=== PATIENT | male | born 1945 | race Caucasian/White ===

== ENCOUNTER 2017-10-20 01:55 | Inpatient (IN) | payer BC, MEDICARE, SELFPAY ==
[2017-10-20] VITALS (17 sets, daily range): BP systolic 154–191; BP diastolic 78–98; PULSE 60–84; RESP 18–23; TEMP 36.5–36.9; O2SAT 83–98; BMI 23.3; BMI 22.5; BMI 22.6
--- NOTE | 2017-10-20 02:19 | EKG12_ITS ---
Test Reason : SOB Blood Pressure : / mmHG Vent. Rate : 065 BPM Atrial Rate : 065 BPM P-R Int : 172 ms QRS Dur : 104 ms QT Int : 446 ms P-R-T Axes : 061 063 108 degrees QTc Int : 463 ms Normal sinus rhythm ST & T wave abnormality, consider lateral ischemia Prolonged QT Abnormal ECG Confirmed by RENATA SAMSON, JAIDEN ([id number]), material expeditor MARCELINA SANTIAGO ([id number]) on 10/22/2017 3:51:00 PM Referred By: BB Confirmed By:JAIDEN YANEZ MD
--- NOTE | 2017-10-20 02:20 | ED.VISSUMM ---
- ER Visit Summary Date of Service: 10/20/17 Chief Complaint: Shortness of breath History of Present Illness: The patient is a 71 M with 2-3 days gradual onset and worsening dyspnea. Better tonight after he used a rescue inhaler, but still dyspneic. No chest discomfort or tightness. No orthopnea, but he is worse with exertion and exposure to the cold air. No peripheral swelling. Has a history of COPD but is on no home oxygen. 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 Had a cardiac stent placed remotely. Physical Examination: Hypoxic at 82% on room air, 95% on 4 L nasal cannula. Otherwise vital signs show hypertension 191/98 initially, 179 systolic on my exam. He is not tachycardic. He is tachypneic and in mild respiratory distress but is able to speak in 5-7 word sentences. Lungs are wheezy and rhonchorous throughout, a little worse on the right. Trachea midline. Heart is regular with a 3/6 systolic ejection murmur. Abdomen is soft nontender nondistended with normal bowel sounds present. No peripheral edema or calf tenderness. No JVD. Test Results: Labs show renal insufficiency, there is no old creatinine available; his proBNP is only in the 300s, which is within normal limits for a patient of this age; no leukocytosis or elevated troponin. EKG is unremarkable. Chest x-ray on my interpretation shows bilateral patchy infiltrates and borderline cardiomegaly. Emergency Department Course and Treatment: After nebulizer treatment series, he feels much better. On reexamination, his wheezing is gone, however he still has rales bilaterally. I suspect his chest x-ray represents an atypical pneumonia, rather than congestive heart failure due to his valve, which I suspect is aortic stenosis but I do not have the results of any of the echocardiograms he has had in the past. I turned his oxygen off, he is stable at 90% on room air. I think he should be admitted for further treatment. Empiric Levaquin given, no recent hospital admissions in the past several months. His influenza swab is negative. Discussed with hospitalist. Will also give Solu-Medrol. Treatment Plan: Antibiotics, admit Disposition: Admit MedSurg Impression: Community-acquired pneumonia Hypoxemia Acute COPD exacerbation This note was generated with [employer] dictation software. It may contain incorrect words, spelling, and punctuation that were not noted in review of the chart prior to signing ED Disposition - Plan for ED Patient: Disposition: Acute Care Hospital [facility] Chief Complaint: Shortness of Breath Referrals: Yeison Maynard MD [Primary Care Provider] -
[2017-10-20] MEDS: Ipratropium/Albuterol Sulfate 3 ML AMPUL.NEB INHALATION (02:27)
[2017-10-20] MEDS: Albuterol 2.5 MG/3 ML VIAL.NEB. INHALATION ×3 (02:27→02:54)
[2017-10-20 02:37] LABS: Absolute Neutrophil Count 5.4 X10^3/uL (2.0-7.7); Basophil# 0.02 X10^3/uL; Basophil% 0.3 % (0-1); Eosinophil# 0.21 X10^3/uL; Eosinophils% 2.7 % (0-5); Hemoglobin 12.4 g/dl (13.0-16.5); Lymphocyte % 22.1 % (19-41); Mean Corp Hgb Conc 32.6 g/gl (32-36); Mean Corpuscular Hgb 27.2 pg (27.0-32.0); Mean Corpuscular Volume 83.3 fL (80-94); Monocyte# 0.37 X10^3/uL; Monocyte% 4.8 % (0-10); Neutrophil # 5.39 X10^3/uL (2.7-7.7); Neutrophil % 70.1 % (47-70); Platelet Count 166 K/mm3 (150-450); RBC Distribution Width CV 14.2 % (11.6-14.6); RBC Distribution Width SD 43.1 fl (35.1-43.9); Red Blood Count 4.56 M/mm3 (4.6-6.2); White Blood Count 7.7 K/mm3 (4.4-11.0)
[2017-10-20 02:39] LABS: POSITIVE COUNT NO; POSITIVE DIFFERENTIAL NO; POSITIVE MORPHOLOGY NO
[2017-10-20 02:55] LABS: Anion Gap 9 (5-15); BUN 20 mg/dL (7-18); BUN/Creat Ratio 13.2 RATIO (10-20); Calcium,Total 8.5 mg/dL (8.5-10.1); Chloride 106 mmol/L (98-107); Creatinine, Serum 1.51 mg/dL (0.70-1.30); EST Glomerular Filtration Rate 49 mL/min (>60); Est Glom Filt Rate - Afr Amer 59 mL/min (>60); Estimated Creatinine Clearance 53.68 ml/min; Glucose 115 mg/dL (74-106); Sodium Level 142 mmol/L (136-145)
[2017-10-20 03:08] LABS: BNP,B-Type NATRIURETIC PEPTIDE 382.5 pg/mL (0-100)
--- NOTE | 2017-10-20 03:15 | RAD_ITS ---
STUDY: X-RAY CHEST REASON FOR EXAM: Male, 71 years old. Shortness of breath. Dyspnea. TECHNIQUE: Frontal and lateral views of the chest. COMPARISON: None. FINDINGS: There is hyperinflation of the lungs consistent with chronic obstructive lung disease (COPD). There is diffuse interstitial prominence in the lungs. This probably represent a combination of chronic interstitial lung disease and acute CHF. There is a small right pleural effusion. There is mild cardiac enlargement. Normal mediastinum and dennis. Normal visualized pulmonary arteries. Normal visualized aortic arch and descending thoracic aorta. There are diffuse degenerative changes of the visualized thoracic spine. Normal visualized ribs, clavicles, and shoulders. There is no demonstrated abnormality of the visualized soft tissue structures of the upper abdomen. RAD/Chest PA and Lateral IMPRESSION: COPD with evidence for chronic interstitial lung disease. Cardiomegaly without acute CHF and small right pleural effusion. Electronically Signed: Philip Meza MD at 5:03 EST , Service support ,
[2017-10-20] MEDS: MethylPREDNISolone 125 MG/2 ML Vial IV (04:29)
--- NOTE | 2017-10-20 04:42 | PCM.HP.STD ---
Problem List (1) HTN (hypertension) Status: Chronic (2) COPD (chronic obstructive pulmonary disease) Status: Acute (3) CAP (community acquired pneumonia) Status: Acute History of Present Illness Date of Admission: 10/20/17 Chief Complaint: CAP The patient is a 71 year old male w/ h/o COPD and HTN admitted for CAP. Pt has been SOB since Saturday when walking out in the cold air. SOB has gotten progressively worse. He feels SOB most part of the day for the past few days. SOB is severe that it interfered with his ADLs. He has minimal cough associated wit the SOB. The intensity and frequency of the cough have been unchanged. Cough is productive. He has no fever or chill. No other associated symptoms. Past Medical History Past Medical History (Chronic Problems): Chronic Problems HTN (hypertension) (Chronic) Allergies No Known Allergies Allergy (Verified 10/20/17 01:59) Home Medications: Ambulatory Orders Medication Instructions Recorded Albuterol IH (ProAir) [Proair Hfa 1 - 2 puff INHALATION Q4H PRN PRN 10/20/17 (SP)Vent Pts] Atorvastatin Calcium 40 mg PO DAILY 10/20/17 Levothyroxine 75 mcg PO DAILY 10/20/17 Lisinopril 20 mg PO DAILY 10/20/17 Metoprolol Tartrate 50 mg PO BID 10/20/17 Niacin 500 mg PO DAILY 10/20/17 Lives: With Family Smoking Status: Former smoker Alcohol: None Drugs: None - *Family History Maternal History Items: No pertinent history Review of Systems Constitutional: Denies: Chills, Fever, Weight Change HEENT: Denies: Head Aches, Sinus Congestion, Sinus Drainage Cardiovascular: Denies: Chest Pain, Palpitations Respiratory: Reports: Cough, Shortness of Breath, Sputum production. Denies: Shortness of breath at rest Gastrointestinal: Denies: Abdominal Pain, Nausea, Vomiting Genitourinary: Denies: Dysuria Musculoskeletal: Denies: Joint Pain, Joint Tenderness Skin: Denies: Rash, Wounds Neurological: Denies: Numbness, Tingling, Focal weakness Psychiatric: Denies: Anxiety, Depression, Homicidal Ideations, Suicidal Ideations Hematologic/ Lymphatic: Denies: Easy Bruising, Easy Bleeding VTE Information - Inpt Only VTE Present on Admission: No VTE Mechan Device Prophylaxis: SCD's VTE Pharm Prophylaxis ordered?: Yes Patient Problems: Active and Suspected Problems COPD (chronic obstructive pulmonary disease) (Acute) CAP (community acquired pneumonia) (Acute) - Physical Exam General: Alert, Oriented x3, Cooperative HEENT: Atraumatic, PERRLA, EOMI, Normocephalic Neck: Supple, No JVD, Negative Carotid Bruits Lungs: Rales, Wheezes Cardiovascular: Regular rate, No murmurs Abdomen: Bowel Sounds Present, Soft, Non Tender Extremities: No edema, Capillary Refill Less than 3 Seconds Skin: No rashes, No breakdown Musculoskeletal: No Tenderness to Palpation of Joints or Extremities Neurological: Cranial nerves II-XII grossly intact Psych/Mental Status: Normal Affect, Appropriate Vital Signs Temp Pulse Resp BP Pulse Ox 97.7 F L 73 18 164/86 H 96 10/20/17 01:56 10/20/17 04:34 10/20/17 04:34 10/20/17 04:34 10/20/17 04:34 Oxygen Flow Rate 2 Oxygen Delivery Method Nasal Cannula Weight: 82.6 kg Body Mass Index (BMI) 23.3 Microbiology Past 72 Hours 10/20/17 02:30 Influenza Types A,B Direct FA (ALEXA) - Final Mucosa - Nose Laboratory Tests Past 24 Hrs 10/20/17 10/20/17 10/20/17 02:10 02:10 02:10 WBC 7.7 RBC 4.56 L Hgb 12.4 L Hct 38.0 L MCV 83.3 MCH 27.2 MCHC 32.6 RDW 14.2 RDW Differential 43.1 Plt Count 166 MPV 10.0 Immature Gran % (Auto) 0.000 Neut % (Auto) 70.1 H Lymph % (Auto) 22.1 [place] % (Auto) 4.8 Eos % (Auto) 2.7 Baso % (Auto) 0.3 Absolute Neuts (auto) 5.4 Absolute Lymphs (auto) 1.70 Total Counted Not Reportable Sodium 142 Potassium 4.0 Chloride 106 Carbon Dioxide 27.0 Anion Gap 9 BUN 20 H Creatinine 1.51 H Estim Creat Clear Calc 53.68 Est GFR (MDRD) Af Amer 59 L Est GFR (MDRD) Non-Af 49 L BUN/Creatinine Ratio 13.2 Glucose 115 H Calcium 8.5 Troponin I 0.02 B-Natriuretic Peptide 382.5 H Assessment/Plan Active and Suspected Problems COPD (chronic obstructive pulmonary disease) (Acute) CAP (community acquired pneumonia) (Acute) 71 year old male w/ h/o COPD and HTN admitted for CAP. 1) Acute on chronic COPD exacerbation: Most likely secondary to CAP. C/w solumedrol, ceftriaxone, azithromycin, and bronchodilator. C/w chest therapy. Cultures pending. 2) Acute hypoxic respiratory failure: Likely CAP. Chest xray disclosed possible right lower lobe atelectasis vs infiltrate. BNP 380s noted. No e/o severe or gross congestion. Will consider PE if no improvement. D-dimer pending. 3) Chronic issues: HTN, lipidemia: Resume home meds. 4) Prophylaxis: SCD / heparin.
[2017-10-20] MEDS: Metoprolol Tartrate 50 MG Tablet PO ×2 (06:24→22:46)
[2017-10-20] MEDS: Levothyroxine 75 MCG Tablet PO (06:24)
[2017-10-20 07:21] LABS: Absolute Lymphocyte Count 0.51 X10^3/ul (0.83-4.51); Absolute Neutrophil Count 9.3 X10^3/uL (2.0-7.7); Basophil# 0.01 X10^3/uL; Basophil% 0.1 % (0-1); Eosinophil# 0.01 X10^3/uL; Eosinophils% 0.1 % (0-5); Hematocrit 36.8 % (40-54); Hemoglobin 12.1 g/dl (13.0-16.5); Lymphocyte # 0.51 X10^3/ul (4.0); Mean Corp Hgb Conc 32.9 g/gl (32-36); Mean Corpuscular Hgb 27.1 pg (27.0-32.0); Mean Corpuscular Volume 82.3 fL (80-94); Mean Platelet Vol. 10.2 fl (6.2-12.0); Monocyte# 0.26 X10^3/uL; Monocyte% 2.6 % (0-10); Neutrophil # 9.33 X10^3/uL (2.7-7.7); Neutrophil % 92.1 % (47-70); Platelet Count 164 K/mm3 (150-450); RBC Distribution Width CV 14.1 % (11.6-14.6); RBC Distribution Width SD 42.3 fl (35.1-43.9); Red Blood Count 4.47 M/mm3 (4.6-6.2); White Blood Count 10.1 K/mm3 (4.4-11.0)
[2017-10-20 07:22] LABS: Differential Indicated SCAN CRITERIA MET; POSITIVE COUNT NO; POSITIVE DIFFERENTIAL YES; POSITIVE MORPHOLOGY NO
[2017-10-20] MEDS: Ceftriaxone 1 GM/50 ML BAG IV (07:23)
[2017-10-20 07:34] LABS: D-Dimer Quantitative (DVT/PE) 0.93 FEU/ug/m (0.27-0.49)
--- NOTE | 2017-10-20 07:34 | PCM.PN.BLA ---
Progress Note Patient is a 71-year-old gentleman admitted with progressive shortness of breath imaging studies obtained on admission demonstrated COPD with evidence for chronic interstitial lung disease. Cardiomegaly without acute CHF and small right pleural effusion. Assessment of COPD exacerbation made admitted to regular nursing floor for subsequent management Patient is being seen and examined, his initial assessment including history and physical, diagnostic workup as well as management orders reviewed Patient was noted to have elevated d-dimer ordered VQ scan as well as venous duplex and a therapeutic dose of Lovenox given
[2017-10-20 08:27] LABS: ALB/GLOB Ratio 0.7 RATIO (0.9-2.4); AST(SGOT) 25 U/L (15-37); Alanine Aminotransfer ALT/SGPT 23 U/L (16-61); Albumin, Serum 3.1 g/dL (3.2-5.0); Alkaline Phosphatase 128 U/L (45-117); Anion Gap 11 (5-15); BUN 18 mg/dL (7-18); BUN/Creat Ratio 12.8 RATIO (10-20); Calcium,Total 7.8 mg/dL (8.5-10.1); Chloride 106 mmol/L (98-107); Creatinine, Serum 1.41 mg/dL (0.70-1.30); EST Glomerular Filtration Rate 53 mL/min (>60); Est Glom Filt Rate - Afr Amer 64 mL/min (>60); Estimated Creatinine Clearance 55.74 ml/min; Globulin 4.5 g/dL (2.2-4.2); Glucose 129 mg/dL (74-106); Potassium 3.4 mmol/L (3.5-5.1); Protein, Total 7.6 g/dL (6.4-8.2); Sodium Level 139 mmol/L (136-145)
[2017-10-20] MEDS: Lisinopril 20 MG Tablet PO (09:34)
[2017-10-20 10:11] LABS: Color, Urine Yellow (Yellow); Glucose, Dipstick Normal (Normal); Ketone-Dipstick Negative (Negative); Leukocyte Esterase-Dipstick Negative /ul (Negative); Nitrite-Dipstick Negative (Negative); Occult Blood-Urine 25 /ul (Negative); Protein-Dipstick 100 mg/dl (Negative); Specific Gravity, Urine 1.015 (1.002-1.030); Urine Bilirubin Dipstick Negative (Negative); Urine Clarity Clear (Clear); Urine Urobilinogen Normal (Normal)
--- NOTE | 2017-10-20 10:39 | NM_ITS ---
CLINICAL: 72-year-old male with reported history of shortness of breath. VENTILATION-PERFUSION LUNG SCINTIGRAPHY COMPARISON: Plain film chest radiograph report 10/20/2017 FINDINGS: The patient was administered 48.8 mCi 99m Tc DTPA aerosol. The aerosol ventilation study demonstrates heterogeneous ventilation in the bilateral lung partida without corresponding consolidative radiographic changes visualized on review of plain film chest x-ray dated 10/20/2017. Central clumping of the aerosol is identified in the bilateral hemithorax (L > R). Following the intravenous administration of 5.7 mCi of 99m Tc MAA, the pulmonary perfusion study reveals matching non-uniform perfusion in the right and left lungs correlating with the previously defined ventilation pattern. No moderate subsegmental or large segmental ventilation-perfusion mismatches are noted. NM/Lung Scan Vent/Perf IMPRESSION: 1. VERY LOW PROBABILITY FOR PULMONARY EMBOLUS (<10%) 99m Tc DTPA aerosol ventilation / 99m Tc MAA pulmonary perfusion imaging examination, according to PIOPED II interpretive criteria with regard given to the presence of > 2 ventilation-perfusion matches without corresponding radiographic changes. (Sotsman et al, Radiology 246: 941, 2008 Soruddy et al, J Nucl Med 49: 1741, 2008). 2. Central clumping of the aerosol may be secondary to obstructive airway mechanics and or clinical tachypnea. Electronically Signed: Dawit Fitzpatrick DO at 13:44 EST Tel , Service support ,
--- NOTE | 2017-10-20 10:39 | VDLE_ITS ---
Reason For Study: Elevated D-dimer RIGHT LEFT GSV is normal. GSV is normal. CFV is compressible, spontaneous, phasic, CFV is compressible, spontaneous, phasic, competent and demonstrates normal competent, and demonstrates normal augmentation. augmentation. FV is compressible, spontaneous, phasic, FV is compressible, spontaneous, phasic, competent and demonstrates normal competent and demonstrates normal augmentation. augmentation. POP V is compressible, spontaneous, phasic, POP V is compressible, spontaneous, phasic, competent and demonstrates normal competent and demonstrates normal augmentation. augmentation. T/P Trunk is compressible. T/P Trunk is compressible. PTV is compressible. PTV is compressible. RT PerV is compressible. LT PerV is compressible. Procedure Exam performed portable in patient room. The exam was diagnostic. A preliminary report was called and/or faxed to [facility] [employer] kiln charger. Interpretation Summary Deep veins of the lower extremities are bilaterally patent and compressible segmentally. There is no evidence of deep vein thrombosis on either side. Valvular competence appears intact within the proximal deep venous systems bilaterally. The greater saphenous veins appear bilaterally patent and compressible segmentally. Ordering Physician: Franco Lees Referring Physician: Yeison Maynard Performed By: Marlene Zhu, KLAUS, RVT
[2017-10-20 11:45] LABS: Bedside Glucose 165 mg/dL (70-110)
--- NOTE | 2017-10-20 12:04 | NURSING ---
rX NOTIFIED THERE IS NO LOVENOX IN ACCUDOSE, PLEASE SEND
[2017-10-20] MEDS: Enoxaparin 80 MG/0.8 ML Syringe SC (12:16)
[2017-10-20] MEDS: Atorvastatin Calcium 40 MG Tablet PO (22:47)
[2017-10-20] MEDS: Pantoprazole Sodium 40 MG Tablet PO (22:47)
[2017-10-21] VITALS (9 sets, daily range): BP systolic 149–153; BP diastolic 69–86; PULSE 51–69; RESP 16–18; TEMP 36.7–36.8; O2SAT 93–98
[2017-10-21] MEDS: Enoxaparin 30 MG/0.3 ML Syringe SC (05:48)
[2017-10-21] MEDS: Levothyroxine 75 MCG Tablet PO (05:48)
[2017-10-21] MEDS: Ceftriaxone 1 GM/50 ML BAG IV (09:20)
[2017-10-21] MEDS: Pantoprazole Sodium 40 MG Tablet PO (09:25)
[2017-10-21] MEDS: Metoprolol Tartrate 50 MG Tablet PO (09:25)
[2017-10-21] MEDS: Niacin SA 500 MG Tablet PO (09:25)
[2017-10-21] MEDS: Lisinopril 20 MG Tablet PO (09:25)
--- NOTE | 2017-10-21 11:15 | CASEMGMT ---
RN JOHN Face to Face with patient for initial transition planning/care coordination assessment. RN CM introduced self and role at [facility]. Patient lying in bed, alert and oriented. Patient willing to participate in assessment and is able to answer all questions appropriately. Care providers, pharmacy, and demographics verified. See link attached. Patient wishes to discharge home, denies need for home health at this time. Patient states he has no further needs or concerns at this time. CM to follow for discharge planning needs that may arise. Disposition Plan: Patient to discharge home with family support and follow-up plans in place.
--- NOTE | 2017-10-21 11:25 | PCA ---
pt off floor
--- NOTE | 2017-10-21 14:02 | PCM.DC ---
- Discharge Diagnoses Current Active Problems: Current Active and Chronic Problems HTN (hypertension) (Chronic) COPD (chronic obstructive pulmonary disease) (Acute) CAP (community acquired pneumonia) (Acute) You will use the following diet at home:: Regular Discharge Activity: Return to Normal Activity Allergies/Adverse Reactions: Allergies No Known Allergies Allergy (Verified 10/20/17 01:59) Medications to take at Discharge Albuterol IH (ProAir) [Proair Hfa] 1 - 2 puff INHALATION Q4H PRN PRN 10/20/17 Aspirin 325 mg PO DAILY 10/20/17 Atorvastatin Calcium 40 mg PO QHS 10/20/17 Levothyroxine 75 mcg PO DAILY 10/20/17 Lisinopril 20 mg PO DAILY 10/20/17 Metoprolol Tartrate 50 mg PO BID 10/20/17 Niacin 500 mg PO DAILY 10/20/17 Azithromycin [Zithromax] 250 mg PO DAILY #5 tab 10/21/17 Prednisone [Deltasone] 40 mg PO DAILY #10 tab 10/21/17 The following prescriptions were given: Azithromycin [Zithromax] 250 mg PO DAILY #5 tab Prednisone [Deltasone] 40 mg PO DAILY #10 tab Primary Care Physician: Yeison Maynard MD [Primary Care Provider] - In 1 Week Proposed Discharge Date: 10/21/17
--- NOTE | 2017-10-21 14:05 | PCM.DC.SUM ---
Discharge Date and Diagnosis Date of Admission: 10/20/17 Date of Discharge: 10/21/17 - Primary Discharge Diagnosis Active and Suspected Problems COPD (chronic obstructive pulmonary disease) (Acute) CAP (community acquired pneumonia) (Acute) - Secondary Discharge Diagnosis Chronic Problems HTN (hypertension) (Chronic) Hospital Course and Treatment Summary of Care Provided: The patient is a 71 M presented to the emergency room due to 3 days of gradual onset and worsening dyspnea. chest X-ray done in the emergency room was negative for pneumonia or congestive heart failure. Was placed on IV steroids, IV antibiotics and bronchodilators and admitted to the regular medical floor. He also underwent VQ scan and showed low probability for PE. Patient improved with treatment above, he was discharged home on prednisone, p.o. Zithromax and bronchodilators. He has a history of lung nodule which he follows up with his primary care physician. physical exam at the time of discharge; vital signs were stable. He was alert and oriented to time place and person. He did not appear to be any form of distress. S1 and S2 heard no murmur or gallop Lung exam was clear to auscultation with no adventitious sounds. Abdomen was soft nontender with normal bowel sounds. extremity exam did not reveal any edema, palpable pulses bilaterally. Neurologic exam was grossly intact. Discharge Diet: No Restrictions Discharge Activity: Return to Normal Activity Home Medications: Medications to take at Discharge Albuterol IH (ProAir) [Proair Hfa] 1 - 2 puff INHALATION Q4H PRN PRN 10/20/17 Aspirin 325 mg PO DAILY 10/20/17 Atorvastatin Calcium 40 mg PO QHS 10/20/17 Levothyroxine 75 mcg PO DAILY 10/20/17 Lisinopril 20 mg PO DAILY 10/20/17 Metoprolol Tartrate 50 mg PO BID 10/20/17 Niacin 500 mg PO DAILY 10/20/17 Azithromycin [Zithromax] 250 mg PO DAILY #5 tab 10/21/17 Prednisone [Deltasone] 40 mg PO DAILY #10 tab 10/21/17 Following Prescrptions Were Given to Patient: Azithromycin [Zithromax] 250 mg PO DAILY #5 tab Prednisone [Deltasone] 40 mg PO DAILY #10 tab Primary Care Physician: Yeison Maynard MD [Primary Care Provider] - In 1 Week Disposition: Home Patient Condition:: Good Meaningful Use Info Meaningful Use Diagnoses (Choose all that apply): None applicable Code Visit Inpatient E&M: 43219 Disch Hosp
--- NOTE | 2017-10-21 14:27 | CPS ---
patient does pep on own
== END 2017-10-21 15:31 | disposition home or self-care (01) | DRG 190 ==
LOC: ED 04:14 → MS3 04:43
PROVIDERS: Internal Medicine; Admitting Provider Internal Medicine; Emergency Provider Emergency Medicine; Family Provider Family Medicine; PCP Family Medicine; Visit Provider Internal Medicine
DX: J44.1 Chronic obstructive pulmonary disease with (acute) exacerbation (principal); J96.01 Acute respiratory failure with hypoxia; J90 Pleural effusion, not elsewhere classified; Z87.891 Personal history of nicotine dependence; I25.10 Atherosclerotic heart disease of native coronary artery without angina pectoris; Z95.9 Presence of cardiac and vascular implant and graft, unspecified; I10 Essential (primary) hypertension; Z79.51 Long term (current) use of inhaled steroids; E78.5 Hyperlipidemia, unspecified; I51.7 Cardiomegaly; R91.1 Solitary pulmonary nodule
CPT/HCPCS: 71046; 78582; 80048; 80053; 81002; 82962; 83880; 84484; 85025; 85379; 87040; 87070; 87205; 87449; 87804; 93005; 93970; 94640; 94667; 94668; 99285; A9540; A9567; J7040; A4216

== ENCOUNTER → 2017-12-06 16:22 | Outpatient (CLI) | payer BC, MEDICARE, SELFPAY ==
--- NOTE | 2017-12-06 09:30 | FLU_PTH ---
PATIENT: MANDI ESQUEDA LOC: [facility] U#:[id number] AGE/SX: 79/M ROOM: RE12/06/[address]: Dr. Joyce Lee MD : 1945 BED: DIS: SPEC #: [id number] RECD: 12/06/17 15:23 STATUS: ARI REMariluz #: [id number] MADI: 12/06/17 09:[address]: Joyce Lee DEPT: CYTOLOGY RECD BY: Bryan Monroy ENTERED: 12/09/17 11:28 SP TYPE: Fluid OTHR DR: Dr. Yeison Maynard MD Tissues: A - Thyroid gland, NOS B - Thyroid gland, NOS C - Thyroid gland, NOS D - Thyroid gland, NOS Procedures: Special Stain Group II Surgery Specimen Level IV Cytospin Fluid HEADER OPERATION: Ultrasound-guided fine needle aspiration of bilateral thyroid PRE-OP DIAGNOSIS: Bilateral thyroid nodules TISSUE SUBMITTED: A ? FNA right thyroid fluid for cytology, B ? FNA right thyroid slides (6), C - FNA left thyroid fluid for cytology, B ? FNA left thyroid slides (6) DIAGNOSIS CYTOLOGY A. Fine needle aspiration, right thyroid nodule (cytospin and cell block): Adequate for evaluation. Negative, consistent with benign follicular nodule. B. Fine needle aspiration, right thyroid nodule (smears): Adequate for evaluation. Negative, consistent with benign follicular nodule. C. Fine needle aspiration, left thyroid nodule (cytospin and cell block): Adequate for evaluation. Negative, consistent with benign follicular nodule. D. Fine needle aspiration, left thyroid nodule (smears): Adequate for evaluation. Negative, consistent with benign follicular nodule. AM:apolinar 12/10/17 CYTOLOGY STUDY Slides are reviewed. CYTOLOGY GROSS A - Received is 32 ml of clear, colorless fluid labeled with the patient's name and and designated per the requisition as right thyroid. Submitted for cytology preparation including cell block. B - Received are six smears labeled with the patient's name and designated per the requisition as right thyroid. Submitted for staining. C - Received is 32 ml of cloudy brown fluid labeled with the patient's name and and designated per the requisition as left thyroid. Submitted for cytology preparation including cell block. D - Received are six smears labeled with the patient's name and designated per the requisition as left thyroid. Submitted for staining. 12/09/17 TC:5 CPT: 33171 x2, 98950 x2, 07157 x2
== END ==
PROVIDERS: Family Provider Family Medicine; PCP Family Medicine; Visit Provider Surgery
DX: E04.1 Nontoxic single thyroid nodule (principal)
CPT/HCPCS: 88108; 88305; 88313

== ENCOUNTER 2018-08-04 10:23 | Day surgery (SDC) | payer BC, SELFPAY ==
[2018-08-04 11:14] VITALS: BP 183/76; PULSE 54; RESP 14; TEMP 36.6; O2SAT 99; BMI 22.3
--- NOTE | 2018-08-04 12:00 | COLBX_PTH ---
PATIENT: MANDI ESQUEDA LOC: [facility] U#:[id number] AGE/SX: 72/M ROOM: RE08/04/[address]: Dr. Joyce Lee MD : 1945 BED: DIS: 08/04/2018 SPEC #: [id number] RECD: 08/04/18 13:23 STATUS: ARI REMariluz #: [id number] MADI: 08/04/18 12:[address]: Joyce Lee DEPT: SURGICAL PATHOLOGY RECD BY: Demetri Olguin ENTERED: 08/04/18 13:36 SP TYPE: COLON BX OTHR DR: Dr. Yeison Maynard MD Tissues: Right colon Procedures: Surgery Specimen Level IV HEADER OPERATION: Colonoscopy (MAC) PRE-OP DIAGNOSIS: Screening for colon cancer TISSUE SUBMITTED: Polyp right colon MICROSCOPIC DIAGNOSIS Polyp, right colon, biopsy: Consistent with inflammatory polyp. SJ:apolinar 08/05/18 MICROSCOPIC DESCRIPTION Slides are reviewed. GROSS DESCRIPTION Received in fixative is one container labeled with the patient's name and designated polyp right colon. The specimen consists of two irregular fragments of light martini soft tissue that in aggregate measure 1 x 0.6 x 0.1 cm. The specimen is totally submitted in one cassette. / AM:apolinar 08/04/18 TC:5 CPT: 28476
[2018-08-04 12:30] VITALS: BP 131/74; BP 183/76; PULSE 52; RESP 16; TEMP 36.6; O2SAT 100
--- NOTE | 2018-08-04 12:33 | OP.ENDO_ITS ---
Patient Name: Mynor Mckeon Procedure Date: 08/04/2018 11:41 AM Date of : 1945 Age: 72 Procedure: Colonoscopy Indications: High risk colon cancer surveillance: Personal history of colonic polyps Providers: Joyce Lee MD Referring MD: Yeison Maynard Medicines: See the Anesthesia note for documentation of the administered medications Patient Profile: Refer to note in patient chart for documentation of history and physical. Refer to note in patient chart for documentation of history and physical. Last Colonoscopy: 3 years ago. Complications: No immediate complications. Procedure: Pre-Anesthesia Assessment: - Prior to the procedure, a History and Physical was performed, and patient medications and allergies were reviewed. The patient is competent. The risks and benefits of the procedure and the sedation options and risks were discussed with the patient. All questions were answered and informed consent was obtained. Patient identification and proposed procedure were verified by the physician in the pre-procedure area. Mental Status Examination: alert and oriented. Airway Examination: normal oropharyngeal airway and neck mobility. Respiratory Examination: clear to auscultation. CV Examination: normal. ASA Grade Assessment: II - A patient with mild systemic disease. After reviewing the risks and benefits, the patient was deemed in satisfactory condition to undergo the procedure. The anesthesia plan was to use monitored anesthesia care (MAC). Immediately prior to administration of medications, the patient was re-assessed for adequacy to receive sedatives. The heart rate, respiratory rate, oxygen saturations, blood pressure, adequacy of pulmonary ventilation, and response to care were monitored throughout the procedure. The physical status of the patient was re-assessed after the procedure. After I obtained informed consent, the scope was passed under direct vision. Throughout the procedure, the patient's blood pressure, pulse, and oxygen saturations were monitored continuously. The Colonoscope was introduced through the anus and advanced to the cecum, identified by appendiceal orifice and ileocecal valve. The colonoscopy was performed without difficulty. The patient tolerated the procedure well. The quality of the bowel preparation was adequate. Scope In: 12:05:14 PM Scope Withdrawal Time 0 hours 18 minutes 13 seconds Scope Out: 12:26:28 PM Total Procedure Duration Time 0 hours 21 minutes 14 seconds Findings: The perianal and digital rectal examinations were normal. Pertinent negatives include normal sphincter tone. A few small-mouthed diverticula were found in the sigmoid colon. Non-bleeding internal hemorrhoids were found. A 5 to 10 mm polyp was found in the ascending colon. The polyp was sessile. The polyp was removed with a hot snare. Resection and retrieval were complete. Verification of patient identification for the specimen was done by the nurse. Estimated blood loss: none. Impression: - Diverticulosis in the sigmoid colon. - Non-bleeding internal hemorrhoids. - One 5 to 10 mm polyp in the ascending colon, removed with a hot snare. Resected and retrieved. Recommendation: - Repeat colonoscopy date to be determined after pending pathology results are reviewed for surveillance based on pathology results. - My office will telephone with pathology results in 1-2 weeks. - Continue present medications. Procedure Code(s): --- Professional --- 25352, Colonoscopy, flexible; with removal of tumor(s), polyp(s), or other lesion(s) by snare technique Diagnosis Code(s): --- Professional --- Z86.010, Personal history of colonic polyps K64.8, Other hemorrhoids D12.2, Benign neoplasm of ascending colon K57.30, Diverticulosis of large intestine without perforation or abscess without bleeding CPT copyright 2017 [employer]. All rights reserved. The codes documented in this report are preliminary and upon licensed electrician review may be revised to meet current compliance requirements. MD Joyce Issa MD 08/04/2018 12:33:15 PM This report has been signed electronically. Number of Addenda: 0 Note Initiated On: 08/04/2018 11:41 AM
[2018-08-04 12:35] VITALS: BP 144/77; BP 183/76; PULSE 51; RESP 16; O2SAT 98
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
[2018-08-04 12:40] VITALS: BP 157/81; BP 183/76; PULSE 52; RESP 16; O2SAT 98
[2018-08-04 12:45] VITALS: BP 168/72; BP 183/76; PULSE 56; RESP 16; TEMP 36.7; O2SAT 98
[2018-08-04 13:04] VITALS: BP 183/76
--- OUTSIDE RECORDS SUMMARY | 2018-11-05 23:29 | XMS RPT_ITS ---
:1945 Author Organization OHIP Support Name Relationship Address Phone EUFEMIA ESQUEDA Unavailable [address] + [place] [address] R Unavailable Unavailable Unavailable ESQUEDA, EUFEMIA Unavailable [address] + [place] [address] R Unavailable Unavailable Unavailable ESQUEDA, EUFEMIA Unavailable [address] + [place] [address] R Unavailable Unavailable Unavailable ESQUEDA, EUFEMIA Unavailable [address] + [place] [address] R Unavailable Unavailable Unavailable ESQUEDA, EUFEMIA Unavailable [address] + [place] [address] R Unavailable Unavailable Unavailable ESQUEDA, EUFEMIA Unavailable [address] + [place] [address] R Unavailable Unavailable Unavailable ESQUEDA, EUFEMIA Unavailable [address] + [place] [address] R Unavailable Unavailable Unavailable ESQUEDA, EUFEMIA Unavailable [address] + [place] [address] R Unavailable Unavailable Unavailable ESQUEDA, EUFEMIA Unavailable [address] + [place] [address] R Unavailable Unavailable Unavailable ESQUEDA, EUFEMIA Unavailable [address] + [place] [address] R Unavailable Unavailable Unavailable ESQUEDA, EUFEMIA Unavailable [address] + [place] [address] R Unavailable Unavailable Unavailable ESQUEDA, EUFEMIA Unavailable [address] + [place] [address] R Unavailable Unavailable Unavailable ESQUEDA, EUFEMIA Unavailable [address] + [place] [address] R Unavailable Unavailable Unavailable ESQUEDA, EUFEMIA Unavailable [address] + [place] [address] R Unavailable Unavailable Unavailable YIN, EUFEMIA Unavailable [address] + [place] [address] R Unavailable Unavailable Unavailable ESQUEDA, EUFEMIA Unavailable [address] + [place] [address] R Unavailable Unavailable Unavailable ESQUEDA, EUFEMIA Unavailable [address] + [place] [address] R Unavailable Unavailable Unavailable ESQUEDA, EUFEMIA Unavailable [address] + [place] [address] R Unavailable Unavailable Unavailable Care Team Providers Name Role Phone YEISON ROWE Referring Unavailable YEISON ROWE Attending Unavailable YEISON ROWE Referring Unavailable CHRISTINA WAGNER ([facility]) Referring Unavailable CHRISTINA WAGNER ([facility]) Referring Unavailable JOYCE LEE Attending Unavailable CHRISTINA WAGNER ([facility]) Referring Unavailable JOYCE LEE Attending Unavailable YEISON ROWE Referring Unavailable LUL GRIFFIN Referring Unavailable YEISON ROWE Attending Unavailable YEISON ROWE Referring Unavailable YEISON ROWE Referring Unavailable YEISON ROWE Referring Unavailable Gaby ROBLES ([facility]) Attending Unavailable Gaby ROBLES (PA-C) Referring Unavailable LUL GRIFFIN Attending Unavailable LUL GRIFFIN Referring Unavailable Gaby ROBLES ([facility]) Referring Unavailable LUL GRIFFIN Referring Unavailable Gaby ROBLES (PA-C) Referring Unavailable LUL GRIFFIN Referring Unavailable LUL GRIFFIN Attending Unavailable LUL GRIFFIN Referring Unavailable [facility] Unavailable Ashelfah, Ghasem Admitting Unavailable Dawit Lewis Consulting Unavailable Estevan Silva Attending Unavailable Phill Kearns Consulting Unavailable Sumeet Cherry Consulting Unavailable Ashelfah, Ghasem Admitting Unavailable Ashelfah, Ghasem Attending Unavailable [facility] Unavailable Ashelfah, Ghasem Consulting Unavailable Ashelfah, Ghasem Admitting Unavailable Estevan Silva Attending Unavailable [facility] Unavailable Dawit Lewsi Consulting Unavailable Estevan Silva Consulting Unavailable Ashelfah, Ghasem Admitting Unavailable Uriel Paez Attending Unavailable [facility] Unavailable Joshua, Dawit Consulting Unavailable Lizandro, Sumeet Consulting Unavailable Kotsonis, Estevan F Consulting Unavailable Ashelfah, Ghasem Admitting Unavailable Sumeet Cherry Attending Unavailable [facility] Unavailable Joshua, Dawit Consulting Unavailable Lizandro, Sumeet Consulting Unavailable Kotsonis, Estevan F Consulting Unavailable Ashelfah, Ghasem Admitting Unavailable Sumeet Cherry Attending Unavailable [facility] Unavailable Joshua, Dawit Consulting Unavailable Lizandro, Sumeet Consulting Unavailable Karimian, Phill Consulting Unavailable Kotsonis, Estevan F Consulting Unavailable Ashelfah, Ghasem Admitting Unavailable Kotsonikaren, Estevan F Attending Unavailable [facility] Unavailable Joshua, Dawit Consulting Unavailable Lizandro, Sumeet Consulting Unavailable Karimian, Phill Consulting Unavailable Kotsonis, Estevan F Consulting Unavailable Ashelfah, Ghasem Admitting Unavailable Sumeet Cherry Attending Unavailable [facility] Unavailable Joshua, Dawit Consulting Unavailable Lizandro, Sumeet Consulting Unavailable Karimian, Phill Consulting Unavailable Kotsonis, Estevan F Consulting Unavailable Ashelfah, Ghasem Admitting Unavailable Kotsonis, Estevan F Attending Unavailable [facility] Unavailable Joshua, Dawit Consulting Unavailable Lizandro, Sumeet Consulting Unavailable Karimian, Phill Consulting Unavailable Kotsonis, Estevan F Consulting Unavailable Kotsonis, Estevan F Attending Unavailable Kotsonis, Estevan F Referring Unavailable [facility] Unavailable Karimian, Phill Attending Unavailable Sherry Pacekr Referring Unavailable Ld Mauricio Attending Unavailable Ashelfah, Ghasem Referring Unavailable Gaby Robles Attending Unavailable Gaby Robles Referring Unavailable [facility] Unavailable [facility] Unavailable Rosa, Constantino Admitting Unavailable José Miguel Scruggs Attending Unavailable Rosa, Constantino Admitting Unavailable [facility] Unavailable Rosa, Constantino Consulting Unavailable Roberto Munroe Attending Unavailable Rosa, Constantino Admitting Unavailable [facility] Unavailable Gbaruk, Kombian Consulting Unavailable Valentina Davies Attending Unavailable Joyce Lee Attending Unavailable [facility] Unavailable Joyce Lee Referring Unavailable Joyce Lee Attending Unavailable Yeison Rowe Primary Care Unavailable Yeison Rowe Referring Unavailable LUL GRIFFIN Attending Unavailable LUL GRIFFIN Referring Unavailable Yeison Rowe MD Primary Care Unavailable LUL GRIFFIN Attending Unavailable LUL GIRFFIN Referring Unavailable Yeison Rowe MD Primary Care Unavailable PROBLEMS PROBLEMS DATE TYPE CONDITION / CODE ATTENDING STATUS SOURCE Active Paroxysmal atrial NA Active [facility] fibrillation / [facility] Main I48.0(ICD-10) [facility] Active Acute posthemorrhagic NA Active [facility] anemia / D62(ICD-10) [facility] Active Other specified NA Active [facility] abnormal findings of Clinic Main blood chemistry / [facility] R79.89(ICD-10) Repository Active Pleural effusion, not NA Active [facility] elsewhere classified / Clinic Main J90(ICD-10) [facility] Active 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) / [facility] D50.0(ICD-10) Repository Unknown R94.31 - Abnormal Ld Mauricio Active [place] [facility] electrocardiogram Community [ECG] [EKG] / Hospital R94.31(ICD-10) Repository Unknown I48.0 - Paroxysmal Ld Mauricio Active [place] [facility] atrial fibrillation / Community I48.0(ICD-10) Hospital Repository Unknown I13.0 - Hypertensive Ld Mauricio Active [place] [facility] heart and chronic Community kidney disease with Hospital heart failure and Repository stage 1 through stage 4 chronic kidney disease, or unspecified chronic kidney disease / I13.0(ICD-10) Unknown I25.10 - Ld Mauricio Active [place] 9 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 / I25.10(ICD-10) Active Wheezing / NA Active [facility] R06.2(ICD-10) Clinic Main [facility] Active Shortness of breath / NA Active [facility] R06.02(ICD-10) Clinic Main [facility] Active Atherosclerotic heart NA Active [facility] 8 disease of chilkat [facility] Main coronary artery [facility] without angina Repository pectoris / I25.10(ICD-10) Active Essential (primary) NA Active [facility] hypertension / Clinic Main I10(ICD-10) [facility] Active Dizziness and NA Active [facility] giddiness / Clinic Main R42(ICD-10) [facility] Admitting Unknown / UNK(Unknown) GABY, Active [facility] 8 diagnosis [facility] Repository Active 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 / Clinic Main E04.1(ICD-10) [facility] Active Other nonspecific NA Active [facility] abnormal finding of Clinic Main lung field / [facility] R91.8(ICD-10) Repository Active Anemia, unspecified / NA Active [facility] D64.9(ICD-10) [facility] Main [facility] Active Disorder of kidney and NA Active [facility] ureter, unspecified / Clinic Main N28.9(ICD-10) [facility] Unknown J18.9 - Pneumonia, Sementi, Active [place] [facility] unspecified organism / [facility] J18.9(ICD-10) Hospital Repository Active Hypothyroidism, NA Active [facility] unspecified / [facility] Main E03.9(ICD-10) [facility] PROCEDURES PROCEDURES No Procedure Records FoundRESULTS RESULTS CRISTOBAL Observed: 09/03/2018 Status: COMPLETED Source: [place] 12:00 AM [facility] REPOSITORY Telephone ([id number]) MYNOR ESQUEDA ([id number]) 1945 M Date Time Provider Department 09/03/18 YEISON ROWEWS During your visit today, we recorded the following information about you: Anita Parmar, RN, RN 09/03/2018 9:29 AM Signed [employer] calls, stating in-lab sleep study is being denied due to not having enough evidence as to why a in-home sleep study can not be done. Peer to peer can be called [phone] ([id number]), using pt member ID as case # or orders for in-home sleep study can be submitted. Yeison Rowe MD 09/03/2018 9:57 AM Signed ? Are they checking the right thing. He is scheduled for a cpap titration which is a test that is never done as an outpatient unless we do an autopap device. That makes no sense Salima Whaley LPN 09/03/2018 4:11 PM Signed Patient has not had PSG done and is not scheduled for titration yet. Malina states that 08/20/18 note indicates patient has CHF and COPD those to things do not make him a candidate for HST and needs to be done in lab. Ok to call insurance and notify them of CHF and COPD these are not on problem list for patient. Yeison Rowe MD 09/03/2018 4:16 PM Signed Ok to do, added to problem list Salima Whaley LPN 09/04/2018 9:43 AM Signed Called and left message with appeal line for call back to add the diagnosis as reasoning for not dong home sleep study. Gaby Johnson RN 09/04/2018 12:29 PM Signed Tara- appeals nurse- [facility]- asking Salima to return call regarding appeal for sleep study. Salima Whaley LPN 09/04/2018 3:46 PM Signed Left detailed message for Tara. Kalpana Warren LPN 09/04/2018 4:01 PM Signed Tara an Appeals nurse calls back stating they cannot take any verbal information for appeals it all has to be faxed. Tara advises to fax: any supporting documentation, OV notes, labs, ect. Also a letter of necessity from with any information that might not be in OV notes. This information needs to be faxed to: [phone] Att: [employer] Appeals. On cover sheet it needs to have pt.s Name, , and Insurance ID. This has to be faxed before , 09/10/18. Tara's number for any questions: [phone] Ext: [phone]. Kalpana Johnson Ma 09/04/2018 5:00 PM Signed Last OV faxed to given fax number. Leonor Pantoja LPN 09/05/2018 4:28 PM Signed Tara called to let us know that testing has been approved and is effective immediately-10/30/2018. The approval # is [id number]. Allergies As of Date: 09/03/2018 (No Known Allergies) Date Reviewed: 08/25/2018 Reviewed by: Aileen Barth MA - Fully Assessed Reason for Visit: Sleep Study Needs Peer to Peer [Other] Visit Diagnosis:Chronic systolic CHF (congestive heart failure) (HCC) [I50.22] Prescriptions as of 09/03/2018 Sig: LISINOPRIL 10 MG TABLET Take 2 tablets by mouth once * ATORVASTATIN 80 MG TABLET Take 1 tablet by mouth once d* AMIODARONE 200 MG TABLET Take 1 tablet by mouth once d* METOPROLOL TARTRATE 25 MG TAB* Take 25 mg by mouth once katie* AMLODIPINE 5 MG TABLET Take 5 mg by mouth once daily. LEVOTHYROXINE 75 MCG TABLET TAKE 1 TABLET BY MOUTH DAILY * NIACIN ER 500 MG TABLET,EXTEN* TAKE 1 TABLET BY MOUTH EVERY * ALBUTEROL SULFATE HFA 90 MCG/* Inhale 2 Puffs as instructed * NITROGLYCERIN 0.4 MG SUBLINGU* Dissolve 1 tablet under the t* * VITAMIN B-12 ORAL Take 1 tablet by mouth daily * * VITAMIN D3 ORAL Take 1 tablet by mouth daily * * FOLIC ACID ORAL Take 1 tablet by mouth daily * * ASPIRIN 81 MG TABLET,DELAYED * Take 81 mg by mouth once katie* Problem List As Of Date 09/03/2018 Noted Resolved Hyperlipidemia [E78.5] Mitral regurgitation [I34.0] INVALID FOR* Aortic stenosis [I35.0] INVALID FOR* CAD S/P percutaneous coronary angioplasty [I25.*INVALID FOR* Benign neoplasm of colon [D12.6] INVALID FOR* Esophagitis, unspecified [K20.9] INVALID FOR* Depression [F32.9] INVALID FOR* Colon cancer screening [Z12.11] INVALID FOR*07/29/2015 Paroxysmal atrial fibrillation (HCC) [I48.0] INVALID FOR* Elevated troponin [R74.8] INVALID FOR* (HFpEF) heart failure with preserved ejection f*INVALID FOR* Colonoscopy causing post-procedural bleeding [K*INVALID FOR* Anemia due to blood loss [D50.0] INVALID FOR* COPD (chronic obstructive pulmonary disease) (H*INVALID FOR* Chronic systolic CHF (congestive heart failure)*INVALID FOR* Encounter Status:Closed by LEONOR JOHNSON MA on 09/04/18 OBSOLETE Observed: 09/01/2018 Status: COMPLETED Source: [place] 12:[address] [facility] REPOSITORY Refill (FAMPWS) MYNOR ESQUEDA ([id number]) 1945 M Date Time Provider Department 09/01/18 [facility]OWE [facility] During your visit today, we recorded the following information about you: Salima Whaley LPN 09/01/2018 12:41 PM Signed Patient has been identified by name and date of : Yes Pending Prescriptions Disp Refills LISINOPRIL 10 MG TABLET 60 tablet 5 Sig: Take 2 tablets by mouth once daily. LISA: No RX INSTRUCTIONS: Pharmacy initiated this request. No need to notify patient. Salima Judd CASTILLO Allergies As of Date: 09/01/2018 (No Known Allergies) Date Reviewed: 08/25/2018 Reviewed by: Aileen Barth MA - Fully Assessed Reason for Visit: Refill Request [94] Order(s):lisinopril (ZESTRIL, PRINIVIL) 10 mg tabletTake 2 tablets by mouth once daily.Disp: 60 tabletRfl: 5 Prescriptions as of 09/01/2018 Sig: LISINOPRIL 10 MG TABLET Take 2 tablets by mouth once * ATORVASTATIN 80 MG TABLET Take 1 tablet by mouth once d* AMIODARONE 200 MG TABLET Take 1 tablet by mouth once d* METOPROLOL TARTRATE 25 MG TAB* Take 25 mg by mouth once katie* AMLODIPINE 5 MG TABLET Take 5 mg by mouth once daily. LEVOTHYROXINE 75 MCG TABLET TAKE 1 TABLET BY MOUTH DAILY * NIACIN ER 500 MG TABLET,EXTEN* TAKE 1 TABLET BY MOUTH EVERY * ALBUTEROL SULFATE HFA 90 MCG/* Inhale 2 Puffs as instructed * NITROGLYCERIN 0.4 MG SUBLINGU* Dissolve 1 tablet under the t* * VITAMIN B-12 ORAL Take 1 tablet by mouth daily * * VITAMIN D3 ORAL Take 1 tablet by mouth daily * * FOLIC ACID ORAL Take 1 tablet by mouth daily * * ASPIRIN 81 MG TABLET,DELAYED * Take 81 mg by mouth once katie* Problem List As Of Date 09/01/2018 Noted Resolved Hyperlipidemia [E78.5] Mitral regurgitation [I34.0] INVALID FOR* Aortic stenosis [I35.0] INVALID FOR* CAD S/P percutaneous coronary angioplasty [I25.*INVALID FOR* Benign neoplasm of colon [D12.6] INVALID FOR* Esophagitis, unspecified [K20.9] INVALID FOR* Depression [F32.9] INVALID FOR* Colon cancer screening [Z12.11] INVALID FOR*07/29/2015 Paroxysmal atrial fibrillation (HCC) [I48.0] INVALID FOR* Elevated troponin [R74.8] INVALID FOR* (HFpEF) heart failure with preserved ejection f*INVALID FOR* Colonoscopy causing post-procedural bleeding [K*INVALID FOR* Anemia due to blood loss [D50.0] INVALID FOR* Prescriptions ordered this encounter Disp Refills Start End LISINOPRIL 10 MG TABLET 60 t* 5 09/01/2018 Route: ORAL Sig: Take 2 tablets by mouth once daily. Medications Discontinued During This Encounter lisinopril (ZESTRIL, PRINIVIL) 10 mg* 60 t* 0 08/06/2018 09/01/2018 Sig: TAKE 2 TABLETS BY MOUTH EVERY DAY Disc: Reason for discontinue is not on file. Encounter Status:Closed by YEISON ROWE MD on 09/01/18 INITAL EVALUATION (1) Observed: 08/27/2018 Status: F Source: [place] - PT 5:03 PM [facility] REPOSITORY [facility] [address] [place] [address]. [address] [place] [address] / REHABILITATION SERVICES INITIAL EVALUATION MR#: [id number] Acct: [id number] Name: CAS ESQUEDANikkie Faustin Rep #: [id number] : 1945 72 From: Haydee Elizondo MPT Referring Dr.: Estevan Silva MD Status: REG R Insurance: [employer] INSURANCE Patient's Visit Information MYNOR ESQUEDA is a 72 year old M referred to Physical Therapy by Estevan Silva MD with a diagnosis of Anemia, CAD, COPD, A-fib. Date of Evaluation: 08/26/18 Physical Therapist: J LUIS Quintana - Visit Plan Frequency: 2x /Week Duration: 4 Weeks Plan: 2X/ week for 4 weeks for endurace activities, balance activites, functional activies, stairs, with HEP. Watch breathing during treatment. - Subjective Findings: Pt just got out of the hospital about 9 days ago. Pt had a colonscopy and took a polyp off and started bleeding and then heart went into A- fib. He was in the hospital for 4 days. He feels pretty good and feels better everyday but still has fatigue. He tookk 2 shots of his inhaler before he came in here. He takes the inhaler because of COPD. He lives in [address] [place] home but mainly stays on the first floor. He has 2 railing and used both most of the time. He had a fall last year when he missed a step. He is having trouble with more fatigue.... He had pneumonia last October and he feels like he was just starting to recover and then this. He only has weakness in his legs if he walked awhile... ususally his air goes before his legs. Pt is to be getting a stress test soon. - Objective Gait: Walks with a normal gait pattern with a wide GUANAKITO. Stairs: ABle to go up and down the stairs without a railing but does do some veering to catch balance. Sit to stand: able to rise from the chair without use of UE's. LE MMT: hip flex B 4-/5, knee ext and knee flex B 4+/5, Hip abd B 4+/5, B hip ext 4/5. Pt is able to heel and toe raise and is able to do a full Bridge. Pt does exhibit SOB after walking approx 150 feet and ascending and descending the stairs. FGA: - Balance Scores Functional Gait Assessment Score: 19 % Disability: 36.6700 - Goals Goal 1:: I HEP Goal Time Frame: 4-6 Weeks Goal 2:: Increase FGA score by 4 points to decrease fall risk to 23/30 Goal Time Frame: 4-6 Weeks Goal 3:: Be able to go up and down stairs without a railing without having to veer to correct balance. Goal Time Frame: 4-6 Weeks Goal 4:: Be able to complete 20 min exercise without having to take a break due to SOB Goal Time Frame: 4-6 Weeks - Rehabilitation Potential Rehabilitation Potential: Good - Anticipated Interventions Patient/Client Instruction: Educate patient on: Condition, Plan of Care For the Purpose of:: To increase ROM, To improve nutrient delivery to tissue, To improve muscle performance and motor function, To improve ability to perform ADL's, To increase tolerance to activity/condition/position, To improve performance and independence with ADL's, To improve ability of physical actions for home/community/work/leisure, To improve gait and locomotor functions, To improve endurance, To improve balance Therapeutic Exercise to Include: Strength training, Endurance training, Balance training, Gait and locomotor training, Passive ROM, Active ROM For the Purpose of:: To increase ROM, To improve muscle performance and motor function, To increase tolerance to activity/condition/position, To improve performance and independence with ADL's, To improve ability of physical actions for home/community/work/leisure, To improve gait and locomotor functions, To increase flexibility/ROM, To improve balance Functional Training to Include: Gait training Comments: stairs For the Purpose of:: To improve gait and locomotor functions Thank you for the opportunity to evaluate your patient. For Medicare and Medicare HMO plans, please review the plan of care and approve it. It will need to be FAXED BACK to us at [phone] for Medicare purposes. For Medicare only, by signing this I certify the plan of care. Please let me know if there are questions or concerns regarding this plan of care. Physician Signature: Date: <Electronically signed by Haydee Elizondo MPT> 08/27/18 1704 CC: Estevan Silva MD; Yeison Rowe MD Signed LIPID PANEL, BASIC Collected: 08/26/2018 Status: F Source: [place] 10:20 AM [facility] REPOSITORY TYPE CODE TESTS RESULT OUT OF REFERENCE UNITS RANGE LAB CHOL <200 mg/dL Cholesterol 178 Result Comment: <200 mg/dL, Desirable 200-239 mg/dL, Borderline high >239 mg/dL, High LAB TRIGLY <150 mg/dL Triglyceride 97 Result Comment: <150 mg/dL, Normal 150-199 mg/dL, Borderline high 200-499 mg/dL, High >499 mg/dL, Very high LAB HDL >39 mg/dL HDL-Cholesterol 41 Result Comment: 40-59 mg/dL, Acceptable >59 mg/dL, High: Negative risk factor for coronary heart disease <40 mg/dL, Low: Positive risk factor for coronary heart disease LAB LDL <100 mg/dL LDL-Cholesterol High 118 Result Comment: <100 mg/dL, Optimal 100-129 mg/dL, Near optimal/above optimal 130-159 mg/dL, Borderline high 160-189 mg/dL, High >189 mg/dL, Very high Secondary prevention optimal LDL Cholesterol levels are recommended to be < 70 mg/dL LAB NONHDL <130 mg/dL Non HDL High Cholesterol 137 Result Comment: <130 mg/dL, Optimal 130-159 mg/dL, Near optimal/above optimal 160-189 mg/dL, Borderline high 190-219 mg/dL, High >219 mg/dL, Very high Secondary prevention optimal non HDL Cholesterol levels are recommended to be < 100 mg/dL LAB FT hrs Fasting Time 12 LAB VLDL <30 mg/dL VLDL Cholesterol 19 LAB TCHDL <5.10 TC:HDL Ratio 4.34 LAB LDLHDL <2.54 High LDL:HDL Ratio 2.88 Result Comment: Reference: 1. National Cholesterol Education Program ATP III Guideline At-A-Glance Quick Desk Reference: National Heart, Lung, and Blood [place]. National Institutes of Health. 2001: NIH Publication No. 01-3305. 2. An International Atherosclerosis Society position paper: global recommendations for the management of dyslipidemia: executive summary, Atherosclerosis. 2014: 232(2):410-413. Performed By: #### LIPB #### [facility] [address] [place], [place] [address] CNNURSE Observed: 08/25/2018 Status: COMPLETED Source: [place] 1:30 PM [facility] REPOSIT[facility] Nurse Visit (CAWSTR) CAS ESQUEDANikkie ([id number]) 1945 M Date Time Provider Department 08/25/18 1:30 PM NURSE CARD ADMIN [facility] WSTR CAWSTR During your visit today, we recorded the following information about you: Aileen Barth MA 08/25/2018 10:58 AM Signed EKG completed and given to Dr Griffin for review. Aileen Barth MA Referring Provider: LUL GRIFFIN [[id number]] Allergies As of Date: 08/25/2018 (No Known Allergies) Date Reviewed: 08/25/2018 Reviewed by: Aileen Barth MA - Fully Assessed Reason for Visit: Allied Health Visit [5] Visit Diagnoses:ASHD (arteriosclerotic heart disease) [I25.10] PAF (paroxysmal atrial fibrillation) (HCC) [I48.0] Paroxysmal atrial fibrillation (HCC) [I48.0] Order(s):ECG COMPLETE W INTERPRETATION [ECG01] Order #: [id number] Prescriptions as of 08/25/2018 Sig: REGADENOSON 0.4 MG/5 ML INTRA* Inject 5 mL intravenously one* AMIODARONE 200 MG TABLET Take 1 tablet by mouth once d* METOPROLOL TARTRATE 25 MG TAB* Take 25 mg by mouth once katie* AMLODIPINE 5 MG TABLET Take 5 mg by mouth once daily. LISINOPRIL 10 MG TABLET TAKE 2 TABLETS BY MOUTH EVERY* LEVOTHYROXINE 75 MCG TABLET TAKE 1 TABLET BY MOUTH DAILY * NIACIN ER 500 MG TABLET,EXTEN* TAKE 1 TABLET BY MOUTH EVERY * ATORVASTATIN 40 MG TABLET TAKE 1 TABLET BY MOUTH EVERY * ALBUTEROL SULFATE HFA 90 MCG/* Inhale 2 Puffs as instructed * NITROGLYCERIN 0.4 MG SUBLINGU* Dissolve 1 tablet under the t* * VITAMIN B-12 ORAL Take 1 tablet by mouth daily * * VITAMIN D3 ORAL Take 1 tablet by mouth daily * * FOLIC ACID ORAL Take 1 tablet by mouth daily * * ASPIRIN 81 MG TABLET,DELAYED * Take 81 mg by mouth once katie* Problem List As Of Date 08/25/2018 Noted Resolved Hyperlipidemia [E78.5] Mitral regurgitation [I34.0] INVALID FOR* Aortic stenosis [I35.0] INVALID FOR* CAD S/P percutaneous coronary angioplasty [I25.*INVALID FOR* Benign neoplasm of colon [D12.6] INVALID FOR* Esophagitis, unspecified [K20.9] INVALID FOR* Depression [F32.9] INVALID FOR* Colon cancer screening [Z12.11] INVALID FOR*07/29/2015 Paroxysmal atrial fibrillation (HCC) [I48.0] INVALID FOR* Elevated troponin [R74.8] INVALID FOR* (HFpEF) heart failure with preserved ejection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 - Fully Assessed Reason for Visit: Hospital Follow Up [177] Cmt: TCM discharged from [facility] 08/16/18 Reason For Visit History Recorded Primary Visit Diagnosis:Anemia due to blood loss [D50.0] Other Visit Diagnoses:Colonoscopy causing post-procedural bleeding [K91.840] Paroxysmal atrial fibrillation (HCC) [I48.0] Elevated troponin [R74.8] (HFpEF) heart failure with preserved ejection fraction (HCC) [I50.30] Hypocalcemia [E83.51] Pleural effusion on left [J90] Snoring [R06.83] Has daytime drowsiness [R40.0] Order(s):PAP TITRATION PSG (CPAP, BIPAP, ASV) [8589214] Order #: [id number] FUTURE POLYSOMNOGRAM (PSG) [2118893] Order #: [id number] FUTURE CBC [SQCBC] Order #: [id number] FUTURE BASIC METABOLIC PNL [SQBMP] Order #: [id number] FUTURE XR CHEST 2V FRONTAL/LAT [2929567] Order #: [id number] FUTURE Prescriptions as of 08/20/2018 Sig: METOPROLOL TARTRATE 25 MG TAB* Take 25 mg by mouth once katie* AMLODIPINE 5 MG TABLET Take 5 mg by mouth once daily. X AMIODARONE 200 MG TABLET Take 400 mg by mouth once will* LISINOPRIL 10 MG TABLET TAKE 2 TABLETS BY MOUTH EVERY* LEVOTHYROXINE 75 MCG TABLET TAKE 1 TABLET BY MOUTH DAILY * NIACIN ER 500 MG TABLET,EXTEN* TAKE 1 TABLET BY MOUTH EVERY * X ATORVASTATIN 40 MG TABLET TAKE 1 TABLET BY MOUTH EVERY * ALBUTEROL SULFATE HFA 90 MCG/* Inhale 2 Puffs as instructed * NITROGLYCERIN 0.4 MG SUBLINGU* Dissolve 1 tablet under the t* * VITAMIN B-12 ORAL Take 1 tablet by mouth daily * * VITAMIN D3 ORAL Take 1 tablet by mouth daily * * FOLIC ACID ORAL Take 1 tablet by mouth daily * * ASPIRIN 81 MG TABLET,DELAYED * Take 81 mg by mouth once katie* Problem List As Of Date 08/20/2018 Noted Resolved Hyperlipidemia [E78.5] Mitral regurgitation [I34.0] INVALID FOR* Aortic stenosis [I35.0] INVALID FOR* CAD S/P percutaneous coronary angioplasty [I25.*INVALID FOR* Benign neoplasm of colon [D12.6] INVALID FOR* Esophagitis, unspecified [K20.9] INVALID FOR* Depression [F32.9] INVALID FOR* Colon cancer screening [Z12.11] INVALID FOR*07/29/2015 Paroxysmal atrial fibrillation (HCC) [I48.0] INVALID FOR* Elevated troponin [R74.8] INVALID FOR* (HFpEF) heart failure with preserved ejection f*INVALID FOR* Colonoscopy causing post-procedural bleeding [K*INVALID FOR* Anemia due to blood loss [D50.0] INVALID FOR* Medications Discontinued During This Encounter metoprolol tartrate, short acting, (* 180 * 0 07/22/2018 08/20/2018 Sig: TAKE 1 TABLET BY MOUTH TWICE A DAY Disc: Reason for discontinue is not on file. Disposition: Return in about 4 weeks (around 09/17/2018). Follow-up and Disposition History Recorded Encounter Status:Closed by Gaby ROBLES PA-C on 08/20/18 12 LEAD ELECTROCARDIOGRAM Observed: 08/18/2018 Status: F Source: [place] 1:49 PM [facility] REPOS[facility] Cardiovascular Services [address] [place] [address] 12 Lead EKG 08/14/18 0230 MR#: [id number] Acct: [id number] Name: MYNOR ESQUEDA Rep #: [id number] : 1945 72 From: Justus Ratliff MD Attending Dr: Estevan Silva MD Status: DIS IN Ordering Dr: Sumeet Cherry MD Date: 08/14/18 Location: [facility] Sex: M C Admitted: 08/12/18 Test Reason : RHYTHM CHANGE Blood Pressure : / mmHG Vent. Rate : 147 BPM Atrial Rate : 159 BPM P-R Int : 168 ms QRS Dur : 104 ms QT Int : 284 ms P-R-T Axes : -19 065 158 degrees QTc Int : 444 ms Atrial fibrillation with rapid ventricular response Marked ST abnormality, possible inferior subendocardial injury Marked ST abnormality, possible anterolateral subendocardial injury Abnormal ECG Confirmed by DANIEL SAMSON, JUSTUS ([id number]), proposal editor MARCELINA SANTIAGO ([id number]) on 08/18/2018 1:48:50 PM Referred By: HILARY Confirmed By:JUSTUS RATLIFF MD 08/18/18 1348 Date Justus Ratliff MD CC: Sumeet Cherry MD; Estevan Silva MD; Yeison Rowe MD Signed 12 LEAD ELECTROCARDIOGRAM Observed: 08/18/2018 Status: F Source: [place] 1:48 PM [facility] Cardiovascular Services [address] [place] [address] 12 Lead EKG 08/14/18 0513 MR#: [id number] Acct: [id number] Name: MYNOR ESQUEDA Rep #: [id number] : 1945 72 From: Justus Ratliff MD Attending Dr: Estevan Silva MD Status: DIS IN Ordering Dr: Sumeet Cherry MD Date: 08/14/18 Location: [facility] Sex: M C Admitted: 08/12/18 Test Reason : ABNORMAL EKG Blood Pressure : / mmHG Vent. Rate : 140 BPM Atrial Rate : 061 BPM P-R Int : 000 ms QRS Dur : 100 ms QT Int : 332 ms P-R-T Axes : 000 054 216 degrees QTc Int : 506 ms Atrial fibrillation Marked ST abnormality, possible anterolateral subendocardial injury Abnormal ECG Confirmed by DANIEL SAMSON, JUSTUS ([id number]), proposal editor MARCELINA SANTIAGO ([id number]) on 08/18/2018 1:48:00 PM Referred By: LIZANDRO Confirmed By:JUSTUS RATLIFF MD 08/18/18 1348 Date Justus Ratliff MD CC: Sumeet Cherry MD; Estevan Silva MD; Yeison Rowe MD Signed DISCHARGE SUMMARY Observed: 08/16/2018 Status: F Source: [place] 3:40 PM [facility] Medical Records Department [address] [place] [address] Discharge Summary 08/16/18 1159 MR#: [id number] Acct: [id number] Name: MYNOR ESQUEDA Rep #: [id number] : 1945 72 From: Estevan Silva MD PCP: Yeison Rowe MD Status: DIS IN Y Location: [facility] [id number] Discharge Date and Diagnosis Date of Admission: 08/12/18 Date of Discharge: 08/16/18 - Primary Discharge Diagnosis Active and Suspected Problems Anemia associated with acute blood loss (Acute) Paroxysmal atrial fibrillation with rapid ventricular response (Acute) GI bleed (Acute) - Secondary Discharge Diagnosis Chronic Problems Hypothyroidism (Chronic) Hyperlipidemia (Chronic) Coronary artery disease (Chronic) Status post stents. HTN (hypertension) (Chronic) COPD (chronic obstructive pulmonary disease) (Chronic) Hospital Course and Treatment Imaging Results: None Consults: [employer] General Surgery Cardiology Procedures: 2-D Echocardiogram - Mildly dilated left ventricle Moderate concentric left ventricular hypertrophy Left ventricular systolic function is normal The estimated ejection fraction is 55-60% Mildly dilated right ventricle Moderately severe aortic stenosis Large left pleural effusion Diastolic dysfunction, Colonoscopy - Findings: The perianal and digital rectal examinations were normal. Clotted blood was seen in the ascending colon, secondary to previous polypectomy procedure. Area was successfully injected with 2 mL of a 1:10,000 solution of epinephrine for control of bleeding. No active bleeding was noted, however area was injected to prevent future bleeding at the site. No other sites of bleeding in the colon noted. Impression: - Bleeding in the ascending colon secondary to previous polypectomy. Injected. - No specimens collected. Summary of Care Provided: Per HPI: The patient is a 72 year old M with past medical history as mentioned above presented to the emergency room because of bleeding per rectum. His symptoms started 2 days ago with rectal bleeding, maroon colored stool, around 8-10 times over the last 48 hours, started having symptoms of dizziness and weakness since yesterday and without aggravating or relieving factors. He had surveillance colonoscopy on August 04, [address] Lee because he had a history of colon polyps, found to have sigmoid diverticulosis, nonbleeding hemorrhoids and 5-10 mm polyp in the ascending colon that was removed. Histopathology of that polyp revealed inflammatory changes, negative for cancer. He had a history of CAD status post stents and he has been on full dose aspirin 325 mg daily as well as lisinopril, metoprolol and statins. He had a history of hypothyroidism, has been on levothyroxine and no TSH was found in his chart. 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 In the emergency department, patient was tachycardic, orthostatic vitals were positive. He was afebrile, pulse ox was maintained on room air. Routine blood work revealed hemoglobin of 9.3 g/dL, creatinine of 1.39. He is being admitted for GI bleed with acute blood loss symptomatic anemia. General: Alert, Oriented x3, Cooperative HEENT: Atraumatic, EOMI, Normocephalic Oral: Dry Mucosa Neck: Supple, No JVD Lungs: Clear to auscultation, Normal air movement, No rhonchi, No wheeze, No rales Cardiovascular: Regular rate, Regular Rhythm, Normal S1, Normal S2, 3/6 JOAO Abdomen: Soft, Non Tender, Non-Distended, No Hepato-splenomegaly Extremities: No edema, Capillary Refill Less than 3 Seconds Neurological: Neuro grossly intact, Sensory exam intact to light touch and pain Psych/Mental Status: Normal Affect, Appropriate Hospital Course: 1. Lower GI bleed from previous polypectomy site/acute blood loss anemia - Mr. Esqueda is a 72-year-old male who had had a colonoscopy a week prior to admission and had a polyp removed. He presented with bright red bloody bowel movement and anemia. On admission his hemoglobin was 9.3, it had been 12.1 in October. 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 Another H AND H was obtained which was 6.7 and he was taken to the endoscopy suite for colonoscopy. It was found at that time that he had a clot on his previous polypectomy site in that area was injected with epinephrine. During anesthesia he was found to have inverted T waves and so troponins were obtained and he was transferred to the ICU. Cardiology was consulted because his troponins started out at 0.046 and peaked at 0.355, and he also went into A. fib with RVR when he never had an A. fib history prior to this. He does have a cardiac history with a previous stent a few years ago and therefore will likely need an outpatient cardiac catheterization. He was started on amiodarone drip to control his A. fib and then was discharged on amiodarone taper. He is to take 400 mg daily of amiodarone for the next 9 days, and then transition to 200 mg daily. He does have an appointment with his primary outpatient customer relations coordinator on August 25, 2018. During his hospitalization he received 4 units of packed red blood cells and has been doing much better. His last unit was given the day before discharge when his hemoglobin was at 7.5, and it falsely corrected to 10.1 and on the day of discharge his hemoglobin was 8.4 he did have a bowel movement on the morning of his discharge which was nonbloody. His hemoglobin at 2 in the afternoon was 9. Because of his GI bleed, we will hold anticoagulation for his A. fib until he sees his primary customer relations coordinator. I will also hold his aspirin until he sees his customer relations coordinator. He is to continue his PPI and follow-up with his primary care doctor early next week for a CBC to evaluate his anemia. 2. CAD status post stent/hypertension/hyperlipidemia/A. fib with RVR - Was transfused to maintain his hemoglobin above 8, and on the day of discharge she was 8.4. He did go into A. fib with RVR and was started on amiodarone, he was discharged on a tapering dose of 400 mg daily for 9 days and then 200 mg a day. Also his metoprolol which he was on prior to admission at 50 mg daily was decreased to 25 mg since he was started on amiodarone. He will possibly need an outpatient cardiac cath in the near future. 3. His other medical diagnoses were evaluated and his home medications were continued where appropriate - Physical Exam Vital Signs Temp Pulse Resp BP Pulse Ox 97.7 F L 47 L 18 149/74 H 96 08/16/18 08:20 08/16/18 11:12 08/16/18 08:20 08/16/18 08:20 08/16/18 08:20 Oxygen Flow Rate (L/min) 2 Oxygen Delivery Method Room Air Weight: 176 lb Body Mass Index (BMI) 21.6 Intake and Output for Last 24 Hours Intake Total 4021 / 4021 1582.8 / 1582.8 0 / 0 Output Total 2350 / 2350 825 / 825 Balance 1671 / 1671 757.8 / 757.8 0 / 0 Laboratory Tests Past 24 Hrs WBC 5.4 RBC 2.90 L Hgb 10.1 L 8.4 L Hct 30.0 L 24.4 L MCV 84.1 MCH 29.0 MCHC 34.4 RDW 15.6 H RDW Differential 46.3 H Discharge Activity: Return to Normal Activity Call your doctor if you observe: Shortness of breath, Dizziness, Chest pain, Increased palpitations (irregular heartbeat), - - Bloody bowel movement Home Medications: Medications to take at Discharge Albuterol IH (ProAir) [Proair Hfa] 1 - 2 puff INHALATION Q4H PRN PRN 10/20/17 Atorvastatin Calcium 40 mg PO QHS 10/20/17 Levothyroxine 75 mcg PO DAILY 10/20/17 Lisinopril 40 mg PO LUNCH 10/20/17 Niacin 500 mg PO QHS 10/20/17 Cholecalciferol (VIT D3) [Vitamin D3] 1,000 unit PO QHS 08/01/18 Cyanocobalamin [Vitamin B12] 1,000 mcg PO QHS 08/01/18 Folic Acid 1 mg PO QHS 08/01/18 Omeprazole [Prilosec] 20 mg PO DAILY 08/01/18 Amiodarone HCl [Cordarone] 400 mg PO DAILYCM #60 tab 08/16/18 Amlodipine [Norvasc] 5 mg PO DAILY #30 tab 08/16/18 Metoprolol Tartrate [Lopressor (beta joce)] 25 mg PO DAILY #30 tab 08/16/18 Following Prescrptions Were Given to Patient: Amiodarone HCl [Cordarone] 400 mg PO DAILYCM #60 tab Amlodipine [Norvasc] 5 mg PO DAILY #30 tab Metoprolol Tartrate [Lopressor (beta joce)] 25 mg PO DAILY #30 tab Primary Care Physician: Yeison Rowe MD [Primary Care Provider] - Please follow up with your Primary Care Physician in: 3-5 days Please Follow Up With: Cardiology When: As previously scheduled Disposition: Home Minutes spent on discharge:: 35 Patient Condition:: Good Medical Necessity - Tobacco Use Smoking Status: Former smoker Meaningful Use Info Meaningful Use Diagnoses (Choose all that apply): None applicable Code Visit Inpatient E AND M: 37173 Disch Hosp 08/16/18 1540 <Electronically signed by Estevan Silva MD> Date Estevan Silva MD Cosigner Signature (if applicable): Date CC: Estevan Silva MD; Yeison Rowe MD Signed HH, HEMOGLOBIN AND Collected: 08/16/2018 Status: F Source: [place] HEMATOCRIT 1:25 PM [facility] REPOS[facility] TYPE CODE TESTS RESULT OUT OF RANGE REFERENCE UNITS LAB L100.1300 13.0-16.5 g/dl Low HGB 9.0 LAB L100.1400 40-54 % Low HCT 26.4 Performed By: #### L100.0600 #### [facility] [address] [facility] [place], [address] DISCHARGE INSTRUCTION Observed: 08/16/2018 Status: F Source: [place] 11:59 AM [facility] REPOSIT[facility] Medical Records Department [address] [place] [address] Instructions for Home/Discharge Instructions 08/16/18 1157 MR#: [id number] Acct: [id number] Name: MYNOR ESQUEDA Rep #: [id number] : 1945 72 From: Estevan Silva MD PCP: Yeison Rowe MD Status: ADM IN - Discharge Diagnoses Current Active Problems: Current Active and Chronic Problems Anemia associated with acute blood loss (Acute) Paroxysmal atrial fibrillation with rapid ventricular response (Acute) GI bleed (Acute) Hypothyroidism (Chronic) Hyperlipidemia (Chronic) Coronary artery disease (Chronic) Status post stents. You will use the following diet at home:: Cardiac Your food should be the consistency of: Regular Your liquids should be the consistency of: Regular/Thin Discharge Activity: Return to Normal Activity Call your doctor if you observe: Shortness of breath, Dizziness, Chest pain, Increased palpitations (irregular heartbeat), - - Bloody bowel movement Pending Tests on Discharge: He will need a CBC on Saturday or Saturday to further evaluate his anemia. Allergies/Adverse Reactions: Allergies No Known Allergies Allergy (Verified 08/12/18 13:59) Medications to take at Discharge Albuterol IH (ProAir) [Proair Hfa] 1 - 2 puff INHALATION Q4H PRN PRN 10/20/17 Atorvastatin Calcium 40 mg PO QHS 10/20/17 Levothyroxine 75 mcg PO DAILY 10/20/17 Lisinopril 40 mg PO LUNCH 10/20/17 Niacin 500 mg PO QHS 10/20/17 Cholecalciferol (VIT D3) [Vitamin D3] 1,000 unit PO QHS 08/01/18 Cyanocobalamin [Vitamin B12] 1,000 mcg PO QHS 08/01/18 Folic Acid 1 mg PO QHS 08/01/18 Omeprazole [Prilosec] 20 mg PO DAILY 08/01/18 Amiodarone HCl [Cordarone] 400 mg PO DAILYCM #60 tab 08/16/18 Amlodipine [Norvasc] 5 mg PO DAILY #30 tab 08/16/18 Metoprolol Tartrate [Lopressor (beta joce)] 25 mg PO DAILY #30 tab 08/16/18 The following prescriptions were given: Amiodarone HCl [Cordarone] 400 mg PO DAILYCM #60 tab Amlodipine [Norvasc] 5 mg PO DAILY #30 tab Metoprolol Tartrate [Lopressor (beta joce)] 25 mg PO DAILY #30 tab Primary Care Physician: Yeison Rowe MD [Primary Care Provider] - Please follow up with your Primary Care Physician in: 3-5 days Test Results: Test results from this visit will be discussed in further detail at your follow-up appointment, if applicable. Please Follow Up With: Cardiology When: As previously scheduled 08/16/18 1159 <Electronically signed by Estevan Silva MD> Date Estevan Silva MD CC: Sumeet Cherry MD; Dawit Lewis MD; Phill Kearns MD; Yeison Rowe MD Signed BASIC METABOLIC Collected: 08/16/2018 Status: F Source: [place] PROFILE (BMP) 5:40 AM [facility] REPOS[facility] TYPE CODE TESTS RESULT OUT OF RANGE REFERENCE UNITS LAB L501.0100 74-106 mg/dL Normal GLU 86 Result Comment: Please note revised GLUCOSE reference range effective 2017. LAB L501.1000 7-18 mg/dL Normal BUN 7 LAB L501.1100 0.70-1.30 mg/dL Normal CREAT,SERUM 1.25 Result Comment: The validity of the calculated GFR AND GFRAA in patients over 70 years has not been determined. Clinical correlation is essential. LAB L501.1110 >60 mL/min Normal EST GFR 61 Result Comment: Non- GFR Calc LAB L501.1115 >60 mL/min Normal EST GFR - AA 73 Result Comment: GFR Calc LAB L501.1255 ml/min Normal Estimated CRCL 61.76 LAB L501.1300 10-20 RATIO Low BUN/CRE 5.6 LAB L501.2200 8.5-10 mg/dL Low .1 CA 7.5 LAB L501.5300 136-14 mmol/L High 5 NA 146 LAB L501.5600 3.5-5. mmol/L Normal 1 K 3.7 LAB L501.5900 98-107 mmol/L High CL 112 LAB L501.6100 21.0-3 mmol/L Normal 2.0 CO2 29.0 LAB L501.6200 5-15 Normal GAP 5 Performed By: #### L500.2500 #### [facility] [address] [place], [address] CBC W/DIFF, AUTOMATED Collected: 08/16/2018 Status: F Source: [place] 5:40 AM [facility] REPOS[facility]ORY TYPE CODE TESTS RESULT OUT OF RANGE REFERENCE UNITS LAB L100.1000 4.4-11.0 K/mm3 Normal WBC 5.4 LAB L100.1200 4.6-6.2 M/mm3 Low RBC 2.90 LAB L100.1300 13.0-16.5 g/dl Low HGB 8.4 LAB L100.1400 40-54 % Low HCT 24.4 LAB L100.1500 80-94 fL Normal MCV 84.1 LAB L100.1600 27.0-32.0 pg Normal MCH 29.0 LAB L100.1700 32-36 g/gl Normal MCHC 34.4 LAB L100.1810 11.6-14.6 % High RDW CV 15.6 LAB L100.1820 35.1-43.9 fl High RDW SD 46.3 LAB L100.1900 150-450 K/mm3 Low PLT 124 LAB L100.2000 6.2-12.0 fl Normal MPV 10.7 LAB L100.2100 47-70 % Normal NEUT% 63.8 LAB L100.2200 19-41 % Normal LY% 23.7 LAB L100.2300 0-10 % Normal MONO% 6.9 LAB L100.2400 0-5 % Normal EO% 5.0 LAB L100.2500 0-1 % Normal BASO% 0.4 LAB L100.2550 0.0-0.9 % Normal IM GRAN % 0.200 Result Comment: IG% - Immature Granulocytes (promyelocytes, myelocytes and metamyelocytes) > 1% indicates that a LEFT SHIFT is Present. LAB L100.2620 2.0-7.7 X10 3/uL Normal Absolute Neut 3.4 LAB L100.2720 0.83-4.51 X10 3/ul Normal Absolute Lymph 1.28 Performed By: #### L100.0100 #### [facility] [address] [facility] [place], [place], [address] 12 LEAD ELECTROCARDIOGRAM Observed: 08/15/2018 Status: F Source: [place] 3:42 PM [facility] REPOSIT[facility] Cardiovascular Services [address] [place] [address] 12 Lead EKG 08/13/18 0917 MR#: [id number] Acct: [id number] Name: CAS ESQUEDANikkie Faustin Rep #: [id number] : 1945 72 From: Justus Ratliff MD Attending Dr: Estevan Silva MD Status: ADM IN Ordering Dr: Maximus Webster MD Date: 08/13/18 Location: [facility] Sex: M C Admitted: 08/12/18 Test Reason : POST OP Blood Pressure : / mmHG Vent. Rate : 082 BPM Atrial Rate : 082 BPM P-R Int : 158 ms QRS Dur : 098 ms QT Int : 428 ms P-R-T Axes : 092 047 102 degrees QTc Int : 500 ms Sinus rhythm with occasional Premature ventricular complexes and Premature atrial complexes Consider voltage criteria for LVH ST AND T wave abnormality, consider lateral ischemia ; LVH repolarization abnormality Prolonged QT Abnormal ECG Confirmed by DANIEL SAMSON, JUSTUS ([id number]), proposal editor MARCELINA SANTIAGO ([id number]) on 08/15/2018 3:42:41 PM Referred By: Confirmed By:JUSTUS RATLIFF MD 08/15/18 1542 Date Justus Ratliff MD CC: Maximus Webster MD; Estevan Silva MD; Yeison Rowe MD Signed HH, HEMOGLOBIN AND Collected: 08/15/2018 Status: F Source: [place] HEMATOCRIT 2:04 PM [facility] REPOSITORY TYPE CODE TESTS RESULT OUT OF RANGE REFERENCE UNITS LAB L100.1300 13.0-16.5 g/dl Low HGB 10.1 LAB L100.1400 40-54 % Low HCT 30.0 Performed By: #### L100.0600 #### [facility] [address] [place], [address] CBC W/DIFF, AUTOMATED Collected: 08/15/2018 Status: F Source: [place] 4:05 AM [facility] REPOSITORY TYPE CODE TESTS RESULT OUT OF RANGE REFERENCE UNITS LAB L100.1000 4.4-11.0 K/mm3 Normal WBC 6.1 LAB L100.1200 4.6-6.2 M/mm3 Low RBC 2.56 LAB L100.1300 13.0-16.5 g/dl Low HGB 7.5 LAB L100.1400 40-54 % Low HCT 22.1 LAB L100.1500 80-94 fL Normal MCV 86.3 LAB L100.1600 27.0-32.0 pg Normal MCH 29.3 LAB L100.1700 32-36 g/gl Normal MCHC 33.9 LAB L100.1810 11.6-14.6 % High RDW CV 15.5 LAB L100.1820 35.1-43.9 fl High RDW SD 45.7 LAB L100.1900 150-450 K/mm3 Low PLT 129 LAB L100.2000 6.2-12.0 fl Normal MPV 10.5 LAB L100.2100 47-70 % Normal NEUT% 62.5 LAB L100.2200 19-41 % Normal LY% 24.2 LAB L100.2300 0-10 % Normal MONO% 8.2 LAB L100.2400 0-5 % Normal EO% 4.8 LAB L100.2500 0-1 % Normal BASO% 0.3 LAB L100.2550 0.0-0.9 % Normal IM GRAN % 0.000 Result Comment: IG% - Immature Granulocytes (promyelocytes, myelocytes and metamyelocytes) > 1% indicates that a LEFT SHIFT is Present. LAB L100.2620 2.0-7.7 X10 3/uL Normal Absolute Neut 3.8 LAB L100.2720 0.83-4.51 X10 3/ul Normal Absolute Lymph 1.47 Performed By: #### L100.0100 #### [facility] [address] [place], [place] [address]. [place], [place], [address] COMPREHENSIVE METABOLIC Collected: 08/15/2018 Status: F Source: [facility] 4:05 AM [facility] REPOSITORY TYPE CODE TESTS RESULT OUT OF RANGE REFERENCE UNITS LAB L501.0100 74-106 mg/dL Normal GLU 93 Result Comment: Please note revised GLUCOSE reference range effective 2017. LAB L501.1000 7-18 mg/dL Normal BUN 11 LAB L501.1100 0.70-1.30 mg/dL Normal CREAT,SERUM 1.25 Result Comment: The validity of the calculated GFR AND GFRAA in patients over 70 years has not been determined. Clinical correlation is essential. LAB L501.1110 >60 mL/min Normal EST GFR 61 Result Comment: Non- GFR Calc LAB L501.1115 >60 mL/min Normal EST GFR - AA 73 Result Comment: GFR Calc LAB L501.1255 ml/min Normal Estimated CRCL 62.46 LAB L501.1300 10-20 RATIO Low BUN/CRE 8.8 LAB L501.1500 6.4-8. g/dL Low 2 T PROT 4.9 LAB L501.1800 3.2-5. g/dL Low 0 ALB 2.4 LAB L501.1950 2.2-4. g/dL Normal 2 GLOB 2.5 LAB L501.2000 0.9-2. RATIO Normal 4 A/G 1.0 LAB L501.2200 8.5-10 mg/dL Low .1 CA 7.5 LAB L501.4100 15-37 U/L Normal AST 18 LAB L501.4305 45-117 U/L Normal ALK P 73 LAB L501.4405 16-61 U/L Low ALT 14 LAB L501.4600 0.20-1 mg/dL Normal .00 T BILI 0.60 LAB L501.5300 136-14 mmol/L High 5 NA 146 LAB L501.5600 3.5-5. mmol/L Normal 1 K 3.6 LAB L501.5900 98-107 mmol/L High CL 114 LAB L501.6100 21.0-3 mmol/L Normal 2.0 CO2 24.0 LAB L501.6200 5-15 Normal GAP 8 Performed By: #### L500.4050, L501.2300, L501.5200 #### [facility] [address] [place], [address] PHOSPHORUS Collected: 08/15/2018 Status: F Source: NEYMAR 4:05 AM [facility] REPOSITORY TYPE CODE TESTS RESULT OUT OF RANGE REFERENCE UNITS LAB L501.2300 2.5-4.9 mg/dL Normal PHOS 3.2 Performed By: #### L500.4050, L501.2300, L501.5200 #### [facility] [address] [place], [address] MAGNESIUM Collected: 08/15/2018 Status: F Source: NEYMAR 4:05 AM [facility] REPOS[facility]ORY TYPE CODE TESTS RESULT OUT OF RANGE REFERENCE UNITS LAB L501.5200 1.6-2.6 mg/dL Normal MG 1.8 Performed By: #### L500.4050, L501.2300, L501.5200 #### [facility] [address] [place], [address] HH, HEMOGLOBIN AND Collected: 08/14/2018 Status: F Source: NEYMAR HEMATOCRIT 5:40 PM [facility] REPOSITORY TYPE CODE TESTS RESULT OUT OF RANGE REFERENCE UNITS LAB L100.1300 13.0-16.5 g/dl Low HGB 8.2 LAB L100.1400 40-54 % Low HCT 23.9 Performed By: #### L100.0600 #### [facility] [address] [place], [address] BASIC METABOLIC Collected: 08/14/2018 Status: F Source: NEYMAR PROFILE (BMP) 5:40 PM [facility] REPOS[facility]ORY TYPE CODE TESTS RESULT OUT OF RANGE REFERENCE UNITS LAB L501.0100 74-106 mg/dL High GLU 148 Result Comment: Fasting Glucose result greater than or equal to 126 mg/dL suggests DIABETES MELLITUS per A.D.A. criteria. Please note revised GLUCOSE reference range effective 2017. LAB L501.1000 7-18 mg/dL Normal BUN 13 LAB L501.1100 0.70-1.30 mg/dL Normal CREAT,SERUM 1.14 Result Comment: The validity of the calculated GFR AND GFRAA in patients over 70 years has not been determined. Clinical correlation is essential. LAB L501.1110 >60 mL/min Normal EST GFR 67 Result Comment: Non- GFR Calc LAB L501.1115 >60 mL/min Normal EST GFR - AA 82 Result Comment: GFR Calc LAB L501.1255 ml/min Normal Estimated CRCL 68.48 LAB L501.1300 10-20 RATIO Normal BUN/CRE 11.4 LAB L501.2200 8.5-10 mg/dL Low .1 CA 7.4 LAB L501.5300 136-14 mmol/L Normal 5 NA 143 LAB L501.5600 3.5-5. mmol/L Normal 1 K 3.7 LAB L501.5900 98-107 mmol/L High CL 112 LAB L501.6100 21.0-3 mmol/L Normal 2.0 CO2 22.0 LAB L501.6200 5-15 Normal GAP 9 Performed By: #### L500.2500 #### [facility] [address] [place], [address] BNP,B-TYPE NATRIURETIC Collected: 08/14/2018 Status: F Source: NEYMAR PEPTIDE 5:40 PM [facility] REPOSITORY TYPE CODE TESTS RESULT OUT OF RANGE REFERENCE UNITS LAB L503.6620 0-100 pg/mL High B-TYPE 284.4 JORGE PEP Performed By: #### L503.6620 #### [facility] [address] [place], [address] CONSULTATION Observed: 08/14/2018 Status: F Source: [place]IDELL 2:42 PM [facility] REPOSITORY [facility] Medical Records Department [address] [place] [address] Consultation 08/14/18 1402 MR#: [id number] Acct: [id number] Name: MYNOR ESQUEDA Rep #: [id number] : 1945 72 From: Phill Kearns MD PCP: Yeison Rowe MD Status: ADM IN Y Location: ICU ICU03-1 Problem List (1) Paroxysmal atrial fibrillation with rapid ventricular response Status: Acute Reason for Consult Date of Consultation: 08/14/18 Reason for Consultation: Paroxysmal A. Fib. with RVR History of Present Illness: The patient is a 72 year old M admitted 2 days ago for persistent lower GI bleed 3 days post colon polypectomy. He needed transfusion X 3 to somewhat stabilized the hgb. Last night he developed tachycardia that proved to be A. Fib. That was treated accordingly with Amiodarone IV and converted back to sinus this AM. He denies any history of arrhythmia. Had some coronary stents a few years ao, but does not clearly remember the dates, location. He has been suffering from COPD and probable CHF as he has difficulty lying flat on his back and feel more comfortable sleeping on his side. He denies Angina, CVA, TIA, syncope, presyncope, DM. He has not been very active lately and get SOB and tiered easily. He knows that he has a leaking Valve and was supposed to have an Echocardiogram early next month, ordered by his customer relations coordinator. Past Medical History Allergies/Adverse Reactions: Allergies No Known Allergies Allergy (Verified 08/12/18 13:59) Home Medications: Ambulatory Orders Medication Instructions Recorded Albuterol IH (ProAir) [Proair Hfa] 1 - 2 puff INHALATION Q4H PRN PRN 10/20/17 Aspirin 325 mg PO QHS 10/20/17 Atorvastatin Calcium 40 mg PO QHS 10/20/17 Past Medical History (Chronic Problems): Chronic Problems Hypothyroidism (Chronic) Hyperlipidemia (Chronic) Coronary artery disease (Chronic) Status post stents. HTN (hypertension) (Chronic) COPD (chronic obstructive pulmonary disease) (Chronic) Surgical History: - - Cardiac stents. Right orchiectomy, laparotomy with lymph node dissection. Psychiatric History: No pertinent psych hx - *Family History Maternal History Items: No pertinent history Paternal History Items: No pertinent history Lives: Spouse/ Significant Other Smoking Status: Former smoker Alcohol: None Drugs: None Review of Systems - Review of Systems Cardiovascular: Reports: Shortness of Breath - With modest exertion., Shortness of Breath with Exertion, Orthopnea - 2 pillow, chronic, Palpitations - None Respiratory: Reports: Shortness of Breath, Wheezing Objective: Vital Signs Temp Pulse Resp BP Pulse Ox 97.9 F 55 L 12 114/65 98 08/14/18 11:01 08/14/18 13:00 08/14/18 13:00 08/14/18 13:00 08/14/18 13:00 Oxygen Flow Rate (L/min) 2 Oxygen Delivery Method Room Air Weight: 80.3 kg Body Mass Index (BMI) 21.6 Intake and Output for Last 24 Hours Intake Total 968 / 968 1868 / 1868 3028 / 3028 Output Total 275 / 275 250 / 250 1425 / 1425 Balance 693 / 693 1618 / 1618 1603 / 1603 General: Alert, Oriented x 3, No Acute Distress, - - Chronically ill looking Lungs: Diminished Floyd Bases Cardiovascular: Regular Rhythm, No Gallops Murmur Murmur: Grade 4/6, Early Systolic, Mid Systolic, LLSB, [place] Vascular: No Carotid Bruits Abdomen: Soft, Non Tender Extremities: No Cyanosis, No Clubbing, No edema Psych/Mental Status: Appropriate, Normal Affect 08/13/18 18:00: Hgb 9.2 L, Hct 27.2 L 08/13/18 22:00: Hgb 8.1 L, Hct 23.4 L 08/13/18 22:55: Hgb 8.1 L, Hct 23.3 L 08/14/18 03:15: Troponin I 0.046 H 08/14/18 04:44: WBC 7.7, RBC 2.83 L, Hgb 8.2 L, Hct 24.1 L, MCV 85.2, MCH 29.0, MCHC 34.0, RDW 15.1 H, RDW Differential 44.4 H, Plt Count 154, MPV 10.5, Immature Gran % (Auto) 0.300, Neut % (Auto) 69.8, Lymph % (Auto) 17.6 L, [place] % (Auto) 9.2, Eos % (Auto) 2.7, Baso % (Auto) 0.4, Absolute Neuts (auto) 5.4, Total Counted Not Reportable 08/14/18 04:44: Sodium 144, Potassium 3.5, Chloride 112 H, Carbon Dioxide 24.0, Anion Gap 8, BUN 16, Creatinine 1.12, Est GFR (MDRD) Af Amer 83, Est GFR (MDRD) Non-Af 69, BUN/Creatinine Ratio 14.3, Glucose 108 H, Calcium 7.5 L, Phosphorus 2.1 L, Magnesium 1.7 08/14/18 06:05: Troponin I 0.116 H 08/14/18 09:50: Troponin I 0.355 H Rhythm: Sinus, now, had tachycardia with narrow QRS last night. EKG: Sinus, no acute ST-T changes. ECHO: Preserved LVEF: Moderately severe Aortic stenosis. Assessment/Plan 1. Paroxysmal A.fib. overnight, now resolved, minimally elevated troponin is probably due to the demand ischemia. Patient has a high CHADS2-VASC score and yet with a current rectal bleeding from the polypectomy site, not a candidate for full anticoagulation now. It should be readdressed in 1-2 weeks. To switch to PO amiodarone per protocol. 2. CAD status post stents remote without angina. 3. CHF with HFpEF, valvular, class 2?, has a moderately large Pleural effusion. Continue with mild diuresis, BB, ACEI. 4. Moderately severe aortic stenosis, chronicity uncertain 5. Hypertension, well controlled. 6. Hypothyroidism. Stable. 7. CKD 3, Baseline creatinine 1.4, Stable. 8. Lower GI bleed/Acute Blood loss anemia, S/p 4 Units total and will maintain above 8 given his cardiac history 9. COPD, on home inhalers. I will FI+U at AM. Obtaining old medical records fro [facility] customer relations coordinator office will be very helpful. 08/14/18 1442 <Electronically signed by Phill Kearns MD> Date Phill Kearns MD Cosigner Signature (if applicable): Date CC: Sumeet Cherry MD; Dawit Lewis MD; Phill Kearns MD; Yeison Rowe MD Signed TROPONIN-I Collected: 08/14/2018 Status: F Source: SLIDELL 9:50 AM [facility] REPOSITORY Order Comment: 'TROP' Serial specimen #1, #2 or #3: 3 'TROP' Serial specimen #1, #2, #3, or #4: 3 TYPE CODE TESTS RESULT OUT OF RANGE REFERENCE UNITS LAB L501.4010 <0.045 ng/mL High 0.355 TROPONIN-I Result Comment: TROPONIN-I EXPECTED VALUES <0.045 Negative 0.045 - 0.590 Consistent with Cardiac Damage > OR = 0.600 Critical Value Not every elevated troponin is indicative of NE. These values should be used with clinical judgement in examining the patient's clinical picture for diagnosis. To establish a diagnosis of NE versus myocardial injury, there must be a demonstrated rise and/or fall in the troponin values, in addition to ischemic symptoms, EKG changes, new regional wall motion abnormality, and/or angiographical evidence. PLEASE NOTE: REFERENCE RANGES EDITED 17 Performed By: #### L501.4010 #### [facility] [address] [place], [address] CONSULTATION Observed: 08/14/2018 Status: F Source: SLIDELL 5:50 AM [facility] REPOSITORY [facility] Medical Records Department [address] [place] [address] Consultation 08/13/18 1026 MR#: [id number] Acct: [id number] Name: MYNOR ESQUEDA Rep #: [id number] : 1945 72 From: Sumeet Cherry MD PCP: Yeison Rowe MD Status: ADM IN Y Location: ICU ICU03-1 Problem List (1) Anemia associated with acute blood loss Status: Acute (2) GI bleed Status: Acute (3) Hypothyroidism Status: Chronic Qualifiers: Hypothyroidism type: acquired Qualified Code(s): E03.9 - Hypothyroidism, unspecified (4) Hyperlipidemia Status: Chronic Qualifiers: Hyperlipidemia type: pure hypercholesterolemia Qualified Code(s): E78.00 - Pure hypercholesterolemia, unspecified; E78.0 - Pure hypercholesterolemia (5) Coronary artery disease Status: Chronic Qualifiers: Coronary Disease-Associated Artery/Lesion type: [place] artery [place] vs. transplanted heart: chilkat heart Associated angina: without angina Qualified Code(s): I25.10 - Atherosclerotic heart disease of chilkat coronary artery without angina pectoris Comment: Status post stents. (6) HTN (hypertension) Status: Chronic Qualifiers: Hypertension type: essential hypertension Qualified Code(s): I10 - Essential (primary) hypertension (7) COPD (chronic obstructive pulmonary disease) Status: Chronic Reason for Consult Date of Consultation: 08/13/18 Reason for Consultation: Syncope History of Present Illness: The patient is a 72 year old M, with past medical history listed below, who presented to [facility] on 08/12/2018 following a 3-day course of rectal bleeding. Patient reportedly was having 3-4 bloody stools per day and started feeling generalized weakness and shortness of breath with activity. Patient did have a colonoscopy 8 days ago that resulted in removal of a polyp. Patient was on aspirin on presentation. In the emergency room, patient was noted to have a hemoglobin of 9.3 and platelet count of 162. Patient was admitted to the floor with a diagnosis of lower GI bleed. This morning at approximately 9 AM, patient had a rapid response after having a large volume bloody bowel movement associated with presyncopal event. Patient was reportedly not hypotensive during the event, but excessive blood loss was noted from the rectum by the bedside nurse. Patient was taken to endoscopy for emergent evaluation. Per report, patient had an adherent clot that was removed and injected with epinephrine. Patient was transported back to the intensive care unit secondary to his development of reported T wave depression in the lateral leads. Patient was reportedly sedated with etomidate for the procedure. On my evaluation the intensive care unit, patient states some mild abdominal cramping, but no pain. Patient denied any nausea or vomiting. Patient reports that he has had some rectal bleeding, but had never had presyncopal versus syncopal symptomatology previously. Patient does report a history of heart stent approximately 5 years ago and follows with Dr. Zafar at baseline. Patient states he is unclear if he has had a stress test or where his previous stent was located. Patient denies any anginal type symptoms recently, but is still reporting significant fatigue. Patient denies any current dysuria, productive cough, fever, chills, lower extremity edema or focal neurologic deficit. Review of systems otherwise negative x10 systems. Past Medical History Past Medical History (Chronic Problems): Chronic Problems Hypothyroidism (Chronic) Hyperlipidemia (Chronic) Coronary artery disease (Chronic) Status post stents. HTN (hypertension) (Chronic) COPD (chronic obstructive pulmonary disease) (Chronic) Allergies No Known Allergies Allergy (Verified 08/12/18 13:59) Home Medications: Ambulatory Orders Medication Instructions Recorded Albuterol IH (ProAir) [Proair Hfa] 1 - 2 puff INHALATION Q4H PRN PRN 10/20/17 Aspirin 325 mg PO QHS 10/20/17 Atorvastatin Calcium 40 mg PO QHS 10/20/17 Surgical History: - - Cardiac stents. Right orchiectomy, laparotomy with lymph node dissection. Psychiatric History: No pertinent psych hx Lives: Spouse/ Significant Other Smoking Status: Former smoker Alcohol: None Drugs: None - *Family History Maternal History Items: No pertinent history Paternal History Items: No pertinent history Review of Systems Comment: See HPI Patient Problems: Active and Suspected Problems Anemia associated with acute blood loss (Acute) GI bleed (Acute) Objective: Endoscopy report stated clotted blood was seen in the ascending colon in the area of the previous polypectomy. This was injected with 2 mL's of epinephrine. No further bleeding was noted. Pathology from original procedure was consistent with an inflammatory polyp. - Physical Exam General: Alert, Oriented x3, Cooperative, No apparent distress, Well developed, Well nourished, - - Speaking in full sentences. HEENT: Atraumatic, PERRLA, EOMI, Normocephalic, - - No scleral icterus or injection noted. Oral: No Gingival or Mucosal Lesions/ Ulcerations, Dry Mucosa, - - Poor dentition Neck: Supple, No JVD, No Nodes, Trachea Midline Lungs: Clear to auscultation, Normal air movement, No rhonchi, No wheeze, No rales Cardiovascular: Regular rate, Regular Rhythm, Normal S1, Normal S2, No murmurs, No rub noted, No Gallop Abdomen: Bowel Sounds Present, Soft, Non Tender, Non-Distended Extremities: No clubbing, No cyanosis, No edema, Capillary Refill Less than 3 Seconds Skin: No rashes, No breakdown Musculoskeletal: No Tenderness to Palpation of Joints or Extremities, No Muscle Wasting Lymphatic: No Cervical, Supraclavicular, or Inguinal Adenopathy Neurological: Cranial nerves II-XII grossly intact, Neuro grossly intact, Motor Exam 5/5 strength throughout, Sensory exam intact to light touch and pain Psych/Mental Status: Alert and oriented to time, place, person, mood and affect Vital Signs Temp Pulse Resp BP Pulse Ox 36.4 C L 98 18 130/61 H 98 08/13/18 05:00 08/13/18 07:00 08/13/18 05:00 08/13/18 05:00 08/13/18 05:00 Oxygen Flow Rate (L/min) 15 Oxygen Delivery Method Non-Rebreather Weight: 76.3 kg Body Mass Index (BMI) 21.6 Intake and Output for Last 24 Hours Intake Total 968 / 968 1068 / 1068 Output Total 275 / 275 Balance 693 / 693 1068 / 1068 Laboratory Tests Past 24 Hrs WBC 5.6 RBC 3.35 L Hgb 9.3 L Hct 27.8 L WBC RBC Hgb Hct MCV MCH MCHC RDW RDW Differential Plt Count WBC RBC Hgb 8.7 L Hct 25.9 L MCV MCH MCHC RDW RDW Differential WBC 7.4 RBC 2.80 L Hgb 7.7 L 7.9 L Hct 23.1 L 23.6 L WBC RBC Hgb 6.7 L Hct 20.5 L Assessment/Plan Active and Suspected Problems Anemia associated with acute blood loss (Acute) GI bleed (Acute) RECOMMENDATIONS: 1. H AND H every 6 hours 2. Transfuse to keep hemoglobin greater than 8 3. Cycle troponins, continue telemetry 4. Wean oxygen as tolerated 5. Consider transition to PPI daily IMPRESSIONS: 1. Acute blood loss anemia with vasovagal response secondary to lower GI bleed Patient with recent resection of an inflammatory polyp on colonoscopy. This appears to be the cause of the bleeding. Patient is currently on a PPI twice daily, which would be indicated only with upper GI bleed. Will attempt to keep hemoglobin greater than 8 given high risk for repeat bleeding. Patient will be monitored in the intensive care unit over the next 24 hours. 2. Coronary artery disease status post stent/hypertension/hyperlipidemia/history of smoking Patient with some T wave depression noted during acute bleed. Patient will be monitored with telemetry. Likely no anticoagulation or intervention with stent unless patient develops ST elevations. Patient might benefit from a repeat cardiac catheterization as an outpatient once polypectomy site has time to improve/heal. Will cycle troponins. Blood pressure appears to be adequate at this time. 3. Advanced age/CKD stage III/hypothyroidism/COPD Complicates care, management, recovery and prognosis. Renal function is stable at this time. Patient's Lopressor has been held secondary to acute condition, but ANABELA inhibitor can be continued as long as blood pressures are adequate. No lung function studies are available for review at this time. Patient has a reported history of COPD, but this cannot be verified. Patient does have albuterol as needed and does not appear to be in acute exacerbation at this time. Code Visit Inpatient E AND M: [id number] Init Hosp L3 08/14/18 0550 <Electronically signed by Sumeet Cherry MD> Date Sumeet Cherry MD Cosigner Signature (if applicable): Date CC: Sumeet Cherry MD; Dawit Lewis MD; Yeison Rowe MD Signed CBC W/DIFF, AUTOMATED Collected: 08/14/2018 Status: F Source: NEYMAR 4:44 AM [facility] REPOSIT[facility] TYPE CODE TESTS RESULT OUT OF RANGE REFERENCE UNITS LAB L100.1000 4.4-11.0 K/mm3 Normal WBC 7.7 LAB L100.1200 4.6-6.2 M/mm3 Low RBC 2.83 LAB L100.1300 13.0-16.5 g/dl Low HGB 8.2 LAB L100.1400 40-54 % Low HCT 24.1 LAB L100.1500 80-94 fL Normal MCV 85.2 LAB L100.1600 27.0-32.0 pg Normal MCH 29.0 LAB L100.1700 32-36 g/gl Normal MCHC 34.0 LAB L100.1810 11.6-14.6 % High RDW CV 15.1 LAB L100.1820 35.1-43.9 fl High RDW SD 44.4 LAB L100.1900 150-450 K/mm3 Normal PLT 154 LAB L100.2000 6.2-12.0 fl Normal MPV 10.5 LAB L100.2100 47-70 % Normal NEUT% 69.8 LAB L100.2200 19-41 % Low LY% 17.6 LAB L100.2300 0-10 % Normal MONO% 9.2 LAB L100.2400 0-5 % Normal EO% 2.7 LAB L100.2500 0-1 % Normal BASO% 0.4 LAB L100.2550 0.0-0.9 % Normal IM GRAN % 0.300 Result Comment: IG% - Immature Granulocytes (promyelocytes, myelocytes and metamyelocytes) > 1% indicates that a LEFT SHIFT is Present. LAB L100.2620 2.0-7.7 X10 3/uL Normal Absolute Neut 5.4 LAB L100.2720 0.83-4.51 X10 3/ul Normal Absolute Lymph 1.36 Performed By: #### L100.0100 #### [facility] [address] [place] [address]. [place], [place], [address] BASIC METABOLIC Collected: 08/14/2018 Status: F Source: [place] PROFILE (BMP) 4:44 AM [facility] REPOSITORY TYPE CODE TESTS RESULT OUT OF RANGE REFERENCE UNITS LAB L501.0100 74-106 mg/dL High GLU 108 Result Comment: Fasting Glucose result from 100 to 125 mg/dL suggests IMPAIRED HOMEOSTASIS per A.D.A. criteria. Please note revised GLUCOSE reference range effective 2017. LAB L501.1000 7-18 mg/dL Normal BUN 16 LAB L501.1100 0.70-1.30 mg/dL Normal CREAT,SERUM 1.12 Result Comment: The validity of the calculated GFR AND GFRAA in patients over 70 years has not been determined. Clinical correlation is essential. LAB L501.1110 >60 mL/min Normal EST GFR 69 Result Comment: Non- GFR Calc LAB L501.1115 >60 mL/min Normal EST GFR - AA 83 Result Comment: GFR Calc LAB L501.1255 ml/min Normal Estimated CRCL 66.23 LAB L501.1300 10-20 RATIO Normal BUN/CRE 14.3 LAB L501.2200 8.5-10 mg/dL Low .1 CA 7.5 LAB L501.5300 136-14 mmol/L Normal 5 NA 144 LAB L501.5600 3.5-5. mmol/L Normal 1 K 3.5 LAB L501.5900 98-107 mmol/L High CL 112 LAB L501.6100 21.0-3 mmol/L Normal 2.0 CO2 24.0 LAB L501.6200 5-15 Normal GAP 8 Performed By: #### L500.2500, L501.2300, L501.5200 #### [facility] [address] [place], [address] PHOSPHORUS Collected: 08/14/2018 Status: F Source: [place]IDE[place] 4:44 AM [facility] REPOSITORY TYPE CODE TESTS RESULT OUT OF RANGE REFERENCE UNITS LAB L501.2300 2.5-4.9 mg/dL Low PHOS 2.1 Performed By: #### L500.2500, L501.2300, L501.5200 #### [facility] [address] [place], [address] MAGNESIUM Collected: 08/14/2018 Status: F Source: [place]IDE[place] 4:44 AM [facility] REPOSITORY TYPE CODE TESTS RESULT OUT OF RANGE REFERENCE UNITS LAB L501.5200 1.6-2.6 mg/dL Normal MG 1.7 Performed By: #### L500.2500, L501.2300, L501.5200 #### [facility] [address] [place], [address] TROPONIN-I Collected: 08/14/2018 Status: F Source: [place] 3:15 AM [facility] REPOSITORY Order Comment: 'TROP' Serial specimen #1, #2 or #3: 1 TYPE CODE TESTS RESULT OUT OF RANGE REFERENCE UNITS LAB L501.4010 <0.045 ng/mL High 0.046 TROPONIN-I Result Comment: TROPONIN-I EXPECTED VALUES <0.045 Negative 0.045 - 0.590 Consistent with Cardiac Damage > OR = 0.600 Critical Value Not every elevated troponin is indicative of NE. These values should be used with clinical judgement in examining the patient's clinical picture for diagnosis. To establish a diagnosis of NE versus myocardial injury, there must be a demonstrated rise and/or fall in the troponin values, in addition to ischemic symptoms, EKG changes, new regional wall motion abnormality, and/or angiographical evidence. PLEASE NOTE: REFERENCE RANGES EDITED 17 Performed By: #### L501.4010 #### [facility] [address] [place] [address], [id number] , HEMOGLOBIN AND Collected: 08/13/2018 Status: F Source: [place] HEMATOCRIT 10:55 PM [facility] REPOSITORY TYPE CODE TESTS RESULT OUT OF RANGE REFERENCE UNITS LAB L100.1300 13.0-16.5 g/dl Low HGB 8.1 LAB L100.1400 40-54 % Low HCT 23.3 Performed By: #### L100.0600 #### [facility] [address] [place] [address]. [place], [address] HH, HEMOGLOBIN AND Collected: 08/13/2018 Status: F Source: [place] HEMATOCRIT 10:00 PM [facility] REPOSITORY TYPE CODE TESTS RESULT OUT OF RANGE REFERENCE UNITS LAB L100.1300 13.0-16.5 g/dl Low HGB 8.1 LAB L100.1400 40-54 % Low HCT 23.4 Performed By: #### L100.0600 #### [facility] [address] [facility] [place], [address] HH, HEMOGLOBIN AND Collected: 08/13/2018 Status: F Source: [place] HEMATOCRIT 6:00 PM [facility] REPOSITORY TYPE CODE TESTS RESULT OUT OF RANGE REFERENCE UNITS LAB L100.1300 13.0-16.5 g/dl Low HGB 9.2 LAB L100.1400 40-54 % Low HCT 27.2 Performed By: #### L100.0600 #### [facility] [address] [facility]. [place], [id number] HH, HEMOGLOBIN AND Collected: 08/13/2018 Status: F Source: [place] HEMATOCRIT 9:55 AM [facility] REPOSITORY TYPE CODE TESTS RESULT OUT OF RANGE REFERENCE UNITS LAB L100.1300 13.0-16.5 g/dl Low HGB 6.7 LAB L100.1400 40-54 % Low HCT 20.5 Performed By: #### L100.0600 #### [facility] [address] [place], [address] TROPONIN-I Collected: 08/13/2018 Status: F Source: [place] 9:55 AM [facility] REPOSITORY Order Comment: Comments: STAT ON ARRIVAL TO PACU, WILL CALL TYPE CODE TESTS RESULT OUT OF RANGE REFERENCE UNITS LAB L501.4010 <0.045 ng/mL Normal 0.041 TROPONIN-I Result Comment: TROPONIN-I EXPECTED VALUES <0.045 Negative 0.045 - 0.590 Consistent with Cardiac Damage > OR = 0.600 Critical Value Not every elevated troponin is indicative of NE. These values should be used with clinical judgement in examining the patient's clinical picture for diagnosis. To establish a diagnosis of NE versus myocardial injury, there must be a demonstrated rise and/or fall in the troponin values, in addition to ischemic symptoms, EKG changes, new regional wall motion abnormality, and/or angiographical evidence. PLEASE NOTE: REFERENCE RANGES EDITED 17 Performed By: #### L501.4010 #### [facility] [address] [place], [address] OPERATIVE REPORT - Observed: 08/13/2018 Status: F Source: [place] ENDOSCOPY 9:21 AM [facility] REPOSITORY [facility] Medical Records Department [address] [place] [address] Operative Report - Endoscopy MR#: [id number] Acct: [id number] Name: MYNOR ESQUEDA Roxie Rep #: [id number] : 1945 72 From: Joyce Lee MD PCP: Yeison Rowe MD Status: ADM IN Patient Name: Mynor Esqueda Procedure Date: 08/13/2018 9:13 AM Date of : 1945 Age: 72 Procedure: Colonoscopy Indications: Treatment of bleeding from polypectomy site Providers: Joyce Lee MD Medicines: See the Anesthesia note for documentation of the administered medications Patient Profile: Refer to note in patient chart for documentation of history and physical. Last Colonoscopy: Complications: No immediate complications. Procedure: Pre-Anesthesia Assessment: - After reviewing the risks and benefits, the patient was deemed in satisfactory condition to undergo the procedure. - Anesthsia under the supervision of an anesthesiologist was determined to be medically necessary for this procedure based on review of the patient's medical history, medications, and prior anesthesia history. After I obtained informed consent, the scope was passed under direct vision. Throughout the procedure, the patient's blood pressure, pulse, and oxygen saturations were monitored continuously. The colonoscopy was performed without difficulty. The patient tolerated the procedure well. The quality of the bowel preparation was not clinically indicated this was an emergency procedure. Moderate Sedation: Moderate (conscious) sedation was personally administered by an anesthesia professional. The following parameters were monitored: oxygen saturation, heart rate, blood pressure, respiratory rate, EKG, adequacy of pulmonary ventilation, and response to care. Findings: The perianal and digital rectal examinations were normal. Clotted blood was seen in the ascending colon, secondary to previous polypectomy procedure. Area was successfully injected with 2 mL of a 1:10,000 solution of epinephrine for control of bleeding. No active bleeding was noted, however area was injected to prevent future bleeding at the site. No other sites of bleeding in the colon noted. Impression: - Bleeding in the ascending colon secondary to previous polypectomy. Injected. - No specimens collected. Recommendation: - Transfer patient to tafoya/ICU/etc. - patient with EKG changes - - No recommendation at this time regarding repeat colonoscopy- follow as per ACS guidelines. - No aspirin, ibuprofen, naproxen, or other non-steroidal anti-inflammatory drugs. MD Joyce Issa MD 08/13/2018 9:21:23 AM This report has been signed electronically. Number of Addenda: 0 Note Initiated On: 08/13/2018 9:13 AM 08/13/18 0921 Date Joyce Lee MD Cosigner Signature: Date (if indicated) CC: Estevan Silva MD; Dawit Lewis MD; Yeison Rowe MD Date Dictated: 08/13/18912 Date Transcribed: Motor Runner: LW Signed CBC W/DIFF, AUTOMATED Collected: 08/13/2018 Status: F Source: [place] 7:08 AM [facility] REPOSITORY TYPE CODE TESTS RESULT OUT OF RANGE REFERENCE UNITS LAB L100.1000 4.4-11.0 K/mm3 Normal WBC 7.4 LAB L100.1200 4.6-6.2 M/mm3 Low RBC 2.80 LAB L100.1300 13.0-16.5 g/dl Low HGB 7.9 LAB L100.1400 40-54 % Low HCT 23.6 LAB L100.1500 80-94 fL Normal MCV 84.3 LAB L100.1600 27.0-32.0 pg Normal MCH 28.2 LAB L100.1700 32-36 g/gl Normal MCHC 33.5 LAB L100.1810 11.6-14.6 % Normal RDW CV 14.6 LAB L100.1820 35.1-43.9 fl High RDW SD 45.0 LAB L100.1900 150-450 K/mm3 Normal PLT 179 LAB L100.2000 6.2-12.0 fl Normal MPV 9.8 LAB L100.2100 47-70 % High NEUT% 71.2 LAB L100.2200 19-41 % Normal LY% 20.5 LAB L100.2300 0-10 % Normal MONO% 6.1 LAB L100.2400 0-5 % Normal EO% 1.8 LAB L100.2500 0-1 % Normal BASO% 0.3 LAB L100.2550 0.0-0.9 % Normal IM GRAN % 0.100 Result Comment: IG% - Immature Granulocytes (promyelocytes, myelocytes and metamyelocytes) > 1% indicates that a LEFT SHIFT is Present. LAB L100.2620 2.0-7.7 X10 3/uL Normal Absolute Neut 5.3 LAB L100.2720 0.83-4.51 X10 3/ul Normal Absolute Lymph 1.51 Performed By: #### L100.0100 #### [facility] [address] [place], [address] BASIC METABOLIC Collected: 08/13/2018 Status: F Source: [place] PROFILE (BMP) 7:08 AM [facility] REPOSITORY TYPE CODE TESTS RESULT OUT OF RANGE REFERENCE UNITS LAB L501.0100 74-106 mg/dL High GLU 141 Result Comment: Fasting Glucose result greater than or equal to 126 mg/dL suggests DIABETES MELLITUS per A.D.A. criteria. Please note revised GLUCOSE reference range effective 2017. LAB L501.1000 7-18 mg/dL High BUN 19 LAB L501.1100 0.70-1.30 mg/dL Normal CREAT,SERUM 1.28 Result Comment: The validity of the calculated GFR AND GFRAA in patients over 70 years has not been determined. Clinical correlation is essential. LAB L501.1110 >60 mL/min Low EST GFR 59 Result Comment: Non- GFR Calc LAB L501.1115 >60 mL/min Normal EST GFR - AA 71 Result Comment: GFR Calc LAB L501.1255 ml/min Normal Estimated CRCL 57.95 LAB L501.1300 10-20 RATIO Normal BUN/CRE 14.8 LAB L501.2200 8.5-10 mg/dL Low .1 CA 7.7 LAB L501.5300 136-14 mmol/L Normal 5 NA 143 LAB L501.5600 3.5-5. mmol/L Normal 1 K 3.9 LAB L501.5900 98-107 mmol/L High CL 114 LAB L501.6100 21.0-3 mmol/L Normal 2.0 CO2 21.0 LAB L501.6200 5-15 Normal GAP 8 Performed By: #### L500.2500 #### [facility] [address] [place], [address] HH, HEMOGLOBIN AND Collected: 08/13/2018 Status: F Source: [place] HEMATOCRIT 1:10 AM [facility] REPOSITORY TYPE CODE TESTS RESULT OUT OF RANGE REFERENCE UNITS LAB L100.1300 13.0-16.5 g/dl Low HGB 7.7 LAB L100.1400 40-54 % Low HCT 23.1 Performed By: #### L100.0600 #### [facility] [address] [place], [address] CONSULTATION Observed: 08/12/2018 Status: F Source: [place] 7:24 PM [facility] REPOSITORY [facility] Medical Records Department [address] [place] [address] Consultation 08/12/181920 MR#: [id number] Acct: [id number] Name: MYNOR ESQUEDA Rep #: [id number] : 1945 72 From: Dawit Lewis MD PCP: Yeison Rowe MD Status: ADM IN Location: [place] [address] Reason for Consult Date of Consultation: 08/12/18 Reason for Consultation: post polypectomy bleed History of Present Illness: The patient is a 72 year old M underwent colonoscopy approximately 8 days previously and had a snare polypectomy of a polyp in the ascending colon. The patient is a history of coronary disease with stent placement. He is on a full strength aspirin. He is noted initially dark stools or maroon stools for the last 2 days. Today the patient felt dizzy and presented to the emergency department. In the reverse department, he was found to be orthostatic. His hemoglobin was 9.3. Patient being admitted for IV fluids possible transfusion and possible repeat upper endoscopy for post polypectomy bleed. Past Medical History Past Medical History (Chronic Problems): Chronic Problems Hypothyroidism (Chronic) Hyperlipidemia (Chronic) Coronary artery disease (Chronic) Status post stents. HTN (hypertension) (Chronic) COPD (chronic obstructive pulmonary disease) (Chronic) Allergies No Known Allergies Allergy (Verified 08/12/18 13:59) Home Medications: Ambulatory Orders Medication Instructions Recorded Albuterol IH (ProAir) [Proair Hfa] 1 - 2 puff INHALATION Q4H PRN PRN 10/20/17 Aspirin 325 mg PO QHS 10/20/17 Atorvastatin Calcium 40 mg PO QHS 10/20/17 Surgical History: - - Cardiac stents. Right orchiectomy, laparotomy with lymph node dissection. Psychiatric History: No pertinent psych hx Lives: Spouse/ Significant Other Smoking Status: Former smoker Alcohol: None Drugs: None - *Family History Maternal History Items: No pertinent history Paternal History Items: No pertinent history Review of Systems Constitutional: Reports: Weakness. Denies: Chills, Fever, Weight Change HEENT: Denies: Head Aches, Sinus Congestion, Sinus Drainage Cardiovascular: Denies: Chest Pain, Palpitations Respiratory: Denies: Cough, Shortness of breath at rest, Sputum production Gastrointestinal: Reports: Hematochezia, Melena. Denies: Abdominal Pain, Nausea, Vomiting Genitourinary: Denies: Dysuria Musculoskeletal: Denies: Joint Pain, Joint Tenderness Skin: Denies: Rash, Wounds Neurological: Denies: Numbness, Tingling, Focal weakness Psychiatric: Denies: Anxiety, Depression, Homicidal Ideations, Suicidal Ideations Hematologic/ Lymphatic: Denies: Easy Bruising, Easy Bleeding Patient Problems: Active and Suspected Problems GI bleed (Acute) - Physical Exam General: Alert, Oriented x3, Cooperative HEENT: Atraumatic, PERRLA, EOMI, Normocephalic Neck: Supple, No JVD, Negative Carotid Bruits Lungs: Clear to auscultation, Normal air movement Cardiovascular: Regular rate, No murmurs Abdomen: Bowel Sounds Present, Soft, Non Tender Extremities: No edema, Capillary Refill Less than 3 Seconds Skin: No rashes, No breakdown Musculoskeletal: No Tenderness to Palpation of Joints or Extremities Neurological: Cranial nerves II-XII grossly intact Psych/Mental Status: Normal Affect, Appropriate Vital Signs Temp Pulse Resp BP Pulse Ox 98.0 F 67 15 129/68 H 99 08/12/18 16:45 08/12/18 16:45 08/12/18 16:45 08/12/18 16:45 08/12/18 16:45 Oxygen Delivery Method Room Air Weight: 76.3 kg Body Mass Index (BMI) 21.6 Laboratory Tests Past 24 Hrs WBC 5.6 RBC 3.35 L Hgb 9.3 L WBC RBC Hgb 8.7 L Hct 25.9 L MCV MCH MCHC RDW RDW Differential WBC RBC Hgb Assessment/Plan All Active Problems GI bleed (Acute) likely post-polypectomy bleed. We'll follow patient's hemoglobin. If he continues to have bleeding we'll plan for light GoLYTELY prep and repeat colonoscopy tomorrow with possible clipping if bleeding sites encountered. If patient's hemoglobin is stable without bowel prep as this may recalls bleeding. In the event of endoscopy is performed again, the patient was discussed as possible but understands the risks, benefits, complications and possible alternatives to endoscopy. The patient consents. 08/12/181923 <Electronically signed by Dawit Lewis MD> Date Dawit Lewis MD Cosigner Signature (if applicable): Date CC: Dawit Lewis MD; Yeison Rowe MD Signed HH, HEMOGLOBIN AND Collected: 08/12/2018 Status: F Source: [place] HEMATOCRIT 5:04 PM [facility] REPOSITORY Order Comment: Comments: Every 8 hours x3. TYPE CODE TESTS RESULT OUT OF RANGE REFERENCE UNITS LAB L100.1300 13.0-16.5 g/dl Low HGB 8.7 LAB L100.1400 40-54 % Low HCT 25.9 Performed By: #### L100.0600 #### [facility] [address] [place], [place], [address] PROTHROMBIN TIME W/INR Collected: 08/12/2018 Status: F Source: [place] 5:04 PM [facility] REPOSITORY TYPE CODE TESTS RESULT OUT OF RANGE REFERENCE UNITS LAB L300.4150 11.7-14.9 SECONDS High PROTIME 15.0 LAB L300.4200 Normal INR 1.2 Performed By: #### L300.3900 #### [facility] [address] [place], [address] THYROID STIM HORMONE Collected: 08/12/2018 Status: F Source: [place] (TSH) 5:04 PM [facility] REPOSITORY TYPE CODE TESTS RESULT OUT OF RANGE REFERENCE UNITS LAB L501.9520 0.358-3.74 uIU/mL Normal TSH 0.98 Performed By: #### L501.9520 #### [facility] [address] [place], [address] HISTORY AND PHYSICAL Observed: 08/12/2018 Status: F Source: [place] EXAM 4:09 PM [facility] REPOSITORY [facility] Medical Records Department [address] [place] [address] History and Physical 08/12/18 1551 MR#: [id number] Acct: [id number] Name: MYNOR ESQUEDA Rep #: [id number] : 1945 72 From: Emanuel Lew MD PCP: Yeison Rowe MD Status: ADM IN Location: [place] [address] Problem List (1) GI bleed Status: Acute (2) Hypothyroidism Status: Chronic (3) Hyperlipidemia Status: Chronic (4) Coronary artery disease Status: Chronic Comment: Status post stents. (5) HTN (hypertension) Status: Chronic (6) COPD (chronic obstructive pulmonary disease) Status: Chronic History of Present Illness Date of Admission: 08/12/18 Chief Complaint: Bleeding per rectum. The patient is a 72 year old M with past medical history as mentioned above presented to the emergency room because of bleeding per rectum. His symptoms started 2 days ago with rectal bleeding, maroon colored stool, around 8-10 times over the last 48 hours, started having symptoms of dizziness and weakness since yesterday and without aggravating or relieving factors. He had surveillance colonoscopy on August 04, [address] Lee because he had a history of colon polyps, found to have sigmoid diverticulosis, nonbleeding hemorrhoids and 5-10 mm polyp in the ascending colon that was removed. Histopathology of that polyp revealed inflammatory changes, negative for cancer. He had a history of CAD status post stents and he has been on full dose aspirin 325 mg daily as well as lisinopril, metoprolol and statins. He had a history of hypothyroidism, has been on levothyroxine and no TSH was found in his chart. 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 In the emergency department, patient was tachycardic, orthostatic vitals were positive. He was afebrile, pulse ox was maintained on room air. Routine blood work revealed hemoglobin of 9.3 g/dL, creatinine of 1.39. He is being admitted for GI bleed with acute blood loss symptomatic anemia. Past Medical History Past Medical History (Chronic Problems): Chronic Problems Hypothyroidism (Chronic) Hyperlipidemia (Chronic) Coronary artery disease (Chronic) Status post stents. HTN (hypertension) (Chronic) COPD (chronic obstructive pulmonary disease) (Chronic) Allergies No Known Allergies Allergy (Verified 08/12/18 13:59) Home Medications: Ambulatory Orders Medication Instructions Recorded Albuterol IH (ProAir) [Proair Hfa] 1 - 2 puff INHALATION Q4H PRN PRN 10/20/17 Aspirin 325 mg PO QHS 10/20/17 Atorvastatin Calcium 40 mg PO QHS 10/20/17 Surgical History: - - Cardiac stents. Right orchiectomy, laparotomy with lymph node dissection. Psychiatric History: No pertinent psych hx Lives: Spouse/ Significant Other Smoking Status: Former smoker Alcohol: None Drugs: None - *Family History Maternal History Items: No pertinent history Paternal History Items: No pertinent history Review of Systems Constitutional: Reports: Weakness. Denies: Anorexia, Chills, Fever Eyes: Denies: Blurred vision, Double vision, Drainage, Redness HEENT: Denies: Difficulty Hearing, Ear Pain, Eye Pain, Nasal bleeding, Nasal Congestion, Sore Throat Cardiovascular: Reports: Light Headedness. Denies: Chest Pain, Chest Pressure, Chest Tightness, Orthopnea, Paroxysmal Noc. Dyspnea, Syncope Respiratory: Denies: Cough, Hemoptysis, Pleuritic Pain, Shortness of Breath, Sputum production, Wheezing Gastrointestinal: Reports: Hematochezia. Denies: Abdominal Pain, Constipation, Diarrhea, Nausea, Vomiting Genitourinary: Denies: Dysuria, Frequency, Hematuria Musculoskeletal: Denies: Arm Pain, Back Pain, Foot Pain Skin: Denies: Dryness, Rash Neurological: Denies: Balance problems, Double vision, Change in Speech, Confusion, Headaches Psychiatric: Denies: Anxiety, Depression Endocrine: Denies: Change in Body Habitus, Polydipsia VTE Information - Inpt Only VTE Present on Admission: No VTE Mechan Device Prophylaxis: SCD's VTE Pharm Prophylaxis ordered?: No Patient Problems: Active and Suspected Problems GI bleed (Acute) - Physical Exam General: Alert, Oriented x3, Cooperative, No apparent distress HEENT: Atraumatic, PERRLA, EOMI, Normocephalic Oral: Moist Mucosa, No Gingival or Mucosal Lesions/ Ulcerations Neck: Supple, No JVD, Negative Carotid Bruits, Trachea Midline, Thyroid Normal Size and Texture Lungs: Clear to auscultation, No rhonchi, No wheeze, No rales, Diminished Cardiovascular: Regular rate, Regular Rhythm, Normal S1, Normal S2, PMI Normal, Murmur - Systolic murmur. Abdomen: Bowel Sounds Present, Soft, Non Tender, Non-Distended, No Hepato-splenomegaly Extremities: No clubbing, No cyanosis, No edema Skin: No rashes, No breakdown Lymphatic: No Cervical, Supraclavicular, or Inguinal Adenopathy Neurological: Cranial nerves II-XII grossly intact, Motor Exam 5/5 strength throughout Psych/Mental Status: Normal Affect, Appropriate, Alert and oriented to time, place, person, mood and affect Vital Signs Temp Pulse Resp BP Pulse Ox 97.3 F L 76 16 136/61 H 99 08/12/18 13:59 08/12/18 15:00 08/12/18 15:00 08/12/18 15:00 08/12/18 15:00 Oxygen Delivery Method Room Air Weight: 173 lb 4.533 oz Body Mass Index (BMI) 22.2 Laboratory Tests Past 24 Hrs WBC RBC Hgb Hct MCV MCH MCHC RDW RDW Differential Plt Count MPV Immature Gran % (Auto) Neut % (Auto) Lymph % (Auto) Assessment/Plan All Active Problems GI bleed (Acute) This is a 72 years old male patient presented to the ED because of blood per rectum and he is being admitted for GI bleed and acute blood loss symptomatic anemia. #1 GI bleed: In context of recent surveillance colonoscopy that was done on August 04, 2018 and revealed colonic polyp that was removed. Patient has been on aspirin 325 mg p.o. daily for CAD with stents. Patient is tachycardic, orthostatic hypotension is positive. Plan: Admit to PCU, cardiac monitoring, H AND H every 8 hours, transfuse if hemoglobin less than 8 g/dL, IV fluids, IV Protonix twice daily, pro time and INR, repeat CBC and BMP tomorrow morning, general surgery consult. #2 acute blood loss symptomatic anemia: Patient is symptomatic, feeling dizzy, orthostatic hypotension. At this time, blood pressure stable. Plan for complete bedrest, H AND H every 8 hours, transfuse if hemoglobin less than 8 g/dL, IV PPI, repeat CBC and BMP tomorrow morning, general surgery consult. #3 CAD status post stents: Stable, denies chest pain or shortness of breath. Plan to do routine EKG, hold aspirin, continue statins, lisinopril and metoprolol. #4 hypertension: Blood pressure stable, continue metoprolol and lisinopril. #5 hypothyroidism: Continue levothyroxine, will check TSH. #6 hyperlipidemia: Continue statins. #7 stage III chronic kidney disease: Baseline creatinine has been around 1.4 mg/dL. Admission creatinine is 1.39, stable at baseline. #8 history of cervical cancer with metastases to lung and lymph nodes: Status post right lobectomy and chemotherapy long time ago. Stable, in remission. #9 DVT prophylaxis: SCDs. This note was generated with Readmill dictation software. It may contain incorrect words, spelling, and punctuation that were not noted in checking the note before signing. Code Visit Inpatient E AND M: [id number] Init Hosp L3 08/12/18 1609 <Electronically signed by Emanuel Lew MD> Date Emanuel Lew MD Cosigner Signature: Date (if applicable) CC: Emanuel Lew; Yeison Rowe MD Signed EMERGENCY DEPARTMENT Observed: 08/12/2018 Status: F Source: [place] SUMMARY 3:08 PM [facility] REPOSITORY [facility] Medical Records Department [address] [place] [address] Emergency Department Summary 08/12/18 1505 MR#: [id number] Acct: [id number] Name: MYNOR ESQUEDA Rep #: [id number] : 1945 72 From: Cris Mei DO PCP: Yeison Rowe MD Status: REG ER - ER Visit Summary Date of Service: 08/12/18 Chief Complaint: [Rectal bleeding] History of Present Illness: The patient is a 72 M [presents the emergency department with rectal bleeding that started 3 days ago. Patient has been having about 3-4 bloody stools per day. Patient feels generally weak and at times short of breath with activity. He denies feeling dizzy with standing. Patient tells me he had a colonoscopy [address] Joyce Lee who did remove a polyp. Patient is currently on aspirin. Aspirin had been stopped prior to the colonoscopy.] Patient denies abdominal pain. Physical Examination: [HEENT-PERRLA, EOMI. Cranial nerves II through XII grossly intact. TMs clear. Mucous membranes moist. No adenopathy. Cardiovascular-regular rate and rhythm without murmur or ectopy Lungs-clear to auscultation, chest wall stable without crepitus or subcu emphysema Abdomen-normoactive bowel sounds, soft, nontender, no rebound or rigidity, no peritoneal signs. Rectal exam-patient has maroon colored stool. No masses palpated in the rectal vault. Extremities-intact 4, normal range of motion, normal pulses, atraumatic] Test Results: [Orthostatic vital signs were positive. Patient CBC with differential showed a white count of 5.6, heme globin 9.3, hematocrit 28, platelets 162. Chemistries are pending and lactate pending] Emergency Department Course and Treatment; ] she was given normal saline and he was typed and screened Treatment Plan: [Admit. Patient case discussed with Dr. Dawit Connor who would be willing to consult on the case if necessary.] Disposition: [Admit] Impression: [Lower GI bleed] This note was generated with Readmill dictation software. It may contain incorrect words, spelling, and punctuation that were not noted in review of the chart prior to signing ED Disposition - Plan for ED Patient: Chief Complaint: GI Bleed Referrals: Yeison Rowe MD [Primary Care Provider] - What to do if you have Problems For any increased pain, shortness of breath, bleeding, nausea or vomiting, chest pain, or any unexpected problems, contact your Primary Care Provider. Call [facility] ([phone]) or report to the closest Emergency Room. Call 911 if necessary. 08/12/18 1508 <Electronically signed by Cris Mei DO> Date Cris Mei DO Cosigner Signature (If Indicated): Date CC: Yeison Rowe MD CBC W/DIFF, AUTOMATED Collected: 08/12/2018 Status: F Source: [place] 2:35 PM [facility] REPOSITORY TYPE CODE TESTS RESULT OUT OF RANGE REFERENCE UNITS LAB L100.1000 4.4-11.0 K/mm3 Normal WBC 5.6 LAB L100.1200 4.6-6.2 M/mm3 Low RBC 3.35 LAB L100.1300 13.0-16.5 g/dl Low HGB 9.3 LAB L100.1400 40-54 % Low HCT 27.8 LAB L100.1500 80-94 fL Normal MCV 83.0 LAB L100.1600 27.0-32.0 pg Normal MCH 27.8 LAB L100.1700 32-36 g/gl Normal MCHC 33.5 LAB L100.1810 11.6-14.6 % Normal RDW CV 14.3 LAB L100.1820 35.1-43.9 fl Normal RDW SD 43.0 LAB L100.1900 150-450 K/mm3 Normal PLT 162 LAB L100.2000 6.2-12.0 fl Normal MPV 10.3 LAB L100.2100 47-70 % High NEUT% 72.6 LAB L100.2200 19-41 % Low LY% 18.6 LAB L100.2300 0-10 % Normal MONO% 5.8 LAB L100.2400 0-5 % Normal EO% 2.3 LAB L100.2500 0-1 % Normal BASO% 0.5 LAB L100.2550 0.0-0.9 % Normal IM GRAN % 0.200 Result Comment: IG% - Immature Granulocytes (promyelocytes, myelocytes and metamyelocytes) > 1% indicates that a LEFT SHIFT is Present. LAB L100.2620 2.0-7.7 X10 3/uL Normal Absolute Neut 4.0 LAB L100.2720 0.83-4.51 X10 3/ul Normal Absolute Lymph 1.03 Performed By: #### L100.0100 #### [facility] [address] [place], [place], [address] BASIC METABOLIC Collected: 08/12/2018 Status: F Source: [place] PROFILE (BMP) 2:35 PM [facility] REPOSITORY TYPE CODE TESTS RESULT OUT OF RANGE REFERENCE UNITS LAB L501.0100 74-106 mg/dL High GLU 157 Result Comment: Fasting Glucose result greater than or equal to 126 mg/dL suggests DIABETES MELLITUS per A.D.A. criteria. Please note revised GLUCOSE reference range effective 2017. LAB L501.1000 7-18 mg/dL High BUN 22 LAB L501.1100 0.70-1.30 mg/dL High CREAT,SERUM 1.39 Result Comment: The validity of the calculated GFR AND GFRAA in patients over 70 years has not been determined. Clinical correlation is essential. LAB L501.1110 >60 mL/min Low EST GFR 54 Result Comment: Non- GFR Calc LAB L501.1115 >60 mL/min Normal EST GFR - AA 65 Result Comment: GFR Calc LAB L501.1255 ml/min Normal Estimated CRCL 54.98 LAB L501.1300 10-20 RATIO Normal BUN/CRE 15.8 LAB L501.2200 8.5-10 mg/dL Low .1 CA 8.4 LAB L501.5300 136-14 mmol/L Normal 5 NA 142 LAB L501.5600 3.5-5. mmol/L Normal 1 K 4.0 LAB L501.5900 98-107 mmol/L High CL 109 LAB L501.6100 21.0-3 mmol/L Normal 2.0 CO2 26.0 LAB L501.6200 5-15 Normal GAP 7 Performed By: #### L500.2500 #### [facility] [address] [place], [address] LACTIC ACID Collected: 08/12/2018 Status: F Source: [place] 2:35 PM [facility] REPOSITORY Order Comment: Yes/No query for Sepsis Lactate Rule Y TYPE CODE TESTS RESULT OUT OF RANGE REFERENCE UNITS LAB L503.6005 0.4-2.0 mmol/L Normal LACTIC ACID 1.7 Performed By: #### L503.6005 #### [facility] [address] [facility] [place], [address] TYPE AND SCREEN Collected: 08/12/2018 Status: F Source: [place] 2:35 PM [facility] REPOSITORY Order Comment: Reason for Type AND Screen/Red Cells: HEMORRHAGE, GI BLEED TYPE CODE TESTS RESULT OUT OF RANGE REFERENCE UNITS LAB B10.0800 O Normal BLOOD TYPE GEL POSITIVE LAB B100.4000 Normal Antibody NEGATIVE Screen Performed By: #### B101.7450 #### [facility] [address] [facility] [place], [address] RC Collected: 08/12/2018 Status: F Source: [place] 2:35 PM [facility] REPOSITORY TYPE CODE TESTS RESULT OUT OF REFERENCE UNITS RANGE LAB U100.0000 [id number] TRANSFUSED PRODUCT: T AND S with Crossmatch, Red Cells COUNT: 1 Performed By: #### U100.0000 #### [facility] - refer to report for specific site RC Collected: 08/12/2018 Status: F Source: [place] 2:35 PM [facility] REPOSITORY TYPE CODE TESTS RESULT OUT OF REFERENCE UNITS RANGE LAB U100.0000 [id number] TRANSFUSED PRODUCT: T AND S with Crossmatch, Red Cells COUNT: 2 Performed By: #### U100.0000 #### [facility] - refer to report for specific site RC Collected: 08/12/2018 Status: F Source: [place] 2:35 PM [facility] REPOSITORY TYPE CODE TESTS RESULT OUT OF REFERENCE UNITS RANGE LAB U100.0000 [id number] TRANSFUSED PRODUCT: T AND S with Crossmatch, Red Cells COUNT: 1 Performed By: #### U100.0000 #### [facility] - refer to report for specific site CNCO Observed: 08/07/2018 Status: COMPLETED Source: [place] 12:00 AM [facility] REPOSITORY Letter Text Yeison Rowe MD [facility] Mynor Esqueda [address] [place] [id number] [facility] #: [id number] 08/07/2018 Dear Mr. Esqueda, I have received the results of your recent tests. The results of your Thyroid Function tests were either normal or within the acceptable range. We can discuss this at your next visit. Please do not hesitate to contact me with any questions. Sincerely, Yeison Rowe MD [facility] Medicine Department electronically signed to expedite mailing TSH Collected: 08/06/2018 Status: F Source: [place] 8:50 AM [facility] REPOSITORY TYPE CODE TESTS RESULT OUT OF RANGE REFERENCE UNITS LAB TSH 0.400-5.500 uU/mL TSH 2.910 Performed By: #### TSH #### [facility] [address] [place], [place] [address] HISTORY AND PHYSICAL Observed: 08/04/2018 Status: F Source: [place] EXAM 1:49 PM [facility] REPOSITORY [facility] Medical Records Department [address] [place] [address] History and Physical 08/04/18 1235 MR#: [id number] Acct: [id number] Name: MYNOR ESQUEDA Rep #: [id number] : 1945 72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 Low 0 ALB 3.1 LAB L501.1950 2.2-4. g/dL High 2 GLOB 4.5 LAB L501.2000 0.9-2. RATIO Low 4 A/G 0.7 LAB L501.2200 8.5-10 mg/dL Low .1 CA 7.8 LAB L501.4100 15-37 U/L Normal AST 25 LAB L501.4305 45-117 U/L High ALK P 128 LAB L501.4405 16-61 U/L Normal ALT 23 Result Comment: Please note revised ALT reference range effective 2017. LAB L501.4600 0.20-1.00 mg/dL Normal T BILI 0.50 LAB L501.5300 136-145 mmol/L Normal NA 139 LAB L501.5600 3.5-5.1 mmol/L Low K 3.4 LAB L501.5900 98-107 mmol/L Normal CL 106 LAB L501.6100 21.0-32.0 mmol/L Normal CO2 22.0 LAB L501.6200 5-15 Normal GAP 11 Performed By: #### L500.4050 #### [facility] [address] [place], [place], [address] Observed: 10/20/2017 Status: F Source: [place] CULTURE, BLOOD (WB) 6:40 AM [facility] REPOSITORY Has pt arrived? Y BC No growth in 5 days. Performed By: #### M200.1000 #### [facility] [address] [facility] [facility] [place], [place], [id number] Observed: 10/20/2017 Status: F Source: [place] LEGIONELLA ANTIGEN 6:30 AM [facility] URINE REPOSITORY Legionella, UR Legionella Antigen result interpretation: Negative Presumptive negative for Legionella pneumophila serogroup 1 antigen in urine, suggesting no recent or current infection. Legionella Ag, Urine Negative (See interpretation below) Performed By: #### M300.4500 #### [facility] [address] [place] [address], [address] STREP Observed: 10/20/2017 Status: F Source: [place] PNEUMONIAE ANTIG(UR,CSF) 6:30 AM [facility] REPOSITORY S pneumo Ag Negative Urine Presumptive negative for pneumococcal pneumonia, suggesting no current or recent pneumococcal infection. Infection due to S pneumoniae cannot be ruled out since the antigen present in the sample may be below the detection limit of the test. Strep pneumo Test Negative URINE (See interpretation below) Performed By: #### M300.4600 #### [facility] [address] [place], [place], [address] HISTORY AND PHYSICAL Observed: 10/20/2017 Status: F Source: [place] EXAM 5:00 AM [facility] REPOSITORY [facility] Medical Records Department [address] [place] [id number] History and Physical 10/20/17 0442 MR#: [id number] Acct: [id number] Name: CAS ESQUEDANikkie Faustin Rep #: [id number] : 1945 71 From: Constantino Lee MD PCP: Yeison Rowe MD Status: ADM IN Y Location: [place] [address] Problem List (1) HTN (hypertension) Status: Chronic (2) COPD (chronic obstructive pulmonary disease) Status: Acute (3) CAP (community acquired pneumonia) Status: Acute History of Present Illness Date of Admission: 10/20/17 Chief Complaint: CAP The patient is a 71 year old male w/ h/o COPD and HTN admitted for CAP. Pt has been SOB since Saturday when walking out in the cold air. SOB has gotten progressively worse. He feels SOB most part of the day for the past few days. SOB is severe that it interfered with his ADLs. He has minimal cough associated wit the SOB. The intensity and frequency of the cough have been unchanged. Cough is productive. He has no fever or chill. No other associated symptoms. Past Medical History Past Medical History (Chronic Problems): Chronic Problems HTN (hypertension) (Chronic) Allergies No Known Allergies Allergy (Verified 10/20/17 01:59) Home Medications: Ambulatory Orders Medication Instructions Recorded Albuterol IH (ProAir) [Proair Hfa 1 - 2 puff INHALATION Q4H PRN PRN 10/20/17 (SP)Vent Pts] Atorvastatin Calcium 40 mg PO DAILY 10/20/17 Lives: With Family Smoking Status: Former smoker Alcohol: None Drugs: None - *Family History Maternal History Items: No pertinent history Review of Systems Constitutional: Denies: Chills, Fever, Weight Change HEENT: Denies: Head Aches, Sinus Congestion, Sinus Drainage Cardiovascular: Denies: Chest Pain, Palpitations Respiratory: Reports: Cough, Shortness of Breath, Sputum production. Denies: Shortness of breath at rest Gastrointestinal: Denies: Abdominal Pain, Nausea, Vomiting Genitourinary: Denies: Dysuria Musculoskeletal: Denies: Joint Pain, Joint Tenderness Skin: Denies: Rash, Wounds Neurological: Denies: Numbness, Tingling, Focal weakness Psychiatric: Denies: Anxiety, Depression, Homicidal Ideations, Suicidal Ideations Hematologic/ Lymphatic: Denies: Easy Bruising, Easy Bleeding VTE Information - Inpt Only VTE Present on Admission: No VTE Mechan Device Prophylaxis: SCD's VTE Pharm Prophylaxis ordered?: Yes Patient Problems: Active and Suspected Problems COPD (chronic obstructive pulmonary disease) (Acute) CAP (community acquired pneumonia) (Acute) - Physical Exam General: Alert, Oriented x3, Cooperative HEENT: Atraumatic, PERRLA, EOMI, Normocephalic Neck: Supple, No JVD, Negative Carotid Bruits Lungs: Rales, Wheezes Cardiovascular: Regular rate, No murmurs Abdomen: Bowel Sounds Present, Soft, Non Tender Extremities: No edema, Capillary Refill Less than 3 Seconds Skin: No rashes, No breakdown Musculoskeletal: No Tenderness to Palpation of Joints or Extremities Neurological: Cranial nerves II-XII grossly intact Psych/Mental Status: Normal Affect, Appropriate Vital Signs Temp Pulse Resp BP Pulse Ox 97.7 F L 73 18 164/86 H 96 10/20/17 01:56 10/20/17 04:34 10/20/17 04:34 10/20/17 04:34 10/20/17 04:34 Oxygen Flow Rate 2 Oxygen Delivery Method Nasal Cannula Weight: 82.6 kg Body Mass Index (BMI) 23.3 Microbiology Past 72 Hours 10/20/17 02:30 Influenza Types A,B Direct FA (ALEXA) - Final Mucosa - Nose Laboratory Tests Past 24 Hrs Assessment/Plan Active and Suspected Problems COPD (chronic obstructive pulmonary disease) (Acute) CAP (community acquired pneumonia) (Acute) 71 year old male w/ h/o COPD and HTN admitted for CAP. 1) Acute on chronic COPD exacerbation: Most likely secondary to CAP. C/w solumedrol, ceftriaxone, azithromycin, and bronchodilator. C/w chest therapy. Cultures pending. 2) Acute hypoxic respiratory failure: Likely CAP. Chest xray disclosed possible right lower lobe atelectasis vs infiltrate. BNP 380s noted. No e/o severe or gross congestion. Will consider PE if no improvement. D-dimer pending. 3) Chronic issues: HTN, lipidemia: Resume home meds. 4) Prophylaxis: SCD / heparin. 10/20/17 0500 <Electronically signed by Constantino Lee MD> Date Constantino Lee MD Cosigner Signature: Date (if applicable) CC: Constantino Lee MD; Yeison Rowe MD Signed EMERGENCY DEPARTMENT Observed: 10/20/2017 Status: F Source: [place] SUMMARY 4:34 AM [facility] REPOSITORY [facility] Medical Records Department [address] [place] [address] Emergency Department Summary 10/20/17 0220 MR#: [id number] Acct: [id number] Name: MYNOR ESQUEDA Rep #: [id number] : 1945 71 From: Jose M Christian MD PCP: Yeison Rowe MD Status: REG ER - ER Visit Summary Date of Service: 10/20/17 Chief Complaint: Shortness of breath History of Present Illness: The patient is a 71 M with 2-3 days gradual onset and worsening dyspnea. Better tonight after he used a rescue inhaler, but still dyspneic. No chest discomfort or tightness. No orthopnea, but he is worse with exertion and exposure to the cold air. No peripheral swelling. Has a history of COPD but is on no home oxygen. 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 Had a cardiac stent placed remotely. Physical Examination: Hypoxic at 82% on room air, 95% on 4 L nasal cannula. Otherwise vital signs show hypertension 191/98 initially, 179 systolic on my exam. He is not tachycardic. He is tachypneic and in mild respiratory distress but is able to speak in 5-7 word sentences. Lungs are wheezy and rhonchorous throughout, a little worse on the right. Trachea midline. Heart is regular with a 3/6 systolic ejection murmur. Abdomen is soft nontender nondistended with normal bowel sounds present. No peripheral edema or calf tenderness. No JVD. Test Results: Labs show renal insufficiency, there is no old creatinine available; his proBNP is only in the 300s, which is within normal limits for a patient of this age; no leukocytosis or elevated troponin. EKG is unremarkable. Chest x-ray on my interpretation shows bilateral patchy infiltrates and borderline cardiomegaly. Emergency Department Course and Treatment: After nebulizer treatment series, he feels much better. On reexamination, his wheezing is gone, however he still has rales bilaterally. I suspect his chest x-ray represents an atypical pneumonia, rather than congestive heart failure due to his valve, which I suspect is aortic stenosis but I do not have the results of any of the echocardiograms he has had in the past. I turned his oxygen off, he is stable at 90% on room air. I think he should be admitted for further treatment. Empiric Levaquin given, no recent hospital admissions in the past several months. His influenza swab is negative. Discussed with hospitalist. Will also give Solu-Medrol. Treatment Plan: Antibiotics, admit Disposition: Admit MedSur Impression: Community-acquired pneumonia Hypoxemia Acute COPD exacerbation This note was generated with Readmill dictation software. It may contain incorrect words, spelling, and punctuation that were not noted in review of the chart prior to signing ED Disposition - Plan for ED Patient: Disposition: Acute Care [facility] Chief Complaint: Shortness of Breath Referrals: Yeison Rowe MD [Primary Care Provider] - What to do if you have Problems For any increased pain, shortness of breath, bleeding, nausea or vomiting, chest pain, or any unexpected problems, contact your Primary Care Provider. Call [facility] ([phone]) or report to the closest Emergency Room. Call 911 if necessary. 10/20/17 0434 <Electronically signed by Jose M Christian MD> Date Jose M Christian MD Cosigner Signature (If Indicated): Date CC: Yeison Rowe MD Observed: 10/20/2017 Status: F Source: [place] INFLUENZA A+B (RAPID 2:30 AM [facility]) REPOSITORY Order Date: 10/20/17 FLU A/B Rapid Negative test results should be confirmed by culture. Order Rapid Viral Culture for Influenzae A+B ([id number]) if clinically indicated. Influenza Ag, Direct Presumptive NEGATIVE for Influenza A/B Antigen (See Note) Performed By: #### M101.0101 #### [facility] [place], [address] CHEST PA AND LATERAL Observed: 10/20/2017 Status: F Source: [place] 2:20 AM [facility] REPOSITORY [facility] Imaging Services [address] [place] [address] Chest PA and Lateral MR#: [id number] Acct: [id number] Name: MYNOR ESQUEDA Rep #: [id number] : 1945 M 71 From: Philip Meza MD PCP: Yeison Rowe MD Status: ADM IN Study: Chest PA and Lateral Date of Exam: 10/20/17 Exam# [id number] Ordering Dr: Jose M Christian MD STUDY: X-RAY CHEST REASON FOR EXAM: Male, 71 years old. Shortness of breath. Dyspnea. TECHNIQUE: Frontal and lateral views of the chest. COMPARISON: None. FINDINGS: There is hyperinflation of the lungs consistent with chronic obstructive lung disease (COPD). There is diffuse interstitial prominence in the lungs. This probably represent a combination of chronic interstitial lung disease and acute CHF. There is a small right pleural effusion. There is mild cardiac enlargement. Normal mediastinum and dennis. Normal visualized pulmonary arteries. Normal visualized aortic arch and descending thoracic aorta. There are diffuse degenerative changes of the visualized thoracic spine. Normal visualized ribs, clavicles, and shoulders. There is no demonstrated abnormality of the visualized soft tissue structures of the upper abdomen. RAD/Chest PA and Lateral IMPRESSION: COPD with evidence for chronic interstitial lung disease. Cardiomegaly without acute CHF and small right pleural effusion. 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 CBC W/DIFF, AUTOMATED Collected: 10/20/2017 Status: F Source: [place] 2:10 AM [facility] REPOSITORY TYPE CODE TESTS RESULT OUT OF RANGE REFERENCE UNITS LAB L100.1000 4.4-11.0 K/mm3 Normal WBC 7.7 LAB L100.1200 4.6-6.2 M/mm3 Low RBC 4.56 LAB L100.1300 13.0-16.5 g/dl Low HGB 12.4 LAB L100.1400 40-54 % Low HCT 38.0 LAB L100.1500 80-94 fL Normal MCV 83.3 LAB L100.1600 27.0-32.0 pg Normal MCH 27.2 LAB L100.1700 32-36 g/gl Normal MCHC 32.6 LAB L100.1810 11.6-14.6 % Normal RDW CV 14.2 LAB L100.1820 35.1-43.9 fl Normal RDW SD 43.1 LAB L100.1900 150-450 K/mm3 Normal PLT 166 LAB L100.2000 6.2-12.0 fl Normal MPV 10.0 LAB L100.2100 47-70 % High NEUT% 70.1 LAB L100.2200 19-41 % Normal LY% 22.1 LAB L100.2300 0-10 % Normal MONO% 4.8 LAB L100.2400 0-5 % Normal EO% 2.7 LAB L100.2500 0-1 % Normal BASO% 0.3 LAB L100.2550 0.0-0.9 % Normal IM GRAN % 0.000 Result Comment: IG% - Immature Granulocytes (promyelocytes, myelocytes and metamyelocytes) > 1% indicates that a LEFT SHIFT is Present. LAB L100.2620 2.0-7.7 X10 3/uL Normal Absolute Neut 5.4 LAB L100.2720 0.83-4.51 X10 3/ul Normal Absolute Lymph 1.70 Performed By: #### L100.0100 #### [facility] [address] [place], [address] BASIC METABOLIC Collected: 10/20/2017 Status: F Source: [place] PROFILE (BMP) 2:10 AM [facility] REPOSITORY Order Comment: 'TROP' Serial specimen #1, #2, #3, or #4: 1 TYPE CODE TESTS RESULT OUT OF RANGE REFERENCE UNITS LAB L501.0100 74-106 mg/dL High GLU 115 Result Comment: Fasting Glucose result from 100 to 125 mg/dL suggests IMPAIRED HOMEOSTASIS per A.D.A. criteria. Please note revised GLUCOSE reference range effective 2017. LAB L501.1000 7-18 mg/dL High BUN 20 LAB L501.1100 0.70-1.30 mg/dL High CREAT,SERUM 1.51 Result Comment: The validity of the calculated GFR AND GFRAA in patients over 70 years has not been determined. Clinical correlation is essential. LAB L501.1110 >60 mL/min Low EST GFR 49 Result Comment: Non- GFR Calc LAB L501.1115 >60 mL/min Low EST GFR - AA 59 Result Comment: GFR Calc LAB L501.1255 ml/min Normal Estimated CRCL 53.68 LAB L501.1300 10-20 RATIO Normal BUN/CRE 13.2 LAB L501.2200 8.5-10 mg/dL Normal .1 CA 8.5 LAB L501.5300 136-14 mmol/L Normal 5 NA 142 LAB L501.5600 3.5-5. mmol/L Normal 1 K 4.0 LAB L501.5900 98-107 mmol/L Normal CL 106 LAB L501.6100 21.0-3 mmol/L Normal 2.0 CO2 27.0 LAB L501.6200 5-15 Normal GAP 9 Performed By: #### L500.2500, L501.4010 #### [facility] [address] [place], [place], [address] TROPONIN-I Collected: 10/20/2017 Status: F Source: [place] 2:10 AM [facility] REPOSITORY Order Comment: 'TROP' Serial specimen #1, #2, #3, or #4: 1 TYPE CODE TESTS RESULT OUT OF RANGE REFERENCE UNITS LAB L501.4010 <0.06 ng/mL Normal 0.02 TROPONIN-I Result Comment: TROPONIN-I EXPECTED VALUES <0.05 NEGATIVE 0.06 - 0.59 AT RISK OF NE > OR = 0.60 SUGGEST NE Performed By: #### L500.2500, L501.4010 #### [facility] [address] [place], [place], [id number] BNP,B-TYPE NATRIURETIC Collected: 10/20/2017 Status: F Source: [place] PEPTIDE 2:10 AM [facility] REPOSITORY TYPE CODE TESTS RESULT OUT OF RANGE REFERENCE UNITS LAB L503.6620 0-100 pg/mL High B-TYPE 382.5 JORGE PEP Performed By: #### L503.6620 #### [facility] [address] [place], [address] TSH Collected: 10/18/2017 Status: F Source: [place] 9:12 AM [facility] RE[facility]IT[facility] TYPE CODE TESTS RESULT OUT OF RANGE REFERENCE UNITS LAB TSH 0.400-5.500 uU/mL TSH 2.510 Performed By: #### TSH #### [facility] [address] [place] [id number] ALLERGIES ALLERGIES DATE TYPE / CODE NAME / CODE REACTION SEVERITY SOURCE 08/12/2018 Drug No Known Unknown [facility] Allergy/416 Allergies/Q61111 Hospital 832678(SNOM 0388(RXNORM) Repository ED CT) [id number] NO KNOWN [facility] 6(SNOMED ALLERGIES [facility]) Repository Drug NO KNOWN [facility] Class/08833 ALLERGIES [address] [facility] 1003(SNOMED Repository CT) ENCOUNTERS ENCOUNTERS ADMIT/DISCHARGE ACCOUNT NUMBER ADMITTING ENCOUNTER LOCATION SOURCE CLASS 09/09/2018 [id number] Ambulatory [facility] ding:SL Repository 08/26/2018/08/26/19 [id number] Ambulatory [address] Repository 08/26/2018 [id number] Ambulatory [facility] ding:PT Repository 08/25/2018/08/25/19 [id number] Ambulatory [address] Repository 08/25/2018/08/26/19 [id number] Ambulatory [address] Repository 08/25/2018/08/25/19 [id number] Ambulatory [address] Repository 08/25/2018/08/26/19 [id number] Ambulatory [address] Repository 08/25/2018 [id number] Ambulatory [facility] MEDICAL Repository CENTERBuildi ng:CAGWS 08/20/2018/08/20/19 [id number] Ambulatory [address] Repository 08/20/2018/08/21/19 [id number] Ambulatory [address] Repository 08/12/2018 [id number] [place], Ambulatory BMSBuilding: Neymar Ghasem BMS.[facility] Repository 08/12/2018/08/16/20 [id number] [place], Inpatient Neymar Neymar 18 Ghasem Encounter [facility] ding:PCURoom Repository : [id number]: 1 08/12/2018 [id number] [place], Ambulatory BMSBuilding: [place] Ghasem BMS.[facility] Repository 08/12/2018 [id number] [place], Ambulatory BMSBuilding: Neymar Ghasem BMS.[facility] Repository 08/12/2018 [id number] [place], Ambulatory BMSBuilding: Neymar Ghasem BMS.CF.[facility] Repository 08/12/2018 [id number] [place], Ambulatory BMSBuilding: [place] Ghasem BMS.CF.[facility] Repository 08/12/2018 [id number] [place], Ambulatory BMSBuilding: [place] Ghasem BMS.[facility] Repository 08/12/2018 [id number] [place], Ambulatory BMSBuilding: Neymar Ghasem BMS.CF.[facility] Repository 08/12/2018 [id number] [place], Ambulatory BMSBuilding: Neymar Ghasem BMS.[facility] Repository 08/12/2018/08/16/20 [id number] Ambulatory BMSBuilding: Neymar [address] [place] [address] Repository 08/12/2018 [id number] Ambulatory BMSBuilding: Neymar [facility] Repository 08/06/2018/08/06/20 [id number] Ambulatory [address] Repository 08/04/2018/08/04/20 [id number] Ambulatory [address] ding:ENRoom: Repository AC20 12/30/2017/12/31/19 [id number] Ambulatory [address] Repository 12/30/2017 [id number] Ambulatory [facility] Repository 12/30/2017/01/01/20 [id number] Ambulatory [address] Repository 12/24/2017/01/05/20 [id number] Ambulatory [address] [place] Repository 12/11/2017/12/12/19 [id number] Ambulatory [address] Other [place] Repository 12/11/2017/12/12/19 [id number] Ambulatory SYDNEY Sandra [address] MEDICAL Repository CENTERBuildi ng:CAGWS 12/06/2017 [id number] Ambulatory [facility] ding:LABSPEC Repository 12/06/2017/12/12/19 [id number] Ambulatory [address] [place] Repository 11/29/2017/12/04/19 [id number] Ambulatory [address] [place] Repository 11/14/2017/11/15/19 [id number] Ambulatory [address] [place] Repository 10/31/2017/11/01/19 [id number] Ambulatory [address] [place] Repository 10/25/2017/10/26/19 [id number] Ambulatory [address] [place] Repository 10/25/2017/10/29/19 [id number] Ambulatory [address] [place] Repository 10/20/2017/10/22/19 [id number] Constantino Lee Inpatient [address] ding:[id number] Repository : [id number]: 1 10/20/2017 [id number] Constantino Lee Ambulatory BMSBuilding: [place] BMS.[facility] Repository 10/20/2017 [id number] Constantino Lee Ambulatory BMSBuilding: [place] BMS.[facility] Repository 10/18/2017 [id number] Ambulatory [facility] Repository PAYERS PAYERS ENCOUNTER GUARANTOR PAYER SUBSCRIBER SOURCE 09/09/2018 MYNOR YANEZ Primary EUFEMIA R ANTB: [place] S [facility] [address], Insurance:ANTHEMPolic [id number] [facility] [address]Hgg: y Number: [facility] [id number] Repository () Date:[id number] [address]JA: 09/09/2018 Secondary NOT GIVENUNK Neymar Insurance:SELF PAY Community [facility] Number: Effective Repository Date:2018-08-21 08/26/2018 DAIRL J [id number] Primary EUFEMIA R EVANSDOB: [place] S [facility], Insurance:ANTHEMPolic [id number] [facility] [place] [address]Cqz: y Number: Hospital [id number] Repository (HP) Date:5297-52-26JA [id number] [place] [address]WY: 08/26/2018 Secondary NOT GIVENUNK [place] Insurance:SELF PAY [facility] Number: Effective Repository Date:2018-08-21 08/25/2018 DAIRL EVANSDOB: Primary EUFEMIA EVANSDOB: [facility] S Insurance:[employer] [id number] Number: Repository [place] [address]Yvd: [id number] Date: (HP) 08/12/2018 DAIRL J [id number] Primary EUFEMIA R EVANSDOB: [place] S [facility], Insurance:ANTHEMPolic [id number] [facility] [place] [address]Adm: y Number: Hospital [id number] Repository (HP) Date:4319-55-54MF [address] [place] [address] [place] [address]PX: 08/12/2018 Secondary NOT GIVENUNK [place] Insurance:SELF PAY [facility] Number: Effective Repository Date:2018-08-12 08/12/2018 DAIRL J [id number] Primary DAIRL J [place] S [facility], Insurance:MEDICARE A EVANSDOB: [facility] [place] [id number]: ONLYPolicy Number: [id number] Hospital [id number] Repository (HP) Date:2018-08-12 08/12/2018 Secondary EUFEMIA R EVANSDOB: [place] Insurance:ANTHEMPolic [id number] [facility] y Number: Hospital [id number] Repository Date:7928-12-74GY [address] [address]FV: 08/12/2018 Tertiary NOT GIVENUNK Neymar Insurance:SELF PAY [facility] Number: Effective Repository Date:2018-08-12 08/12/2018 DAIRL J [id number] Primary EUFEMIA R EVANSDOB: Neymar S [address] [facility], Insurance:ANTHEMPolic [id number] [facility] [place] [id number]: y Number: [facility] [id number] Repository (HP) Date:4123-75-73CM [address] [place] [address]DF: 08/12/2018 Secondary NOT GIVENUNK [place] Insurance:SELF PAY [facility] Number: Effective Repository Date:2018-08-12 08/12/2018 DAIRL J [id number] Primary EUFEMIA R EVANSDOB: Neymar S [address] [facility], Insurance:ANTHEMPolic [id number] [facility] [place] [address]Cgl: y Number: [facility] [id number] Repository (HP) Date:2868-78-67ZP [address], [place] [address]DZ: 08/12/2018 Secondary NOT GIVENUNK Neymar Insurance:SELF PAY [facility] Number: Effective Repository Date:2018-08-12 08/12/2018 DAIRL J [id number] Primary DAIRL J [place] [address], Insurance:MEDICARE A EVANSDOB: [facility] [address]Bpy: ONLYPolicy Number: [id number] Hospital [id number] Repository (HP) Date:2018-08-12 08/12/2018 Secondary EUFEMIA R EVANSDOB: [place] Insurance:ANTHEMPolic [id number] [facility] y Number: Hospital [id number] Repository Date:7104-78-69BE [address], [place] [address]SS: 08/12/2018 Tertiary NOT GIVENUNK [place] Insurance:SELF PAY Community [facility] Number: Effective Repository Date:2018-08-12 08/12/2018 DAIRL J [id number] Primary DAIRL J [place] [address], Insurance:MEDICARE A EVANSDOB: Community [place] [address]Nsn: ERIEPoly Number: [id number] Hospital [id number] Repository (HP) Date:2018-08-12 08/12/2018 Secondary EUFEMIA R YINDOB: [place] Insurance:ANTHEMPolic [id number] [facility] y Number: Hospital [id number] Repository Date:9128-69-09NX [address] [place] [address]GQ: 08/12/2018 Tertiary NOT GIVENUNK Neymar Insurance:SELF PAY [facility] Number: Effective Repository Date:2018-08-12 08/12/2018 DAIRNikkie [id number] Primary EUFEMIA R YINDOB: [place] [address], Insurance:ANTHEMPolic [id number] [facility] [place] [address]Fzp: y Number: Hospital [id number] Repository (HP) Date:1315-52-34PR [address], [place] [address]IW: 08/12/2018 Secondary NOT GIVENUNK Neymar Insurance:SELF PAY [facility] Number: Effective Repository Date:2018-08-12 08/12/2018 MYNOR [id number] Primary EUFEMIA R EVANSDOB: [place] [address], Insurance:ANTHEMPolic [id number] [facility] [place] [address]Dlc: y Number: Hospital [id number] Repository (HP) Date:0022-47-73YD [id number] [place] [address]FO: 08/12/2018 Secondary NOT GIVENUNK [place] Insurance:SELF PAY [facility] Number: Effective Repository Date:2018-08-12 08/12/2018 MYNOR [id number] Primary EUFEMIA R EVANSDOB: [place] [address], Insurance:ANTHEMPolic [id number] [facility] [place] [address]Bqt: y Number: Hospital [id number] Repository (HP) Date:6932-28-12AM [address], [place] [address]PX: 08/12/2018 Secondary NOT GIVENUNK Neymar Insurance:SELF PAY [facility] Number: Effective Repository Date:2018-08-12 08/12/2018 DAIRL J [id number] Primary DAIRL J [place] S [address], Insurance:MEDICARE A EVANSDOB: [place] [id number]: ONLYPolicy Number: [id number] Hospital [id number] Repository (HP) Date:2018-08-12 08/12/2018 Secondary EUFEMIA R EVANSDOB: Neymar Insurance:ANTHEMPolic [id number] Community y Number: Hospital [id number] Repository Date:0370-92-17SI [address] [place] [address]FC: 08/12/2018 Tertiary NOT GIVENUNK [place] Insurance:SELF PAY [facility] Number: Effective Repository Date:2018-08-12 08/12/2018 DAIRL J [id number] Primary DAIRL J [place] S [address], Insurance:MEDICARE A EVANSDOB: [place] [id number]: ONLYPolicy Number: [id number] Hospital [id number] Repository (HP) Date:2018-08-12 08/12/2018 Secondary EUFEMIA R EVANSDOB: Neymar Insurance:ANTHEMPolic [id number] Community y Number: Hospital [id number] Repository Date:7154-66-75PF [address] [place] [address]DY: 08/12/2018 Tertiary NOT GIVENUNK [place] Insurance:SELF PAY [facility] Number: Effective Repository Date:2018-08-12 08/04/2018 DAIRL J [id number] Primary EUFEMIA R EVANSDOB: [place]ym[place] S [address], Insurance:ANTHEMPolic [id number] Community [place] [id number]: y Number: Hospital [id number] Repository (HP) Date:9817-73-01JH [address] [place] [address]CA: 08/04/2018 Secondary NOT GIVENUNK [place] Insurance:SELF PAY [facility] Number: Effective Repository Date:2018-06-18 12/11/2017 DAIRL EVANSDOB: Primary EUFEMIA EVANSDOB: [facility] [id number] S Insurance:BLUE CARD [id number] [address], PPOPolicy Number: Repository [place] [address]Aew: [id number] Date: () 12/06/2017 DAIRL J [id number] Primary EUFEMIA R EVANSDOB: [place] S [address], Insurance:ANTHEMPolic [id number] [facility] [place] [address]Qma: y Number: [facility] [id number] Repository (HP) Date:7347-94-26AV [address] [place] [address]ZF: 12/06/2017 Secondary DAIRL J Neymar Insurance:MEDICARE A YINDOB: Community ONLYPolicy Number: [id number] Hospital [id number] Repository Date:2017-12-06 12/06/2017 Tertiary NOT GIVENUNK Neymar Insurance:SELF PAY [facility] Number: Effective Repository Date:2017-12-06 10/20/2017 DAIRL J [id number] Primary EUFEMIA JOE [place] S [address], Insurance:ANTHEMPolic EVANSDOB: [facility] [place] [address]Ane: y Number: [id number] Hospital [id number] Repository (HP) Date:3328-06-78TO [address], [place] [address]EX: 10/20/2017 Secondary DAIRL J Neymar Insurance:MEDICARE A EVANSDOB: Community ONLYPolicy Number: [id number] Hospital [id number] Repository Date:2017-10-20 10/20/2017 Tertiary NOT GIVENUNK [place] Insurance:SELF PAY [facility] Number: Effective Repository Date:2017-10-20 10/20/2017 DAIRL J [id number] Primary EUFEMIA JOE [place] S [address], Insurance:ANTHEMPolic EVANSDOB: [place] [address]Rgj: y Number: [id number] Hospital [id number] Repository () Date:1169-80-29ME [address] [address]WC: 10/20/2017 Secondary NOT GIVENUNK [place] Insurance:SELF PAY [facility] Number: Effective Repository Date:2017-10-20 10/20/2017 MYNOR YANEZ Primary EUFEMIA JOE [place] S [facility], Insurance:ANTHEMPolic EVANSDOB: [facility] [place] [address]Ssm: y Number: [id number] Hospital [id number] Repository () Date:7774-01-85NF [address], [place] [address]PD: 10/20/2017 Secondary NOT GIVENUNK Neymar Insurance:SELF PAY [facility] Number: Effective Repository Date:2017-10-20
== END 2018-08-04 13:13 | disposition home or self-care (01) ==
LOC: EN 10:24 → AC 11:00
PROVIDERS: Family Provider Family Medicine; PCP Family Medicine; Referring Provider Family Medicine; Visit Provider Surgery
PROC: 0DJD8ZZ Inspection of Lower Intestinal Tract, Via Natural or Artificial Opening Endoscopic (ICD-10-PCS; CPT 45378; principal; 2018-08-04 11:55)
DX: Z12.11 Encounter for screening for malignant neoplasm of colon (principal); K63.5 Polyp of colon; K57.30 Diverticulosis of large intestine without perforation or abscess without bleeding; K64.8 Other hemorrhoids; I25.10 Atherosclerotic heart disease of native coronary artery without angina pectoris; E78.5 Hyperlipidemia, unspecified; I11.0 Hypertensive heart disease with heart failure; K21.0 Gastro-esophageal reflux disease with esophagitis; C62.90 Malignant neoplasm of unspecified testis, unspecified whether descended or undescended; E06.9 Thyroiditis, unspecified; Z95.5 Presence of coronary angioplasty implant and graft; Z86.010 Personal history of colon polyps; Z79.82 Long term (current) use of aspirin; Z79.51 Long term (current) use of inhaled steroids; Z79.899 Other long term (current) drug therapy; Z87.891 Personal history of nicotine dependence
CPT/HCPCS: 45380; 88305; J7050; J7120

== ENCOUNTER 2018-08-12 13:58 | Inpatient (IN) | payer MEDICARE, BC, SELFPAY ==
[2018-08-12] VITALS (10 sets, daily range): BP systolic 98–151; BP diastolic 61–77; PULSE 58–111; RESP 15–16; TEMP 36.3–36.7; O2SAT 96–99; BMI 22.2; BMI 21.6
[2018-08-12] MEDS: 0.9% Normal Saline 1,000 ML 1000 ML IV (14:52)
[2018-08-12 14:58] LABS: Absolute Lymphocyte Count 1.03 X10^3/ul (0.83-4.51); Basophil# 0.03 X10^3/uL; Basophil% 0.5 % (0-1); Eosinophil# 0.13 X10^3/uL; Eosinophils% 2.3 % (0-5); Hematocrit 27.8 % (40-54); Hemoglobin 9.3 g/dl (13.0-16.5); Lymphocyte # 1.03 X10^3/ul (4.0); Lymphocyte % 18.6 % (19-41); Mean Corp Hgb Conc 33.5 g/gl (32-36); Mean Corpuscular Hgb 27.8 pg (27.0-32.0); Mean Platelet Vol. 10.3 fl (6.2-12.0); Monocyte# 0.32 X10^3/uL; Monocyte% 5.8 % (0-10); Neutrophil # 4.03 X10^3/uL (2.7-7.7); Neutrophil % 72.6 % (47-70); POSITIVE COUNT NO; POSITIVE DIFFERENTIAL NO; POSITIVE MORPHOLOGY NO; Platelet Count 162 K/mm3 (150-450); RBC Distribution Width CV 14.3 % (11.6-14.6); Red Blood Count 3.35 M/mm3 (4.6-6.2); White Blood Count 5.6 K/mm3 (4.4-11.0)
--- NOTE | 2018-08-12 15:05 | ED.VISSUMM ---
- ER Visit Summary Date of Service: 08/12/18 Chief Complaint: [Rectal bleeding] History of Present Illness: The patient is a 72 M [presents the emergency department with rectal bleeding that started 3 days ago. Patient has been having about 3-4 bloody stools per day. Patient feels generally weak and at times short of breath with activity. He denies feeling dizzy with standing. Patient tells me he had a colonoscopy [address] Joyce Lee who did remove a polyp. Patient is currently on aspirin. Aspirin had been stopped prior to the colonoscopy.] Patient denies abdominal pain. Physical Examination: [HEENT-PERRLA, EOMI. Cranial nerves II through XII grossly intact. TMs clear. Mucous membranes moist. No adenopathy. Cardiovascular-regular rate and rhythm without murmur or ectopy Lungs-clear to auscultation, chest wall stable without crepitus or subcu emphysema Abdomen-normoactive bowel sounds, soft, nontender, no rebound or rigidity, no peritoneal signs. Rectal exam-patient has maroon colored stool. No masses palpated in the rectal vault. Extremities-intact ?4, normal range of motion, normal pulses, atraumatic] Test Results: [Orthostatic vital signs were positive. Patient CBC with differential showed a white count of 5.6, heme globin 9.3, hematocrit 28, platelets 162. Chemistries are pending and lactate pending] Emergency Department Course and Treatment; ] she was given normal saline and he was typed and screened Treatment Plan: [Admit. Patient case discussed with Dr. Dawit Connor who would be willing to consult on the case if necessary.] Disposition: [Admit] Impression: [Lower GI bleed] This note was generated with [employer] dictation software. It may contain incorrect words, spelling, and punctuation that were not noted in review of the chart prior to signing ED Disposition - Plan for ED Patient: Chief Complaint: GI Bleed Referrals: Yeison Maynard MD [Primary Care Provider] -
[2018-08-12 15:08] LABS: Anion Gap 7 (5-15); BUN 22 mg/dL (7-18); BUN/Creat Ratio 15.8 RATIO (10-20); Calcium,Total 8.4 mg/dL (8.5-10.1); Chloride 109 mmol/L (98-107); Creatinine, Serum 1.39 mg/dL (0.70-1.30); EST Glomerular Filtration Rate 54 mL/min (>60); Est Glom Filt Rate - Afr Amer 65 mL/min (>60); Estimated Creatinine Clearance 54.98 ml/min; Glucose 157 mg/dL (74-106); Sodium Level 142 mmol/L (136-145)
--- NOTE | 2018-08-12 15:08 | ED.DCSUM_ITS ---
- ER Visit Summary Date of Service: 08/12/18 Chief Complaint: [Rectal bleeding] History of Present Illness: The patient is a 72 M [presents the emergency department with rectal bleeding that started 3 days ago. Patient has been having about 3-4 bloody stools per day. Patient feels generally weak and at ti mes short of breath with activity. He denies feeling dizzy with standing. Patient tells me he had a colonoscopy [address] Joyce Lee who did remove a polyp. Patient is currently on aspirin. Aspirin had been stopped prior to the colonoscopy.] Patient denies abdominal pain. Physical Examination: [HEENT-PERRLA, EOMI. Cranial nerves II through XII grossly intact. TMs clear. Mucous membranes moist. No adenopathy. Cardiovascular-regular rate and rhythm without murmur or ectopy Lungs-clear to auscultation, chest wall stable without crepitus or subcu emphysema Abdomen-normoactive bowel sounds, soft, nontender, no rebound or rigidity, no peritoneal signs. Rectal exam-patient has maroon colored stool. No masses palpated in the rectal vault. Extremities-intact ?4, normal range of motion, normal pulses, atraumatic] Test Results: [Orthostatic vital signs were positive. Patient CBC with differential showed a white count of 5.6, heme globin 9.3, hematocrit 28, platelets 162. Chemistries are pending and lactate pending] Emergency Department Course and Treatment; ] she was given normal saline and he was typed and screened Treatment Plan: [Admit. Patient case discussed with Dr. Dawit Connor who would be willing to consult on the case if necessary.] Disposition: [Admit] Impression: [Lower GI bleed] This note was generated with [employer] dictation software. It may contain incorrect words, spelling, and punctuation that were not noted in review of the chart prior to signing ED Disposition - Plan for ED Patient: Chief Complaint: GI Bleed Referrals: Yeison Maynard MD [Primary Care Provider] -
[2018-08-12 15:52] LABS: Lactic Acid 1.7 mmol/L (0.4-2.0)
--- NOTE | 2018-08-12 15:56 | HP.PCM_ITS ---
Problem List (1) GI bleed Status: Acute (2) Hypothyroidism Status: Chronic (3) Hyperlipidemia Status: Chronic (4) Coronary artery disease Status: Chronic Comment: Status post stents. (5) HTN (hypertension) Status: Chronic (6) COPD (chronic obstructive pulmonary disease) Status: Chronic History of Present Illness Date of Admission: 08/12/18 Chief Complaint: Bleeding per rectum. The patient is a 72 year old M with past medical history as mentioned above presented to the emergency room because of bleeding per rectum. His symptoms started 2 days ago with rectal bleeding, maroon colored stool, around 8-10 times over the last 48 hours, started having symptoms of dizziness and weakness since yesterday and without aggravating or relieving factors. He had surveillance colonoscopy on August 04, [address] Lee because he had a history of colon polyps, found to have sigmoid diverticulosis, nonbleeding hemorrhoids and 5-10 mm polyp in the ascending colon that was removed. Histopathology of that polyp revealed inflammatory changes, negative for cancer. He had a history of CAD status post stents and he has been on full dose aspirin 325 mg daily as well as lisinopril, metoprolol and statins. He had a history of hypothyroidism, has been on levothyroxine and no TSH was found in his chart. 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 In the emergency department, patient was tachycardic, orthostatic vitals were positive. He was afebrile, pulse ox was maintained on room air. Routine blood work revealed hemoglobin of 9.3 g/dL, creatinine of 1.39. He is being admitted for GI bleed with acute blood loss symptomatic anemia. Past Medical History Past Medical History (Chronic Problems): Chronic Problems Hypothyroidism (Chronic) Hyperlipidemia (Chronic) Coronary artery disease (Chronic) Status post stents. HTN (hypertension) (Chronic) COPD (chronic obstructive pulmonary disease) (Chronic) Allergies No Known Allergies Allergy (Verified 08/12/18 13:59) Home Medications: Ambulatory Orders Medication Instructions Recorded Albuterol IH (ProAir) [Proair Hfa] 1 - 2 puff INHALATION Q4H PRN PRN 10/20/17 Aspirin 325 mg PO QHS 10/20/17 Atorvastatin Calcium 40 mg PO QHS 10/20/17 Levothyroxine 75 mcg PO DAILY 10/20/17 Lisinopril 40 mg PO LUNCH 10/20/17 Metoprolol Tartrate 100 mg PO DAILY 10/20/17 Niacin 500 mg PO QHS 10/20/17 Cholecalciferol (VIT D3) [Vitamin 1,000 unit PO QHS 08/01/18 D] Cyanocobalamin [Vitamin B12] 1,000 mcg PO QHS 08/01/18 Folic Acid 1 mg PO QHS 08/01/18 Omeprazole [Prilosec] 20 mg PO DAILY 08/01/18 Surgical History: - - Cardiac stents. Right orchiectomy, laparotomy with lymph node dissection. Psychiatric History: No pertinent psych hx Lives: Spouse/ Significant Other Smoking Status: Former smoker Alcohol: None Drugs: None - *Family History Maternal History Items: No pertinent history Paternal History Items: No pertinent history Review of Systems Constitutional: Reports: Weakness. Denies: Anorexia, Chills, Fever Eyes: Denies: Blurred vision, Double vision, Drainage, Redness HEENT: Denies: Difficulty Hearing, Ear Pain, Eye Pain, Nasal bleeding, Nasal Congestion, Sore Throat Cardiovascular: Reports: Light Headedness. Denies: Chest Pain, Chest Pressure, Chest Tightness, Orthopnea, Paroxysmal Noc. Dyspnea, Syncope Respiratory: Denies: Cough, Hemoptysis, Pleuritic Pain, Shortness of Breath, Sputum production, Wheezing Gastrointestinal: Reports: Hematochezia. Denies: Abdominal Pain, Constipation, Diarrhea, Nausea, Vomiting Genitourinary: Denies: Dysuria, Frequency, Hematuria Musculoskeletal: Denies: Arm Pain, Back Pain, Foot Pain Skin: Denies: Dryness, Rash Neurological: Denies: Balance problems, Double vision, Change in Speech, Confusion, Headaches Psychiatric: Denies: Anxiety, Depression Endocrine: Denies: Change in Body Habitus, Polydipsia VTE Information - Inpt Only VTE Present on Admission: No VTE Mechan Device Prophylaxis: SCD's VTE Pharm Prophylaxis ordered?: No Patient Problems: Active and Suspected Problems GI bleed (Acute) - Physical Exam General: Alert, Oriented x3, Cooperative, No apparent distress HEENT: Atraumatic, PERRLA, EOMI, Normocephalic Oral: Moist Mucosa, No Gingival or Mucosal Lesions/ Ulcerations Neck: Supple, No JVD, Negative Carotid Bruits, Trachea Midline, Thyroid Normal Size and Texture Lungs: Clear to auscultation, No rhonchi, No wheeze, No rales, Diminished Cardiovascular: Regular rate, Regular Rhythm, Normal S1, Normal S2, PMI Normal, Murmur - Systolic murmur. Abdomen: Bowel Sounds Present, Soft, Non Tender, Non-Distended, No Hepato- splenomegaly Extremities: No clubbing, No cyanosis, No edema Skin: No rashes, No breakdown Lymphatic: No Cervical, Supraclavicular, or Inguinal Adenopathy Neurological: Cranial nerves II-XII grossly intact, Motor Exam 5/5 strength throughout Psych/Mental Status: Normal Affect, Appropriate, Alert and oriented to time, place, person, mood and affect Vital Signs Temp Pulse Resp BP Pulse Ox 97.3 F L 76 16 136/61 H 99 08/12/18 13:59 08/12/18 15:00 08/12/18 15:00 08/12/18 15:00 08/12/18 15:00 Oxygen Delivery Method Room Air Weight: 173 lb 4.533 oz Body Mass Index (BMI) 22.2 Laboratory Tests Past 24 Hrs 08/12/18 08/12/18 08/12/18 14:35 14:35 14:35 WBC 5.6 RBC 3.35 L Hgb 9.3 L Hct 27.8 L MCV 83.0 MCH 27.8 MCHC 33.5 RDW 14.3 RDW Differential 43.0 Plt Count 162 MPV 10.3 Immature Gran % (Auto) 0.200 Neut % (Auto) 72.6 H Lymph % (Auto) 18.6 L Beckham % (Auto) 5.8 Eos % (Auto) 2.3 Baso % (Auto) 0.5 Absolute Neuts (auto) 4.0 Absolute Lymphs (auto) 1.03 Total Counted Not Reportable Sodium 142 Potassium 4.0 Chloride 109 H Carbon Dioxide 26.0 Anion Gap 7 BUN 22 H Creatinine 1.39 H Estim Creat Clear Calc 54.98 Est GFR (MDRD) Af Amer 65 Est GFR (MDRD) Non-Af 54 L BUN/Creatinine Ratio 15.8 Glucose 157 H Lactic Acid Pending Calcium 8.4 L Blood Type Antibody Screen 08/12/18 14:35 WBC RBC Hgb Hct MCV MCH MCHC RDW RDW Differential Plt Count MPV Immature Gran % (Auto) Neut % (Auto) Lymph % (Auto) Beckham % (Auto) Eos % (Auto) Baso % (Auto) Absolute Neuts (auto) Absolute Lymphs (auto) Total Counted Sodium Potassium Chloride Carbon Dioxide Anion Gap BUN Creatinine Estim Creat Clear Calc Est GFR (MDRD) Af Amer Est GFR (MDRD) Non-Af BUN/Creatinine Ratio Glucose Lactic Acid Calcium Blood Type Pending Antibody Screen Pending Assessment/Plan All Active Problems GI bleed (Acute) This is a 72 years old male patient presented to the ED because of blood per rectum and he is being admitted for GI bleed and acute blood loss symptomatic anemia. #1 GI bleed: In context of recent surveillance colonoscopy that was done on August 04, 2018 and revealed colonic polyp that was removed. Patient has been on aspirin 325 mg p.o. daily for CAD with stents. Patient is tachycardic, orthostatic hypotension is positive. Plan: Admit to PCU, cardiac monitoring, H&H every 8 hours, transfuse if hemoglobin less than 8 g/dL, IV fluids, IV Protonix twice daily, pro time and INR, repeat CBC and BMP tomorrow morning, general surgery consult. #2 acute blood loss symptomatic anemia: Patient is symptomatic, feeling dizzy, orthostatic hypotension. At this time, blood pressure stable. Plan for complete bedrest, H&H every 8 hours, transfuse if hemoglobin less than 8 g/dL, IV PPI, repeat CBC and BMP tomorrow morning, general surgery consult. #3 CAD status post stents: Stable, denies chest pain or shortness of breath. Plan to do routine EKG, hold aspirin, continue statins, lisinopril and metoprolol. #4 hypertension: Blood pressure stable, continue metoprolol and lisinopril. #5 hypothyroidism: Continue levothyroxine, will check TSH. #6 hyperlipidemia: Continue statins. #7 stage III chronic kidney disease: Baseline creatinine has been around 1.4 mg/dL. Admission creatinine is 1.39, stable at baseline. #8 history of cervical cancer with metastases to lung and lymph nodes: Status post right lobectomy and chemotherapy long time ago. Stable, in remission. #9 DVT prophylaxis: SCDs. This note was generated with [employer] software. It may contain incorrect words, spelling, and punctuation that were not noted in checking the note before signing. Code Visit Inpatient E&M: 64718 Init Hosp L3
--- NOTE | 2018-08-12 16:24 | EKG12_ITS ---
Test Reason : CONVERSION Blood Pressure : / mmHG Vent. Rate : 067 BPM Atrial Rate : 067 BPM P-R Int : 174 ms QRS Dur : 102 ms QT Int : 404 ms P-R-T Axes : 087 055 142 degrees QTc Int : 426 ms Sinus rhythm with occasional Premature ventricular complexes ST & T wave abnormality, consider anterolateral ischemia Abnormal ECG Confirmed by DANIEL SAMSON, LUX ([id number]), editor magazine MARCELINA SANTIAGO ([id number]) on 08/20/2018 3:14:21 PM Referred By: LIZANDRO Confirmed By:LUX SANCHEZ MD
[2018-08-12 17:15] LABS: Hematocrit 25.9 % (40-54); Hemoglobin 8.7 g/dl (13.0-16.5)
[2018-08-12 17:20] LABS: International Normalized Ratio 1.2
[2018-08-12] MEDS: 0.9% Normal Saline 1,000 ML 100 ML IV (17:28)
[2018-08-12] MEDS: 0.9% NaCl Peripheral Flush Adult/Peds IV (17:28)
[2018-08-12 17:44] LABS: Thyroid Stim Hormone (TSH) 0.98 uIU/mL (0.358-3.74)
--- NOTE | 2018-08-12 19:21 | PCM.CONS.GEN ---
Reason for Consult Date of Consultation: 08/12/18 Reason for Consultation: post polypectomy bleed History of Present Illness: The patient is a 72 year old M underwent colonoscopy approximately 8 days previously and had a snare polypectomy of a polyp in the ascending colon. The patient is a history of coronary disease with stent placement. He is on a full strength aspirin. He is noted initially dark stools or maroon stools for the last 2 days. Today the patient felt dizzy and presented to the emergency department. In the reverse department, he was found to be orthostatic. His hemoglobin was 9.3. Patient being admitted for IV fluids possible transfusion and possible repeat upper endoscopy for post polypectomy bleed. Past Medical History Past Medical History (Chronic Problems): Chronic Problems Hypothyroidism (Chronic) Hyperlipidemia (Chronic) Coronary artery disease (Chronic) Status post stents. HTN (hypertension) (Chronic) COPD (chronic obstructive pulmonary disease) (Chronic) Allergies No Known Allergies Allergy (Verified 08/12/18 13:59) Home Medications: Ambulatory Orders Medication Instructions Recorded Albuterol IH (ProAir) [Proair Hfa] 1 - 2 puff INHALATION Q4H PRN PRN 10/20/17 Aspirin 325 mg PO QHS 10/20/17 Atorvastatin Calcium 40 mg PO QHS 10/20/17 Levothyroxine 75 mcg PO DAILY 10/20/17 Lisinopril 40 mg PO LUNCH 10/20/17 Metoprolol Tartrate 100 mg PO DAILY 10/20/17 Niacin 500 mg PO QHS 10/20/17 Cholecalciferol (VIT D3) [Vitamin 1,000 unit PO QHS 08/01/18 D] Cyanocobalamin [Vitamin B12] 1,000 mcg PO QHS 08/01/18 Folic Acid 1 mg PO QHS 08/01/18 Omeprazole [Prilosec] 20 mg PO DAILY 08/01/18 Surgical History: - - Cardiac stents. Right orchiectomy, laparotomy with lymph node dissection. Psychiatric History: No pertinent psych hx Lives: Spouse/ Significant Other Smoking Status: Former smoker Alcohol: None Drugs: None - *Family History Maternal History Items: No pertinent history Paternal History Items: No pertinent history Review of Systems Constitutional: Reports: Weakness. Denies: Chills, Fever, Weight Change HEENT: Denies: Head Aches, Sinus Congestion, Sinus Drainage Cardiovascular: Denies: Chest Pain, Palpitations Respiratory: Denies: Cough, Shortness of breath at rest, Sputum production Gastrointestinal: Reports: Hematochezia, Melena. Denies: Abdominal Pain, Nausea, Vomiting Genitourinary: Denies: Dysuria Musculoskeletal: Denies: Joint Pain, Joint Tenderness Skin: Denies: Rash, Wounds Neurological: Denies: Numbness, Tingling, Focal weakness Psychiatric: Denies: Anxiety, Depression, Homicidal Ideations, Suicidal Ideations Hematologic/ Lymphatic: Denies: Easy Bruising, Easy Bleeding Patient Problems: Active and Suspected Problems GI bleed (Acute) - Physical Exam General: Alert, Oriented x3, Cooperative HEENT: Atraumatic, PERRLA, EOMI, Normocephalic Neck: Supple, No JVD, Negative Carotid Bruits Lungs: Clear to auscultation, Normal air movement Cardiovascular: Regular rate, No murmurs Abdomen: Bowel Sounds Present, Soft, Non Tender Extremities: No edema, Capillary Refill Less than 3 Seconds Skin: No rashes, No breakdown Musculoskeletal: No Tenderness to Palpation of Joints or Extremities Neurological: Cranial nerves II-XII grossly intact Psych/Mental Status: Normal Affect, Appropriate Vital Signs Temp Pulse Resp BP Pulse Ox 98.0 F 67 15 129/68 H 99 08/12/18 16:45 08/12/18 16:45 08/12/18 16:45 08/12/18 16:45 08/12/18 16:45 Oxygen Delivery Method Room Air Weight: 76.3 kg Body Mass Index (BMI) 21.6 Laboratory Tests Past 24 Hrs 08/12/18 08/12/18 08/12/18 14:35 14:35 14:35 WBC 5.6 RBC 3.35 L Hgb 9.3 L Hct 27.8 L MCV 83.0 MCH 27.8 MCHC 33.5 RDW 14.3 RDW Differential 43.0 Plt Count 162 MPV 10.3 Immature Gran % (Auto) 0.200 Neut % (Auto) 72.6 H Lymph % (Auto) 18.6 L [place] % (Auto) 5.8 Eos % (Auto) 2.3 Baso % (Auto) 0.5 Absolute Neuts (auto) 4.0 Absolute Lymphs (auto) 1.03 Total Counted Not Reportable PT INR Sodium 142 Potassium 4.0 Chloride 109 H Carbon Dioxide 26.0 Anion Gap 7 BUN 22 H Creatinine 1.39 H Estim Creat Clear Calc 54.98 Est GFR (MDRD) Af Amer 65 Est GFR (MDRD) Non-Af 54 L BUN/Creatinine Ratio 15.8 Glucose 157 H Lactic Acid 1.7 Calcium 8.4 L TSH Blood Type Antibody Screen Crossmatch 08/12/18 08/12/18 08/12/18 14:35 14:35 17:04 WBC RBC Hgb 8.7 L Hct 25.9 L MCV MCH MCHC RDW RDW Differential Plt Count MPV Immature Gran % (Auto) Neut % (Auto) Lymph % (Auto) [place] % (Auto) Eos % (Auto) Baso % (Auto) Absolute Neuts (auto) Absolute Lymphs (auto) Total Counted PT INR Sodium Potassium Chloride Carbon Dioxide Anion Gap BUN Creatinine Estim Creat Clear Calc Est GFR (MDRD) Af Amer Est GFR (MDRD) Non-Af BUN/Creatinine Ratio Glucose Lactic Acid Calcium TSH Blood Type O POSITIVE Antibody Screen NEGATIVE Crossmatch See Detail 08/12/18 08/12/18 17:04 17:04 WBC RBC Hgb Hct MCV MCH MCHC RDW RDW Differential Plt Count MPV Immature Gran % (Auto) Neut % (Auto) Lymph % (Auto) [place] % (Auto) Eos % (Auto) Baso % (Auto) Absolute Neuts (auto) Absolute Lymphs (auto) Total Counted PT 15.0 H INR 1.2 Sodium Potassium Chloride Carbon Dioxide Anion Gap BUN Creatinine Estim Creat Clear Calc Est GFR (MDRD) Af Amer Est GFR (MDRD) Non-Af BUN/Creatinine Ratio Glucose Lactic Acid Calcium TSH 0.98 Blood Type Antibody Screen Crossmatch Assessment/Plan All Active Problems GI bleed (Acute) likely post-polypectomy bleed. We'll follow patient's hemoglobin. If he continues to have bleeding we'll plan for light GoLYTELY prep and repeat colonoscopy tomorrow with possible clipping if bleeding sites encountered. If patient's hemoglobin is stable without bowel prep as this may recalls bleeding. In the event of endoscopy is performed again, the patient was discussed as possible but understands the risks, benefits, complications and possible alternatives to endoscopy. The patient consents.
[2018-08-12] MEDS: Atorvastatin Calcium 40 MG Tablet PO (20:14)
[2018-08-13] VITALS (34 sets, daily range): BP systolic 109–162; BP diastolic 37–109; PULSE 68–98; RESP 13–25; TEMP 36.4–37; O2SAT 97–100
[2018-08-13 01:24] LABS: Hematocrit 23.1 % (40-54); Hemoglobin 7.7 g/dl (13.0-16.5)
[2018-08-13] MEDS: 0.9% Normal Saline 1,000 ML 100 ML IV ×2 (05:18→10:09)
[2018-08-13] MEDS: Levothyroxine 75 MCG Tablet PO (05:18)
--- NOTE | 2018-08-13 06:24 | PCM.PN.SRG ---
Patient Problems: Active and Suspected Problems GI bleed (Acute) Subjective: continued blooding bowel movements over night - Physical Exam General: Alert, Oriented x3, Cooperative Lungs: Clear to auscultation, Normal air movement Cardiovascular: Regular rate, No murmurs Abdomen: Bowel Sounds Present, Soft, Non Tender Vital Signs Temp Pulse Resp BP Pulse Ox 97.5 F L 81 18 130/61 H 98 08/13/18 05:00 08/13/18 05:00 08/13/18 05:00 08/13/18 05:00 08/13/18 05:00 Oxygen Delivery Method Room Air Weight: 76.3 kg Body Mass Index (BMI) 21.6 Intake and Output for Last 24 Hours 08/11/18 08/12/18 08/13/18 23:59 23:59 23:59 Intake Total 968 / 968 768 / 768 Output Total 275 / 275 Balance 693 / 693 768 / 768 Laboratory Tests Past 24 Hrs 08/12/18 08/12/18 08/12/18 14:35 14:35 14:35 WBC 5.6 RBC 3.35 L Hgb 9.3 L Hct 27.8 L MCV 83.0 MCH 27.8 MCHC 33.5 RDW 14.3 RDW Differential 43.0 Plt Count 162 MPV 10.3 Immature Gran % (Auto) 0.200 Neut % (Auto) 72.6 H Lymph % (Auto) 18.6 L [place] % (Auto) 5.8 Eos % (Auto) 2.3 Baso % (Auto) 0.5 Absolute Neuts (auto) 4.0 Absolute Lymphs (auto) 1.03 Total Counted Not Reportable PT INR Sodium 142 Potassium 4.0 Chloride 109 H Carbon Dioxide 26.0 Anion Gap 7 BUN 22 H Creatinine 1.39 H Estim Creat Clear Calc 54.98 Est GFR (MDRD) Af Amer 65 Est GFR (MDRD) Non-Af 54 L BUN/Creatinine Ratio 15.8 Glucose 157 H Lactic Acid 1.7 Calcium 8.4 L TSH Blood Type Antibody Screen Crossmatch 08/12/18 08/12/18 08/12/18 14:35 14:35 17:04 WBC RBC Hgb 8.7 L Hct 25.9 L MCV MCH MCHC RDW RDW Differential Plt Count MPV Immature Gran % (Auto) Neut % (Auto) Lymph % (Auto) [place] % (Auto) Eos % (Auto) Baso % (Auto) Absolute Neuts (auto) Absolute Lymphs (auto) Total Counted PT INR Sodium Potassium Chloride Carbon Dioxide Anion Gap BUN Creatinine Estim Creat Clear Calc Est GFR (MDRD) Af Amer Est GFR (MDRD) Non-Af BUN/Creatinine Ratio Glucose Lactic Acid Calcium TSH Blood Type O POSITIVE Antibody Screen NEGATIVE Crossmatch See Detail 08/12/18 08/12/18 08/13/18 17:04 17:04 01:10 WBC RBC Hgb 7.7 L Hct 23.1 L MCV MCH MCHC RDW RDW Differential Plt Count MPV Immature Gran % (Auto) Neut % (Auto) Lymph % (Auto) [place] % (Auto) Eos % (Auto) Baso % (Auto) Absolute Neuts (auto) Absolute Lymphs (auto) Total Counted PT 15.0 H INR 1.2 Sodium Potassium Chloride Carbon Dioxide Anion Gap BUN Creatinine Estim Creat Clear Calc Est GFR (MDRD) Af Amer Est GFR (MDRD) Non-Af BUN/Creatinine Ratio Glucose Lactic Acid Calcium TSH 0.98 Blood Type Antibody Screen Crossmatch Medical Necessity - Tobacco Use Smoking Status: Former smoker Assessment/Plan All Active Problems GI bleed (Acute) likely post-polypectomy bleed. Patient continues to have bleeding - we'll plan for light GoLYTELY prep and repeat colonoscopy tomorrow with possible clipping if bleeding sites encountered. If patient's hemoglobin is stable without bowel prep as this may recalls bleeding. In the event of endoscopy is performed again, the patient was discussed as possible but understands the risks, benefits, complications and possible alternatives to endoscopy. The patient consents.
[2018-08-13 07:15] LABS: Absolute Lymphocyte Count 1.51 X10^3/ul (0.83-4.51); Absolute Neutrophil Count 5.3 X10^3/uL (2.0-7.7); Basophil# 0.02 X10^3/uL; Basophil% 0.3 % (0-1); Eosinophil# 0.13 X10^3/uL; Eosinophils% 1.8 % (0-5); Hematocrit 23.6 % (40-54); Hemoglobin 7.9 g/dl (13.0-16.5); Lymphocyte # 1.51 X10^3/ul (4.0); Lymphocyte % 20.5 % (19-41); Mean Corp Hgb Conc 33.5 g/gl (32-36); Mean Corpuscular Hgb 28.2 pg (27.0-32.0); Mean Corpuscular Volume 84.3 fL (80-94); Mean Platelet Vol. 9.8 fl (6.2-12.0); Monocyte# 0.45 X10^3/uL; Monocyte% 6.1 % (0-10); Neutrophil # 5.26 X10^3/uL (2.7-7.7); Neutrophil % 71.2 % (47-70); POSITIVE COUNT NO; POSITIVE DIFFERENTIAL NO; POSITIVE MORPHOLOGY NO; Platelet Count 179 K/mm3 (150-450); RBC Distribution Width CV 14.6 % (11.6-14.6); White Blood Count 7.4 K/mm3 (4.4-11.0)
[2018-08-13 07:29] LABS: Anion Gap 8 (5-15); BUN 19 mg/dL (7-18); BUN/Creat Ratio 14.8 RATIO (10-20); Calcium,Total 7.7 mg/dL (8.5-10.1); Chloride 114 mmol/L (98-107); Creatinine, Serum 1.28 mg/dL (0.70-1.30); EST Glomerular Filtration Rate 59 mL/min (>60); Est Glom Filt Rate - Afr Amer 71 mL/min (>60); Estimated Creatinine Clearance 57.95 ml/min; Glucose 141 mg/dL (74-106); Potassium 3.9 mmol/L (3.5-5.1); Sodium Level 143 mmol/L (136-145)
--- NOTE | 2018-08-13 07:53 | NURSING ---
0745 PT UP TO BS. w/in sec, pt c/o lightheadedness, became nicolas, eyes rolled back. This RN called for assist. pt leaned forward, only torso on the bed. this RN holding up hips. Incont Lg bright red stool. see PRODUCTIVITY ENGINEER charting.
--- NOTE | 2018-08-13 08:08 | NURSING ---
To endo per bed, PCU staff in attendance
--- NOTE | 2018-08-13 08:10 | NURSING ---
attempts to reach unsuccessful. message left to call [facility]
--- NOTE | 2018-08-13 08:30 | NURSING ---
updated on plan of care via phone.
--- NOTE | 2018-08-13 08:31 | EKG12_ITS ---
Test Reason : POST OP Blood Pressure : / mmHG Vent. Rate : 082 BPM Atrial Rate : 082 BPM P-R Int : 158 ms QRS Dur : 098 ms QT Int : 428 ms P-R-T Axes : 092 047 102 degrees QTc Int : 500 ms Sinus rhythm with occasional Premature ventricular complexes and Premature atrial complexes Consider voltage criteria for LVH ST & T wave abnormality, consider lateral ischemia ; LVH repolarization abnormality Prolonged QT Abnormal ECG Confirmed by DANIEL SAMSON, LUX ([id number]), editor greeting card MARCELINA SANTIAGO ([id number]) on 08/15/2018 3:42:41 PM Referred By: Confirmed By:LUX SANCHEZ MD
--- NOTE | 2018-08-13 08:48 | NURSING ---
notified pt to be tx to ICU. eleonora called to [facility]. attempts to reach unsuccessful
--- NOTE | 2018-08-13 09:01 | PCM.PN.HOSP ---
Patient Problems: Active and Suspected Problems GI bleed (Acute) Subjective: Seen today during a rapid response. He had gotten up to use the bedside commode and had a large volume bloody bowel movement and became lightheaded and almost passed out to his knees the nurse was able to catch him and put him back in the bed. He was not hypotensive during this episode. Denies any significant abdominal pain. Vitals/I&O's: Vital Signs Temp Pulse Resp BP Pulse Ox 97.5 F L 98 18 130/61 H 98 08/13/18 05:00 08/13/18 07:00 08/13/18 05:00 08/13/18 05:00 08/13/18 05:00 Oxygen Flow Rate (L/min) 15 Oxygen Delivery Method Non-Rebreather Weight: 168 lb 3.403 oz Body Mass Index (BMI) 21.6 Intake and Output for Last 24 Hours 08/11/18 08/12/18 08/13/18 23:59 23:59 23:59 Intake Total 968 / 968 1068 / 1068 Output Total 275 / 275 Balance 693 / 693 1068 / 1068 General: Alert, Oriented x3, Cooperative HEENT: Atraumatic, EOMI, Normocephalic Oral: Dry Mucosa Neck: Supple, No JVD Lungs: Clear to auscultation, Normal air movement, No rhonchi, No wheeze, No rales Cardiovascular: Regular rate, Regular Rhythm, Normal S1, Normal S2, No murmurs Abdomen: Soft, Non Tender, Non-Distended, No Hepato-splenomegaly Extremities: No edema, Capillary Refill Less than 3 Seconds Neurological: Neuro grossly intact, Sensory exam intact to light touch and pain Psych/Mental Status: Normal Affect, Appropriate Laboratory Results 08/12/18 14:35: WBC 5.6, RBC 3.35 L, Hgb 9.3 L, Hct 27.8 L, MCV 83.0, MCH 27.8, MCHC 33.5, RDW 14.3, RDW Differential 43.0, Plt Count 162, MPV 10.3, Immature Gran % (Auto) 0.200, Neut % (Auto) 72.6 H, Lymph % (Auto) 18.6 L, [place] % (Auto) 5.8, Eos % (Auto) 2.3, Baso % (Auto) 0.5, Absolute Neuts (auto) 4.0, Absolute Lymphs (auto) 1.03, Total Counted Not Reportable 08/12/18 14:35: Sodium 142, Potassium 4.0, Chloride 109 H, Carbon Dioxide 26.0, Anion Gap 7, BUN 22 H, Creatinine 1.39 H, Estim Creat Clear Calc 54.98, Est GFR (MDRD) Af Amer 65, Est GFR (MDRD) Non-Af 54 L, BUN/Creatinine Ratio 15.8, Glucose 157 H, Calcium 8.4 L 08/12/18 14:35: Lactic Acid 1.7 08/12/18 14:35: Blood Type O POSITIVE, Antibody Screen NEGATIVE 08/12/18 14:35: Crossmatch See Detail 08/12/18 14:35: Crossmatch See Detail 08/12/18 17:04: Hgb 8.7 L, Hct 25.9 L 08/12/18 17:04: PT 15.0 H, INR 1.2 08/12/18 17:04: TSH 0.98 08/13/18 01:10: Hgb 7.7 L, Hct 23.1 L 08/13/18 07:08: WBC 7.4, RBC 2.80 L, Hgb 7.9 L, Hct 23.6 L, MCV 84.3, MCH 28.2, MCHC 33.5, RDW 14.6, RDW Differential 45.0 H, Plt Count 179, MPV 9.8, Immature Gran % (Auto) 0.100, Neut % (Auto) 71.2 H, Lymph % (Auto) 20.5, [place] % (Auto) 6.1, Eos % (Auto) 1.8, Baso % (Auto) 0.3, Absolute Neuts (auto) 5.3, Absolute Lymphs (auto) 1.51, Total Counted Not Reportable 08/13/18 07:08: Sodium 143, Potassium 3.9, Chloride 114 H, Carbon Dioxide 21.0, Anion Gap 8, BUN 19 H, Creatinine 1.28, Estim Creat Clear Calc 57.95, Est GFR (MDRD) Af Amer 71, Est GFR (MDRD) Non-Af 59 L, BUN/Creatinine Ratio 14.8, Glucose 141 H, Calcium 7.7 L Current Medications Acetaminophen (Tylenol) 650 mg PO Q6H PRN PRN PRN Reason: Fever, headache, pain Albuterol Sulfate (Ventolin Aerosols) 2.5 mg INHALATION Q4H PRN PRN PRN Reason: Shortness of breath, wheezing Atorvastatin Calcium (Lipitor) 40 mg PO QHS [facility] Last Admin: 08/12/18 20:14 Dose: 40 mg Sodium Chloride () 1,000 mls @ 100 mls/hr IV .Q10H [facility] Last Admin: 08/13/18 05:18 Dose: 100 mls/hr Pantoprazole Sodium 40 mg/ (Sodium Chloride) 110 mls @ 330 mls/hr IV Q12 [facility] Last Admin: 08/12/18 19:05 Dose: 330 mls/hr Influenza Virus Vaccine Quadrival (Fluarix/Fluzone) 0.5 ml IM .ONCE ONE Stop: 08/13/18 10:01 Levothyroxine Sodium (Synthroid) 75 mcg PO DAILY@0600 [facility] Last Admin: 08/13/18 05:18 Dose: 75 mcg Lisinopril (Zestril) 40 mg PO LUNCH [facility] Ondansetron HCl (Zofran) 4 mg IV Q6H PRN PRN PRN Reason: NAUSEA/VOMITING Sodium Chloride () 5 - 15 ml IV UD PRN PRN Reason: SALINE FLUSH Last Admin: 08/12/18 17:28 Dose: 10 ml Medical Necessity - Tobacco Use Smoking Status: Former smoker Assessment/Plan All Active Problems GI bleed (Acute) 1. Lower GI bleed/Acute Blood loss anemia -He had a colonoscopy about a week ago where they did a polypectomy. -He has not been on aspirin because of his colonoscopy. -Will transfuse another unit of packed red blood cells -We will perform colonoscopy today without any prep -Can continue with Protonix for now though unlikely necessary given probable source of the lower GI bleed 2. CAD status post stents/hypertension/hyperlipidemia -Given his history of CAD his hemoglobin is to remain above 8 -Can continue with his blood pressure medications if stable on his statin, will hold his aspirin for now 3. Hypothyroidism -Stable, TSH 0.98 -Continue with Synthroid 4. CKD 3 -Baseline creatinine 1.4 -Stable, will continue to monitor DVT: SCDs Code Visit Inpatient E&M: 35656 Subs Hosp L2
--- NOTE | 2018-08-13 09:06 | PN_ITS ---
Patient Problems: Active and Suspected Problems GI bleed (Acute) Subjective: Seen today during a rapid response. He had gotten up to use the bedside commode and had a large volume bloody bowel movement and became lightheaded and almost passed out to his knees the nurse was able to catch him and put him back in the bed. He was not hypotensive during this episode. Denies any significant abdominal pain. Vitals/I&O's: Vital Signs Temp Pulse Resp BP Pulse Ox 97.5 F L 98 18 130/61 H 98 08/13/18 05:00 08/13/18 07:00 08/13/18 05:00 08/13/18 05:00 08/13/18 05:00 Oxygen Flow Rate (L/min) 15 Oxygen Delivery Method Non-Rebreather Weight: 168 lb 3.403 oz Body Mass Index (BMI) 21.6 Intake and Output for Last 24 Hours 08/11/18 08/12/18 08/13/18 23:59 23:59 23:59 Intake Total 968 / 968 1068 / 1068 Output Total 275 / 275 Balance 693 / 693 1068 / 1068 General: Alert, Oriented x3, Cooperative HEENT: Atraumatic, EOMI, Normocephalic Oral: Dry Mucosa Neck: Supple, No JVD Lungs: Clear to auscultation, Normal air movement, No rhonchi, No wheeze, No rales Cardiovascular: Regular rate, Regular Rhythm, Normal S1, Normal S2, No murmurs Abdomen: Soft, Non Tender, Non-Distended, No Hepato-splenomegaly Extremities: No edema, Capillary Refill Less than 3 Seconds Neurological: Neuro grossly intact, Sensory exam intact to light touch and pain Psych/Mental Status: Normal Affect, Appropriate Laboratory Results 08/12/18 14:35: WBC 5.6, RBC 3.35 L, Hgb 9.3 L, Hct 27.8 L, MCV 83.0, MCH 27.8, MCHC 33.5, RDW 14.3, RDW Differential 43.0, Plt Count 162, MPV 10.3, Immature Gran % (Auto) 0.200, Neut % (Auto) 72.6 H, Lymph % (Auto) 18.6 L, [place] % (Auto) 5.8, Eos % (Auto) 2.3, Baso % (Auto) 0.5, Absolute Neuts (auto) 4.0, Absolute Lymphs (auto) 1.03, Total Counted Not Reportable 08/12/18 14:35: Sodium 142, Potassium 4.0, Chloride 109 H, Carbon Dioxide 26.0, Anion Gap 7, BUN 22 H, Creatinine 1.39 H, Estim Creat Clear Calc 54.98, Est GFR (MDRD) Af Amer 65, Est GFR (MDRD) Non-Af 54 L, BUN/Creatinine Ratio 15.8, Glucose 157 H, Calcium 8.4 L 08/12/18 14:35: Lactic Acid 1.7 08/12/18 14:35: Blood Type O POSITIVE, Antibody Screen NEGATIVE 08/12/18 14:35: Crossmatch See Detail 08/12/18 14:35: Crossmatch See Detail 08/12/18 17:04: Hgb 8.7 L, Hct 25.9 L 08/12/18 17:04: PT 15.0 H, INR 1.2 08/12/18 17:04: TSH 0.98 08/13/18 01:10: Hgb 7.7 L, Hct 23.1 L 08/13/18 07:08: WBC 7.4, RBC 2.80 L, Hgb 7.9 L, Hct 23.6 L, MCV 84.3, MCH 28.2, MCHC 33.5, RDW 14.6, RDW Differential 45.0 H, Plt Count 179, MPV 9.8, Immature Gran % (Auto) 0.100, Neut % (Auto) 71.2 H, Lymph % (Auto) 20.5, [place] % (Auto) 6.1, Eos % (Auto) 1.8, Baso % (Auto) 0.3, Absolute Neuts (auto) 5.3, Absolute Lymphs (auto) 1.51, Total Counted Not Reportable 08/13/18 07:08: Sodium 143, Potassium 3.9, Chloride 114 H, Carbon Dioxide 21.0, Anion Gap 8, BUN 19 H, Creatinine 1.28, Estim Creat Clear Calc 57.95, Est GFR (MDRD) Af Amer 71, Est GFR (MDRD) Non-Af 59 L, BUN/Creatinine Ratio 14.8, Glucose 141 H, Calcium 7.7 L Current Medications Acetaminophen (Tylenol) 650 mg PO Q6H PRN PRN PRN Reason: Fever, headache, pain Albuterol Sulfate (Ventolin Aerosols) 2.5 mg INHALATION Q4H PRN PRN PRN Reason: Shortness of breath, wheezing Atorvastatin Calcium (Lipitor) 40 mg PO QHS [facility] Last Admin: 08/12/18 20:14 Dose: 40 mg Sodium Chloride () 1,000 mls @ 100 mls/hr IV .Q10H [facility] Last Admin: 08/13/18 05:18 Dose: 100 mls/hr Pantoprazole Sodium 40 mg/ (Sodium Chloride) 110 mls @ 330 mls/hr IV Q12 [facility] Last Admin: 08/12/18 19:05 Dose: 330 mls/hr Influenza Virus Vaccine Quadrival (Fluarix/Fluzone) 0.5 ml IM .ONCE ONE Stop: 08/13/18 10:01 Levothyroxine Sodium (Synthroid) 75 mcg PO DAILY@0600 [facility] Last Admin: 08/13/18 05:18 Dose: 75 mcg Lisinopril (Zestril) 40 mg PO LUNCH [facility] Ondansetron HCl (Zofran) 4 mg IV Q6H PRN PRN PRN Reason: NAUSEA/VOMITING Sodium Chloride () 5 - 15 ml IV UD PRN PRN Reason: SALINE FLUSH Last Admin: 08/12/18 17:28 Dose: 10 ml Medical Necessity - Tobacco Use Smoking Status: Former smoker Assessment/Plan All Active Problems GI bleed (Acute) 1. Lower GI bleed/Acute Blood loss anemia -He had a colonoscopy about a week ago where they did a polypectomy. -He has not been on aspirin because of his colonoscopy. -Will transfuse another unit of packed red blood cells -We will perform colonoscopy today without any prep -Can continue with Protonix for now though unlikely necessary given probable source of the lower GI bleed 2. CAD status post stents/hypertension/hyperlipidemia -Given his history of CAD his hemoglobin is to remain above 8 -Can continue with his blood pressure medications if stable on his statin, will hold his aspirin for now 3. Hypothyroidism -Stable, TSH 0.98 -Continue with Synthroid 4. CKD 3 -Baseline creatinine 1.4 -Stable, will continue to monitor DVT: SCDs Code Visit Inpatient E&M: 33761 Subs Hosp L2
--- NOTE | 2018-08-13 09:21 | OP.ENDO_ITS ---
Patient Name: Mynor Mckeon Procedure Date: 08/13/2018 9:13 AM Date of : 1945 Age: 72 Procedure: Colonoscopy Indications: Treatment of bleeding from polypectomy site Providers: Joyce Lee MD Medicines: See the Anesthesia note for documentation of the administered medications Patient Profile: Refer to note in patient chart for documentation of history and physical. Last Colonoscopy: Complications: No immediate complications. Procedure: Pre-Anesthesia Assessment: - After reviewing the risks and benefits, the patient was deemed in satisfactory condition to undergo the procedure. - Anesthsia under the supervision of an anesthesiologist was determined to be medically necessary for this procedure based on review of the patient's medical history, medications, and prior anesthesia history. After I obtained informed consent, the scope was passed under direct vision. Throughout the procedure, the patient's blood pressure, pulse, and oxygen saturations were monitored continuously. The colonoscopy was performed without difficulty. The patient tolerated the procedure well. The quality of the bowel preparation was not clinically indicated this was an emergency procedure. Moderate Sedation: Moderate (conscious) sedation was personally administered by an anesthesia professional. The following parameters were monitored: oxygen saturation, heart rate, blood pressure, respiratory rate, EKG, adequacy of pulmonary ventilation, and response to care. Findings: The perianal and digital rectal examinations were normal. Clotted blood was seen in the ascending colon, secondary to previous polypectomy procedure. Area was successfully injected with 2 mL of a 1:10,000 solution of epinephrine for control of bleeding. No active bleeding was noted, however area was injected to prevent future bleeding at the site. No other sites of bleeding in the colon noted. Impression: - Bleeding in the ascending colon secondary to previous polypectomy. Injected. - No specimens collected. Recommendation: - Transfer patient to [facility]/ICU/etc. - patient with EKG changes - - No recommendation at this time regarding repeat colonoscopy- follow as per ACS guidelines. - No aspirin, ibuprofen, naproxen, or other non-steroidal anti-inflammatory drugs. MD Joyce Issa MD 08/13/2018 9:21:23 AM This report has been signed electronically. Number of Addenda: 0 Note Initiated On: 08/13/2018 9:13 AM
--- NOTE | 2018-08-13 09:30 | PCM.PN.BLA ---
Progress Note Colonoscopy: large clot at site of polypectomy, area injected with epinephrine - no active bleeding noted entire colon lavaged - no site of active bleeding Patient with EKG changes - to be transferred to ICU for observation. Recommend avoidance of aspirin/NSAIDs
[2018-08-13 10:07] LABS: Hematocrit 20.5 % (40-54); Hemoglobin 6.7 g/dl (13.0-16.5)
--- NOTE | 2018-08-13 10:26 | PCM.CON.CC ---
Problem List (1) Anemia associated with acute blood loss Status: Acute (2) GI bleed Status: Acute (3) Hypothyroidism Status: Chronic Qualifiers: Hypothyroidism type: acquired Qualified Code(s): E03.9 - Hypothyroidism, unspecified (4) Hyperlipidemia Status: Chronic Qualifiers: Hyperlipidemia type: pure hypercholesterolemia Qualified Code(s): E78.00 - Pure hypercholesterolemia, unspecified; E78.0 - Pure hypercholesterolemia (5) Coronary artery disease Status: Chronic Qualifiers: Coronary Disease-Associated Artery/Lesion type: [place] artery [place] vs. transplanted heart: [place] heart Associated angina: without angina Qualified Code(s): I25.10 - Atherosclerotic heart disease of [place] coronary artery without angina pectoris Comment: Status post stents. (6) HTN (hypertension) Status: Chronic Qualifiers: Hypertension type: essential hypertension Qualified Code(s): I10 - Essential (primary) hypertension (7) COPD (chronic obstructive pulmonary disease) Status: Chronic Reason for Consult Date of Consultation: 08/13/18 Reason for Consultation: Syncope History of Present Illness: The patient is a 72 year old M, with past medical history listed below, who presented to [facility] on 08/12/2018 following a 3-day course of rectal bleeding. Patient reportedly was having 3-4 bloody stools per day and started feeling generalized weakness and shortness of breath with activity. Patient did have a colonoscopy 8 days ago that resulted in removal of a polyp. Patient was on aspirin on presentation. In the emergency room, patient was noted to have a hemoglobin of 9.3 and platelet count of 162. Patient was admitted to the floor with a diagnosis of lower GI bleed. This morning at approximately 9 AM, patient had a rapid response after having a large volume bloody bowel movement associated with presyncopal event. Patient was reportedly not hypotensive during the event, but excessive blood loss was noted from the rectum by the bedside nurse. Patient was taken to endoscopy for emergent evaluation. Per report, patient had an adherent clot that was removed and injected with epinephrine. Patient was transported back to the intensive care unit secondary to his development of reported T wave depression in the lateral leads. Patient was reportedly sedated with etomidate for the procedure. On my evaluation the intensive care unit, patient states some mild abdominal cramping, but no pain. Patient denied any nausea or vomiting. Patient reports that he has had some rectal bleeding, but had never had presyncopal versus syncopal symptomatology previously. Patient does report a history of heart stent approximately 5 years ago and follows with Dr. Zafar at baseline. Patient states he is unclear if he has had a stress test or where his previous stent was located. Patient denies any anginal type symptoms recently, but is still reporting significant fatigue. Patient denies any current dysuria, productive cough, fever, chills, lower extremity edema or focal neurologic deficit. Review of systems otherwise negative x10 systems. Past Medical History Past Medical History (Chronic Problems): Chronic Problems Hypothyroidism (Chronic) Hyperlipidemia (Chronic) Coronary artery disease (Chronic) Status post stents. HTN (hypertension) (Chronic) COPD (chronic obstructive pulmonary disease) (Chronic) Allergies No Known Allergies Allergy (Verified 08/12/18 13:59) Home Medications: Ambulatory Orders Medication Instructions Recorded Albuterol IH (ProAir) [Proair Hfa] 1 - 2 puff INHALATION Q4H PRN PRN 10/20/17 Aspirin 325 mg PO QHS 10/20/17 Atorvastatin Calcium 40 mg PO QHS 10/20/17 Levothyroxine 75 mcg PO DAILY 10/20/17 Lisinopril 40 mg PO LUNCH 10/20/17 Metoprolol Tartrate 100 mg PO DAILY 10/20/17 Niacin 500 mg PO QHS 10/20/17 Cholecalciferol (VIT D3) [Vitamin 1,000 unit PO QHS 08/01/18 D] Cyanocobalamin [Vitamin B12] 1,000 mcg PO QHS 08/01/18 Folic Acid 1 mg PO QHS 08/01/18 Omeprazole [Prilosec] 20 mg PO DAILY 08/01/18 Surgical History: - - Cardiac stents. Right orchiectomy, laparotomy with lymph node dissection. Psychiatric History: No pertinent psych hx Lives: Spouse/ Significant Other Smoking Status: Former smoker Alcohol: None Drugs: None - *Family History Maternal History Items: No pertinent history Paternal History Items: No pertinent history Review of Systems Comment: See HPI Patient Problems: Active and Suspected Problems Anemia associated with acute blood loss (Acute) GI bleed (Acute) Objective: Endoscopy report stated clotted blood was seen in the ascending colon in the area of the previous polypectomy. This was injected with 2 mL's of epinephrine. No further bleeding was noted. Pathology from original procedure was consistent with an inflammatory polyp. - Physical Exam General: Alert, Oriented x3, Cooperative, No apparent distress, Well developed, Well nourished, - - Speaking in full sentences. HEENT: Atraumatic, PERRLA, EOMI, Normocephalic, - - No scleral icterus or injection noted. Oral: No Gingival or Mucosal Lesions/ Ulcerations, Dry Mucosa, - - Poor dentition Neck: Supple, No JVD, No Nodes, Trachea Midline Lungs: Clear to auscultation, Normal air movement, No rhonchi, No wheeze, No rales Cardiovascular: Regular rate, Regular Rhythm, Normal S1, Normal S2, No murmurs, No rub noted, No Gallop Abdomen: Bowel Sounds Present, Soft, Non Tender, Non-Distended Extremities: No clubbing, No cyanosis, No edema, Capillary Refill Less than 3 Seconds Skin: No rashes, No breakdown Musculoskeletal: No Tenderness to Palpation of Joints or Extremities, No Muscle Wasting Lymphatic: No Cervical, Supraclavicular, or Inguinal Adenopathy Neurological: Cranial nerves II-XII grossly intact, Neuro grossly intact, Motor Exam 5/5 strength throughout, Sensory exam intact to light touch and pain Psych/Mental Status: Alert and oriented to time, place, person, mood and affect Vital Signs Temp Pulse Resp BP Pulse Ox 36.4 C L 98 18 130/61 H 98 08/13/18 05:00 08/13/18 07:00 08/13/18 05:00 08/13/18 05:00 08/13/18 05:00 Oxygen Flow Rate (L/min) 15 Oxygen Delivery Method Non-Rebreather Weight: 76.3 kg Body Mass Index (BMI) 21.6 Intake and Output for Last 24 Hours 08/11/18 08/12/18 08/13/18 23:59 23:59 23:59 Intake Total 968 / 968 1068 / 1068 Output Total 275 / 275 Balance 693 / 693 1068 / 1068 Laboratory Tests Past 24 Hrs 08/12/18 08/12/18 08/12/18 14:35 14:35 14:35 WBC 5.6 RBC 3.35 L Hgb 9.3 L Hct 27.8 L MCV 83.0 MCH 27.8 MCHC 33.5 RDW 14.3 RDW Differential 43.0 Plt Count 162 MPV 10.3 Immature Gran % (Auto) 0.200 Neut % (Auto) 72.6 H Lymph % (Auto) 18.6 L [place] % (Auto) 5.8 Eos % (Auto) 2.3 Baso % (Auto) 0.5 Absolute Neuts (auto) 4.0 Absolute Lymphs (auto) 1.03 Total Counted Not Reportable PT INR Sodium 142 Potassium 4.0 Chloride 109 H Carbon Dioxide 26.0 Anion Gap 7 BUN 22 H Creatinine 1.39 H Estim Creat Clear Calc 54.98 Est GFR (MDRD) Af Amer 65 Est GFR (MDRD) Non-Af 54 L BUN/Creatinine Ratio 15.8 Glucose 157 H Lactic Acid 1.7 Calcium 8.4 L Troponin I TSH Blood Type Antibody Screen Crossmatch 08/12/18 08/12/18 08/12/18 14:35 14:35 14:35 WBC RBC Hgb Hct MCV MCH MCHC RDW RDW Differential Plt Count MPV Immature Gran % (Auto) Neut % (Auto) Lymph % (Auto) [place] % (Auto) Eos % (Auto) Baso % (Auto) Absolute Neuts (auto) Absolute Lymphs (auto) Total Counted PT INR Sodium Potassium Chloride Carbon Dioxide Anion Gap BUN Creatinine Estim Creat Clear Calc Est GFR (MDRD) Af Amer Est GFR (MDRD) Non-Af BUN/Creatinine Ratio Glucose Lactic Acid Calcium Troponin I TSH Blood Type O POSITIVE Antibody Screen NEGATIVE Crossmatch See Detail See Detail 08/12/18 08/12/18 08/12/18 17:04 17:04 17:04 WBC RBC Hgb 8.7 L Hct 25.9 L MCV MCH MCHC RDW RDW Differential Plt Count MPV Immature Gran % (Auto) Neut % (Auto) Lymph % (Auto) [place] % (Auto) Eos % (Auto) Baso % (Auto) Absolute Neuts (auto) Absolute Lymphs (auto) Total Counted PT 15.0 H INR 1.2 Sodium Potassium Chloride Carbon Dioxide Anion Gap BUN Creatinine Estim Creat Clear Calc Est GFR (MDRD) Af Amer Est GFR (MDRD) Non-Af BUN/Creatinine Ratio Glucose Lactic Acid Calcium Troponin I TSH 0.98 Blood Type Antibody Screen Crossmatch 08/13/18 08/13/18 08/13/18 01:10 07:08 07:08 WBC 7.4 RBC 2.80 L Hgb 7.7 L 7.9 L Hct 23.1 L 23.6 L MCV 84.3 MCH 28.2 MCHC 33.5 RDW 14.6 RDW Differential 45.0 H Plt Count 179 MPV 9.8 Immature Gran % (Auto) 0.100 Neut % (Auto) 71.2 H Lymph % (Auto) 20.5 [place] % (Auto) 6.1 Eos % (Auto) 1.8 Baso % (Auto) 0.3 Absolute Neuts (auto) 5.3 Absolute Lymphs (auto) 1.51 Total Counted Not Reportable PT INR Sodium 143 Potassium 3.9 Chloride 114 H Carbon Dioxide 21.0 Anion Gap 8 BUN 19 H Creatinine 1.28 Estim Creat Clear Calc 57.95 Est GFR (MDRD) Af Amer 71 Est GFR (MDRD) Non-Af 59 L BUN/Creatinine Ratio 14.8 Glucose 141 H Lactic Acid Calcium 7.7 L Troponin I TSH Blood Type Antibody Screen Crossmatch 08/13/18 08/13/18 09:55 09:55 WBC RBC Hgb 6.7 L Hct 20.5 L MCV MCH MCHC RDW RDW Differential Plt Count MPV Immature Gran % (Auto) Neut % (Auto) Lymph % (Auto) [place] % (Auto) Eos % (Auto) Baso % (Auto) Absolute Neuts (auto) Absolute Lymphs (auto) Total Counted PT INR Sodium Potassium Chloride Carbon Dioxide Anion Gap BUN Creatinine Estim Creat Clear Calc Est GFR (MDRD) Af Amer Est GFR (MDRD) Non-Af BUN/Creatinine Ratio Glucose Lactic Acid Calcium Troponin I Pending TSH Blood Type Antibody Screen Crossmatch Assessment/Plan Active and Suspected Problems Anemia associated with acute blood loss (Acute) GI bleed (Acute) RECOMMENDATIONS: 1. H&H every 6 hours 2. Transfuse to keep hemoglobin greater than 8 3. Cycle troponins, continue telemetry 4. Wean oxygen as tolerated 5. Consider transition to PPI daily IMPRESSIONS: 1. Acute blood loss anemia with vasovagal response secondary to lower GI bleed Patient with recent resection of an inflammatory polyp on colonoscopy. This appears to be the cause of the bleeding. Patient is currently on a PPI twice daily, which would be indicated only with upper GI bleed. Will attempt to keep hemoglobin greater than 8 given high risk for repeat bleeding. Patient will be monitored in the intensive care unit over the next 24 hours. 2. Coronary artery disease status post stent/hypertension/hyperlipidemia/history of smoking Patient with some T wave depression noted during acute bleed. Patient will be monitored with telemetry. Likely no anticoagulation or intervention with stent unless patient develops ST elevations. Patient might benefit from a repeat cardiac catheterization as an outpatient once polypectomy site has time to improve/heal. Will cycle troponins. Blood pressure appears to be adequate at this time. 3. Advanced age/CKD stage III/hypothyroidism/COPD Complicates care, management, recovery and prognosis. Renal function is stable at this time. Patient's Lopressor has been held secondary to acute condition, but ANABELA inhibitor can be continued as long as blood pressures are adequate. No lung function studies are available for review at this time. Patient has a reported history of COPD, but this cannot be verified. Patient does have albuterol as needed and does not appear to be in acute exacerbation at this time. Code Visit Inpatient E&M: 81898 Init Hosp L3
[2018-08-13] MEDS: Lisinopril 40 MG Tablet PO (11:04)
--- NOTE | 2018-08-13 13:20 | CASEMGMT ---
SW met w/pt in room to inquire about prior level of function and any possible discharge needs. Pt alert and oriented at present. Pt states prior to admission, lives home w/, stays on first floor. Pt reports is independent with ADL's, no DME, drives, organizes his own medications. 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 Pt's PCP is Dr. Maynard, has Medicare and [employer], prescription coverage through [employer]. Pt gets medication at [facility] on [address]. Pt reports supportive son and daughter. Pt anticipates returning home at discharge. Pt has no history of home health or skilled nursing placement. Pt does not anticipate needing anything at discharge. SW let pt know SW available should any discharge needs arise. MESFIN Monroy, [employer] TEAM MEMBER
[2018-08-13 18:32] LABS: Hematocrit 27.2 % (40-54); Hemoglobin 9.2 g/dl (13.0-16.5)
[2018-08-13] MEDS: Atorvastatin Calcium 40 MG Tablet PO (22:14)
[2018-08-13 22:25] LABS: Hematocrit 23.4 % (40-54); Hemoglobin 8.1 g/dl (13.0-16.5)
[2018-08-13 23:06] LABS: Hematocrit 23.3 % (40-54); Hemoglobin 8.1 g/dl (13.0-16.5)
[2018-08-14] VITALS (29 sets, daily range): BP systolic 110–159; BP diastolic 47–98; PULSE 54–149; RESP 12–27; TEMP 36.4–37.1; O2SAT 92–100
--- NOTE | 2018-08-14 02:30 | NURSING ---
abnormal rhythm noted on monitor, 12 lead EKG obtained, physician notified. IV adenosine given, not effective. orders to start amiodarone bolus and drip.
--- NOTE | 2018-08-14 02:44 | PCM.PN.BLA ---
Progress Note Patient with rectal bleeding on admission and presyncopal event following which an adherent clot was removed via endoscopy. Overnight, patient was found to be in SVT up to a heart rate of 170s not controlled with vagal maneuver of Valsalva and cold towel to forehead. Because of 'leaking valve' patient reports that he is supposed to have echocardiogram outpatient on August 25 2018. He reports 5-6 severity epigastric pain on a scale of 1 to 10. His pain is pressurized. It radiates to his left chest. He denies any nausea or diaphoresis SBP in 180s. BP trended to 167/86 Patient alert and oriented. Hyperdynamic heart with 5/6 murmur; prominent at aortic area and radiating to his carotids. Lungs clear to auscultate Chest Pain with SVT Adenosine 6mg slowed the heart rate momentarily but patient went into SVT again. Adenosine 12mg x 2 slowed heart rate only for patient to go back into SVT. Will start patient on amiodarone and get troponin series. Will consult cardiology.
[2018-08-14] MEDS: Adenosine 6 MG/2 ML Syringe IV (02:45)
[2018-08-14] MEDS: Adenosine 6 MG/2 ML Syringe 12 MG IV ×2 (02:58→03:04)
[2018-08-14] MEDS: 0.9% Normal Saline 1,000 ML 100 ML IV (03:44)
[2018-08-14] MEDS: 0.9% NaCl Peripheral Flush Adult/Peds IV ×6 (03:45→12:29)
--- NOTE | 2018-08-14 04:00 | EKG12_ITS ---
Test Reason : ABNORMAL EKG Blood Pressure : / mmHG Vent. Rate : 140 BPM Atrial Rate : 061 BPM P-R Int : 000 ms QRS Dur : 100 ms QT Int : 332 ms P-R-T Axes : 000 054 216 degrees QTc Int : 506 ms Atrial fibrillation Marked ST abnormality, possible anterolateral subendocardial injury Abnormal ECG Confirmed by DANIEL SAMSON, LUX ([id number]), editorial director MARCELINA SANTIAGO ([id number]) on 08/18/2018 1:48:00 PM Referred By: LIZANDRO Confirmed By:LUX SANCHEZ MD
[2018-08-14 04:50] LABS: Absolute Lymphocyte Count 1.36 X10^3/ul (0.83-4.51); Absolute Neutrophil Count 5.4 X10^3/uL (2.0-7.7); Basophil# 0.03 X10^3/uL; Basophil% 0.4 % (0-1); Eosinophil# 0.21 X10^3/uL; Eosinophils% 2.7 % (0-5); Hematocrit 24.1 % (40-54); Hemoglobin 8.2 g/dl (13.0-16.5); Lymphocyte # 1.36 X10^3/ul (4.0); Lymphocyte % 17.6 % (19-41); Mean Corpuscular Volume 85.2 fL (80-94); Mean Platelet Vol. 10.5 fl (6.2-12.0); Monocyte# 0.71 X10^3/uL; Monocyte% 9.2 % (0-10); Neutrophil # 5.41 X10^3/uL (2.7-7.7); Neutrophil % 69.8 % (47-70); Platelet Count 154 K/mm3 (150-450); RBC Distribution Width CV 15.1 % (11.6-14.6); RBC Distribution Width SD 44.4 fl (35.1-43.9); Red Blood Count 2.83 M/mm3 (4.6-6.2); White Blood Count 7.7 K/mm3 (4.4-11.0)
[2018-08-14 04:52] LABS: POSITIVE COUNT NO; POSITIVE DIFFERENTIAL NO; POSITIVE MORPHOLOGY NO
[2018-08-14 05:02] LABS: Anion Gap 8 (5-15); BUN 16 mg/dL (7-18); BUN/Creat Ratio 14.3 RATIO (10-20); Calcium,Total 7.5 mg/dL (8.5-10.1); Chloride 112 mmol/L (98-107); Creatinine, Serum 1.12 mg/dL (0.70-1.30); EST Glomerular Filtration Rate 69 mL/min (>60); Est Glom Filt Rate - Afr Amer 83 mL/min (>60); Estimated Creatinine Clearance 66.23 ml/min; Glucose 108 mg/dL (74-106); Magnesium 1.7 mg/dL (1.6-2.6); Phosphorus 2.1 mg/dL (2.5-4.9); Potassium 3.5 mmol/L (3.5-5.1); Sodium Level 144 mmol/L (136-145)
[2018-08-14] MEDS: Levothyroxine 75 MCG Tablet PO (06:07)
--- NOTE | 2018-08-14 07:19 | PCM.PN.INT ---
Subjective: Patient with significant issues overnight. Patient developed A. fib with RVR and did receive multiple doses of adenosine with no change. Patient has been initiated on amiodarone. Blood pressure has tolerated well. Patient reports intermittent palpitations, but no current chest pain. Patient has been saturating well on room air. No further hematochezia has been reported General: Alert, Oriented x3, Cooperative, No apparent distress, Well developed, Well nourished, - - Speaking in full sentences. HEENT: Atraumatic, PERRLA, EOMI, Normocephalic, - - No scleral icterus or injection noted. Oral: Moist Mucosa, No Gingival or Mucosal Lesions/ Ulcerations Neck: Supple, No JVD, No Nodes, Trachea Midline Lungs: Clear to auscultation, Normal air movement, No rhonchi, No wheeze, No rales, - - Symmetric expansion. No dullness to percussion. Cardiovascular: Normal S1, Normal S2, Irregular Rate, Murmur - Grade 3 out of 6 systolic ejection murmur at the right sternal border, Tachycardic Abdomen: Bowel Sounds Present, Soft, Non Tender, Non-Distended Extremities: No clubbing, No cyanosis, No edema Skin: No rashes, No breakdown Musculoskeletal: No Tenderness to Palpation of Joints or Extremities Lymphatic: No Cervical, Supraclavicular, or Inguinal Adenopathy Neurological: Cranial nerves II-XII grossly intact, Neuro grossly intact, Motor Exam 5/5 strength throughout Psych/Mental Status: Alert and oriented to time, place, person, mood and affect Vital Signs Temp Pulse Resp BP Pulse Ox 37.0 C 136 H 20 H 128/84 H 98 08/14/18 04:00 08/14/18 06:00 08/14/18 06:00 08/14/18 06:00 08/14/18 07:06 Oxygen Flow Rate (L/min) 2 Oxygen Delivery Method Room Air Weight: 80.3 kg Body Mass Index (BMI) 21.6 Intake and Output for Last 24 Hours 08/12/18 08/13/18 08/14/18 23:59 23:59 23:59 Intake Total 968 / 968 1868 / 1868 1626 / 1626 Output Total 275 / 275 250 / 250 850 / 850 Balance 693 / 693 1618 / 1618 776 / 776 Labs (Last 48 Hours) 08/12/18 08/12/18 08/12/18 14:35 14:35 14:35 WBC 5.6 RBC 3.35 L Hgb 9.3 L Hct 27.8 L MCV 83.0 MCH 27.8 MCHC 33.5 RDW 14.3 RDW Differential 43.0 Plt Count 162 MPV 10.3 Immature Gran % (Auto) 0.200 Neut % (Auto) 72.6 H Lymph % (Auto) 18.6 L [place] % (Auto) 5.8 Eos % (Auto) 2.3 Baso % (Auto) 0.5 Absolute Neuts (auto) 4.0 Absolute Lymphs (auto) 1.03 Total Counted Not Reportable PT INR Sodium 142 Potassium 4.0 Chloride 109 H Carbon Dioxide 26.0 Anion Gap 7 BUN 22 H Creatinine 1.39 H Estim Creat Clear Calc 54.98 Est GFR (MDRD) Af Amer 65 Est GFR (MDRD) Non-Af 54 L BUN/Creatinine Ratio 15.8 Glucose 157 H Lactic Acid 1.7 Calcium 8.4 L Phosphorus Magnesium Troponin I TSH Blood Type Antibody Screen Crossmatch 08/12/18 08/12/18 08/12/18 14:35 14:35 14:35 WBC RBC Hgb Hct MCV MCH MCHC RDW RDW Differential Plt Count MPV Immature Gran % (Auto) Neut % (Auto) Lymph % (Auto) [place] % (Auto) Eos % (Auto) Baso % (Auto) Absolute Neuts (auto) Absolute Lymphs (auto) Total Counted PT INR Sodium Potassium Chloride Carbon Dioxide Anion Gap BUN Creatinine Estim Creat Clear Calc Est GFR (MDRD) Af Amer Est GFR (MDRD) Non-Af BUN/Creatinine Ratio Glucose Lactic Acid Calcium Phosphorus Magnesium Troponin I TSH Blood Type O POSITIVE Antibody Screen NEGATIVE Crossmatch See Detail See Detail 08/12/18 08/12/18 08/12/18 17:04 17:04 17:04 WBC RBC Hgb 8.7 L Hct 25.9 L MCV MCH MCHC RDW RDW Differential Plt Count MPV Immature Gran % (Auto) Neut % (Auto) Lymph % (Auto) [place] % (Auto) Eos % (Auto) Baso % (Auto) Absolute Neuts (auto) Absolute Lymphs (auto) Total Counted PT 15.0 H INR 1.2 Sodium Potassium Chloride Carbon Dioxide Anion Gap BUN Creatinine Estim Creat Clear Calc Est GFR (MDRD) Af Amer Est GFR (MDRD) Non-Af BUN/Creatinine Ratio Glucose Lactic Acid Calcium Phosphorus Magnesium Troponin I TSH 0.98 Blood Type Antibody Screen Crossmatch 08/13/18 08/13/18 08/13/18 01:10 07:08 07:08 WBC 7.4 RBC 2.80 L Hgb 7.7 L 7.9 L Hct 23.1 L 23.6 L MCV 84.3 MCH 28.2 MCHC 33.5 RDW 14.6 RDW Differential 45.0 H Plt Count 179 MPV 9.8 Immature Gran % (Auto) 0.100 Neut % (Auto) 71.2 H Lymph % (Auto) 20.5 [place] % (Auto) 6.1 Eos % (Auto) 1.8 Baso % (Auto) 0.3 Absolute Neuts (auto) 5.3 Absolute Lymphs (auto) 1.51 Total Counted Not Reportable PT INR Sodium 143 Potassium 3.9 Chloride 114 H Carbon Dioxide 21.0 Anion Gap 8 BUN 19 H Creatinine 1.28 Estim Creat Clear Calc 57.95 Est GFR (MDRD) Af Amer 71 Est GFR (MDRD) Non-Af 59 L BUN/Creatinine Ratio 14.8 Glucose 141 H Lactic Acid Calcium 7.7 L Phosphorus Magnesium Troponin I TSH Blood Type Antibody Screen Crossmatch 08/13/18 08/13/18 08/13/18 09:55 09:55 18:00 WBC RBC Hgb 6.7 L 9.2 L Hct 20.5 L 27.2 L MCV MCH MCHC RDW RDW Differential Plt Count MPV Immature Gran % (Auto) Neut % (Auto) Lymph % (Auto) [place] % (Auto) Eos % (Auto) Baso % (Auto) Absolute Neuts (auto) Absolute Lymphs (auto) Total Counted PT INR Sodium Potassium Chloride Carbon Dioxide Anion Gap BUN Creatinine Estim Creat Clear Calc Est GFR (MDRD) Af Amer Est GFR (MDRD) Non-Af BUN/Creatinine Ratio Glucose Lactic Acid Calcium Phosphorus Magnesium Troponin I 0.041 TSH Blood Type Antibody Screen Crossmatch 08/13/18 08/13/18 08/14/18 22:00 22:55 03:15 WBC RBC Hgb 8.1 L 8.1 L Hct 23.4 L 23.3 L MCV MCH MCHC RDW RDW Differential Plt Count MPV Immature Gran % (Auto) Neut % (Auto) Lymph % (Auto) [place] % (Auto) Eos % (Auto) Baso % (Auto) Absolute Neuts (auto) Absolute Lymphs (auto) Total Counted PT INR Sodium Potassium Chloride Carbon Dioxide Anion Gap BUN Creatinine Estim Creat Clear Calc Est GFR (MDRD) Af Amer Est GFR (MDRD) Non-Af BUN/Creatinine Ratio Glucose Lactic Acid Calcium Phosphorus Magnesium Troponin I 0.046 H TSH Blood Type Antibody Screen Crossmatch 08/14/18 08/14/18 08/14/18 04:44 04:44 06:05 WBC 7.7 RBC 2.83 L Hgb 8.2 L Hct 24.1 L MCV 85.2 MCH 29.0 MCHC 34.0 RDW 15.1 H RDW Differential 44.4 H Plt Count 154 MPV 10.5 Immature Gran % (Auto) 0.300 Neut % (Auto) 69.8 Lymph % (Auto) 17.6 L [place] % (Auto) 9.2 Eos % (Auto) 2.7 Baso % (Auto) 0.4 Absolute Neuts (auto) 5.4 Absolute Lymphs (auto) 1.36 Total Counted Not Reportable PT INR Sodium 144 Potassium 3.5 Chloride 112 H Carbon Dioxide 24.0 Anion Gap 8 BUN 16 Creatinine 1.12 Estim Creat Clear Calc 66.23 Est GFR (MDRD) Af Amer 83 Est GFR (MDRD) Non-Af 69 BUN/Creatinine Ratio 14.3 Glucose 108 H Lactic Acid Calcium 7.5 L Phosphorus 2.1 L Magnesium 1.7 Troponin I 0.116 H TSH Blood Type Antibody Screen Crossmatch Medical Necessity - Tobacco Use Smoking Status: Former smoker Assessment/Plan All Active Problems Anemia associated with acute blood loss (Acute) GI bleed (Acute) RECOMMENDATIONS: 1. H&H every 12 hours 2. Transfuse to keep hemoglobin greater than 8 3. Cycle troponins, continue telemetry 4. Obtain echocardiogram 5. Transition to PPI daily IMPRESSIONS: 1. Acute blood loss anemia with vasovagal response secondary to lower GI bleed Patient with recent resection of an inflammatory polyp on colonoscopy. This appears to be the cause of the bleeding. Will transition patient to PPI IV daily, but this could be changed to p.o. if okay with surgery. Will attempt to keep hemoglobin greater than 8 given high risk for repeat bleeding. Patient will be monitored in the intensive care unit over the next 24 hours. 2. Coronary artery disease status post stent/hypertension/hyperlipidemia/history of smoking/A. fib with RVR Patient currently on amiodarone therapy. Rate is poorly controlled. Cardiology has been consulted. Will obtain an echocardiogram for evaluation. Patient is typically seen at the [facility], but does have a significant murmur on exam today. 3. Advanced age/CKD stage III/hypothyroidism/COPD Complicates care, management, recovery and prognosis. Renal function is stable at this time. Will reinitiate patient's beta-joce. No lung function studies are available for review at this time. Patient has a reported history of COPD, but this cannot be verified. Patient does have albuterol as needed and does not appear to be in acute exacerbation at this time. Code Visit Inpatient E&M: 43178 [facility] Hosp L3
[2018-08-14] MEDS: Metoprolol Tartrate 5 MG/5 ML Vial IV ×2 (07:55→12:29)
[2018-08-14] MEDS: Pantoprazole Sodium 40 MG Tablet PO (09:40)
--- NOTE | 2018-08-14 10:16 | NURSING ---
Echo in progress
--- NOTE | 2018-08-14 10:51 | EKG12_ITS ---
Test Reason : RHYTHM CHANGE Blood Pressure : / mmHG Vent. Rate : 147 BPM Atrial Rate : 159 BPM P-R Int : 168 ms QRS Dur : 104 ms QT Int : 284 ms P-R-T Axes : -19 065 158 degrees QTc Int : 444 ms Atrial fibrillation with rapid ventricular response Marked ST abnormality, possible inferior subendocardial injury Marked ST abnormality, possible anterolateral subendocardial injury Abnormal ECG Confirmed by DANIEL SAMSON, LUX ([id number]), photography editor MARCELINA SANTIAGO ([id number]) on 08/18/2018 1:48:50 PM Referred By: HILARY Confirmed By:LUX SANCHEZ MD
--- NOTE | 2018-08-14 11:48 | PCM.PN.SRG ---
Patient Problems: Active and Suspected Problems Anemia associated with acute blood loss (Acute) GI bleed (Acute) Subjective: no further bowel movements or bleeding since endoscopy - Physical Exam General: Alert, Oriented x3 Lungs: Clear to auscultation, Normal air movement Cardiovascular: Tachycardic Abdomen: Bowel Sounds Present, Soft, Non Tender Vital Signs Temp Pulse Resp BP Pulse Ox 97.9 F 65 18 132/58 H 99 08/14/18 11:01 08/14/18 11:01 08/14/18 11:01 08/14/18 11:01 08/14/18 11:01 Oxygen Flow Rate (L/min) 2 Oxygen Delivery Method Room Air Weight: 80.3 kg Body Mass Index (BMI) 21.6 Intake and Output for Last 24 Hours 08/12/18 08/13/18 08/14/18 23:59 23:59 23:59 Intake Total 968 / 968 1868 / 1868 2354 / 2354 Output Total 275 / 275 250 / 250 1150 / 1150 Balance 693 / 693 1618 / 1618 1204 / 1204 Laboratory Tests Past 24 Hrs 08/12/18 08/13/18 08/13/18 14:35 18:00 22:00 WBC RBC Hgb 9.2 L 8.1 L Hct 27.2 L 23.4 L MCV MCH MCHC RDW RDW Differential Plt Count MPV Immature Gran % (Auto) Neut % (Auto) Lymph % (Auto) [place] % (Auto) Eos % (Auto) Baso % (Auto) Absolute Neuts (auto) Absolute Lymphs (auto) Total Counted Sodium Potassium Chloride Carbon Dioxide Anion Gap BUN Creatinine Estim Creat Clear Calc Est GFR (MDRD) Af Amer Est GFR (MDRD) Non-Af BUN/Creatinine Ratio Glucose Calcium Phosphorus Magnesium Troponin I Crossmatch See Detail 08/13/18 08/14/18 08/14/18 22:55 03:15 04:44 WBC 7.7 RBC 2.83 L Hgb 8.1 L 8.2 L Hct 23.3 L 24.1 L MCV 85.2 MCH 29.0 MCHC 34.0 RDW 15.1 H RDW Differential 44.4 H Plt Count 154 MPV 10.5 Immature Gran % (Auto) 0.300 Neut % (Auto) 69.8 Lymph % (Auto) 17.6 L [place] % (Auto) 9.2 Eos % (Auto) 2.7 Baso % (Auto) 0.4 Absolute Neuts (auto) 5.4 Absolute Lymphs (auto) 1.36 Total Counted Not Reportable Sodium Potassium Chloride Carbon Dioxide Anion Gap BUN Creatinine Estim Creat Clear Calc Est GFR (MDRD) Af Amer Est GFR (MDRD) Non-Af BUN/Creatinine Ratio Glucose Calcium Phosphorus Magnesium Troponin I 0.046 H Crossmatch 08/14/18 08/14/18 08/14/18 04:44 06:05 09:50 WBC RBC Hgb Hct MCV MCH MCHC RDW RDW Differential Plt Count MPV Immature Gran % (Auto) Neut % (Auto) Lymph % (Auto) [place] % (Auto) Eos % (Auto) Baso % (Auto) Absolute Neuts (auto) Absolute Lymphs (auto) Total Counted Sodium 144 Potassium 3.5 Chloride 112 H Carbon Dioxide 24.0 Anion Gap 8 BUN 16 Creatinine 1.12 Estim Creat Clear Calc 66.23 Est GFR (MDRD) Af Amer 83 Est GFR (MDRD) Non-Af 69 BUN/Creatinine Ratio 14.3 Glucose 108 H Calcium 7.5 L Phosphorus 2.1 L Magnesium 1.7 Troponin I 0.116 H 0.355 H Crossmatch Medical Necessity - Tobacco Use Smoking Status: Former smoker Assessment/Plan All Active Problems Anemia associated with acute blood loss (Acute) GI bleed (Acute) post-polypectomy bleed. no further bleeding since the patient underwent colonoscopy with epinephrine injection yesterday. Most comfortable with no anticoagulation but if cardiology or medicine feel that the patient is best treated with anticoagulants, then I would transfuse an additional unit of packed red cells to give correction if the patient rebleeds. If the patient rebleeds I would plan for repeat urgent colonoscopy.
--- NOTE | 2018-08-14 11:50 | PCM.PN.HOSP ---
Patient Problems: Active and Suspected Problems Anemia associated with acute blood loss (Acute) GI bleed (Acute) Subjective: Feels great, no SOB or CP. Feels much better than he did on admission or last night when he went into [facility] with RVR Vitals/I&O's: Vital Signs Temp Pulse Resp BP Pulse Ox 97.9 F 65 18 132/58 H 99 08/14/18 11:01 08/14/18 11:01 08/14/18 11:01 08/14/18 11:01 08/14/18 11:01 Oxygen Flow Rate (L/min) 2 Oxygen Delivery Method Room Air Weight: 177 lb 0.499 oz Body Mass Index (BMI) 21.6 Intake and Output for Last 24 Hours 08/12/18 08/13/18 08/14/18 23:59 23:59 23:59 Intake Total 968 / 968 1868 / 1868 2354 / 2354 Output Total 275 / 275 250 / 250 1150 / 1150 Balance 693 / 693 1618 / 1618 1204 / 1204 General: Alert, Oriented x3, Cooperative HEENT: Atraumatic, EOMI, Normocephalic Oral: Dry Mucosa Neck: Supple, No JVD Lungs: Clear to auscultation, Normal air movement, No rhonchi, No wheeze, No rales Cardiovascular: Regular rate, Regular Rhythm, Normal S1, Normal S2, 3/6 JOAO Abdomen: Soft, Non Tender, Non-Distended, No Hepato-splenomegaly Extremities: No edema, Capillary Refill Less than 3 Seconds Neurological: Neuro grossly intact, Sensory exam intact to light touch and pain Psych/Mental Status: Normal Affect, Appropriate Laboratory Results 08/12/18 14:35: Crossmatch See Detail 08/13/18 18:00: Hgb 9.2 L, Hct 27.2 L 08/13/18 22:00: Hgb 8.1 L, Hct 23.4 L 08/13/18 22:55: Hgb 8.1 L, Hct 23.3 L 08/14/18 03:15: Troponin I 0.046 H 08/14/18 04:44: WBC 7.7, RBC 2.83 L, Hgb 8.2 L, Hct 24.1 L, MCV 85.2, MCH 29.0, MCHC 34.0, RDW 15.1 H, RDW Differential 44.4 H, Plt Count 154, MPV 10.5, Immature Gran % (Auto) 0.300, Neut % (Auto) 69.8, Lymph % (Auto) 17.6 L, [place] % (Auto) 9.2, Eos % (Auto) 2.7, Baso % (Auto) 0.4, Absolute Neuts (auto) 5.4, Absolute Lymphs (auto) 1.36, Total Counted Not Reportable 08/14/18 04:44: Sodium 144, Potassium 3.5, Chloride 112 H, Carbon Dioxide 24.0, Anion Gap 8, BUN 16, Creatinine 1.12, Estim Creat Clear Calc 66.23, Est GFR (MDRD) Af Amer 83, Est GFR (MDRD) Non-Af 69, BUN/Creatinine Ratio 14.3, Glucose 108 H, Calcium 7.5 L, Phosphorus 2.1 L, Magnesium 1.7 08/14/18 06:05: Troponin I 0.116 H 08/14/18 09:50: Troponin I 0.355 H Current Medications Acetaminophen (Tylenol) 650 mg PO Q6H PRN PRN PRN Reason: Fever, headache, pain Albuterol Sulfate (Ventolin Aerosols) 2.5 mg INHALATION Q4H PRN PRN PRN Reason: Shortness of breath, wheezing Atorvastatin Calcium (Lipitor) 40 mg PO QHS [facility] Last Admin: 08/13/18 22:14 Dose: 40 mg Sodium Chloride () 250 mls @ 15 mls/hr IV .[id number] PRN PRN Reason: SALINE FLUSH Amiodarone HCl/Dextrose (Nexterone 360 Mg/200 Ml Bag) 360 mg in 200 mls @ 16.667 mls/hr CONT INF .Q12H [facility] Stop: 08/15/18 03:14 Last Admin: 08/14/18 10:01 Dose: 16.667 mls/hr Potassium Phosphate 40 mm/ (Sodium Chloride) 513.3333 mls @ 62.5 mls/hr IV X1 ONE Stop: 08/14/18 16:12 Last Admin: 08/14/18 07:55 Dose: 62.5 mls/hr Levothyroxine Sodium (Synthroid) 75 mcg PO DAILY@0600 [facility] Last Admin: 08/14/18 06:07 Dose: 75 mcg Lisinopril (Zestril) 40 mg PO LUNCH [facility] Last Admin: 08/13/18 11:04 Dose: 40 mg Metoprolol Tartrate (Lopressor (Beta Lynn)) 5 mg IV Q6 [facility] Morphine Sulfate () 1 - 2 mg IV Q3H PRN PRN PRN Reason: SEVERE PAIN (6-10/10) Ondansetron HCl (Zofran) 4 mg IV Q6H PRN PRN PRN Reason: NAUSEA/VOMITING Pantoprazole Sodium (Protonix) 40 mg PO DAILY [facility] Last Admin: 08/14/18 09:40 Dose: 40 mg Sodium Chloride () 5 - 15 ml IV UD PRN PRN Reason: SALINE FLUSH Last Admin: 08/14/18 09:42 Dose: 10 ml Medical Necessity - Tobacco Use Smoking Status: Former smoker Assessment/Plan All Active Problems Anemia associated with acute blood loss (Acute) GI bleed (Acute) 1. Lower GI bleed/Acute Blood loss anemia -He had a colonoscopy about a week ago where they did a polypectomy. -He has not been on aspirin because of his colonoscopy. -Received 4 Units total and will maintain above 8 given his cardiac history -Clot on polypectomy site, injected with epi 2. CAD status post stents/hypertension/hyperlipidemia/Afib with RVR -Given his history of CAD his hemoglobin is to remain above 8 -Can continue with his blood pressure medications if stable on his statin, will hold his aspirin for now -Afib overnight with elevated troponins indicating demand ischemia - Based on CHADS2-VASC, His stroke risk is about 5-6% per year, his HAS BLED is around 4%, he will need anticoagulation, though can robynley wait a week - Appreciate cardiology recs 3. Hypothyroidism -Stable, TSH 0.98 -Continue with Synthroid 4. CKD 3 -Baseline creatinine 1.4 -Stable, will continue to monitor DVT: SCDs Code Visit Inpatient E&M: 30775 Subs Hosp L2
--- NOTE | 2018-08-14 11:58 | PN_ITS ---
Patient Problems: Active and Suspected Problems Anemia associated with acute blood loss (Acute) GI bleed (Acute) Subjective: Feels great, no SOB or CP. Feels much better than he did on admission or last night when he went into [facility] with RVR Vitals/I&O's: Vital Signs Temp Pulse Resp BP Pulse Ox 97.9 F 65 18 132/58 H 99 08/14/18 11:01 08/14/18 11:01 08/14/18 11:01 08/14/18 11:01 08/14/18 11:01 Oxygen Flow Rate (L/min) 2 Oxygen Delivery Method Room Air Weight: 177 lb 0.499 oz Body Mass Index (BMI) 21.6 Intake and Output for Last 24 Hours 08/12/18 08/13/18 08/14/18 23:59 23:59 23:59 Intake Total 968 / 968 1868 / 1868 2354 / 2354 Output Total 275 / 275 250 / 250 1150 / 1150 Balance 693 / 693 1618 / 1618 1204 / 1204 General: Alert, Oriented x3, Cooperative HEENT: Atraumatic, EOMI, Normocephalic Oral: Dry Mucosa Neck: Supple, No JVD Lungs: Clear to auscultation, Normal air movement, No rhonchi, No wheeze, No rales Cardiovascular: Regular rate, Regular Rhythm, Normal S1, Normal S2, 3/6 JOAO Abdomen: Soft, Non Tender, Non-Distended, No Hepato-splenomegaly Extremities: No edema, Capillary Refill Less than 3 Seconds Neurological: Neuro grossly intact, Sensory exam intact to light touch and pain Psych/Mental Status: Normal Affect, Appropriate Laboratory Results 08/12/18 14:35: Crossmatch See Detail 08/13/18 18:00: Hgb 9.2 L, Hct 27.2 L 08/13/18 22:00: Hgb 8.1 L, Hct 23.4 L 08/13/18 22:55: Hgb 8.1 L, Hct 23.3 L 08/14/18 03:15: Troponin I 0.046 H 08/14/18 04:44: WBC 7.7, RBC 2.83 L, Hgb 8.2 L, Hct 24.1 L, MCV 85.2, MCH 29.0, MCHC 34.0, RDW 15.1 H, RDW Differential 44.4 H, Plt Count 154, MPV 10.5, Immature Gran % (Auto) 0.300, Neut % (Auto) 69.8, Lymph % (Auto) 17.6 L, [place] % (Auto) 9.2, Eos % (Auto) 2.7, Baso % (Auto) 0.4, Absolute Neuts (auto) 5.4, Absolute Lymphs (auto) 1.36, Total Counted Not Reportable 08/14/18 04:44: Sodium 144, Potassium 3.5, Chloride 112 H, Carbon Dioxide 24.0, Anion Gap 8, BUN 16, Creatinine 1.12, Estim Creat Clear Calc 66.23, Est GFR (MDRD) Af Amer 83, Est GFR (MDRD) Non-Af 69, BUN/Creatinine Ratio 14.3, Glucose 108 H, Calcium 7.5 L, Phosphorus 2.1 L, Magnesium 1.7 08/14/18 06:05: Troponin I 0.116 H 08/14/18 09:50: Troponin I 0.355 H Current Medications Acetaminophen (Tylenol) 650 mg PO Q6H PRN PRN PRN Reason: Fever, headache, pain Albuterol Sulfate (Ventolin Aerosols) 2.5 mg INHALATION Q4H PRN PRN PRN Reason: Shortness of breath, wheezing Atorvastatin Calcium (Lipitor) 40 mg PO QHS [facility] Last Admin: 08/13/18 22:14 Dose: 40 mg Sodium Chloride () 250 mls @ 15 mls/hr IV .[id number] PRN PRN Reason: SALINE FLUSH Amiodarone HCl/Dextrose (Nexterone 360 Mg/200 Ml Bag) 360 mg in 200 mls @ 16.667 mls/hr CONT INF .Q12H [facility] Stop: 08/15/18 03:14 Last Admin: 08/14/18 10:01 Dose: 16.667 mls/hr Potassium Phosphate 40 mm/ (Sodium Chloride) 513.3333 mls @ 62.5 mls/hr IV X1 ONE Stop: 08/14/18 16:12 Last Admin: 08/14/18 07:55 Dose: 62.5 mls/hr Levothyroxine Sodium (Synthroid) 75 mcg PO DAILY@0600 [facility] Last Admin: 08/14/18 06:07 Dose: 75 mcg Lisinopril (Zestril) 40 mg PO LUNCH [facility] Last Admin: 08/13/18 11:04 Dose: 40 mg Metoprolol Tartrate (Lopressor (Beta Lynn)) 5 mg IV Q6 [facility] Morphine Sulfate () 1 - 2 mg IV Q3H PRN PRN PRN Reason: SEVERE PAIN (6-10/10) Ondansetron HCl (Zofran) 4 mg IV Q6H PRN PRN PRN Reason: NAUSEA/VOMITING Pantoprazole Sodium (Protonix) 40 mg PO DAILY [facility] Last Admin: 08/14/18 09:40 Dose: 40 mg Sodium Chloride () 5 - 15 ml IV UD PRN PRN Reason: SALINE FLUSH Last Admin: 08/14/18 09:42 Dose: 10 ml Medical Necessity - Tobacco Use Smoking Status: Former smoker Assessment/Plan All Active Problems Anemia associated with acute blood loss (Acute) GI bleed (Acute) 1. Lower GI bleed/Acute Blood loss anemia -He had a colonoscopy about a week ago where they did a polypectomy. -He has not been on aspirin because of his colonoscopy. -Received 4 Units total and will maintain above 8 given his cardiac history -Clot on polypectomy site, injected with epi 2. CAD status post stents/hypertension/hyperlipidemia/Afib with RVR -Given his history of CAD his hemoglobin is to remain above 8 -Can continue with his blood pressure medications if stable on his statin, will hold his aspirin for now -Afib overnight with elevated troponins indicating demand ischemia - Based on CHADS2-VASC, His stroke risk is about 5-6% per year, his HAS BLED is around 4%, he will need anticoagulation, though can robynley wait a week - Appreciate cardiology recs 3. Hypothyroidism -Stable, TSH 0.98 -Continue with Synthroid 4. CKD 3 -Baseline creatinine 1.4 -Stable, will continue to monitor DVT: SCDs Code Visit Inpatient E&M: [id number] Subs Hosp L2
[2018-08-14] MEDS: Lisinopril 40 MG Tablet PO (12:29)
--- NOTE | 2018-08-14 14:02 | PCM.CONS.C ---
Problem List (1) Paroxysmal atrial fibrillation with rapid ventricular response Status: Acute Reason for Consult Date of Consultation: 08/14/18 Reason for Consultation: Paroxysmal A. Fib. with RVR History of Present Illness: The patient is a 72 year old M admitted 2 days ago for persistent lower GI bleed 3 days post colon polypectomy. He needed transfusion X 3 to somewhat stabilized the hgb. Last night he developed tachycardia that proved to be A. Fib. That was treated accordingly with Amiodarone IV and converted back to sinus this AM. He denies any history of arrhythmia. Had some coronary stents a few years ao, but does not clearly remember the dates, location. He has been suffering from COPD and probable CHF as he has difficulty lying flat on his back and feel more comfortable sleeping on his side. He denies Angina, CVA, TIA, syncope, presyncope, DM. He has not been very active lately and get SOB and tiered easily. He knows that he has a leaking Valve and was supposed to have an Echocardiogram early next month, ordered by his principal cloud architect. Past Medical History Allergies/Adverse Reactions: Allergies No Known Allergies Allergy (Verified 08/12/18 13:59) Home Medications: Ambulatory Orders Medication Instructions Recorded Albuterol IH (ProAir) [Proair Hfa] 1 - 2 puff INHALATION Q4H PRN PRN 10/20/17 Aspirin 325 mg PO QHS 10/20/17 Atorvastatin Calcium 40 mg PO QHS 10/20/17 Levothyroxine 75 mcg PO DAILY 10/20/17 Lisinopril 40 mg PO LUNCH 10/20/17 Metoprolol Tartrate 100 mg PO DAILY 10/20/17 Niacin 500 mg PO QHS 10/20/17 Cholecalciferol (VIT D3) [Vitamin 1,000 unit PO QHS 08/01/18 D] Cyanocobalamin [Vitamin B12] 1,000 mcg PO QHS 08/01/18 Folic Acid 1 mg PO QHS 08/01/18 Omeprazole [Prilosec] 20 mg PO DAILY 08/01/18 Past Medical History (Chronic Problems): Chronic Problems Hypothyroidism (Chronic) Hyperlipidemia (Chronic) Coronary artery disease (Chronic) Status post stents. HTN (hypertension) (Chronic) COPD (chronic obstructive pulmonary disease) (Chronic) Surgical History: - - Cardiac stents. Right orchiectomy, laparotomy with lymph node dissection. Psychiatric History: No pertinent psych hx - *Family History Maternal History Items: No pertinent history Paternal History Items: No pertinent history Lives: Spouse/ Significant Other Smoking Status: Former smoker Alcohol: None Drugs: None Review of Systems - Review of Systems Cardiovascular: Reports: Shortness of Breath - With modest exertion., Shortness of Breath with Exertion, Orthopnea - 2 pillow, chronic, Palpitations - None Respiratory: Reports: Shortness of Breath, Wheezing Objective: Vital Signs Temp Pulse Resp BP Pulse Ox 97.9 F 55 L 12 114/65 98 08/14/18 11:01 08/14/18 13:00 08/14/18 13:00 08/14/18 13:00 08/14/18 13:00 Oxygen Flow Rate (L/min) 2 Oxygen Delivery Method Room Air Weight: 80.3 kg Body Mass Index (BMI) 21.6 Intake and Output for Last 24 Hours 08/12/18 08/13/18 08/14/18 23:59 23:59 23:59 Intake Total 968 / 968 1868 / 1868 3028 / 3028 Output Total 275 / 275 250 / 250 1425 / 1425 Balance 693 / 693 1618 / 1618 1603 / 1603 General: Alert, Oriented x 3, No Acute Distress, - - Chronically ill looking Lungs: Diminished [place] Bases Cardiovascular: Regular Rhythm, No Gallops Murmur Murmur: Grade 4/6, Early Systolic, Mid Systolic, LLSB, [place] Vascular: No Carotid Bruits Abdomen: Soft, Non Tender Extremities: No Cyanosis, No Clubbing, No edema Psych/Mental Status: Appropriate, Normal Affect 08/13/18 18:00: Hgb 9.2 L, Hct 27.2 L 08/13/18 22:00: Hgb 8.1 L, Hct 23.4 L 08/13/18 22:55: Hgb 8.1 L, Hct 23.3 L 08/14/18 03:15: Troponin I 0.046 H 08/14/18 04:44: WBC 7.7, RBC 2.83 L, Hgb 8.2 L, Hct 24.1 L, MCV 85.2, MCH 29.0, MCHC 34.0, RDW 15.1 H, RDW Differential 44.4 H, Plt Count 154, MPV 10.5, Immature Gran % (Auto) 0.300, Neut % (Auto) 69.8, Lymph % (Auto) 17.6 L, [place] % (Auto) 9.2, Eos % (Auto) 2.7, Baso % (Auto) 0.4, Absolute Neuts (auto) 5.4, Total Counted Not Reportable 08/14/18 04:44: Sodium 144, Potassium 3.5, Chloride 112 H, Carbon Dioxide 24.0, Anion Gap 8, BUN 16, Creatinine 1.12, Est GFR (MDRD) Af Amer 83, Est GFR (MDRD) Non-Af 69, BUN/Creatinine Ratio 14.3, Glucose 108 H, Calcium 7.5 L, Phosphorus 2.1 L, Magnesium 1.7 08/14/18 06:05: Troponin I 0.116 H 08/14/18 09:50: Troponin I 0.355 H Rhythm: Sinus, now, had tachycardia with narrow QRS last night. EKG: Sinus, no acute ST-T changes. ECHO: Preserved LVEF: Moderately severe Aortic stenosis. Assessment/Plan 1. Paroxysmal A.fib. overnight, now resolved, minimally elevated troponin is probably due to the demand ischemia. Patient has a high CHADS2-VASC score and yet with a current rectal bleeding from the polypectomy site, not a candidate for full anticoagulation now. It should be readdressed in 1-2 weeks. To switch to PO amiodarone per protocol. 2. CAD status post stents remote without angina. 3. CHF with HFpEF, valvular, class 2?, has a moderately large Pleural effusion. Continue with mild diuresis, BB, ACEI. 4. Moderately severe aortic stenosis, chronicity uncertain 5. Hypertension, well controlled. 6. Hypothyroidism. Stable. 7. CKD 3, Baseline creatinine 1.4, Stable. 8. Lower GI bleed/Acute Blood loss anemia, S/p 4 Units total and will maintain above 8 given his cardiac history 9. COPD, on home inhalers. I will FI+U at AM. Obtaining old medical records fro [facility] principal cloud architect office will be very helpful.
[2018-08-14 17:50] LABS: Hematocrit 23.9 % (40-54); Hemoglobin 8.2 g/dl (13.0-16.5)
[2018-08-14 18:31] LABS: Anion Gap 9 (5-15); BUN 13 mg/dL (7-18); BUN/Creat Ratio 11.4 RATIO (10-20); Calcium,Total 7.4 mg/dL (8.5-10.1); Chloride 112 mmol/L (98-107); Creatinine, Serum 1.14 mg/dL (0.70-1.30); EST Glomerular Filtration Rate 67 mL/min (>60); Est Glom Filt Rate - Afr Amer 82 mL/min (>60); Estimated Creatinine Clearance 68.48 ml/min; Glucose 148 mg/dL (74-106); Potassium 3.7 mmol/L (3.5-5.1); Sodium Level 143 mmol/L (136-145)
[2018-08-14 18:39] LABS: BNP,B-Type NATRIURETIC PEPTIDE 284.4 pg/mL (0-100)
[2018-08-14] MEDS: Atorvastatin Calcium 40 MG Tablet PO (21:37)
[2018-08-15] VITALS (23 sets, daily range): BP systolic 118–191; BP diastolic 42–100; PULSE 51–72; RESP 12–23; TEMP 36.4–36.9; O2SAT 94–99
[2018-08-15 04:14] LABS: Absolute Lymphocyte Count 1.47 X10^3/ul (0.83-4.51); Absolute Neutrophil Count 3.8 X10^3/uL (2.0-7.7); Basophil# 0.02 X10^3/uL; Basophil% 0.3 % (0-1); Eosinophil# 0.29 X10^3/uL; Eosinophils% 4.8 % (0-5); Hematocrit 22.1 % (40-54); Hemoglobin 7.5 g/dl (13.0-16.5); Lymphocyte # 1.47 X10^3/ul (4.0); Lymphocyte % 24.2 % (19-41); Mean Corp Hgb Conc 33.9 g/gl (32-36); Mean Corpuscular Hgb 29.3 pg (27.0-32.0); Mean Corpuscular Volume 86.3 fL (80-94); Mean Platelet Vol. 10.5 fl (6.2-12.0); Monocyte% 8.2 % (0-10); Neutrophil # 3.79 X10^3/uL (2.7-7.7); Neutrophil % 62.5 % (47-70); Platelet Count 129 K/mm3 (150-450); RBC Distribution Width CV 15.5 % (11.6-14.6); RBC Distribution Width SD 45.7 fl (35.1-43.9); Red Blood Count 2.56 M/mm3 (4.6-6.2); White Blood Count 6.1 K/mm3 (4.4-11.0)
[2018-08-15 04:15] LABS: POSITIVE COUNT NO; POSITIVE DIFFERENTIAL NO; POSITIVE MORPHOLOGY NO
[2018-08-15 04:41] LABS: AST(SGOT) 18 U/L (15-37); Alanine Aminotransfer ALT/SGPT 14 U/L (16-61); Albumin, Serum 2.4 g/dL (3.2-5.0); Alkaline Phosphatase 73 U/L (45-117); Anion Gap 8 (5-15); BUN 11 mg/dL (7-18); BUN/Creat Ratio 8.8 RATIO (10-20); Calcium,Total 7.5 mg/dL (8.5-10.1); Chloride 114 mmol/L (98-107); Creatinine, Serum 1.25 mg/dL (0.70-1.30); EST Glomerular Filtration Rate 61 mL/min (>60); Est Glom Filt Rate - Afr Amer 73 mL/min (>60); Estimated Creatinine Clearance 62.46 ml/min; Globulin 2.5 g/dL (2.2-4.2); Glucose 93 mg/dL (74-106); Magnesium 1.8 mg/dL (1.6-2.6); Phosphorus 3.2 mg/dL (2.5-4.9); Potassium 3.6 mmol/L (3.5-5.1); Protein, Total 4.9 g/dL (6.4-8.2); Sodium Level 146 mmol/L (136-145)
--- NOTE | 2018-08-15 07:15 | PN_ITS ---
Subjective: Patient did well overnight. No acute issues were reported. Patient did have some bradycardia, but blood pressure remained stable. Patient remains on room air. No hematochezia is been reported. Patient has been tolerating a clear diet. Objective: Echocardiogram shows an EF of 55-60% with stage II diastolic dysfunction. RV was mildly dilated. Moderate diffuse aortic valve thickening with associated stenosis. General: Alert, Oriented x3, Cooperative, No apparent distress, Well developed, Well nourished, - - Speaking in full sentences. HEENT: Atraumatic, PERRLA, EOMI, Normocephalic, - - No scleral icterus or injection noted. Oral: Moist Mucosa, No Gingival or Mucosal Lesions/ Ulcerations, - - Poor dentition Neck: Supple, No JVD, No Nodes, Trachea Midline Lungs: No rhonchi, No wheeze, No rales, Diminished, - - Symmetric expansion. No dullness to percussion. Cardiovascular: Regular rate, Regular Rhythm, Normal S1, Normal S2, Murmur, No rub noted, No Gallop, - - Normal sinus rhythm noted on telemetry Abdomen: Bowel Sounds Present, Soft, Non Tender, Non-Distended Extremities: No clubbing, No cyanosis, No edema, Capillary Refill Less than 3 Seconds Skin: No rashes, No breakdown Musculoskeletal: No Tenderness to Palpation of Joints or Extremities Lymphatic: No Cervical, Supraclavicular, or Inguinal Adenopathy Neurological: Cranial nerves II-XII grossly intact, Neuro grossly intact, Motor Exam 5/5 strength throughout Psych/Mental Status: Alert and oriented to time, place, person, mood and affect Vital Signs Temp Pulse Resp BP Pulse Ox 36.6 C 72 17 143/69 H 99 08/15/18 06:10 08/15/18 06:10 08/15/18 06:10 08/15/18 06:10 08/15/18 06:10 Oxygen Flow Rate (L/min) 2 Oxygen Delivery Method Room Air Weight: 79.4 kg Body Mass Index (BMI) 21.6 Intake and Output for Last 24 Hours 08/13/18 08/14/18 08/15/18 23:59 23:59 23:59 Intake Total 1868 / 1868 4021 / 4021 122.8 / 122.8 Output Total 250 / 250 2350 / 2350 200 / 200 Balance 1618 / 1618 1671 / 1671 -77.2 / -77.2 Labs (Last 48 Hours) 08/12/18 08/12/18 08/13/18 14:35 14:35 07:08 WBC 7.4 RBC 2.80 L Hgb 7.9 L Hct 23.6 L MCV 84.3 MCH 28.2 MCHC 33.5 RDW 14.6 RDW Differential 45.0 H Plt Count 179 MPV 9.8 Immature Gran % (Auto) 0.100 Neut % (Auto) 71.2 H Lymph % (Auto) 20.5 [place] % (Auto) 6.1 Eos % (Auto) 1.8 Baso % (Auto) 0.3 Absolute Neuts (auto) 5.3 Absolute Lymphs (auto) 1.51 Total Counted Not Reportable Sodium Potassium Chloride Carbon Dioxide Anion Gap BUN Creatinine Estim Creat Clear Calc Est GFR (MDRD) Af Amer Est GFR (MDRD) Non-Af BUN/Creatinine Ratio Glucose Calcium Phosphorus Magnesium Total Bilirubin AST ALT Alkaline Phosphatase Troponin I B-Natriuretic Peptide Total Protein Albumin Globulin Albumin/Globulin Ratio Crossmatch See Detail See Detail 08/13/18 08/13/18 08/13/18 07:08 09:55 09:55 WBC RBC Hgb 6.7 L Hct 20.5 L MCV MCH MCHC RDW RDW Differential Plt Count MPV Immature Gran % (Auto) Neut % (Auto) Lymph % (Auto) [place] % (Auto) Eos % (Auto) Baso % (Auto) Absolute Neuts (auto) Absolute Lymphs (auto) Total Counted Sodium 143 Potassium 3.9 Chloride 114 H Carbon Dioxide 21.0 Anion Gap 8 BUN 19 H Creatinine 1.28 Estim Creat Clear Calc 57.95 Est GFR (MDRD) Af Amer 71 Est GFR (MDRD) Non-Af 59 L BUN/Creatinine Ratio 14.8 Glucose 141 H Calcium 7.7 L Phosphorus Magnesium Total Bilirubin AST ALT Alkaline Phosphatase Troponin I 0.041 B-Natriuretic Peptide Total Protein Albumin Globulin Albumin/Globulin Ratio Crossmatch 08/13/18 08/13/18 08/13/18 18:00 22:00 22:55 WBC RBC Hgb 9.2 L 8.1 L 8.1 L Hct 27.2 L 23.4 L 23.3 L MCV MCH MCHC RDW RDW Differential Plt Count MPV Immature Gran % (Auto) Neut % (Auto) Lymph % (Auto) [place] % (Auto) Eos % (Auto) Baso % (Auto) Absolute Neuts (auto) Absolute Lymphs (auto) Total Counted Sodium Potassium Chloride Carbon Dioxide Anion Gap BUN Creatinine Estim Creat Clear Calc Est GFR (MDRD) Af Amer Est GFR (MDRD) Non-Af BUN/Creatinine Ratio Glucose Calcium Phosphorus Magnesium Total Bilirubin AST ALT Alkaline Phosphatase Troponin I B-Natriuretic Peptide Total Protein Albumin Globulin Albumin/Globulin Ratio Crossmatch 08/14/18 08/14/18 08/14/18 03:15 04:44 04:44 WBC 7.7 RBC 2.83 L Hgb 8.2 L Hct 24.1 L MCV 85.2 MCH 29.0 MCHC 34.0 RDW 15.1 H RDW Differential 44.4 H Plt Count 154 MPV 10.5 Immature Gran % (Auto) 0.300 Neut % (Auto) 69.8 Lymph % (Auto) 17.6 L [place] % (Auto) 9.2 Eos % (Auto) 2.7 Baso % (Auto) 0.4 Absolute Neuts (auto) 5.4 Absolute Lymphs (auto) 1.36 Total Counted Not Reportable Sodium 144 Potassium 3.5 Chloride 112 H Carbon Dioxide 24.0 Anion Gap 8 BUN 16 Creatinine 1.12 Estim Creat Clear Calc 66.23 Est GFR (MDRD) Af Amer 83 Est GFR (MDRD) Non-Af 69 BUN/Creatinine Ratio 14.3 Glucose 108 H Calcium 7.5 L Phosphorus 2.1 L Magnesium 1.7 Total Bilirubin AST ALT Alkaline Phosphatase Troponin I 0.046 H B-Natriuretic Peptide Total Protein Albumin Globulin Albumin/Globulin Ratio Crossmatch 08/14/18 08/14/18 08/14/18 06:05 09:50 17:40 WBC RBC Hgb 8.2 L Hct 23.9 L MCV MCH MCHC RDW RDW Differential Plt Count MPV Immature Gran % (Auto) Neut % (Auto) Lymph % (Auto) [place] % (Auto) Eos % (Auto) Baso % (Auto) Absolute Neuts (auto) Absolute Lymphs (auto) Total Counted Sodium Potassium Chloride Carbon Dioxide Anion Gap BUN Creatinine Estim Creat Clear Calc Est GFR (MDRD) Af Amer Est GFR (MDRD) Non-Af BUN/Creatinine Ratio Glucose Calcium Phosphorus Magnesium Total Bilirubin AST ALT Alkaline Phosphatase Troponin I 0.116 H 0.355 H B-Natriuretic Peptide Total Protein Albumin Globulin Albumin/Globulin Ratio Crossmatch 08/14/18 08/14/18 08/15/18 17:40 17:40 04:05 WBC 6.1 RBC 2.56 L Hgb 7.5 L Hct 22.1 L MCV 86.3 MCH 29.3 MCHC 33.9 RDW 15.5 H RDW Differential 45.7 H Plt Count 129 L MPV 10.5 Immature Gran % (Auto) 0.000 Neut % (Auto) 62.5 Lymph % (Auto) 24.2 [place] % (Auto) 8.2 Eos % (Auto) 4.8 Baso % (Auto) 0.3 Absolute Neuts (auto) 3.8 Absolute Lymphs (auto) 1.47 Total Counted Not Reportable Sodium 143 Potassium 3.7 Chloride 112 H Carbon Dioxide 22.0 Anion Gap 9 BUN 13 Creatinine 1.14 Estim Creat Clear Calc 68.48 Est GFR (MDRD) Af Amer 82 Est GFR (MDRD) Non-Af 67 BUN/Creatinine Ratio 11.4 Glucose 148 H Calcium 7.4 L Phosphorus Magnesium Total Bilirubin AST ALT Alkaline Phosphatase Troponin I B-Natriuretic Peptide 284.4 H Total Protein Albumin Globulin Albumin/Globulin Ratio Crossmatch 08/15/18 04:05 WBC RBC Hgb Hct MCV MCH MCHC RDW RDW Differential Plt Count MPV Immature Gran % (Auto) Neut % (Auto) Lymph % (Auto) [place] % (Auto) Eos % (Auto) Baso % (Auto) Absolute Neuts (auto) Absolute Lymphs (auto) Total Counted Sodium 146 H Potassium 3.6 Chloride 114 H Carbon Dioxide 24.0 Anion Gap 8 BUN 11 Creatinine 1.25 Estim Creat Clear Calc 62.46 Est GFR (MDRD) Af Amer 73 Est GFR (MDRD) Non-Af 61 BUN/Creatinine Ratio 8.8 L Glucose 93 Calcium 7.5 L Phosphorus 3.2 Magnesium 1.8 Total Bilirubin 0.60 AST 18 ALT 14 L Alkaline Phosphatase 73 Troponin I B-Natriuretic Peptide Total Protein 4.9 L Albumin 2.4 L Globulin 2.5 Albumin/Globulin Ratio 1.0 Crossmatch Medical Necessity - Tobacco Use Smoking Status: Former smoker Assessment/Plan All Active Problems Anemia associated with acute blood loss (Acute) Paroxysmal atrial fibrillation with rapid ventricular response (Acute) GI bleed (Acute) RECOMMENDATIONS: 1. Likely okay to check blood counts on a daily basis 2. Transfuse to keep hemoglobin greater than 8 3. Continue telemetry 4. Defer to cardiology, but consider continuing amiodarone until seen by primary research quality assurance analyst 5. Hemodynamically stable on room air. Will sign off from a critical care perspective 6. Okay to transfer from the intensive care unit IMPRESSIONS: 1. Acute blood loss anemia with vasovagal response secondary to lower GI bleed Patient with recent resection of an inflammatory polyp on colonoscopy. This appears to be the cause of the bleeding. Patient has done well overnight. Patient did have some drop in hemoglobin, but this may be delusional. Patient has not had any repeat hematochezia. Patient is receiving 1 unit of packed red blood cells. 2. Coronary artery disease status post stent/hypertension/hyperlipidemia/history of smoking/A. fib with RVR Patient currently on amiodarone therapy. Patient has converted to normal sinus rhythm. Echocardiogram does show some aortic stenosis as an etiology for the murmur. Otherwise, function is well preserved. Anticipate patient will stay on amiodarone until seen by his primary research quality assurance analyst. Anticoagulation would be high risk given his current situation. 3. Advanced age/CKD stage III/hypothyroidism/COPD Complicates care, management, recovery and prognosis. Renal function is stable at this time. Will reinitiate patient's beta-joce. No lung function studies are available for review at this time. Patient has a reported history of COPD, but this cannot be verified. Patient does have albuterol as needed and does not appear to be in acute exacerbation at this time. Code Visit Inpatient E&M: 95604 [facility] Hosp L2
[2018-08-15] MEDS: Levothyroxine 75 MCG Tablet PO (07:18)
[2018-08-15] MEDS: Amiodarone 200 MG Tablet 400 MG PO (07:25)
--- NOTE | 2018-08-15 09:20 | PCM.PN.HOSP ---
Patient Problems: Active and Suspected Problems Anemia associated with acute blood loss (Acute) Paroxysmal atrial fibrillation with rapid ventricular response (Acute) GI bleed (Acute) Subjective: Had a bowel movement today that was rust colored per the nurse, denies any chest pain, shortness of breath, or lightheaded. Vitals/I&O's: Vital Signs Temp Pulse Resp BP Pulse Ox 98.3 F 61 16 176/68 H 98 08/15/18 07:25 08/15/18 07:52 08/15/18 07:25 08/15/18 07:25 08/15/18 07:25 Oxygen Flow Rate (L/min) 2 Oxygen Delivery Method Room Air Weight: 175 lb 0.752 oz Body Mass Index (BMI) 21.6 Intake and Output for Last 24 Hours 08/13/18 08/14/18 08/15/18 23:59 23:59 23:59 Intake Total 1868 / 1868 4021 / 4021 122.8 / 122.8 Output Total 250 / 250 2350 / 2350 200 / 200 Balance 1618 / 1618 1671 / 1671 -77.2 / -77.2 General: Alert, Oriented x3, Cooperative HEENT: Atraumatic, EOMI, Normocephalic Oral: Dry Mucosa Neck: Supple, No JVD Lungs: Clear to auscultation, Normal air movement, No rhonchi, No wheeze, No rales Cardiovascular: Regular rate, Regular Rhythm, Normal S1, Normal S2, 3/6 JOAO Abdomen: Soft, Non Tender, Non-Distended, No Hepato-splenomegaly Extremities: No edema, Capillary Refill Less than 3 Seconds Neurological: Neuro grossly intact, Sensory exam intact to light touch and pain Psych/Mental Status: Normal Affect, Appropriate Laboratory Results 08/12/18 14:35: Crossmatch See Detail 08/12/18 14:35: Crossmatch See Detail 08/14/18 09:50: Troponin I 0.355 H 08/14/18 17:40: Hgb 8.2 L, Hct 23.9 L 08/14/18 17:40: Sodium 143, Potassium 3.7, Chloride 112 H, Carbon Dioxide 22.0, Anion Gap 9, BUN 13, Creatinine 1.14, Estim Creat Clear Calc 68.48, Est GFR (MDRD) Af Amer 82, Est GFR (MDRD) Non-Af 67, BUN/Creatinine Ratio 11.4, Glucose 148 H, Calcium 7.4 L 08/14/18 17:40: B-Natriuretic Peptide 284.4 H 08/15/18 04:05: WBC 6.1, RBC 2.56 L, Hgb 7.5 L, Hct 22.1 L, MCV 86.3, MCH 29.3, MCHC 33.9, RDW 15.5 H, RDW Differential 45.7 H, Plt Count 129 L, MPV 10.5, Immature Gran % (Auto) 0.000, Neut % (Auto) 62.5, Lymph % (Auto) 24.2, [place] % (Auto) 8.2, Eos % (Auto) 4.8, Baso % (Auto) 0.3, Absolute Neuts (auto) 3.8, Absolute Lymphs (auto) 1.47, Total Counted Not Reportable 08/15/18 04:05: Sodium 146 H, Potassium 3.6, Chloride 114 H, Carbon Dioxide 24.0, Anion Gap 8, BUN 11, Creatinine 1.25, Estim Creat Clear Calc 62.46, Est GFR (MDRD) Af Amer 73, Est GFR (MDRD) Non-Af 61, BUN/Creatinine Ratio 8.8 L, Glucose 93, Calcium 7.5 L, Phosphorus 3.2, Magnesium 1.8, Total Bilirubin 0.60, AST 18, ALT 14 L, Alkaline Phosphatase 73, Total Protein 4.9 L, Albumin 2.4 L, Globulin 2.5, Albumin/Globulin Ratio 1.0 Current Medications Acetaminophen (Tylenol) 650 mg PO Q6H PRN PRN PRN Reason: Fever, headache, pain Albuterol Sulfate (Ventolin Aerosols) 2.5 mg INHALATION Q4H PRN PRN PRN Reason: Shortness of breath, wheezing [facility]: 08/24/18 08:01 Last Admin: 08/15/18 07:25 Dose: 400 mg Atorvastatin Calcium (Lipitor) 40 mg PO QHS [facility] Last Admin: 08/14/18 21:37 Dose: 40 mg Chlorhexidine Gluconate () 1 each TOPICAL DAILY [facility] Sodium Chloride () 250 mls @ 15 mls/hr IV .[id number] PRN PRN Reason: SALINE FLUSH Levothyroxine Sodium (Synthroid) 75 mcg PO DAILY@0600 [facility] Last Admin: 08/15/18 07:18 Dose: 75 mcg Lisinopril (Zestril) 40 mg PO LUNCH [facility] Last Admin: 08/14/18 12:29 Dose: 40 mg Morphine Sulfate () 1 - 2 mg IV Q3H PRN PRN PRN Reason: SEVERE PAIN (6-10/10) Ondansetron HCl (Zofran) 4 mg IV Q6H PRN PRN PRN Reason: NAUSEA/VOMITING Pantoprazole Sodium (Protonix) 40 mg PO DAILY [facility] Last Admin: 08/14/18 09:40 Dose: 40 mg Sodium Chloride () 5 - 15 ml IV UD PRN PRN Reason: SALINE FLUSH Last Admin: 08/14/18 12:29 Dose: 10 ml Medical Necessity - Tobacco Use Smoking Status: Former smoker Assessment/Plan All Active Problems Anemia associated with acute blood loss (Acute) Paroxysmal atrial fibrillation with rapid ventricular response (Acute) GI bleed (Acute) 1. Lower GI bleed/Acute Blood loss anemia -He had a colonoscopy about a week prior to admission where they did a polypectomy. -He has not been on aspirin because of his colonoscopy. -Received 4 Units total and will maintain above 8 given his cardiac history -Clot on polypectomy site, injected with epi 2. CAD status post stents/hypertension/hyperlipidemia/Afib with RVR -Given his history of CAD his hemoglobin is to remain above 8 -Can continue with his blood pressure medications if stable on his statin, will hold his aspirin for now -Afib with elevated troponins indicating demand ischemia - Based on CHADS2-VASC, His stroke risk is about 5-6% per year, his HAS BLED is around 4%, he will need anticoagulation, though can likely wait a week - Appreciate cardiology recs, may need a cardiac cath in the near future as an outpatient -Continue with amiodarone 3. Hypothyroidism -Stable, TSH 0.98 -Continue with Synthroid 4. CKD 3 -Baseline creatinine 1.4 -Stable, will continue to monitor DVT: SCDs Code Visit Inpatient E&M: 33230 Subs Hosp L2
--- NOTE | 2018-08-15 09:23 | PN_ITS ---
Patient Problems: Active and Suspected Problems Anemia associated with acute blood loss (Acute) Paroxysmal atrial fibrillation with rapid ventricular response (Acute) GI bleed (Acute) Subjective: Had a bowel movement today that was rust colored per the nurse, denies any chest pain, shortness of breath, or lightheaded. Vitals/I&O's: Vital Signs Temp Pulse Resp BP Pulse Ox 98.3 F 61 16 176/68 H 98 08/15/18 07:25 08/15/18 07:52 08/15/18 07:25 08/15/18 07:25 08/15/18 07:25 Oxygen Flow Rate (L/min) 2 Oxygen Delivery Method Room Air Weight: 175 lb 0.752 oz Body Mass Index (BMI) 21.6 Intake and Output for Last 24 Hours 08/13/18 08/14/18 08/15/18 23:59 23:59 23:59 Intake Total 1868 / 1868 4021 / 4021 122.8 / 122.8 Output Total 250 / 250 2350 / 2350 200 / 200 Balance 1618 / 1618 1671 / 1671 -77.2 / -77.2 General: Alert, Oriented x3, Cooperative HEENT: Atraumatic, EOMI, Normocephalic Oral: Dry Mucosa Neck: Supple, No JVD Lungs: Clear to auscultation, Normal air movement, No rhonchi, No wheeze, No rales Cardiovascular: Regular rate, Regular Rhythm, Normal S1, Normal S2, 3/6 JOAO Abdomen: Soft, Non Tender, Non-Distended, No Hepato-splenomegaly Extremities: No edema, Capillary Refill Less than 3 Seconds Neurological: Neuro grossly intact, Sensory exam intact to light touch and pain Psych/Mental Status: Normal Affect, Appropriate Laboratory Results 08/12/18 14:35: Crossmatch See Detail 08/12/18 14:35: Crossmatch See Detail 08/14/18 09:50: Troponin I 0.355 H 08/14/18 17:40: Hgb 8.2 L, Hct 23.9 L 08/14/18 17:40: Sodium 143, Potassium 3.7, Chloride 112 H, Carbon Dioxide 22.0, Anion Gap 9, BUN 13, Creatinine 1.14, Estim Creat Clear Calc 68.48, Est GFR (MDRD) Af Amer 82, Est GFR (MDRD) Non-Af 67, BUN/Creatinine Ratio 11.4, Glucose 148 H, Calcium 7.4 L 08/14/18 17:40: B-Natriuretic Peptide 284.4 H 08/15/18 04:05: WBC 6.1, RBC 2.56 L, Hgb 7.5 L, Hct 22.1 L, MCV 86.3, MCH 29.3, MCHC 33.9, RDW 15.5 H, RDW Differential 45.7 H, Plt Count 129 L, MPV 10.5, Immature Gran % (Auto) 0.000, Neut % (Auto) 62.5, Lymph % (Auto) 24.2, [place] % (Auto) 8.2, Eos % (Auto) 4.8, Baso % (Auto) 0.3, Absolute Neuts (auto) 3.8, Absolute Lymphs (auto) 1.47, Total Counted Not Reportable 08/15/18 04:05: Sodium 146 H, Potassium 3.6, Chloride 114 H, Carbon Dioxide 24.0, Anion Gap 8, BUN 11, Creatinine 1.25, Estim Creat Clear Calc 62.46, Est GFR (MDRD) Af Amer 73, Est GFR (MDRD) Non-Af 61, BUN/Creatinine Ratio 8.8 L, Glucose 93, Calcium 7.5 L, Phosphorus 3.2, Magnesium 1.8, Total Bilirubin 0.60, AST 18, ALT 14 L, Alkaline Phosphatase 73, Total Protein 4.9 L, Albumin 2.4 L, Globulin 2.5, Albumin/Globulin Ratio 1.0 Current Medications Acetaminophen (Tylenol) 650 mg PO Q6H PRN PRN PRN Reason: Fever, headache, pain Albuterol Sulfate (Ventolin Aerosols) 2.5 mg INHALATION Q4H PRN PRN PRN Reason: Shortness of breath, wheezing [facility]: 08/24/18 08:01 Last Admin: 08/15/18 07:25 Dose: 400 mg Atorvastatin Calcium (Lipitor) 40 mg PO QHS [facility] Last Admin: 08/14/18 21:37 Dose: 40 mg Chlorhexidine Gluconate () 1 each TOPICAL DAILY [facility] Sodium Chloride () 250 mls @ 15 mls/hr IV .[id number] PRN PRN Reason: SALINE FLUSH Levothyroxine Sodium (Synthroid) 75 mcg PO DAILY@0600 [facility] Last Admin: 08/15/18 07:18 Dose: 75 mcg Lisinopril (Zestril) 40 mg PO LUNCH [facility] Last Admin: 08/14/18 12:29 Dose: 40 mg Morphine Sulfate () 1 - 2 mg IV Q3H PRN PRN PRN Reason: SEVERE PAIN (6-10/10) Ondansetron HCl (Zofran) 4 mg IV Q6H PRN PRN PRN Reason: NAUSEA/VOMITING Pantoprazole Sodium (Protonix) 40 mg PO DAILY [facility] Last Admin: 08/14/18 09:40 Dose: 40 mg Sodium Chloride () 5 - 15 ml IV UD PRN PRN Reason: SALINE FLUSH Last Admin: 08/14/18 12:29 Dose: 10 ml Medical Necessity - Tobacco Use Smoking Status: Former smoker Assessment/Plan All Active Problems Anemia associated with acute blood loss (Acute) Paroxysmal atrial fibrillation with rapid ventricular response (Acute) GI bleed (Acute) 1. Lower GI bleed/Acute Blood loss anemia -He had a colonoscopy about a week prior to admission where they did a polypectomy. -He has not been on aspirin because of his colonoscopy. -Received 4 Units total and will maintain above 8 given his cardiac history -Clot on polypectomy site, injected with epi 2. CAD status post stents/hypertension/hyperlipidemia/Afib with RVR -Given his history of CAD his hemoglobin is to remain above 8 -Can continue with his blood pressure medications if stable on his statin, will hold his aspirin for now -Afib with elevated troponins indicating demand ischemia - Based on CHADS2-VASC, His stroke risk is about 5-6% per year, his HAS BLED is around 4%, he will need anticoagulation, though can likely wait a week - Appreciate cardiology recs, may need a cardiac cath in the near future as an outpatient -Continue with amiodarone 3. Hypothyroidism -Stable, TSH 0.98 -Continue with Synthroid 4. CKD 3 -Baseline creatinine 1.4 -Stable, will continue to monitor DVT: SCDs Code Visit Inpatient E&M: 45321 Subs Hosp L2
[2018-08-15] MEDS: CHLORHEXIDINE GLUC 2% CLOTH 1 EACH TOWELETTE TOPICAL (09:50)
[2018-08-15] MEDS: Pantoprazole Sodium 40 MG Tablet PO (09:51)
[2018-08-15] MEDS: Lisinopril 40 MG Tablet PO (09:51)
--- NOTE | 2018-08-15 10:31 | PCM.PN.SRG ---
Patient Problems: Active and Suspected Problems Anemia associated with acute blood loss (Acute) Paroxysmal atrial fibrillation with rapid ventricular response (Acute) GI bleed (Acute) Subjective: no complaints - Physical Exam General: Alert, Oriented x3, Cooperative Lungs: Clear to auscultation, Normal air movement Cardiovascular: Regular rate, Murmur - JOAO radiating Abdomen: Bowel Sounds Present, Soft, Non Tender Vital Signs Temp Pulse Resp BP Pulse Ox 98.3 F 61 16 176/68 H 98 08/15/18 07:25 08/15/18 07:52 08/15/18 07:25 08/15/18 07:25 08/15/18 07:25 Oxygen Flow Rate (L/min) 2 Oxygen Delivery Method Room Air Weight: 79.4 kg Body Mass Index (BMI) 21.6 Intake and Output for Last 24 Hours 08/13/18 08/14/18 08/15/18 23:59 23:59 23:59 Intake Total 1868 / 1868 4021 / 4021 122.8 / 122.8 Output Total 250 / 250 2350 / 2350 200 / 200 Balance 1618 / 1618 1671 / 1671 -77.2 / -77.2 Laboratory Tests Past 24 Hrs 08/12/18 08/12/18 08/14/18 14:35 14:35 17:40 WBC RBC Hgb 8.2 L Hct 23.9 L MCV MCH MCHC RDW RDW Differential Plt Count MPV Immature Gran % (Auto) Neut % (Auto) Lymph % (Auto) [place] % (Auto) Eos % (Auto) Baso % (Auto) Absolute Neuts (auto) Absolute Lymphs (auto) Total Counted Sodium Potassium Chloride Carbon Dioxide Anion Gap BUN Creatinine Estim Creat Clear Calc Est GFR (MDRD) Af Amer Est GFR (MDRD) Non-Af BUN/Creatinine Ratio Glucose Calcium Phosphorus Magnesium Total Bilirubin AST ALT Alkaline Phosphatase B-Natriuretic Peptide Total Protein Albumin Globulin Albumin/Globulin Ratio Crossmatch See Detail See Detail 08/14/18 08/14/18 08/15/18 17:40 17:40 04:05 WBC 6.1 RBC 2.56 L Hgb 7.5 L Hct 22.1 L MCV 86.3 MCH 29.3 MCHC 33.9 RDW 15.5 H RDW Differential 45.7 H Plt Count 129 L MPV 10.5 Immature Gran % (Auto) 0.000 Neut % (Auto) 62.5 Lymph % (Auto) 24.2 [place] % (Auto) 8.2 Eos % (Auto) 4.8 Baso % (Auto) 0.3 Absolute Neuts (auto) 3.8 Absolute Lymphs (auto) 1.47 Total Counted Not Reportable Sodium 143 Potassium 3.7 Chloride 112 H Carbon Dioxide 22.0 Anion Gap 9 BUN 13 Creatinine 1.14 Estim Creat Clear Calc 68.48 Est GFR (MDRD) Af Amer 82 Est GFR (MDRD) Non-Af 67 BUN/Creatinine Ratio 11.4 Glucose 148 H Calcium 7.4 L Phosphorus Magnesium Total Bilirubin AST ALT Alkaline Phosphatase B-Natriuretic Peptide 284.4 H Total Protein Albumin Globulin Albumin/Globulin Ratio Crossmatch 08/15/18 04:05 WBC RBC Hgb Hct MCV MCH MCHC RDW RDW Differential Plt Count MPV Immature Gran % (Auto) Neut % (Auto) Lymph % (Auto) [place] % (Auto) Eos % (Auto) Baso % (Auto) Absolute Neuts (auto) Absolute Lymphs (auto) Total Counted Sodium 146 H Potassium 3.6 Chloride 114 H Carbon Dioxide 24.0 Anion Gap 8 BUN 11 Creatinine 1.25 Estim Creat Clear Calc 62.46 Est GFR (MDRD) Af Amer 73 Est GFR (MDRD) Non-Af 61 BUN/Creatinine Ratio 8.8 L Glucose 93 Calcium 7.5 L Phosphorus 3.2 Magnesium 1.8 Total Bilirubin 0.60 AST 18 ALT 14 L Alkaline Phosphatase 73 B-Natriuretic Peptide Total Protein 4.9 L Albumin 2.4 L Globulin 2.5 Albumin/Globulin Ratio 1.0 Crossmatch Medical Necessity - Tobacco Use Smoking Status: Former smoker Assessment/Plan All Active Problems Anemia associated with acute blood loss (Acute) Paroxysmal atrial fibrillation with rapid ventricular response (Acute) GI bleed (Acute) post-polypectomy bleed. no further bleeding since the patient underwent colonoscopy with epinephrine injection yesterday. Most comfortable with no anticoagulation but if cardiology or medicine feel that the patient is best treated with anticoagulants, then I would transfuse an additional unit of packed red cells to give correction if the patient rebleeds. If the patient rebleeds I would plan for repeat urgent colonoscopy. OK with advancing diet. Hgb 7.5 - will transfuse 1 additional unit of PRBC
[2018-08-15] MEDS: Metoprolol Tartrate 25 MG Tablet 12.5 MG PO (11:46)
[2018-08-15] MEDS: 0.9% NaCl Peripheral Flush Adult/Peds IV (12:03)
--- NOTE | 2018-08-15 12:07 | NURSING ---
report called to RANCH SUPERVISORMARK Goldberg.
--- NOTE | 2018-08-15 12:15 | NURSING ---
to [id number] per WC, ICU staff in attendance
--- NOTE | 2018-08-15 13:56 | PCM.PN.CARD ---
Subjectve: VS: stable, mild bradycardia at times, 170/60s. Lungs: CTA. CV: RRR, 3/6 systolic murmur at the apex. EXT: no edema. Stable CVstatus. PAF, resolved, on Amio.. PO. BB, ACEI, for HTN, Mild bradycardia with BB before May need to stop BB. Recommend; Amlodipine. Hgb, stable, no more active GI bleeding. DC home pper attending. FU with his hardwood floor refinisher on 08/25/18 as previously scheduled. Full anticoagulation to be addressed there. Objective: Vital Signs Temp Pulse Resp BP Pulse Ox 97.6 F L 59 L 18 155/84 H 99 08/15/18 12:30 08/15/18 12:30 08/15/18 12:30 08/15/18 12:30 08/15/18 12:30 Oxygen Flow Rate (L/min) 2 Oxygen Delivery Method Room Air Weight: 79.4 kg Body Mass Index (BMI) 21.6 Intake and Output for Last 24 Hours 08/13/18 08/14/18 08/15/18 23:59 23:59 23:59 Intake Total 1868 / 1868 4021 / 4021 862.8 / 862.8 Output Total 250 / 250 2350 / 2350 825 / 825 Balance 1618 / 1618 1671 / 1671 37.8 / 37.8 08/14/18 17:40: Hgb 8.2 L, Hct 23.9 L 08/14/18 17:40: Sodium 143, Potassium 3.7, Chloride 112 H, Carbon Dioxide 22.0, Anion Gap 9, BUN 13, Creatinine 1.14, Est GFR (MDRD) Af Amer 82, Est GFR (MDRD) Non-Af 67, BUN/Creatinine Ratio 11.4, Glucose 148 H, Calcium 7.4 L 08/14/18 17:40: B-Natriuretic Peptide 284.4 H 08/15/18 04:05: WBC 6.1, RBC 2.56 L, Hgb 7.5 L, Hct 22.1 L, MCV 86.3, MCH 29.3, MCHC 33.9, RDW 15.5 H, RDW Differential 45.7 H, Plt Count 129 L, MPV 10.5, Immature Gran % (Auto) 0.000, Neut % (Auto) 62.5, Lymph % (Auto) 24.2, [place] % (Auto) 8.2, Eos % (Auto) 4.8, Baso % (Auto) 0.3, Absolute Neuts (auto) 3.8, Total Counted Not Reportable 08/15/18 04:05: Sodium 146 H, Potassium 3.6, Chloride 114 H, Carbon Dioxide 24.0, Anion Gap 8, BUN 11, Creatinine 1.25, Est GFR (MDRD) Af Amer 73, Est GFR (MDRD) Non-Af 61, BUN/Creatinine Ratio 8.8 L, Glucose 93, Calcium 7.5 L, Phosphorus 3.2, Magnesium 1.8, Total Bilirubin 0.60 Rhythm: EKG: ECHO: Stress Test: Cardiac Cath: PCI: CT Surgery: Holter monitor: EPS: PPM: CXR: Chest CT Scan: Medical Necessity - Tobacco Use Smoking Status: Former smoker
[2018-08-15 14:26] LABS: Hemoglobin 10.1 g/dl (13.0-16.5)
--- NOTE | 2018-08-15 18:13 | NURSING ---
Reviewed and agreed on all charting with Liudmila Conner RN
[2018-08-15] MEDS: Atorvastatin Calcium 40 MG Tablet PO (21:41)
[2018-08-16] VITALS (8 sets, daily range): BP systolic 129–149; BP diastolic 70–74; PULSE 47–68; RESP 14–18; TEMP 36.5–36.7; O2SAT 96–97
[2018-08-16] MEDS: Levothyroxine 75 MCG Tablet PO (05:52)
[2018-08-16 06:23] LABS: Anion Gap 5 (5-15); BUN 7 mg/dL (7-18); BUN/Creat Ratio 5.6 RATIO (10-20); Calcium,Total 7.5 mg/dL (8.5-10.1); Chloride 112 mmol/L (98-107); Creatinine, Serum 1.25 mg/dL (0.70-1.30); EST Glomerular Filtration Rate 61 mL/min (>60); Est Glom Filt Rate - Afr Amer 73 mL/min (>60); Estimated Creatinine Clearance 61.76 ml/min; Glucose 86 mg/dL (74-106); Potassium 3.7 mmol/L (3.5-5.1); Sodium Level 146 mmol/L (136-145)
[2018-08-16 07:57] LABS: Absolute Lymphocyte Count 1.28 X10^3/ul (0.83-4.51); Absolute Neutrophil Count 3.4 X10^3/uL (2.0-7.7); Basophil# 0.02 X10^3/uL; Basophil% 0.4 % (0-1); Eosinophil# 0.27 X10^3/uL; Hematocrit 24.4 % (40-54); Hemoglobin 8.4 g/dl (13.0-16.5); Lymphocyte # 1.28 X10^3/ul (4.0); Lymphocyte % 23.7 % (19-41); Mean Corp Hgb Conc 34.4 g/gl (32-36); Mean Corpuscular Volume 84.1 fL (80-94); Mean Platelet Vol. 10.7 fl (6.2-12.0); Monocyte# 0.37 X10^3/uL; Monocyte% 6.9 % (0-10); Neutrophil # 3.44 X10^3/uL (2.7-7.7); Neutrophil % 63.8 % (47-70); Platelet Count 124 K/mm3 (150-450); RBC Distribution Width CV 15.6 % (11.6-14.6); RBC Distribution Width SD 46.3 fl (35.1-43.9); White Blood Count 5.4 K/mm3 (4.4-11.0)
[2018-08-16 07:58] LABS: POSITIVE COUNT NO; POSITIVE DIFFERENTIAL NO; POSITIVE MORPHOLOGY NO
[2018-08-16] MEDS: Metoprolol Tartrate 25 MG Tablet PO (09:45)
[2018-08-16] MEDS: Amiodarone 200 MG Tablet 400 MG PO (09:45)
[2018-08-16] MEDS: Pantoprazole Sodium 40 MG Tablet PO (09:46)
[2018-08-16] MEDS: amLODIPine 5 MG Tablet PO (09:46)
--- NOTE | 2018-08-16 10:43 | PCM.PN.SRG ---
Patient Problems: Active and Suspected Problems Anemia associated with acute blood loss (Acute) Paroxysmal atrial fibrillation with rapid ventricular response (Acute) GI bleed (Acute) Subjective: Patient feeling well, denies abdominal pain Had bowel movement this morning and no blood noted - Physical Exam General: Alert, Oriented x3 Oral: Moist Mucosa Abdomen: Bowel Sounds Present, Soft Vital Signs Temp Pulse Resp BP Pulse Ox 97.7 F L 59 L 18 149/74 H 96 08/16/18 08:20 08/16/18 09:45 08/16/18 08:20 08/16/18 08:20 08/16/18 08:20 Oxygen Flow Rate (L/min) 2 Oxygen Delivery Method Room Air Weight: 79.832 kg Body Mass Index (BMI) 21.6 Intake and Output for Last 24 Hours 08/14/18 08/15/18 08/16/18 23:59 23:59 23:59 Intake Total 4021 / 4021 1582.8 / 1582.8 0 / 0 Output Total 2350 / 2350 825 / 825 Balance 1671 / 1671 757.8 / 757.8 0 / 0 Laboratory Tests Past 24 Hrs 08/12/18 08/15/18 08/16/18 14:35 14:04 05:40 WBC RBC Hgb 10.1 L Hct 30.0 L MCV MCH MCHC RDW RDW Differential Plt Count MPV Immature Gran % (Auto) Neut % (Auto) Lymph % (Auto) [place] % (Auto) Eos % (Auto) Baso % (Auto) Absolute Neuts (auto) Absolute Lymphs (auto) Total Counted Sodium 146 H Potassium 3.7 Chloride 112 H Carbon Dioxide 29.0 Anion Gap 5 BUN 7 Creatinine 1.25 Estim Creat Clear Calc 61.76 Est GFR (MDRD) Af Amer 73 Est GFR (MDRD) Non-Af 61 BUN/Creatinine Ratio 5.6 L Glucose 86 Calcium 7.5 L Crossmatch See Detail 08/16/18 05:40 WBC 5.4 RBC 2.90 L Hgb 8.4 L Hct 24.4 L MCV 84.1 MCH 29.0 MCHC 34.4 RDW 15.6 H RDW Differential 46.3 H Plt Count 124 L MPV 10.7 Immature Gran % (Auto) 0.200 Neut % (Auto) 63.8 Lymph % (Auto) 23.7 [place] % (Auto) 6.9 Eos % (Auto) 5.0 Baso % (Auto) 0.4 Absolute Neuts (auto) 3.4 Absolute Lymphs (auto) 1.28 Total Counted Not Reportable Sodium Potassium Chloride Carbon Dioxide Anion Gap BUN Creatinine Estim Creat Clear Calc Est GFR (MDRD) Af Amer Est GFR (MDRD) Non-Af BUN/Creatinine Ratio Glucose Calcium Crossmatch Medical Necessity - Tobacco Use Smoking Status: Former smoker Assessment/Plan All Active Problems Anemia associated with acute blood loss (Acute) Paroxysmal atrial fibrillation with rapid ventricular response (Acute) GI bleed (Acute) Impression: lower GI bleed Plan: can discharge to home, patient can follow up with Dr. Kent, can take baby aspirin qd on Saturday
--- NOTE | 2018-08-16 11:56 | CASEMGMT ---
Therapy informed this RN JOHN yesterday that pt should have further skilled therapy. This RN CM to room to speak with pt regarding same and pt declines HHC at this time as he states he is not homebound. Pt does agree to OP therapy at [facility] at this time and referral faxed to [facility]. Original to pt at this time. Pt voices no further concerns/needs at this time. [place] MARK LOPEZ
--- NOTE | 2018-08-16 11:59 | DCINST_ITS ---
- Discharge Diagnoses Current Active Problems: Current Active and Chronic Problems Anemia associated with acute blood loss (Acute) Paroxysmal atrial fibrillation with rapid ventricular response (Acute) GI bleed (Acute) Hypothyroidism (Chronic) Hyperlipidemia (Chronic) Coronary artery disease (Chronic) Status post stents. You will use the following diet at home:: Cardiac Your food should be the consistency of: Regular Your liquids should be the consistency of: Regular/Thin Discharge Activity: Return to Normal Activity Call your doctor if you observe: Shortness of breath, Dizziness, Chest pain, Increased palpitations (irregular heartbeat), - - Bloody bowel movement Pending Tests on Discharge: He will need a CBC on Saturday or Saturday to further evaluate his anemia. Allergies/Adverse Reactions: Allergies No Known Allergies Allergy (Verified 08/12/18 13:59) Medications to take at Discharge Albuterol IH (ProAir) [Proair Hfa] 1 - 2 puff INHALATION Q4H PRN PRN 10/20/17 Atorvastatin Calcium 40 mg PO QHS 10/20/17 Levothyroxine 75 mcg PO DAILY 10/20/17 Lisinopril 40 mg PO LUNCH 10/20/17 Niacin 500 mg PO QHS 10/20/17 Cholecalciferol (VIT D3) [Vitamin D3] 1,000 unit PO QHS 08/01/18 Cyanocobalamin [Vitamin B12] 1,000 mcg PO QHS 08/01/18 Folic Acid 1 mg PO QHS 08/01/18 Omeprazole [Prilosec] 20 mg PO DAILY 08/01/18 Amiodarone HCl [Cordarone] 400 mg PO DAILYCM #60 tab 08/16/18 Amlodipine [Norvasc] 5 mg PO DAILY #30 tab 08/16/18 Metoprolol Tartrate [Lopressor (beta joce)] 25 mg PO DAILY #30 tab 08/16/18 The following prescriptions were given: Amiodarone HCl [Cordarone] 400 mg PO DAILYCM #60 tab Amlodipine [Norvasc] 5 mg PO DAILY #30 tab Metoprolol Tartrate [Lopressor (beta joce)] 25 mg PO DAILY #30 tab Primary Care Physician: Yeison Maynard MD [Primary Care Provider] - Please follow up with your Primary Care Physician in: 3-5 days Test Results: Test results from this visit will be discussed in further detail at your follow- up appointment, if applicable. Please Follow Up With: Cardiology When: As previously scheduled
--- NOTE | 2018-08-16 11:59 | PCM.DC.SUM ---
Discharge Date and Diagnosis Date of Admission: 08/12/18 Date of Discharge: 08/16/18 - Primary Discharge Diagnosis Active and Suspected Problems Anemia associated with acute blood loss (Acute) Paroxysmal atrial fibrillation with rapid ventricular response (Acute) GI bleed (Acute) - Secondary Discharge Diagnosis Chronic Problems Hypothyroidism (Chronic) Hyperlipidemia (Chronic) Coronary artery disease (Chronic) Status post stents. HTN (hypertension) (Chronic) COPD (chronic obstructive pulmonary disease) (Chronic) Hospital Course and Treatment Imaging Results: None Consults: Loan Documentation Specialist General Surgery Cardiology Procedures: 2-D Echocardiogram - Mildly dilated left ventricle Moderate concentric left ventricular hypertrophy Left ventricular systolic function is normal The estimated ejection fraction is 55-60% Mildly dilated right ventricle Moderately severe aortic stenosis Large left pleural effusion Diastolic dysfunction, Colonoscopy - Findings: The perianal and digital rectal examinations were normal. Clotted blood was seen in the ascending colon, secondary to previous polypectomy procedure. Area was successfully injected with 2 mL of a 1:10,000 solution of epinephrine for control of bleeding. No active bleeding was noted, however area was injected to prevent future bleeding at the site. No other sites of bleeding in the colon noted. Impression: - Bleeding in the ascending colon secondary to previous polypectomy. Injected. - No specimens collected. Summary of Care Provided: Per HPI: The patient is a 72 year old M with past medical history as mentioned above presented to the emergency room because of bleeding per rectum. His symptoms started 2 days ago with rectal bleeding, maroon colored stool, around 8-10 times over the last 48 hours, started having symptoms of dizziness and weakness since yesterday and without aggravating or relieving factors. He had surveillance colonoscopy on August 04, [address] Lee because he had a history of colon polyps, found to have sigmoid diverticulosis, nonbleeding hemorrhoids and 5-10 mm polyp in the ascending colon that was removed. Histopathology of that polyp revealed inflammatory changes, negative for cancer. He had a history of CAD status post stents and he has been on full dose aspirin 325 mg daily as well as lisinopril, metoprolol and statins. He had a history of hypothyroidism, has been on levothyroxine and no TSH was found in his chart. 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 In the emergency department, patient was tachycardic, orthostatic vitals were positive. He was afebrile, pulse ox was maintained on room air. Routine blood work revealed hemoglobin of 9.3 g/dL, creatinine of 1.39. He is being admitted for GI bleed with acute blood loss symptomatic anemia. General: Alert, Oriented x3, Cooperative HEENT: Atraumatic, EOMI, Normocephalic Oral: Dry Mucosa Neck: Supple, No JVD Lungs: Clear to auscultation, Normal air movement, No rhonchi, No wheeze, No rales Cardiovascular: Regular rate, Regular Rhythm, Normal S1, Normal S2, 3/6 JOAO Abdomen: Soft, Non Tender, Non-Distended, No Hepato-splenomegaly Extremities: No edema, Capillary Refill Less than 3 Seconds Neurological: Neuro grossly intact, Sensory exam intact to light touch and pain Psych/Mental Status: Normal Affect, Appropriate Hospital Course: 1. Lower GI bleed from previous polypectomy site/acute blood loss anemia - Mr. Mckeon is a 72-year-old male who had had a colonoscopy a week prior to admission and had a polyp removed. He presented with bright red bloody bowel movement and anemia. On admission his hemoglobin was 9.3, it had been 12.1 in October. On the day after admission I had seen him during [facility] where he had a presyncopal event and a large bloody bowel movement. Another H&H was obtained which was 6.7 and he was taken to the endoscopy suite for colonoscopy. It was found at that time that he had a clot on his previous polypectomy site in that area was injected with epinephrine. During anesthesia he was found to have inverted T waves and so troponins were obtained and he was transferred to the ICU. Cardiology was consulted because his troponins started out at 0.046 and peaked at 0.355, and he also went into A. fib with RVR when he never had an A. fib history prior to this. He does have a cardiac history with a previous stent a few years ago and therefore will likely need an outpatient cardiac catheterization. He was started on amiodarone drip to control his A. fib and then was discharged on amiodarone taper. He is to take 400 mg daily of amiodarone for the next 9 days, and then transition to 200 mg daily. He does have an appointment with his primary outpatient industrial energy engineer on August 25, 2018. During his hospitalization he received 4 units of packed red blood cells and has been doing much better. His last unit was given the day before discharge when his hemoglobin was at 7.5, and it falsely corrected to 10.1 and on the day of discharge his hemoglobin was 8.4 he did have a bowel movement on the morning of his discharge which was nonbloody. His hemoglobin at 2 in the afternoon was 9. Because of his GI bleed, we will hold anticoagulation for his A. fib until he sees his primary industrial energy engineer. I will also hold his aspirin until he sees his industrial energy engineer. He is to continue his PPI and follow-up with his primary care doctor early next week for a CBC to evaluate his anemia. 2. CAD status post stent/hypertension/hyperlipidemia/A. fib with RVR - Was transfused to maintain his hemoglobin above 8, and on the day of discharge she was 8.4. He did go into A. fib with RVR and was started on amiodarone, he was discharged on a tapering dose of 400 mg daily for 9 days and then 200 mg a day. Also his metoprolol which he was on prior to admission at 50 mg daily was decreased to 25 mg since he was started on amiodarone. He will possibly need an outpatient cardiac cath in the near future. 3. His other medical diagnoses were evaluated and his home medications were continued where appropriate - Physical Exam Vital Signs Temp Pulse Resp BP Pulse Ox 97.7 F L 47 L 18 149/74 H 96 08/16/18 08:20 08/16/18 11:12 08/16/18 08:20 08/16/18 08:20 08/16/18 08:20 Oxygen Flow Rate (L/min) 2 Oxygen Delivery Method Room Air Weight: 176 lb Body Mass Index (BMI) 21.6 Intake and Output for Last 24 Hours 08/14/18 08/15/18 08/16/18 23:59 23:59 23:59 Intake Total 4021 / 4021 1582.8 / 1582.8 0 / 0 Output Total 2350 / 2350 825 / 825 Balance 1671 / 1671 757.8 / 757.8 0 / 0 Laboratory Tests Past 24 Hrs 08/15/18 08/16/18 08/16/18 14:04 05:40 05:40 WBC 5.4 RBC 2.90 L Hgb 10.1 L 8.4 L Hct 30.0 L 24.4 L MCV 84.1 MCH 29.0 MCHC 34.4 RDW 15.6 H RDW Differential 46.3 H Plt Count 124 L MPV 10.7 Immature Gran % (Auto) 0.200 Neut % (Auto) 63.8 Lymph % (Auto) 23.7 [place] % (Auto) 6.9 Eos % (Auto) 5.0 Baso % (Auto) 0.4 Absolute Neuts (auto) 3.4 Absolute Lymphs (auto) 1.28 Total Counted Not Reportable Sodium 146 H Potassium 3.7 Chloride 112 H Carbon Dioxide 29.0 Anion Gap 5 BUN 7 Creatinine 1.25 Estim Creat Clear Calc 61.76 Est GFR (MDRD) Af Amer 73 Est GFR (MDRD) Non-Af 61 BUN/Creatinine Ratio 5.6 L Glucose 86 Calcium 7.5 L Discharge Activity: Return to Normal Activity Call your doctor if you observe: Shortness of breath, Dizziness, Chest pain, Increased palpitations (irregular heartbeat), - - Bloody bowel movement Home Medications: Medications to take at Discharge Albuterol IH (ProAir) [Proair Hfa] 1 - 2 puff INHALATION Q4H PRN PRN 10/20/17 Atorvastatin Calcium 40 mg PO QHS 10/20/17 Levothyroxine 75 mcg PO DAILY 10/20/17 Lisinopril 40 mg PO LUNCH 10/20/17 Niacin 500 mg PO QHS 10/20/17 Cholecalciferol (VIT D3) [Vitamin D3] 1,000 unit PO QHS 08/01/18 Cyanocobalamin [Vitamin B12] 1,000 mcg PO QHS 08/01/18 Folic Acid 1 mg PO QHS 08/01/18 Omeprazole [Prilosec] 20 mg PO DAILY 08/01/18 Amiodarone HCl [Cordarone] 400 mg PO DAILYCM #60 tab 08/16/18 Amlodipine [Norvasc] 5 mg PO DAILY #30 tab 08/16/18 Metoprolol Tartrate [Lopressor (beta joce)] 25 mg PO DAILY #30 tab 08/16/18 Following Prescrptions Were Given to Patient: Amiodarone HCl [Cordarone] 400 mg PO DAILYCM #60 tab Amlodipine [Norvasc] 5 mg PO DAILY #30 tab Metoprolol Tartrate [Lopressor (beta joce)] 25 mg PO DAILY #30 tab Primary Care Physician: Yeison Maynard MD [Primary Care Provider] - Please follow up with your Primary Care Physician in: 3-5 days Please Follow Up With: Cardiology When: As previously scheduled Disposition: Home Minutes spent on discharge:: 35 Patient Condition:: Good Medical Necessity - Tobacco Use Smoking Status: Former smoker Meaningful Use Info Meaningful Use Diagnoses (Choose all that apply): None applicable Code Visit Inpatient E&M: 05998 Disch Hosp
[2018-08-16] MEDS: Lisinopril 40 MG Tablet PO (13:02)
[2018-08-16 13:36] LABS: Hematocrit 26.4 % (40-54)
--- NOTE | 2018-08-16 14:28 | NURSING ---
Reviewed and agreed on all charting with Liudmila Conner RN
== END 2018-08-16 14:20 | disposition home or self-care (01) | DRG 920 ==
LOC: ED 15:26 → PCU 15:37 → ICU 08-13 09:04 → PCU 08-15 12:30
PROVIDERS: Anesthesiology; Hospitalist; Internal Medicine Cardiovascular Disease; Internal Medicine Critical Care Medicine; Surgery; Admitting Provider Hospitalist; Emergency Provider Emergency Medicine; Family Provider Family Medicine; PCP Family Medicine; Visit Provider Family Medicine
PROC: 0DJD8ZZ Inspection of Lower Intestinal Tract, Via Natural or Artificial Opening Endoscopic (ICD-10-PCS; CPT 45378; principal; 2018-08-13 08:15)
DX: K91.840 Postprocedural hemorrhage of a digestive system organ or structure following a digestive system procedure (principal); D62 Acute posthemorrhagic anemia; I50.30 Unspecified diastolic (congestive) heart failure; I13.0 Hypertensive heart and chronic kidney disease with heart failure and stage 1 through stage 4 chronic kidney disease, or unspecified chronic kidney disease; K92.2 Gastrointestinal hemorrhage, unspecified; I48.0 Paroxysmal atrial fibrillation; I95.1 Orthostatic hypotension; E03.9 Hypothyroidism, unspecified; I25.10 Atherosclerotic heart disease of native coronary artery without angina pectoris; N18.3 Chronic kidney disease, stage 3 (moderate); Z23 Encounter for immunization; J44.9 Chronic obstructive pulmonary disease, unspecified; E78.5 Hyperlipidemia, unspecified; I35.0 Nonrheumatic aortic (valve) stenosis; Z95.5 Presence of coronary angioplasty implant and graft; Z86.010 Personal history of colon polyps; Z85.47 Personal history of malignant neoplasm of testis; Z90.79 Acquired absence of other genital organ(s); Z87.891 Personal history of nicotine dependence; Z90.2 Acquired absence of lung [part of]; Z92.21 Personal history of antineoplastic chemotherapy; Y83.8 Other surgical procedures as the cause of abnormal reaction of the patient, or of later complication, without mention of misadventure at the time of the procedure
CPT/HCPCS: 36415; 80048; 80053; 83605; 83735; 83880; 84100; 84443; 84484; 85014; 85018; 85025; 85610; 86850; 86900; 86920; 86922; 93005; 93306; 97110; 97162; 97166; 97530; 99251; 99283; J7030; J7040; J7120; P9016; P9040; 90686; A4216; G0463; J0153

== ENCOUNTER 2018-08-26 08:43 | Outpatient (RCR) | payer BC, SELFPAY ==
[2018-08-12 16:45] VITALS: BMI 21.6
--- NOTE | 2018-08-26 09:50 | HP.PTEVAL_ITS ---
Patient's Visit Information MANDI ESQUEDA is a 72 year old M referred to Physical Therapy by Estevan Silva MD with a diagnosis of Anemia, CAD, COPD, A-fib. Date of Evaluation: 08/26/18 Physical Therapist: J LUIS Quintana - Visit Plan Frequency: 2x /Week Duration: 4 Weeks Plan: 2X/ week for 4 weeks for endurace activities, balance activites, functional activies, stairs, with HEP. Watch breathing during treatment. - Subjective Findings: Pt just got out of the hospital about 9 days ago. Pt had a colonscopy and took a polyp off and started bleeding and then heart went into A-fib. He was in the hospital for 4 days. He feels pretty good and feels better everyday but still has fatigue. He tookk 2 shots of his inhaler before he came in here. He takes the inhaler because of COPD. He lives in [address] [place] but mainly stays on the first floor. He has 2 railing and used both most of the time. He had a fall last year when he missed a step. He is having trouble with more fatigue.... He had pneumonia last October and he feels like he was just starting to recover and then this. He only has weakness in his legs if he walked awhile... ususally his air goes before his legs. Pt is to be getting a stress test soon. - Objective Gait: Walks with a normal gait pattern with a wide [place]O. Stairs: ABle to go up and down the stairs without a railing but does do some veering to catch balance. Sit to stand: able to rise from the chair without use of UE's. LE MMT: hip flex B 4-/5, knee ext and knee flex B 4+/5, Hip abd B 4+/5, B hip ext 4/5. Pt is able to heel and toe raise and is able to do a full Bridge. Pt does exhibit SOB after walking approx 150 feet and ascending and descending the stairs. FGA: - Balance Scores Functional Gait Assessment Score: 19 % Disability: 36.6700 - Goals Goal 1:: I HEP Goal Time Frame: 4-6 Weeks Goal 2:: Increase FGA score by 4 points to decrease fall risk to Goal Time Frame: 4-6 Weeks Goal 3:: Be able to go up and down stairs without a railing without having to veer to correct balance. Goal Time Frame: 4-6 Weeks Goal 4:: Be able to complete 20 min exercise without having to take a break due to SOB Goal Time Frame: 4-6 Weeks - Rehabilitation Potential Rehabilitation Potential: Good - Anticipated Interventions Patient/Client Instruction: Educate patient on: Condition, Plan of Care For the Purpose of:: To increase ROM, To improve nutrient delivery to tissue, To improve muscle performance and motor function, To improve ability to perform ADL's, To increase tolerance to activity/condition/position, To improve performance and independence with ADL's, To improve ability of physical actions for home/community/work/leisure, To improve gait and locomotor functions, To improve endurance, To improve balance Therapeutic Exercise to Include: Strength training, Endurance training, Balance training, Gait and locomotor training, Passive ROM, Active ROM For the Purpose of:: To increase ROM, To improve muscle performance and motor function, To increase tolerance to activity/condition/position, To improve performance and independence with ADL's, To improve ability of physical actions for home/community/work/leisure, To improve gait and locomotor functions, To increase flexibility/ROM, To improve balance Functional Training to Include: Gait training Comments: stairs For the Purpose of:: To improve gait and locomotor functions Thank you for the opportunity to evaluate your patient. For Medicare and Medicare HMO plans, please review the plan of care and approve it. It will need to be FAXED BACK to us at [phone] for Medicare purposes. For Medicare only, by signing this I certify the plan of care. Please let me know if there are questions or concerns regarding this plan of care. Physician Signature: __Date:
--- NOTE | 2018-09-16 13:59 | HP.PT.NRP ---
HP - Discharge Summary (1) - Patient Information MANDI ESQUEDA was seen in my office for initial evaluation on 08/26/18. The following Plan of Care was established for this patient: Initial Frequency: 2x /Week Initial Duration: 4 Weeks - Anticipated Interventions Patient/Client Instruction: Educate patient on: Condition, Plan of Care For the Purpose of:: To increase ROM, To improve nutrient delivery to tissue, To improve muscle performance and motor function, To improve ability to perform ADL's, To increase tolerance to activity/condition/position, To improve performance and independence with ADL's, To improve ability of physical actions for home/community/work/leisure, To improve gait and locomotor functions, To improve endurance, To improve balance Therapeutic Exercise to Include: Strength training, Endurance training, Balance training, Gait and locomotor training, Passive ROM, Active ROM For the Purpose of:: To increase ROM, To improve muscle performance and motor function, To increase tolerance to activity/condition/position, To improve performance and independence with ADL's, To improve ability of physical actions for home/community/work/leisure, To improve gait and locomotor functions, To increase flexibility/ROM, To improve balance Functional Training to Include: Gait training Comments: stairs For the Purpose of:: To improve gait and locomotor functions This patient was last seen in our office 08/26/18. Pertinent comments regarding their Physical therapy will appear below: DC PT due to high co-pay At this point I will be discontinuing this patient from physical therapy. I would be happy to see this patient again in the future if found appropriate by the physician. Thank you! Haydee Elizondo, MPT
== END 2018-08-26 19:00 | disposition home or self-care (01) ==
LOC: PT 08:43
PROVIDERS: Family Provider Family Medicine; PCP Family Medicine; Referring Provider Family Medicine; Visit Provider Family Medicine
DX: D62 Acute posthemorrhagic anemia (principal); J44.9 Chronic obstructive pulmonary disease, unspecified; I48.0 Paroxysmal atrial fibrillation; I25.10 Atherosclerotic heart disease of native coronary artery without angina pectoris
CPT/HCPCS: 97161

== ENCOUNTER → 2018-09-09 21:01 | Outpatient (CLI) | payer BC, SELFPAY ==
[2018-08-12 16:45] VITALS: BMI 21.6
== END ==
PROVIDERS: Family Provider Family Medicine; PCP Family Medicine; Referring Provider Physician Assistant; Visit Provider Physician Assistant
DX: G47.33 Obstructive sleep apnea (adult) (pediatric) (principal)
CPT/HCPCS: 95810

== ENCOUNTER 2019-05-05 09:59 | Inpatient (IN) | payer BC, MEDICARE, SELFPAY ==
[2018-08-12 16:45] VITALS: BMI 21.6
[2019-05-05] VITALS (20 sets, daily range): BP systolic 95–145; BP diastolic 57–98; PULSE 58–141; RESP 16–24; TEMP 36.7–37.7; O2SAT 90–96; BMI 22.7; BMI 22.9
--- NOTE | 2019-05-05 10:08 | EKG12_ITS ---
Test Reason : SOB Blood Pressure : / mmHG Vent. Rate : 090 BPM Atrial Rate : 073 BPM P-R Int : 000 ms QRS Dur : 100 ms QT Int : 372 ms P-R-T Axes : 000 056 141 degrees QTc Int : 455 ms Sinus Rhythm with PAC's and PVC's ST & T wave abnormality, consider lateral ischemia Abnormal ECG Confirmed by ARGENIS SAMSON, RENA ([id number]), market editor MARCELINA SANTIAGO ([id number]) on 05/11/2019 11:49:56 AM Referred By: Ebony Tsai Confirmed By:DINA MORE MD
--- NOTE | 2019-05-05 10:10 | EKG12_ITS ---
Test Reason : ABNORMAL RYTHMN Blood Pressure : / mmHG Vent. Rate : 116 BPM Atrial Rate : 170 BPM P-R Int : 000 ms QRS Dur : 104 ms QT Int : 330 ms P-R-T Axes : 088 050 077 degrees QTc Int : 458 ms Normal Sinus Rhythm, Paroxysmal Atrial Fibrillation with PVC's ST depression, consider subendocardial injury Nonspecific T wave abnormality Abnormal ECG No previous ECGs available Confirmed by RENATA SAMSON, JAIDEN ([id number]), editorial project manager COREY DOMINIQUE ([id number]) on 05/08/2019 2:36:23 PM Referred By: Ebony Tsai Confirmed By:JAIDEN YANEZ MD
--- NOTE | 2019-05-05 10:17 | ED.DCSUM_ITS ---
- ER Visit Summary Date of Service: 05/05/19 Chief Complaint: Shortness of breath History of Present Illness: The patient is a 73 M who has a known history of COPD presented to his primary care physician's office this morning for days of cough with new phlegm production and dyspnea. Patient has had a history of atrial fibrillation in the setting of a GI bleed about 1 year ago. History of coronary artery disease having had a stent and has moderately severe aortic stenosis when seen on echocardiogram in July 2018. Ejection fraction noted to be 55 to 60%. Is also noted that he had a pleural effusion on the left at that time.. While at the primary care physician's office it was noted that he was dyspneic pulse ox around 90% and sibling atrial fibrillation. He received a breathing treatment in the office. His drove him by private vehicle here. Patient EKG from the office showed some sinus beats with PACs as well as PVCs. Patient denies any fevers. 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 Ratliff. He quit smoking approximately 30 years ago. he notes a remote history of testicular cancer with lung metastasis treated approximately 30 years ago. Physical Examination: Afebrile heart rate 89 respirations are 24 pulse ox 96% on room air blood pressure 139/98 Gen: Well-nourished well-developed Head: Normocephalic atraumatic Eyes: Perrl EOMI ENT: TMs clear no rhinorrhea moist mucous membranes Neck: Supple no lymphadenopathy no JVD nontender CVS: Heart rate appears to be irregular on auscultation with a 3 systolic murmur. Respiratory: Patient has a quite tachypnea. He has rhonchorous lung sounds chest nontender Abdomen: Soft nontender nondistended normal bowel sounds no masses Back: Nontender Extremity: Nontender no edema Skin: Normal color no rash Neuro: alert orientated ?3 CN II-XII intact normal strength sensation reflexes gait cerebellar Psych: Normal affect normal mood Test Results: EKG shows a sinus rhythm with frequent PACs and PVCs. White count 15.6 hemoglobin 1.5. BUN 20 with creatinine 2.07. Troponin 0 0.042. Normal lactic acid. Chest x-ray shows no obvious elevation or effusion or CHF. Emergency Department Course and Treatment: Patient received a DuoNeb breathing treatment. He is remaining 90 to 93% on room air. Vascular sputum culture. He is tachycardic around 100. His white count of 15.6. He has evidence of acute knee injury with his last creatinine being 1.25 and today 2.07. I believe he most likely has pneumonia. He received Rocephin and azithromycin. I have not heard any wheezing before breathing treatment or after so I have not given Solu- Medrol. Impression: 1. Pneumonia 2. Sepsis 3. Acute kidney injury This note was generated with CLARED dictation software. It may contain incorrect words, spelling, and punctuation that were not noted in review of the chart prior to signing ED Disposition - Plan for ED Patient: Referrals: Yeison Maynard MD [Primary Care Provider] -
[2019-05-05] MEDS: Ipratropium/Albuterol Sulfate 3 ML AMPUL.NEB INHALATION ×3 (10:25→19:04)
[2019-05-05 10:37] LABS: Absolute Neutrophil Count 11.9 X10^3/uL (2.0-7.7); Basophil# 0.03 X10^3/uL; Basophil% 0.2 % (0-1); Eosinophil# 0.04 X10^3/uL; Eosinophils% 0.3 % (0-5); Hematocrit 35.2 % (40-54); Hemoglobin 11.5 g/dL (13.0-16.5); Lymphocyte % 10.9 % (19-41); Mean Corp Hgb Conc 32.7 g/dL (32-36); Mean Corpuscular Hgb 27.5 pg (27.0-32.0); Mean Corpuscular Volume 84.2 fL (80-94); Mean Platelet Vol. 11.8 fl (6.2-12.0); Monocyte# 1.79 X10^3/uL; Monocyte% 11.5 % (0-10); NRBC Flagged by Analyzer 0 % (0-5); Neutrophil # 11.93 X10^3/uL (2.7-7.7); Neutrophil % 76.5 % (47-70); POSITIVE DIFFERENTIAL YES; Platelet Count 153 K/mm3 (150-450); RBC Distribution Width CV 13.9 % (11.6-14.6); RBC Distribution Width SD 42.8 fl (35.1-43.9); Red Blood Count 4.18 M/mm3 (4.6-6.2); White Blood Count 15.6 K/mm3 (4.4-11.0)
--- NOTE | 2019-05-05 10:43 | RAD_ITS ---
STUDY: X-RAY CHEST REASON FOR EXAM: Male, 73 years old. Cough, COPD, shortness of breath. TECHNIQUE: PA and lateral views of the chest. COMPARISON: 10/20/2017 FINDINGS: There is hyperinflation of the lungs consistent with chronic obstructive lung disease (COPD). No change in small right-sided pleural effusion or pleural thickening. Normal size heart. Normal mediastinum and dennis. Normal visualized pulmonary arteries. Normal visualized aortic arch and descending thoracic aorta. Normal visualized thoracic spine. Normal visualized ribs, clavicles, and shoulders. There is no demonstrated abnormality of the visualized soft tissue structures of the upper abdomen. RAD/Chest PA and Lateral IMPRESSION: Emphysema without pneumonia or atelectasis. Electronically Signed: Dawit Torres MD at 11:44 EDT Tel , Service support ,
[2019-05-05 10:44] LABS: Differential Indicated SCAN CRITERIA MET
[2019-05-05 10:46] LABS: International Normalized Ratio 1.3
[2019-05-05 10:47] LABS: Partial Thromboplast Time 43.4 Seconds (24.1-36.2)
[2019-05-05 10:57] LABS: ALB/GLOB Ratio 0.6 RATIO (0.9-2.4); AST(SGOT) 37 U/L (15-37); Alanine Aminotransfer ALT/SGPT 28 U/L (16-61); Alkaline Phosphatase 172 U/L (45-117); Anion Gap 8 (5-15); BUN 28 mg/dL (7-18); BUN/Creat Ratio 13.5 RATIO (10-20); Calcium,Total 8.7 mg/dL (8.5-10.1); Chloride 103 mmol/L (98-107); Creatinine, Serum 2.07 mg/dL (0.70-1.30); EST Glomerular Filtration Rate 34 mL/min (>60); Est Glom Filt Rate - Afr Amer 41 mL/min (>60); Estimated Creatinine Clearance 37.17 ml/min; Glucose 126 mg/dL (74-106); Potassium 3.5 mmol/L (3.5-5.1); Sodium Level 137 mmol/L (136-145)
[2019-05-05 11:02] LABS: Lactic Acid 1.6 mmol/L (0.4-2.0)
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
[2019-05-05] MEDS: 0.9% Normal Saline 1,000 ML 999 ML IV (11:48)
--- NOTE | 2019-05-05 11:52 | NURSING ---
MED SURG PNEUMONIA, SEPSIS WHITE
[2019-05-05] MEDS: Ceftriaxone 1 GM/50 ML BAG IV (12:21)
[2019-05-05] MEDS: 0.9% Normal Saline 1,000 ML 125 ML IV ×2 (15:28→23:44)
[2019-05-05 18:07] LABS: Mucous, Urine 0 SEEN /hpf (<or=2+); Squamous Epithelial Cells - UA 0 SEEN /hpf (0-5)
[2019-05-05 18:10] LABS: Color, Urine Yellow (Yellow); Glucose, Dipstick 50 mg/dl (Normal); Ketone-Dipstick 5 mg/dl (Negative); Leukocyte Esterase-Dipstick 25 /ul (Negative); Nitrite-Dipstick Negative (Negative); Occult Blood-Urine 50 /ul (Negative); Protein-Dipstick 100 mg/dl (Negative); Urine Clarity Sl. Cloudy (Clear); Urine Urobilinogen 8 mg/dl (Normal)
[2019-05-05 18:20] LABS: Urine Bilirubin Dipstick 3 mg/dL (Negative)
[2019-05-05 18:44] LABS: Fine Granular Cast- Urine 0-5 SEEN /lpf (0-5); Hyaline Cast 5-10 SEEN /lpf (0-5)
[2019-05-05 18:46] LABS: Bacteria RARE /hpf (None Seen); Red Blood Cells-Urine 0-5 SEEN /hpf (0-5); White Blood Cells 5-10 SEEN /hpf (0-5)
[2019-05-05] MEDS: Atorvastatin Calcium 40 MG Tablet PO (22:42)
[2019-05-05] MEDS: Heparin Injection (Vial) 5,000 UNIT/ML VIAL 5000 UNIT SC (22:42)
[2019-05-06] VITALS (25 sets, daily range): BP systolic 103–141; BP diastolic 60–94; PULSE 59–178; RESP 18–22; TEMP 36.6–37.9; O2SAT 94–95
[2019-05-06] MEDS: Levothyroxine 75 MCG Tablet PO (05:37)
--- NOTE | 2019-05-06 05:55 | EKG12_ITS ---
Test Reason : DYSRHYTHMIA Blood Pressure : / mmHG Vent. Rate : 151 BPM Atrial Rate : 138 BPM P-R Int : 000 ms QRS Dur : 100 ms QT Int : 310 ms P-R-T Axes : 000 043 -69 degrees QTc Int : 491 ms Atrial Fibrillation with PVC's ST depression, consider subendocardial injury Nonspecific T wave abnormality Abnormal ECG When compared with ECG of 06-MAY-2019 05:09, MANUAL COMPARISON REQUIRED, DATA IS UNCONFIRMED Confirmed by RENATA SAMSON, JAIDEN ([id number]), restaurant expeditor COREY DOMINIQUE ([id number]) on 05/08/2019 2:27:47 PM Referred By: Ebony Tsai Confirmed By:JAIDEN YANEZ MD
[2019-05-06] MEDS: Ipratropium/Albuterol Sulfate 3 ML AMPUL.NEB INHALATION ×4 (06:13→19:38)
[2019-05-06 06:16] LABS: Absolute Lymphocyte Count 1.24 X10^3/uL (0.83-4.51); Absolute Neutrophil Count 8.7 X10^3/uL (2.0-7.7); Basophil# 0.03 X10^3/uL; Basophil% 0.3 % (0-1); Eosinophil# 0.03 X10^3/uL; Eosinophils% 0.3 % (0-5); Hematocrit 30.8 % (40-54); Hemoglobin 10.2 g/dL (13.0-16.5); Lymphocyte # 1.24 X10^3/ul (4.0); Lymphocyte % 10.8 % (19-41); Mean Corp Hgb Conc 33.1 g/dL (32-36); Mean Corpuscular Hgb 27.8 pg (27.0-32.0); Mean Corpuscular Volume 83.9 fL (80-94); Mean Platelet Vol. 11.9 fl (6.2-12.0); Monocyte# 1.39 X10^3/uL; Monocyte% 12.1 % (0-10); NRBC Flagged by Analyzer 0 % (0-5); Neutrophil # 8.69 X10^3/uL (2.7-7.7); Neutrophil % 75.9 % (47-70); Platelet Count 104 K/mm3 (150-450); RBC Distribution Width CV 13.9 % (11.6-14.6); RBC Distribution Width SD 42.5 fl (35.1-43.9); Red Blood Count 3.67 M/mm3 (4.6-6.2); White Blood Count 11.5 K/mm3 (4.4-11.0)
[2019-05-06 06:39] LABS: BUN 24 mg/dL (7-18); Creatinine, Serum 1.51 mg/dL (0.70-1.30); EST Glomerular Filtration Rate 49 mL/min (>60); Estimated Creatinine Clearance 51.41 ml/min; Glucose 104 mg/dL (74-106)
[2019-05-06 06:40] LABS: ALB/GLOB Ratio 0.5 RATIO (0.9-2.4); AST(SGOT) 46 U/L (15-37); Alanine Aminotransfer ALT/SGPT 30 U/L (16-61); Albumin, Serum 2.2 g/dL (3.2-5.0); Alkaline Phosphatase 164 U/L (45-117); Anion Gap 8 (5-15); BUN/Creat Ratio 15.9 RATIO (10-20); Calcium,Total 7.9 mg/dL (8.5-10.1); Chloride 108 mmol/L (98-107); Est Glom Filt Rate - Afr Amer 59 mL/min (>60); Globulin 4.3 g/dL (2.2-4.2); Potassium 3.9 mmol/L (3.5-5.1); Protein, Total 6.5 g/dL (6.4-8.2); Sodium Level 138 mmol/L (136-145)
[2019-05-06] MEDS: 0.9% Normal Saline 1,000 ML 125 ML IV (07:16)
--- NOTE | 2019-05-06 08:05 | RAD_ITS ---
STUDY: X-RAY CHEST REASON FOR EXAM: Male, 73 years old. Shortness of breath TECHNIQUE: PA and lateral views of the chest. COMPARISON: 05/05/2019 FINDINGS: There is hyperinflation of the lungs consistent with chronic obstructive lung disease (COPD). No change in small right-sided pleural effusion. There is moderate cardiac enlargement. Normal mediastinum and dennis. Normal visualized pulmonary arteries. Normal visualized aortic arch and descending thoracic aorta. Normal visualized thoracic spine. Normal visualized ribs, clavicles, and shoulders. There is no demonstrated abnormality of the visualized soft tissue structures of the upper abdomen. RAD/Chest PA and Lateral IMPRESSION: No change in small right pleural effusion. Electronically Signed: Dawit Torres MD at 9:03 EDT Tel , Service support ,
[2019-05-06] MEDS: Aspirin 81 MG TAB.CHEW PO (08:45)
[2019-05-06] MEDS: Pantoprazole Sodium 20 MG Tablet PO (08:45)
[2019-05-06] MEDS: Ceftriaxone 1 GM/50 ML BAG IV (08:45)
[2019-05-06] MEDS: Metoprolol Tartrate 25 MG Tablet PO (08:45)
[2019-05-06] MEDS: amLODIPine 5 MG Tablet PO (08:45)
[2019-05-06] MEDS: 0.9% Normal Saline 1,000 ML 75 ML IV (08:53)
[2019-05-06 09:32] LABS: BNP,B-Type NATRIURETIC PEPTIDE 349.9 pg/mL (0-100)
--- NOTE | 2019-05-06 09:33 | PCM.PROGNOTE ---
Patient Problems: Active and Suspected Problems Pneumonia (Suspected) Subjective: Chief complaint: Follow-up after admission for suspected community-acquired pneumonia. Patient seen and examined. No acute events overnight. Shortness of breath improved, still having some cough with green sputum. He has been afebrile. He denied chest pain, palpitation, dizziness or lightheadedness. He denies orthopnea PND. He denies leg edema. He has been afebrile, blood pressure and heart rate are stable, pulse ox is maintained on 2 L of oxygen. - Physical Exam General: Alert, Oriented x3, Cooperative, No apparent distress HEENT: Atraumatic, PERRLA, EOMI, Normocephalic Oral: Moist Mucosa, No Gingival or Mucosal Lesions/ Ulcerations Neck: Supple, No JVD, Negative Carotid Bruits, Trachea Midline, Thyroid Normal Size and Texture Lungs: No rales, Diminished, Rhonchi, Wheezes, - - Diminished breath sounds bilateral, bilateral rhonchi, occasional wheezes. Cardiovascular: Regular rate, Regular Rhythm, Normal S1, Normal S2, PMI Normal, Murmur Abdomen: Bowel Sounds Present, Soft, Non Tender, Non-Distended, No Hepato-splenomegaly Extremities: No clubbing, No cyanosis, No edema Skin: No rashes, No breakdown Lymphatic: No Cervical, Supraclavicular, or Inguinal Adenopathy Neurological: Cranial nerves II-XII grossly intact, Motor Exam 5/5 strength throughout Psych/Mental Status: Normal Affect, Appropriate, Alert and oriented to time, place, person, mood and affect Vital Signs Temp Pulse Resp BP Pulse Ox 98.2 F 100 18 108/66 95 05/06/19 08:33 05/06/19 08:45 05/06/19 08:33 05/06/19 08:45 05/06/19 08:33 Oxygen Flow Rate (L/min) 2 Oxygen Delivery Method Nasal Cannula Weight: 178 lb 9.191 oz Body Mass Index (BMI) 22.9 Intake and Output for Last 24 Hours 05/04/19 05/05/19 05/06/19 23:59 23:59 23:59 Intake Total 2397.8 / 2397.8 1443.75 / 1443.75 Output Total 450 / 450 450 / 450 Balance 1947.8 / 1947.8 993.75 / 993.75 Microbiology Past 72 Hours 05/05/19 17:35 Streptococcus pneumoniae Antigen (M - Final Urine, Clean Catch 05/05/19 17:35 Legionella Antigen - Final Urine, Clean Catch Laboratory Tests Past 24 Hrs 05/05/19 05/05/19 05/05/19 10:25 10:25 10:25 WBC 15.6 H RBC 4.18 L Hgb 11.5 L Hct 35.2 L MCV 84.2 MCH 27.5 MCHC 32.7 RDW Std Deviation 42.8 RDW Coeff of Walker 13.9 Plt Count 153 MPV 11.8 Immature Gran % (Auto) 0.600 Neut % (Auto) 76.5 H Lymph % (Auto) 10.9 L [place] % (Auto) 11.5 H Eos % (Auto) 0.3 Baso % (Auto) 0.2 Absolute Neuts (auto) 11.9 H Absolute Lymphs (auto) 1.70 Nucleated RBC % 0 Differential Comment COMMENT Diff Path Review May foll PT 16.0 H INR 1.3 APTT 43.4 H Sodium 137 Potassium 3.5 Chloride 103 Carbon Dioxide 26.0 Anion Gap 8 BUN 28 H Creatinine 2.07 H Estim Creat Clear Calc 37.17 Est GFR (MDRD) Af Amer 41 L Est GFR (MDRD) Non-Af 34 L BUN/Creatinine Ratio 13.5 Glucose 126 H Lactic Acid Calcium 8.7 Magnesium Total Bilirubin 2.00 H AST 37 ALT 28 Alkaline Phosphatase 172 H Troponin I 0.042 B-Natriuretic Peptide Total Protein 8.0 Albumin 3.0 L Globulin 5.0 H Albumin/Globulin Ratio 0.6 L Urine Color Urine Clarity Urine pH Ur Specific [place] Urine Protein Urine Glucose (UA) Urine Ketones Urine Occult Blood Urine Nitrite Urine Bilirubin Urine Urobilinogen Ur Leukocyte Esterase Urine RBC Urine WBC Ur Squamous Epith Cells Urine Bacteria Hyaline Casts Fine Granular Casts Urine Mucus 05/05/19 05/05/19 05/05/19 10:25 10:25 17:35 WBC RBC Hgb Hct MCV MCH MCHC RDW Std Deviation RDW Coeff of Walker Plt Count MPV Immature Gran % (Auto) Neut % (Auto) Lymph % (Auto) [place] % (Auto) Eos % (Auto) Baso % (Auto) Absolute Neuts (auto) Absolute Lymphs (auto) Nucleated RBC % Differential Comment Diff Path Review PT INR APTT Sodium Potassium Chloride Carbon Dioxide Anion Gap BUN Creatinine Estim Creat Clear Calc Est GFR (MDRD) Af Amer Est GFR (MDRD) Non-Af BUN/Creatinine Ratio Glucose Lactic Acid 1.6 Calcium Magnesium 2.0 Total Bilirubin AST ALT Alkaline Phosphatase Troponin I B-Natriuretic Peptide Total Protein Albumin Globulin Albumin/Globulin Ratio Urine Color Yellow Urine Clarity Sl. Cloudy Urine pH 5.0 Ur Specific [place] 1.020 Urine Protein 100 H Urine Glucose (UA) 50 H Urine Ketones 5 H Urine Occult Blood 50 H Urine Nitrite Negative Urine Bilirubin 3 H Urine Urobilinogen 8 H Ur Leukocyte Esterase 25 H Urine RBC 0-5 SEEN Urine WBC 5-10 SEEN Ur Squamous Epith Cells 0 SEEN Urine Bacteria RARE Hyaline Casts 5-10 SEEN Fine Granular Casts 0-5 SEEN Urine Mucus 0 SEEN 05/06/19 05/06/19 05/06/19 05:42 05:42 05:42 WBC 11.5 H RBC 3.67 L Hgb 10.2 L Hct 30.8 L MCV 83.9 MCH 27.8 MCHC 33.1 RDW Std Deviation 42.5 RDW Coeff of Walker 13.9 Plt Count 104 L MPV 11.9 Immature Gran % (Auto) 0.600 Neut % (Auto) 75.9 H Lymph % (Auto) 10.8 L [place] % (Auto) 12.1 H Eos % (Auto) 0.3 Baso % (Auto) 0.3 Absolute Neuts (auto) 8.7 H Absolute Lymphs (auto) 1.24 Nucleated RBC % 0 Differential Comment Diff Path Review PT INR APTT Sodium 138 Potassium 3.9 Chloride 108 H Carbon Dioxide 22.0 Anion Gap 8 BUN 24 H Creatinine 1.51 H Estim Creat Clear Calc 51.41 Est GFR (MDRD) Af Amer 59 L Est GFR (MDRD) Non-Af 49 L BUN/Creatinine Ratio 15.9 Glucose 104 Lactic Acid Calcium 7.9 L Magnesium Total Bilirubin 1.20 H AST 46 H ALT 30 Alkaline Phosphatase 164 H Troponin I B-Natriuretic Peptide 349.9 H Total Protein 6.5 Albumin 2.2 L Globulin 4.3 H Albumin/Globulin Ratio 0.5 L Urine Color Urine Clarity Urine pH Ur Specific [place] Urine Protein Urine Glucose (UA) Urine Ketones Urine Occult Blood Urine Nitrite Urine Bilirubin Urine Urobilinogen Ur Leukocyte Esterase Urine RBC Urine WBC Ur Squamous Epith Cells Urine Bacteria Hyaline Casts Fine Granular Casts Urine Mucus Clinical Impression(s) from Imaging Studies Chest X-Ray 05/05/19 10:43 IMPRESSION: Emphysema without pneumonia or atelectasis. Electronically Signed: Dawit Torres MD at 11:44 EDT Tel , Service support , Chest X-Ray 05/06/19 08:05 IMPRESSION: No change in small right pleural effusion. Electronically Signed: Dawit Torres MD at 9:03 EDT Tel , Service support , Medical Necessity - Tobacco Use Smoking Status: Former smoker Assessment/Plan This is a 73 years old male patient presented to the emergency room because of shortness of breath, productive cough with green sputum and he was admitted for probable community-acquired pneumonia. #1 probable committee acquired pneumonia: He is on IV Rocephin and Zithromax. Repeat chest x-ray reviewed, revealed only small right pleural effusion, no obvious infiltrate or consolidation. Patient has been afebrile, white blood cell count is trending down. Blood pressure and heart rate are stable, pulse ox is 95% on 2 L. Pneumococcal and Legionella antigen were negative. Respiratory panel for viruses were negative. Blood cultures and sputum culture are pending. He is on bronchodilators. Plan: DC IV fluids, repeat CBC and BMP tomorrow morning, continue same treatment. #2 acute kidney injury: His creatinine on July, has been around 1.1 to 1.2 mg/dL. Before that, creatinine has been around 1.3 to 1.5 mg/dL. Admission creatinine was 2.07, came down to 1.51 today with IV fluids. It is improving. Plan to DC IV fluids, avoid nephrotoxic drugs, repeat BMP tomorrow morning. #3 sinus arrhythmia: EKG reviewed, revealed sinus arrhythmia with PACs and PVCs. Potassium is normal today as well as magnesium. Patient denies any chest pain. #4 moderately severe aortic stenosis: Patient had 2D echocardiogram on July, that revealed moderately severe aortic stenosis, ejection fraction was normal. At this time, I doubt acute CHF although BNP was elevated but has been chronic elevated. #5 CAD status post stents: Stable, no acute ischemic changes. Patient denied any chest pain. Continue aspirin, statins and metoprolol. #6 COPD: Continue DuoNeb and albuterol, chest chest physiotherapy, incentive spirometer. #7 paroxysmal atrial fibrillation: He is in sinus rhythm, rate is controlled. Continue metoprolol for rate control, patient is not on anticoagulation. #8 hypothyroidism: Continue levothyroxine. #9 hypertension: Blood pressure stable, continue Norvasc, lisinopril held because of acute kidney injury. #10 obstructive sleep apnea: Continue CPAP. #11 DVT prophylaxis: Subcu heparin. This note was generated with [employer] dictation software. It may contain incorrect words, spelling, and punctuation that were not noted in checking the note before signing. Code Visit Inpatient E&M: 91997 Subs Hosp L2
[2019-05-06] MEDS: Heparin Injection (Vial) 5,000 UNIT/ML VIAL 5000 UNIT SC ×2 (10:42→21:27)
--- NOTE | 2019-05-06 12:15 | CASEMGMT ---
RN CM PHYSIATRIST CM to room to meet with patient for initial transition planning/care coordination assessment. RN JOHN introduced self and role at [facility]. Pt voices understanding and consents to assessment at this time. Pt resting in bed in no distress at this time. Pt is A/O at this time and answers all questions appropriately. Care providers, pharmacy, and demographics verified/updated at this time. PCP: [facility] Specialists: Was seeing Dr Zafar (pad cutter) but he has retired. Has appt w/Dr Ratliff Jul 23. Pref[facility] Pharmacy[facility] [place] [facility] [place] [facility] Insurance: Vi Shah Prescription Benefit: yes Living Will/HPOA: States does not have LW or HCPOA . Interested in more information but states does not want to talk with SW at this time to complete paperwork. Provided information on advanced directives and given Social Service rac card with number to call if chooses in the future to utilize [facility] social work for advanced directive completion. Educated patient that, if patient so chooses, can come back to [facility] and meet with a SW as an outpatient to complete health care advanced directives. Patient expresses understanding. LNOK: . 3 adult children: Mynor Moraes, Aileen Connor Living Arrangements: Lives with in 2-story home w/basement. [employer] Transportation: Pt states drives self and states no transportation concerns at this time. also drives DME: Has CPAP thru [facility] Pt states no need for further DME at this time. HHC/SNF: No history of either and denies needs. No needs identified. Pt wishes to return home and states has no concerns with going home at time of discharge. CM to follow for any discharge planning/needs. Pt voices no further concerns/needs at this time. Advised pt to ask for CM if any further questions/concerns/needs arise. Voices understanding. PLAN: Home w/spousal support and discharge plans in place. Marianne YANES RN, CM
[2019-05-06 14:00] LABS: Pathologist Review Reviewed
[2019-05-06] MEDS: Acetaminophen 325 MG Tablet 650 MG PO (16:34)
[2019-05-06] MEDS: guaiFENesin 10 ML UDC (200MG/10ML) 20 ML PO (16:34)
--- NOTE | 2019-05-06 20:32 | EKG12_ITS ---
Test Reason : AM EKG Blood Pressure : / mmHG Vent. Rate : 102 BPM Atrial Rate : 086 BPM P-R Int : 150 ms QRS Dur : 104 ms QT Int : 366 ms P-R-T Axes : 069 048 052 degrees QTc Int : 477 ms Sinus rhythm with frequent and consecutive Premature ventricular complexes Nonspecific ST and T wave abnormality Abnormal ECG When compared with ECG of 05-MAY-2019 10:08, MANUAL COMPARISON REQUIRED, DATA IS UNCONFIRMED Confirmed by RENATA SAMSON, JAIDEN ([id number]), editor book COREY DOMINIQUE ([id number]) on 05/08/2019 2:28:13 PM Referred By: Ebony Tsai Confirmed By:JAIDEN YANEZ MD
--- NOTE | 2019-05-06 20:54 | PCM.PN.BLA ---
Progress Note Notified that patient is having heart rates of 150 to 180 on monitor. Patient has a history of PAF. EKG showed Afib with RVR with rate of 151. Cardizem bolus ordered.
[2019-05-06] MEDS: Metoprolol Tartrate 5 MG/5 ML Vial IV ×3 (21:18→23:36)
[2019-05-06] MEDS: Atorvastatin Calcium 40 MG Tablet PO (21:27)
[2019-05-06] MEDS: 0.9% NaCl Peripheral Flush Adult/Peds IV ×2 (22:45→23:40)
[2019-05-07] VITALS (51 sets, daily range): BP systolic 88–134; BP diastolic 60–99; PULSE 98–164; RESP 18–29; TEMP 36.6–37.6; O2SAT 90–95
[2019-05-07] MEDS: dilTIAZem 25 MG/5 ML Vial 20 MG IV BOLUS (00:23)
[2019-05-07] MEDS: 0.9% NaCl Peripheral Flush Adult/Peds IV ×2 (00:26→02:18)
--- NOTE | 2019-05-07 00:26 | NURSING ---
Dr. Paez is present while IV Cardizem is being pushed. Pt is on telemetry. Asymptomatic with elevated HR.
--- NOTE | 2019-05-07 00:41 | NURSING ---
Heart rate 112-140's. pt resting quietly no distress.
--- NOTE | 2019-05-07 00:52 | PCM.PN.BLA ---
Progress Note Because patient continues to be in A. fib he received a total of Lopressor 5 mg IV x3 and Cardizem 20 mg IV bolus. He continued to be in A. fib with RVR with heart rate occasionally going to the 140s. We will transfer patient to the progressive care unit and start patient on Cardizem drip.
--- NOTE | 2019-05-07 00:54 | NURSING ---
Left message with pt's moving to PCU.
--- NOTE | 2019-05-07 01:10 | NURSING ---
Pt. arrived to room 103 on PCU at this time. Report received from Efraín FLORES on MS3 at 0059. Pt. A/O x 3, no distress noted.
[2019-05-07] MEDS: Levothyroxine 75 MCG Tablet PO (05:35)
[2019-05-07 06:04] LABS: Absolute Lymphocyte Count 1.35 X10^3/uL (0.83-4.51); Absolute Neutrophil Count 7.9 X10^3/uL (2.0-7.7); Basophil# 0.02 X10^3/uL; Basophil% 0.2 % (0-1); Eosinophil# 0.11 X10^3/uL; Hemoglobin 10.2 g/dL (13.0-16.5); Lymphocyte # 1.35 X10^3/ul (4.0); Lymphocyte % 12.9 % (19-41); Mean Corp Hgb Conc 32.9 g/dL (32-36); Mean Corpuscular Hgb 27.6 pg (27.0-32.0); Mean Corpuscular Volume 83.8 fL (80-94); Mean Platelet Vol. 12.2 fl (6.2-12.0); Monocyte# 1.05 X10^3/uL; NRBC Flagged by Analyzer 0 % (0-5); Neutrophil # 7.89 X10^3/uL (2.7-7.7); Neutrophil % 75.1 % (47-70); Platelet Count 137 K/mm3 (150-450); RBC Distribution Width CV 13.9 % (11.6-14.6); RBC Distribution Width SD 42.8 fl (35.1-43.9); White Blood Count 10.5 K/mm3 (4.4-11.0)
[2019-05-07 06:19] LABS: ALB/GLOB Ratio 0.5 RATIO (0.9-2.4); AST(SGOT) 47 U/L (15-37); Alanine Aminotransfer ALT/SGPT 32 U/L (16-61); Albumin, Serum 2.1 g/dL (3.2-5.0); Alkaline Phosphatase 168 U/L (45-117); Anion Gap 9 (5-15); BUN 20 mg/dL (7-18); BUN/Creat Ratio 14.4 RATIO (10-20); Calcium,Total 8.2 mg/dL (8.5-10.1); Chloride 106 mmol/L (98-107); Creatinine, Serum 1.39 mg/dL (0.70-1.30); EST Glomerular Filtration Rate 54 mL/min (>60); Est Glom Filt Rate - Afr Amer 65 mL/min (>60); Estimated Creatinine Clearance 55.85 ml/min; Globulin 4.4 g/dL (2.2-4.2); Glucose 102 mg/dL (74-106); Potassium 4.2 mmol/L (3.5-5.1); Protein, Total 6.5 g/dL (6.4-8.2); Sodium Level 137 mmol/L (136-145)
[2019-05-07] MEDS: BENZOCAINE/MENTHOL 1 LOZENGE MUCOUS MEM (07:02)
--- NOTE | 2019-05-07 08:08 | PCM.PROGNOTE ---
Patient Problems: Active and Suspected Problems Pneumonia (Suspected) Subjective: Chief complaint: Follow-up after admission for suspected community-acquired pneumonia and overnight, he went into A. fib with RVR and transferred to PCU. Patient seen and examined. He developed A. fib with RVR overnight. Received IV metoprolol and IV Cardizem bolus and he remained with a heart rate of 140s to 150s. He was started on Cardizem drip and his heart rate did not improve and finally, started on IV amiodarone drip. Patient mentioned that his breathing is getting better, still having cough with minimal sputum. He has been afebrile. Maximum temperature overnight was 99.5 Fahrenheit, heart rate still fluctuating anywhere between 120 to 140 bpm, blood pressure stable, pulse ox is 94% on 2 L. - Physical Exam General: Alert, Oriented x3, Cooperative, - - Minimally short of breath. HEENT: Atraumatic, PERRLA, EOMI, Normocephalic Oral: Moist Mucosa, No Gingival or Mucosal Lesions/ Ulcerations Neck: Supple, No JVD, Negative Carotid Bruits, Trachea Midline, Thyroid Normal Size and Texture Lungs: No wheeze, No rales, Diminished, Rhonchi, Short of Breath Cardiovascular: Normal S1, Normal S2, No murmurs, PMI Normal, Irregular Rate, Tachycardic Abdomen: Bowel Sounds Present, Soft, Non Tender, Non-Distended, No Hepato-splenomegaly Extremities: No clubbing, No cyanosis, No edema Skin: No rashes, No breakdown Lymphatic: No Cervical, Supraclavicular, or Inguinal Adenopathy Neurological: Cranial nerves II-XII grossly intact, Motor Exam 5/5 strength throughout Psych/Mental Status: Normal Affect, Appropriate, Alert and oriented to time, place, person, mood and affect Vital Signs Temp Pulse Resp BP Pulse Ox 98.7 F 120 H 28 H 104/68 90 05/07/19 06:30 05/07/19 07:11 05/07/19 06:30 05/07/19 06:30 05/07/19 07:31 Oxygen Flow Rate (L/min) 2 Oxygen Delivery Method Nasal Cannula Weight: 178 lb 9.191 oz Body Mass Index (BMI) 22.9 Intake and Output for Last 24 Hours 05/05/19 05/06/19 05/07/19 23:59 23:59 23:59 Intake Total 2397.8 / 2397.8 2643.75 / 2643.75 787.62 / 787.62 Output Total 450 / 450 450 / 450 550 / 550 Balance 1947.8 / 1947.8 2193.75 / 2193.75 237.62 / 237.62 Microbiology Past 72 Hours 05/05/19 14:10 Gram Stain - Final Sputum, Expectorated/Coughed Respiratory Culture - Preliminary Appears to be normal respiratory gela. Further studies to follow. 05/05/19 14:45 Respiratory Panel (PCR) - Final Mucosa - Nasopharyngeal 05/05/19 17:35 Streptococcus pneumoniae Antigen (M - Final Urine, Clean Catch 05/05/19 17:35 Legionella Antigen - Final Urine, Clean Catch Laboratory Tests Past 24 Hrs 05/05/19 05/06/19 05/07/19 10:25 05:42 05:10 WBC 10.5 RBC 3.70 L Hgb 10.2 L Hct 31.0 L MCV 83.8 MCH 27.6 MCHC 32.9 RDW Std Deviation 42.8 RDW Coeff of Walker 13.9 Plt Count 137 L MPV 12.2 H Immature Gran % (Auto) 0.800 Neut % (Auto) 75.1 H Lymph % (Auto) 12.9 L [place] % (Auto) 10.0 Eos % (Auto) 1.0 Baso % (Auto) 0.2 Absolute Neuts (auto) 7.9 H Absolute Lymphs (auto) 1.35 Nucleated RBC % 0 [address] Review Reviewed Sodium Potassium Chloride Carbon Dioxide Anion Gap BUN Creatinine Estim Creat Clear Calc Est GFR (MDRD) Af Amer Est GFR (MDRD) Non-Af BUN/Creatinine Ratio Glucose Calcium Total Bilirubin AST ALT Alkaline Phosphatase B-Natriuretic Peptide 349.9 H Total Protein Albumin Globulin Albumin/Globulin Ratio 05/07/19 05:10 WBC RBC Hgb Hct MCV MCH MCHC RDW Std Deviation RDW Coeff of Walker Plt Count MPV Immature Gran % (Auto) Neut % (Auto) Lymph % (Auto) [place] % (Auto) Eos % (Auto) Baso % (Auto) Absolute Neuts (auto) Absolute Lymphs (auto) Nucleated RBC % Diff Path Review Sodium 137 Potassium 4.2 Chloride 106 Carbon Dioxide 22.0 Anion Gap 9 BUN 20 H Creatinine 1.39 H Estim Creat Clear Calc 55.85 Est GFR (MDRD) Af Amer 65 Est GFR (MDRD) Non-Af 54 L BUN/Creatinine Ratio 14.4 Glucose 102 Calcium 8.2 L Total Bilirubin 1.10 H AST 47 H ALT 32 Alkaline Phosphatase 168 H B-Natriuretic Peptide Total Protein 6.5 Albumin 2.1 L Globulin 4.4 H Albumin/Globulin Ratio 0.5 L Medical Necessity - Tobacco Use Smoking Status: Former smoker Tobacco Use: Non-smoker, Cigarettes Assessment/Plan This is a 73 years old male patient presented to the emergency room because of shortness of breath, productive cough with green sputum and he was admitted for probable community-acquired pneumonia. Overnight, patient developed A. fib with RVR, heart rate went up to 150s and was transferred to PCU and started on IV amiodarone drip. #1 probable committee acquired pneumonia: Remained on IV Rocephin and Zithromax. He has been afebrile, vital cell count is back to normal. Chest x-ray from yesterday revealed small pleural effusion on the right side as well as fluid in the fissure on the right side. BNP was elevated but it has been chronically elevated. Pneumococcal and Legionella antigen were negative. Respiratory panel for viruses were negative. Sputum culture revealed normal respiratory gela, final is pending. Blood cultures pending. Plan: Continue IV antibiotics, will give 1 dose of IV Lasix. #2 A. fib with RVR: Heart rate went up to 50s. Patient received bolus of IV metoprolol and Cardizem without improvement. He was started on IV Cardizem drip and again without improvement. Finally, he was started on amiodarone drip. EKG reviewed. Heart rate still in the range of 120s to 140s. Blood pressure stable. Serum electrolytes are within normal limits. Cardiology consulted. #3 acute kidney injury: He is off IV fluids, kidney function continued to improve slowly. His creatinine on July, has been around 1.1 to 1.2 mg/dL. Before that, creatinine has been around 1.3 to 1.5 mg/dL. Admission creatinine was 2.07, came down to 1.29 today, it is improving. Plan as above. #4 moderately severe aortic stenosis: Patient had 2D echocardiogram on July, that revealed moderately severe aortic stenosis, ejection fraction was normal. Patient went into A. fib with RVR. He could be minimally fluid overloaded. I will give him 1 dose of IV Lasix and monitor. #5 CAD status post stents: Stable, no acute ischemic changes. Patient denied any chest pain. Continue aspirin, statins and metoprolol. #6 COPD: Continue DuoNeb and albuterol, chest chest physiotherapy, incentive spirometer. #7 paroxysmal atrial fibrillation: He went into A. fib with RVR, plan as above. He is not on anticoagulation. #8 hypothyroidism: Continue levothyroxine. #9 hypertension: Blood pressure stable, continue Norvasc, lisinopril held because of acute kidney injury. #10 obstructive sleep apnea: Continue CPAP. #11 DVT prophylaxis: Subcu heparin. This note was generated with [employer] dictation software. It may contain incorrect words, spelling, and punctuation that were not noted in checking the note before signing. Code Visit Inpatient E&M: 35118 Subs Hosp L3
[2019-05-07] MEDS: Furosemide 40 MG/4 ML Vial IV (08:35)
[2019-05-07] MEDS: Pantoprazole Sodium 20 MG Tablet PO (08:41)
[2019-05-07] MEDS: Metoprolol Tartrate 25 MG Tablet PO (08:41)
[2019-05-07] MEDS: Heparin Injection (Vial) 5,000 UNIT/ML VIAL 5000 UNIT SC ×2 (08:41→22:04)
[2019-05-07] MEDS: Aspirin 81 MG TAB.CHEW PO (08:41)
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
--- NOTE | 2019-05-07 10:39 | ECHOD_ITS ---
Reason For Study: Procedure This was a 2D Doppler, Color Flow transthoracic echocardiogram. Technically limited echo due to tachycardia. Exam performed portable in patient room. Left Ventricle Normal LV size. Concentric left ventricular hypertrophy. The estimated ejection fraction is 55 %. Unable to assess diastolic dysfunction. No regional wall motion abnormalities noted. Right Ventricle Normal RV size. Normal systolic function. Atria The left atrium is mildly enlarged. The right atrium is mildly enlarged. No doppler evidence for ASD. Mitral Valve There is no mitral valve stenosis. Mild (1+) mitral valve insufficiency. Tricuspid Valve There is no tricuspid stenosis. Trivial tricuspid valve insufficiency. Unable to estimate RV systolic pressure due to insufficient tricuspid regurgitant envelope. Aortic Valve Trisinus/trileaflet aortic valve. Moderate diffuse aortic valve thickening. Moderate aortic stenosis. No aortic valve insufficiency. Pulmonic Valve There is no pulmonic valvular stenosis. No pulmonic valve insufficiency. Great Vessels Normal aortic root. Pericardium/Pleural No pericardial effusion. MMode/2D Measurements & Calculations LVIDd: 5.5 cm IVSd: 1.3 cm LVOT diam: 2.0 cm LVIDs: 4.7 cm LVPWd: 0.87 cm LVOT area: 3.2 cm2 RVDd: 4.4 cm FS: 15.2 % Ao root diam: 4.1 cm LAV(MOD-bp): 80.6 ml LVAd ap4: 35.9 cm2 LAV(MOD-bp) Indexed: 39.0 ml/m2 EDV(MOD-sp4): 123.9 ml LAV(MOD-sp2): 55.0 ml EDV(sp4-el): 131.3 ml LAV(MOD-sp4): 83.9 ml LVAs ap4: 25.5 cm2 ESV(MOD-sp4): 73.6 ml ESV(sp4-el): 76.2 ml EF(MOD-sp4): 40.5 % EF(sp4-el): 41.9 % SV(MOD-sp4): 50.2 ml SV(sp4-el): 55.0 ml LA A4 area: 27.1 cm2 LA dimension(2D): 4.4 cm RA A4 area: 16.0 cm2 Doppler Measurements & Calculations Ao V2 max: 311.2 cm/sec LV V1 max: 108.8 cm/sec SV(LVOT): 54.7 ml Ao max P.9 mmHg LV V1 max P.7 mmHg Ao V2 mean: 241.4 cm/sec LV V1 mean P.9 mmHg Ao mean P.2 mmHg LV V1 mean: 80.9 cm/sec Ao V2 VTI: 47.8 cm LV V1 VTI: 17.4 cm ADALBERTO(I,D): 1.1 cm2 ADALBERTO(V,D): 1.1 cm2 TR max ivy: 297.1 cm/sec TR max P.6 mmHg Interpretation Summary The estimated ejection fraction is 55 %. Unable to assess diastolic dysfunction. Mild (1+) mitral valve insufficiency. Moderate aortic stenosis. The left atrium is mildly enlarged. The right atrium is mildly enlarged. Ordering Physician: Radha Correa Referring Physician: THIERNO ROWE Performed By: Mila Carranza, KLAUS, RVT
[2019-05-07] MEDS: Ceftriaxone 1 GM/50 ML BAG IV (11:14)
[2019-05-07] MEDS: dilTIAZem 30 MG Tablet PO ×2 (11:17→16:54)
[2019-05-07] MEDS: Digoxin 250 MCG/ML Ampul 500 MCG IV (13:23)
[2019-05-07] MEDS: Digoxin 250 MCG Tablet PO ×2 (16:54→20:46)
[2019-05-07] MEDS: Atorvastatin Calcium 40 MG Tablet PO (22:04)
[2019-05-08] VITALS (21 sets, daily range): BP systolic 109–149; BP diastolic 58–88; PULSE 82–138; RESP 18–23; TEMP 36.7–37.4; O2SAT 90–96
[2019-05-08] MEDS: dilTIAZem 30 MG Tablet PO ×2 (00:03→16:50)
[2019-05-08 00:26] LABS: Digoxin Level 3.24 ng/mL (0.80-2.00)
[2019-05-08] MEDS: Metoprolol Tartrate 50 MG Tablet PO ×2 (06:19→22:04)
[2019-05-08] MEDS: Amiodarone 200 MG Tablet PO ×3 (06:20→22:04)
[2019-05-08] MEDS: Levothyroxine 75 MCG Tablet PO (06:20)
--- NOTE | 2019-05-08 07:54 | PN_ITS ---
Patient Problems: Active and Suspected Problems Aortic stenosis, moderate (Acute) Pneumonia (Suspected) Subjective: Chief complaint: Follow-up after admission for community-acquired pneumonia, acute kidney injury and A. fib with RVR. Patient seen and examined. No acute events overnight. This morning, he feels better, shortness of breath is improving, still having some cough. He remained in A. fib, heart rate has been around 110, blood pressure stable. Pulse ox is maintained on 2 L of oxygen. - Physical Exam General: Alert, Oriented x3, Cooperative, No apparent distress HEENT: Atraumatic, PERRLA, EOMI, Normocephalic Oral: Moist Mucosa, No Gingival or Mucosal Lesions/ Ulcerations Neck: Supple, No JVD, Negative Carotid Bruits, Trachea Midline, Thyroid Normal Size and Texture Lungs: Normal air movement, No wheeze, No rales, Diminished, Rhonchi Cardiovascular: Normal S1, Normal S2, No murmurs, PMI Normal, Irregular Rate, Tachycardic Abdomen: Bowel Sounds Present, Soft, Non Tender, Non-Distended, No Hepato- splenomegaly Extremities: No clubbing, No cyanosis, No edema Skin: No rashes, No breakdown Lymphatic: No Cervical, Supraclavicular, or Inguinal Adenopathy Neurological: Cranial nerves II-XII grossly intact, Neuro grossly intact Psych/Mental Status: Normal Affect, Appropriate, Alert and oriented to time, place, person, mood and affect Vital Signs Temp Pulse Resp BP Pulse Ox 98.7 F 112 H 20 H 113/59 L 94 05/08/19 04:00 05/08/19 07:02 05/08/19 06:00 05/08/19 06:00 05/08/19 06:00 Oxygen Flow Rate (L/min) 2 Oxygen Delivery Method Nasal Cannula Weight: 178 lb 9.191 oz Body Mass Index (BMI) 22.9 Intake and Output for Last 24 Hours 05/06/19 05/07/19 05/08/19 23:59 23:59 23:59 Intake Total 2643.75 / 2643.75 1911.35 / 1911.35 200.20 / 200.20 Output Total 450 / 450 2150 / 2150 200 / 200 Balance 2193.75 / 2193.75 -238.65 / -238.65 0.20 / 0.20 Microbiology Past 72 Hours 05/05/19 10:37 Blood Culture - Preliminary Blood Culture (Wb) - Left Hand No growth in 48 hours. 05/05/19 10:25 Blood Culture - Preliminary Blood Culture (Wb) - Anticubital Right No growth in 48 hours. 05/05/19 14:10 Gram Stain - Final Sputum, Expectorated/Coughed Respiratory Culture - Final Mixed normal respiratory gela. No Streptococcus pneumoniae, beta-hemolytic Streptococcus or Staphylococcus aureus isolated. 05/05/19 14:45 Respiratory Panel (PCR) - Final Mucosa - Nasopharyngeal 05/05/19 17:35 Streptococcus pneumoniae Antigen (M - Final Urine, Clean Catch 05/05/19 17:35 Legionella Antigen - Final Urine, Clean Catch Laboratory Tests Past 24 Hrs 05/07/19 05/07/19 12:40 23:15 Digoxin Cancelled 3.24 H* Medical Necessity - Tobacco Use Smoking Status: Former smoker Tobacco Use: Non-smoker, Cigarettes Assessment/Plan All Active Problems Aortic stenosis, moderate (Acute) This is a 73 years old male patient presented to the emergency room because of shortness of breath, productive cough with green sputum and he was admitted for probable community-acquired pneumonia. After admission, patient developed A. fib with RVR. #1 Community acquired pneumonia: Remained on IV Rocephin and Zithromax. He has been afebrile, vital cell count is back to normal. Pneumococcal and Legionella antigen were negative. Respiratory panel for viruses were negative. Sputum culture revealed normal respiratory gela. Blood cultures showed no growth in 48 hours. Patient remains on low-flow oxygen. Plan to continue same treatment. #2 A. fib with RVR: Heart rate is improving but still in the 110s. He is off amiodarone drip. Received loading dose of oral digoxin but his digoxin level is elevated. He is on amiodarone p.o. as well as metoprolol. Blood pressure stable. Serum electrolytes are within normal limits. 2D echocardiogram reviewed, ejection fraction 55%, moderate aortic stenosis. Cardiology consulted. #3 acute kidney injury: He is off IV fluids, kidney function is improving. His creatinine on July, has been around 1.1 to 1.2 mg/dL. Before that, creatinine has been around 1.3 to 1.5 mg/dL. Admission creatinine was 2.07, came down to 1.39 yesterday. Plan to repeat BMP tomorrow morning. #4 moderately severe aortic stenosis: Patient had 2D echocardiogram on July, that revealed moderately severe aortic stenosis, ejection fraction was normal. 2D echocardiogram done yesterday and revealed moderate aortic stenosis, ejection fraction of 55%. #5 CAD status post stents: Stable, no acute ischemic changes. Patient denied any chest pain. Continue aspirin, statins and metoprolol. #6 COPD: Continue DuoNeb and albuterol, chest chest physiotherapy, incentive spirometer. #7 paroxysmal atrial fibrillation: He went into A. fib with RVR, plan as above. He is not on anticoagulation. #8 hypothyroidism: Continue levothyroxine. #9 hypertension: Blood pressure stable, continue Norvasc, lisinopril held because of acute kidney injury. #10 obstructive sleep apnea: Continue CPAP. #11 DVT prophylaxis: Subcu heparin. This note was generated with [employer] dictation software. It may contain incorrect words, spelling, and punctuation that were not noted in checking the note before signing. Code Visit Inpatient E&M: 33236 Subs Hosp L2
[2019-05-08] MEDS: Aspirin 81 MG TAB.CHEW PO (09:27)
[2019-05-08] MEDS: Ceftriaxone 1 GM/50 ML BAG IV (09:27)
[2019-05-08] MEDS: amLODIPine 5 MG Tablet PO (09:27)
[2019-05-08] MEDS: Pantoprazole Sodium 20 MG Tablet PO (09:28)
[2019-05-08] MEDS: Heparin Injection (Vial) 5,000 UNIT/ML VIAL 5000 UNIT SC ×2 (09:28→22:04)
[2019-05-08] MEDS: 0.9% NaCl Peripheral Flush Adult/Peds IV (09:38)
--- NOTE | 2019-05-08 15:13 | PCM.PN.CARD ---
Subjectve: Patient is feeling better today. Shortness of breath has improved. Objective: Vital Signs Temp Pulse Resp BP Pulse Ox 98.0 F 123 H 18 117/58 L 90 05/08/19 09:25 05/08/19 14:59 05/08/19 09:25 05/08/19 09:25 05/08/19 13:22 Oxygen Flow Rate (L/min) 2 Oxygen Delivery Method Nasal Cannula Weight: 178 lb 9.191 oz Body Mass Index (BMI) 22.9 Intake and Output for Last 24 Hours 05/06/19 05/07/19 05/08/19 23:59 23:59 23:59 Intake Total 2643.75 / 2643.75 1911.35 / 1911.35 610.20 / 610.20 Output Total 450 / 450 2150 / 2150 200 / 200 Balance 2193.75 / 2193.75 -238.65 / -238.65 410.20 / 410.20 General: Awake, Alert HEENT: Atraumatic Oral: Moist Mucosa Neck: Supple Lungs: Clear to auscultation Cardiovascular: Irregular Rhythm Abdomen: Soft Skin: No Rashes Psych/Mental Status: Appropriate 05/07/19 23:15: Digoxin 3.24 H* Rhythm: EKG: ECHO: Stress Test: Cardiac Cath: PCI: CT Surgery: Holter monitor: EPS: PPM: CXR: Chest CT Scan: Medical Necessity - Tobacco Use Smoking Status: Former smoker Tobacco Use: Non-smoker, Cigarettes Assessment/Plan 1. A. fib with RVR: Amiodarone has been switched to p.o. I will discontinue the amlodipine and add Cardizem. Patient has history of GI bleed requiring blood transfusions. We will hold off on anticoagulation at this time. Continue aspirin. We may be able to consider anticoagulation as an outpatient if felt to be clinically appropriate at that time. 2. Coronary artery disease: Status post stents in the past. Stable at this time continue current medications 3. Aortic stenosis: Moderate. Will monitor.
[2019-05-08] MEDS: Atorvastatin Calcium 40 MG Tablet PO (22:04)
--- NOTE | 2019-05-08 23:21 | CPS ---
Pt. placed on home CPAP unit. Settings are a CPAP of 4 cmH20. Water chamber was filled prior to [employer]LO[employer] SAL[employer] placing on mask. Pt. will use call light if any problems occur during the night so GLO[employer] SALES MA[employer]GER can troubleshoot machine if needed.
[2019-05-09] VITALS (10 sets, daily range): BP systolic 115–148; BP diastolic 64–78; PULSE 60–90; RESP 16–18; TEMP 36.6–36.8; O2SAT 91–97
[2019-05-09] MEDS: dilTIAZem 30 MG Tablet PO ×3 (00:37→11:45)
[2019-05-09] MEDS: Levothyroxine 75 MCG Tablet PO (06:12)
[2019-05-09] MEDS: Amiodarone 200 MG Tablet PO ×2 (06:12→13:32)
[2019-05-09 06:33] LABS: Absolute Neutrophil Count 7.9 X10^3/uL (2.0-7.7); Basophil# 0.03 X10^3/uL; Basophil% 0.3 % (0-1); Eosinophil# 0.22 X10^3/uL; Eosinophils% 2.1 % (0-5); Hematocrit 28.4 % (40-54); Hemoglobin 9.3 g/dL (13.0-16.5); Lymphocyte % 13.1 % (19-41); Mean Corp Hgb Conc 32.7 g/dL (32-36); Mean Corpuscular Volume 82.6 fL (80-94); Monocyte# 1.07 X10^3/uL; NRBC Flagged by Analyzer 0 % (0-5); Neutrophil # 7.86 X10^3/uL (2.7-7.7); Neutrophil % 73.6 % (47-70); POSITIVE MORPHOLOGY YES; Platelet Count 164 K/mm3 (150-450); RBC Distribution Width CV 13.7 % (11.6-14.6); RBC Distribution Width SD 41.2 fl (35.1-43.9); Red Blood Count 3.44 M/mm3 (4.6-6.2); White Blood Count 10.7 K/mm3 (4.4-11.0)
[2019-05-09 06:35] LABS: Differential Indicated SCAN CRITERIA MET
[2019-05-09 07:01] LABS: Anion Gap 10 (5-15); BUN 26 mg/dL (7-18); BUN/Creat Ratio 20.2 RATIO (10-20); Calcium,Total 8.4 mg/dL (8.5-10.1); Chloride 102 mmol/L (98-107); Creatinine, Serum 1.29 mg/dL (0.70-1.30); EST Glomerular Filtration Rate 58 mL/min (>60); Est Glom Filt Rate - Afr Amer 71 mL/min (>60); Estimated Creatinine Clearance 60.17 ml/min; Glucose 92 mg/dL (74-106); Potassium 3.7 mmol/L (3.5-5.1); Sodium Level 136 mmol/L (136-145)
[2019-05-09] MEDS: Aspirin 81 MG TAB.CHEW PO (07:54)
[2019-05-09] MEDS: Ceftriaxone 1 GM/50 ML BAG IV (09:14)
[2019-05-09] MEDS: Pantoprazole Sodium 20 MG Tablet PO (09:15)
[2019-05-09] MEDS: Metoprolol Tartrate 50 MG Tablet PO (09:15)
[2019-05-09] MEDS: Heparin Injection (Vial) 5,000 UNIT/ML VIAL 5000 UNIT SC (09:15)
[2019-05-09] MEDS: 0.9% NaCl Peripheral Flush Adult/Peds IV (09:44)
--- NOTE | 2019-05-09 12:19 | DCINST_ITS ---
- Discharge Diagnoses Current Active Problems: Current Active and Chronic Problems PAF (paroxysmal atrial fibrillation) (Chronic) Valvular heart disease (Chronic) EDIS (obstructive sleep apnea) (Chronic) You will use the following diet at home:: Cardiac Your food should be the consistency of: Regular Discharge Activity: Return to Normal Activity Weight Bearing Status: Weight bearing as tolerated Call your doctor if you observe: Fever of 101 or Higher, Shortness of breath, Dizziness, Fainting spells, Chest pain, Increased palpitations (irregular heartbeat), Uncontrolled pain Allergies/Adverse Reactions: Allergies No Known Allergies Allergy (Verified 05/05/19 10:15) Medications to take at Discharge Albuterol IH (ProAir) [Proair Hfa] 1 - 2 puff INHALATION Q4H PRN PRN 10/20/17 Atorvastatin Calcium 40 mg PO QHS 10/20/17 Levothyroxine 75 mcg PO DAILY 10/20/17 Niacin 500 mg PO QHS 10/20/17 Cholecalciferol (VIT D3) [Vitamin D3] 1,000 unit PO QHS 08/01/18 Cyanocobalamin [Vitamin B12] 1,000 mcg PO QHS 08/01/18 Folic Acid 1 mg PO QHS 08/01/18 Omeprazole [Prilosec] 20 mg PO DAILY 08/01/18 Aspirin 81 mg PO DINNER 05/05/19 Amiodarone HCl [Cordarone] 200 mg PO BID #90 tab 05/09/19 Cefdinir [Omnicef [equiv]] 300 mg PO Q12H #8 cap 05/09/19 Diltiazem CD [Cardizem CD] 120 mg PO DAILY #90 cap 05/09/19 Lisinopril 20 mg PO LUNCH #90 tab 05/09/19 Metoprolol Tartrate [Lopressor (beta joce)] 50 mg PO BID #90 tab 05/09/19 The following prescriptions were given: Diltiazem CD [Cardizem CD] 120 mg PO DAILY #90 cap Transmission Status: Pending to [id number] Amiodarone HCl [Cordarone] 200 mg PO BID #90 tab Transmission Status: Pending to [facility][id number] Lisinopril 20 mg PO LUNCH #90 tab Transmission Status: Pending to [facility][id number] Metoprolol Tartrate [Lopressor (beta joce)] 50 mg PO BID #90 tab Transmission Status: Pending to [facility][id number] Cefdinir [Omnicef [equiv]] 300 mg PO Q12H #8 cap Transmission Status: Pending to [id number] Primary Care Physician: Yeison Maynard MD [Primary Care Provider] - Please follow up with your Primary Care Physician in: 1 week. Test Results: Test results from this visit will be discussed in further detail at your follow- up appointment, if applicable. Please Follow Up With: Vahe Jesus MD When: 2 weeks.
--- NOTE | 2019-05-09 12:44 | PCM.DC.SUM ---
Discharge Date and Diagnosis - Problem List Patient Problems: Active and Suspected Problems Pneumonia (Suspected) Date of Admission: 05/05/19 Date of Discharge: 05/09/19 - Primary Discharge Diagnosis Active and Suspected Problems #1 community-acquired pneumonia. #2 A. fib with RVR. #3 acute kidney injury. #4 moderate aortic stenosis. - Secondary Discharge Diagnosis Chronic Problems PAF (paroxysmal atrial fibrillation) (Chronic) Valvular heart disease (Chronic) EDIS (obstructive sleep apnea) (Chronic) Hypothyroidism (Chronic) Hyperlipidemia (Chronic) Coronary artery disease (Chronic) Status post stents. HTN (hypertension) (Chronic) COPD (chronic obstructive pulmonary disease) (Chronic) Hospital Course and Treatment Imaging Results: Clinical Impression(s) from Imaging Studies Chest X-Ray 05/05/19 10:43 IMPRESSION: Emphysema without pneumonia or atelectasis. Electronically Signed: Dawit Torres MD at 11:44 EDT Tel , Service support , Chest X-Ray 05/06/19 08:05 IMPRESSION: No change in small right pleural effusion. Electronically Signed: Dawit Torres MD at 9:03 EDT Tel , Service support , Dr. Jay/Dr. Jesus, cardiology. Procedures: 2-D Echocardiogram, EKG Summary of Care Provided: Patient seen and examined on the day of discharge and appeared to be stable to be discharged home. He was taken off oxygen and pulse ox is maintained on room air. Patient stated that his shortness of breath is getting better every day. Denied chest pain or palpitation. Heart rate has been in the 80s, blood pressure stable. This is a 73 years old male patient presented to the emergency room because of shortness of breath, productive cough with green sputum and he was admitted for community-acquired pneumonia. After admission, patient developed A. fib with RVR. #1 Community acquired pneumonia: Treated with IV Rocephin and Zithromax. Pneumococcal and Legionella antigen were negative. Respiratory panel for viruses were negative. Sputum culture revealed normal respiratory gela. Blood cultures showed no growth in 48 hours. Patient discharged on Omnicef 300 mg p.o. twice daily for 4 days more to complete total of 7 days of treatment. #2 A. fib with RVR: Treated with IV Cardizem drip and then started on IV amiodarone drip because heart rate was not controlled. Cardiology consulted. Also, he was given loading dose of digoxin and his digoxin level came back elevated. Later, patient was started on oral amiodarone as well as oral Cardizem and dose of metoprolol increased to 50 mill grams p.o. twice daily. serum electrolytes are within normal limits. 2D echocardiogram reviewed, ejection fraction 55%, moderate aortic stenosis. After kept on amiodarone, Cardizem and metoprolol, heart rate stabilized. Patient discharged on amiodarone 200 mg p.o. twice daily for 2 weeks and then requested to take 200 mg p.o. daily, discharged on Cardizem CD 120 mg p.o. daily, metoprolol 50 mg p.o. twice daily, patient was not started on anticoagulation according to cardiology recommendations, plan to follow-up with cardiology as outpatient. #3 acute kidney injury: Treated with IV fluids and his kidney function improved. Creatinine on July, has been around 1.1 to 1.2 mg/dL. Before that, creatinine has been around 1.3 to 1.5 mg/dL. Admission creatinine was 2.07, came down to 1.29 upon discharge. #4 moderately severe aortic stenosis: 2D echocardiogram revealed ejection fraction of 55% and moderate aortic stenosis as above. #5 CAD status post stents: Continue with on aspirin, statins and metoprolol as well as lisinopril. #8 hypothyroidism: Continued on levothyroxine. #9 hypertension: Discharged on metoprolol, Cardizem, lisinopril with adjusted dose down to 20 mg p.o. daily, Norvasc discontinued. Patient discharged home in a stable medical condition, discharged on the medications as outlined above, discharged on Omnicef for 4 more days of treatment to complete total of 7 days of treatment for pneumonia, plan to follow-up with cardiology in 2 to 3 weeks, recommended follow-up with PCP in 1 week. This note was generated with [employer] software. It may contain incorrect words, spelling, and punctuation that were not noted in checking the note before signing. Patient Problems: Active and Suspected Problems Pneumonia (Suspected) - Physical Exam General: Alert, Oriented x3, Cooperative, No apparent distress HEENT: Atraumatic, PERRLA, EOMI, Normocephalic Oral: Moist Mucosa, No Gingival or Mucosal Lesions/ Ulcerations Neck: Supple, No JVD, Negative Carotid Bruits, Trachea Midline, Thyroid Normal Size and Texture Lungs: Clear to auscultation, No wheeze, No rales, Diminished, Rhonchi Cardiovascular: Normal S1, Normal S2, PMI Normal, Irregular Rate Abdomen: Bowel Sounds Present, Soft, Non Tender, Non-Distended, No Hepato-splenomegaly Extremities: No clubbing, No cyanosis, No edema Skin: No rashes, No breakdown Lymphatic: No Cervical, Supraclavicular, or Inguinal Adenopathy Neurological: Cranial nerves II-XII grossly intact, Neuro grossly intact Psych/Mental Status: Normal Affect, Appropriate Vital Signs Temp Pulse Resp BP Pulse Ox 98.3 F 88 18 141/74 H 91 05/09/19 09:10 05/09/19 11:42 05/09/19 09:10 05/09/19 11:42 05/09/19 11:42 Oxygen Flow Rate (L/min) 2 Oxygen Delivery Method Room Air Weight: 178 lb 9.191 oz Body Mass Index (BMI) 22.9 Intake and Output for Last 24 Hours 05/07/19 05/08/19 05/09/19 23:59 23:59 23:59 Intake Total 1911.35 / 1911.35 1510.20 / 1510.20 170 / 170 Output Total 2150 / 2150 800 / 800 Balance -238.65 / -238.65 710.20 / 710.20 170 / 170 Microbiology Past 72 Hours 05/05/19 10:37 Blood Culture - Preliminary Blood Culture (Wb) - Left Hand No growth in 48 hours. 05/05/19 10:25 Blood Culture - Preliminary Blood Culture (Wb) - Anticubital Right No growth in 48 hours. 05/05/19 14:10 Gram Stain - Final Sputum, Expectorated/Coughed Respiratory Culture - Final Mixed normal respiratory gela. No Streptococcus pneumoniae, beta-hemolytic Streptococcus or Staphylococcus aureus isolated. 05/05/19 14:45 Respiratory Panel (PCR) - Final Mucosa - Nasopharyngeal Laboratory Tests Past 24 Hrs 05/09/19 05/09/19 06:03 06:03 WBC 10.7 RBC 3.44 L Hgb 9.3 L Hct 28.4 L MCV 82.6 MCH 27.0 MCHC 32.7 RDW Std Deviation 41.2 RDW Coeff of Walker 13.7 Plt Count 164 MPV 12.0 Immature Gran % (Auto) 0.900 Neut % (Auto) 73.6 H Lymph % (Auto) 13.1 L Saline % (Auto) 10.0 Eos % (Auto) 2.1 Baso % (Auto) 0.3 Absolute Neuts (auto) 7.9 H Absolute Lymphs (auto) 1.40 Nucleated RBC % 0 Sodium 136 Potassium 3.7 Chloride 102 Carbon Dioxide 24.0 Anion Gap 10 BUN 26 H Creatinine 1.29 Estim Creat Clear Calc 60.17 Est GFR (MDRD) Af Amer 71 Est GFR (MDRD) Non-Af 58 L BUN/Creatinine Ratio 20.2 H Glucose 92 Calcium 8.4 L Discharge Activity: Return to Normal Activity Weight Bearing Status: Weight bearing as tolerated Call your doctor if you observe: Fever of 101 or Higher, Shortness of breath, Dizziness, Fainting spells, Chest pain, Increased palpitations (irregular heartbeat), Uncontrolled pain Home Medications: Medications to take at Discharge Albuterol IH (ProAir) [Proair Hfa] 1 - 2 puff INHALATION Q4H PRN PRN 10/20/17 Atorvastatin Calcium 40 mg PO QHS 10/20/17 Levothyroxine 75 mcg PO DAILY 10/20/17 Niacin 500 mg PO QHS 10/20/17 Cholecalciferol (VIT D3) [Vitamin D3] 1,000 unit PO QHS 08/01/18 Cyanocobalamin [Vitamin B12] 1,000 mcg PO QHS 08/01/18 Folic Acid 1 mg PO QHS 08/01/18 Omeprazole [Prilosec] 20 mg PO DAILY 08/01/18 Aspirin 81 mg PO DINNER 05/05/19 Amiodarone HCl [Cordarone] 200 mg PO BID #90 tab 05/09/19 Cefdinir [Omnicef [equiv]] 300 mg PO Q12H #8 cap 05/09/19 Diltiazem CD [Cardizem CD] 120 mg PO DAILY #90 cap 05/09/19 Lisinopril 20 mg PO LUNCH #90 tab 05/09/19 Metoprolol Tartrate [Lopressor (beta joce)] 50 mg PO BID #90 tab 05/09/19 Following Prescrptions Were Given to Patient: Diltiazem CD [Cardizem CD] 120 mg PO DAILY #90 cap Transmission Status: [facility] by [id number] Amiodarone HCl [Cordarone] 200 mg PO BID #90 tab Transmission Status: Received by [id number] Lisinopril 20 mg PO LUNCH #90 tab Transmission Status: Received by [id number] Metoprolol Tartrate [Lopressor (beta joce)] 50 mg PO BID #90 tab Transmission Status: Received by [id number] Cefdinir [Omnicef [equiv]] 300 mg PO Q12H #8 cap Transmission Status: Re[facility] by [id number] Primary Care Physician: Yeison Maynard MD [Primary Care Provider] - Please follow up with your Primary Care Physician in: 1 week. Please Follow Up With: Vahe Jesus MD When: 2 weeks. Disposition: Home Minutes spent on discharge:: 34 Patient Condition:: Stable Medical Necessity - Tobacco Use Smoking Status: Former smoker Tobacco Use: Non-smoker, Cigarettes Meaningful Use Info Meaningful Use Diagnoses (Choose all that apply): None applicable Code Visit Inpatient E&M: 71871 Disch Hosp
--- NOTE | 2019-05-09 13:18 | NURSING ---
Patient aware he is being discharged does not have a ride at the moment. Working on a ride.
--- NOTE | 2019-05-11 16:09 | CASEMGMT ---
MARK CM DC Call Note DC Date: 05/09/19 DC Disposition: Home Diagnosis: pneumonia Attempted call to phone. No answer, and no message machine with name identifier. Nati YANES RN ACM
== END 2019-05-09 16:17 | disposition home or self-care (01) | DRG 194 ==
LOC: ED 10:15 → MS3 12:21 → PCU 05-07 01:31
PROVIDERS: Admitting Provider Family Medicine; Emergency Provider Emergency Medicine; Family Provider Family Medicine; PCP Family Medicine; Referring Provider Family Medicine; Visit Provider Hospitalist
DX: J18.9 Pneumonia, unspecified organism (principal); N17.9 Acute kidney failure, unspecified; J44.0 Chronic obstructive pulmonary disease with (acute) lower respiratory infection; E03.9 Hypothyroidism, unspecified; I25.10 Atherosclerotic heart disease of native coronary artery without angina pectoris; I35.0 Nonrheumatic aortic (valve) stenosis; E78.5 Hyperlipidemia, unspecified; K21.9 Gastro-esophageal reflux disease without esophagitis; G47.33 Obstructive sleep apnea (adult) (pediatric); I10 Essential (primary) hypertension; I48.0 Paroxysmal atrial fibrillation; Z95.5 Presence of coronary angioplasty implant and graft; Z87.891 Personal history of nicotine dependence
CPT/HCPCS: 36415; 71046; 80048; 80053; 80162; 81001; 83605; 83735; 83880; 84484; 85025; 85610; 85730; 87040; 87070; 87205; 87449; 87633; 93005; 93306; 94640; 94667; 94668; 97802; 99285; J7030; A4216; J1940

== ENCOUNTER 2019-05-14 00:51 | Inpatient (IN) | payer BC, MEDICARE, SELFPAY ==
[2019-05-05 12:49] VITALS: BMI 22.9
[2019-05-14] VITALS (29 sets, daily range): BP systolic 124–160; BP diastolic 58–86; PULSE 57–83; RESP 16–25; TEMP 36.3–36.9; O2SAT 93–97; BMI 23.5; BMI 22.9; BMI 23.0
--- NOTE | 2019-05-14 01:01 | RAD_ITS ---
STUDY: X-RAY CHEST REASON FOR EXAM: Male, 73 years old. Shortness of breath TECHNIQUE: 2 views of the chest were obtained COMPARISON: May 06, 2019 chest radiograph FINDINGS: Redemonstration of small right-sided pleural effusion. Bilateral patchy interstitial and airspace opacities again noted. A small left apical pneumothorax is seen. Trace left-sided pleural effusion also present. No free air under the diaphragm. IMPRESSION: Redemonstration of small bilateral pleural effusions with bilateral patchy interstitial and airspace opacities may relate with chronic interstitial lung disease however superimposed pneumonia or pulmonary edema is a diagnostic consideration.. Mild enlargement of the left hilar shadow similar to previous exam. Subtle lucency in the left lung apex likely represents a small pneumothorax. Short-term follow-up imaging is suggested. Electronically Signed: Rome Jose, at 1:42 EDT Tel , Service support , RAD/Chest PA and Lateral
--- NOTE | 2019-05-14 01:01 | EKG12_ITS ---
Test Reason : SOB Blood Pressure : / mmHG Vent. Rate : 068 BPM Atrial Rate : 068 BPM P-R Int : 196 ms QRS Dur : 108 ms QT Int : 486 ms P-R-T Axes : 069 059 027 degrees QTc Int : 516 ms Sinus rhythm with occasional Premature ventricular complexes Nonspecific ST and T wave abnormality Prolonged QT Abnormal ECG Confirmed by ARGENIS SAMSON, RENA ([id number]), movie editor ESTUARDO SPARROW ([id number]) on 05/15/2019 10:14:52 A M Referred By: [facility] Confirmed By:DINA MORE MD
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
[2019-05-14] MEDS: Ipratropium/Albuterol Sulfate 3 ML AMPUL.NEB INHALATION ×5 (01:11→18:47)
[2019-05-14 01:13] LABS: Absolute Lymphocyte Count 1.04 X10^3/uL (0.83-4.51); Absolute Neutrophil Count 10.9 X10^3/uL (2.0-7.7); Basophil# 0.04 X10^3/uL; Basophil% 0.3 % (0-1); Eosinophil# 0.19 X10^3/uL; Eosinophils% 1.5 % (0-5); Hematocrit 34.1 % (40-54); Hemoglobin 10.9 g/dL (13.0-16.5); Lymphocyte # 1.04 X10^3/ul (4.0); Mean Corpuscular Hgb 27.5 pg (27.0-32.0); Mean Corpuscular Volume 85.9 fL (80-94); Mean Platelet Vol. 11.2 fl (6.2-12.0); Monocyte# 0.77 X10^3/uL; Monocyte% 5.9 % (0-10); NRBC Flagged by Analyzer 0 % (0-5); Neutrophil # 10.86 X10^3/uL (2.7-7.7); Neutrophil % 83.8 % (47-70); Platelet Count 354 K/mm3 (150-450); RBC Distribution Width SD 43.8 fl (35.1-43.9); Red Blood Count 3.97 M/mm3 (4.6-6.2)
[2019-05-14] MEDS: Albuterol 2.5 MG/3 ML VIAL.NEB. INHALATION ×3 (01:17→01:54)
[2019-05-14 01:35] LABS: Anion Gap 6 (5-15); BUN 19 mg/dL (7-18); BUN/Creat Ratio 14.1 RATIO (10-20); Calcium,Total 8.6 mg/dL (8.5-10.1); Chloride 102 mmol/L (98-107); Creatinine, Serum 1.35 mg/dL (0.70-1.30); EST Glomerular Filtration Rate 55 mL/min (>60); Est Glom Filt Rate - Afr Amer 67 mL/min (>60); Estimated Creatinine Clearance 58.35 ml/min; Glucose 114 mg/dL (74-106); Potassium 4.4 mmol/L (3.5-5.1); Sodium Level 135 mmol/L (136-145)
--- NOTE | 2019-05-14 02:37 | CT_ITS ---
STUDY: CT CHEST WITHOUT CONTRAST REASON FOR EXAM: Male, 73 years old. Shortness of breath history of recent pneumonia RADIATION DOSAGE (If Supplied By Facility): CTDIvol = ( 13.97 ) mGy, DLP = ( 555.11 ) mGycm TECHNIQUE: Transaxial imaging was performed without the administration of intravenous contrast material. Individualized dose optimization techniques were used for this CT. COMPARISON: May 14, 2019 FINDINGS: Multiple bilateral pulmonary nodules as well as a patchy groundglass densities noted. There is loculated fluid in the major fissures with small pleural effusions. Patchy bilateral airspace disease. No definite pneumothorax is seen. Cardiac size is enlarged. Coronary vascular calcifications Calcifications of the thoracic aorta. Mediastinal adenopathy calcifications of the aortic arch as well as the origin of the great vessels. Upper abdominal structures demonstrate no acute abnormalities. Calcifications of the abdominal aorta. Degenerative changes of the thoracic spine. Calcified granuloma in the left lung. Left thyroid lobe nodule IMPRESSION: Cardiomegaly with small bilateral pleural effusions and patchy groundglass densities may relate with pulmonary edema or atypical infection. Patchy bilateral airspace disease Multiple bilateral randomly distributed pulmonary nodules. Differential considerations include infectious, inflammatory or neoplastic processes. No definite evidence for pneumothorax. Mediastinal adenopathy Electronically Signed: Rome Jose, at 3:10 EDT Tel , Service support , CT/Chest without Contrast
[2019-05-14] MEDS: levoFLOXacin IV 750 MG/150 ML BAG 100 MG IV (03:54)
[2019-05-14] MEDS: MethylPREDNISolone 125 MG/2 ML Vial IV (03:54)
[2019-05-14 03:55] LABS: BNP,B-Type NATRIURETIC PEPTIDE 603.6 pg/mL (0-100)
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
[2019-05-14] MEDS: 0.9% Normal Saline 1,000 ML 100 ML IV (05:31)
[2019-05-14] MEDS: Levothyroxine 75 MCG Tablet PO (05:50)
--- NOTE | 2019-05-14 07:30 | PCM.PROGNOTE ---
Patient Problems: Active and Suspected Problems Pneumonia (Acute) Pleural effusion (Acute) Hypoxia (Acute) Subjective: The patient is a 73-year-old male with a past medical history of moderate aortic stenosis, paroxysmal atrial fibrillation, history of right testicular cancer (in the 's), obstructive sleep apnea, hypothyroidism, hyperlipidemia, coronary artery disease with stenting of the LAD, hypertension, previous history of GI bleed requiring a hospital admission in July 2018 and COPD(has never had PFT's) who presented to the emergency department at [facility] on 05/14/2019 complaining of shortness of breath. He had been admitted to [facility] [place] from 05/05/19 to 05/09/2019 and treated for CAP. Work-up was negative for an infectious agent and he was discharged home on Omnicef to complete 7 days of treatment. He still has 1 day of Omnicef left to take. During his last stay in the hospital he was started on amiodarone for paroxysmal atrial fibrillation. He also takes Cardizem. Vital signs at presentation to the emergency room were temperature 97.5, pulse rate 70, blood pressure 160/85, respiratory rate 18 and he was 94% saturated on a 3 L nasal cannula. At discharge from the hospital on 05/09/2019 he was 91 to 92% on room air. CBC shows an elevated white blood cell count of 13 with a left shift. Hemoglobin is 10.9, up from 9.3 on 05/09/2019. Platelets were within normal limits. MCV and MCH are within normal limits. Sodium was low at 135 and the BUN was 19 with a creatinine of 1.35, up from 1.29 on 05/09/2019. Troponin was less than 0.015 and the BNP was elevated at 603.6. He was admitted to the hospital with suspected worsening PNA with suspicion of coexisting CHF. A CT scan of the chest was obtained and showed multiple bilateral pulmonary nodules as well as patchy groundglass densities. There was loculated fluid in the fissures with small pleural effusions, left greater than right. There was mediastinal adenopathy present. Echocardiogram done 05/07/2019 showed an estimated EF of 55% with mild MR and moderate aortic stenosis. The aortic valve area was 1.1 cm?. He had mild biatrial enlargement. All events of the past 24 hours have been reviewed. Afebrile since admission. Blood pressures have ranged from 124/80 to 160/85. Current blood pressure is 147/75. He is currently 95% saturated on 3 L nasal cannula. All lab was personally reviewed. BNP on 05/06/19 was 349 Not on anticoagulation due to hx of GIB. He has been taking antihistamines as an outpatient to help with what he thought was allergies. Currently his cough is mostly dry and he is having trouble expectorating sputum. He states the sputum is sticky when he is able to get it up and it is brownish in color. He denies sore throat, nasal congestion, ear pain, chest pain, nausea, vomiting, abdominal pain, diarrhea. He has had no swelling in his ankles. - Physical Exam General: Alert, Oriented x3, Cooperative, No apparent distress, Well developed HEENT: Atraumatic, PERRLA, EOMI, Normocephalic Oral: Dry Mucosa, - - poor dentition with many missing teeth Neck: Supple, No Nodes, No Nuchal Rigidity, Trachea Midline, Carotid Bruits, Bilateral - vs radiation of the MM Lungs: No wheeze, Diminished, Rales, - - He is not tachypneic at rest. He has no conversational dyspnea and no accessory muscle use. There is symmetric chest expansion. Cardiovascular: Regular rate, Regular Rhythm, Normal S1, Normal S2, Murmur - 3/6 JOAO at the 2nd RICS with radiation to the LVOT, LLSB, apex and into the left axilla, No rub noted, No Gallop, - - frequent ectopic beats Abdomen: Bowel Sounds Present, Soft, Non Tender, Non-Distended Extremities: No clubbing, No cyanosis, No edema, No Calf Tenderness, Peripheral Pulses Normal Skin: No rashes, No breakdown Neurological: Cranial nerves II-XII grossly intact, Neuro grossly intact Psych/Mental Status: Normal Affect, Appropriate Vital Signs Temp Pulse Resp BP Pulse Ox 97.5 F L 73 20 H 151/61 H 96 05/14/19 05:11 05/14/19 05:11 05/14/19 05:11 05/14/19 05:12 05/14/19 05:11 Oxygen Flow Rate (L/min) 3 Oxygen Delivery Method Nasal Cannula Weight: 178 lb 12.718 oz Body Mass Index (BMI) 22.9 Intake and Output for Last 24 Hours 05/12/19 05/13/19 05/14/19 23:59 23:59 23:59 Intake Total 376.67 / 376.67 Output Total 250 / 250 Balance 126.67 / 126.67 Laboratory Tests Past 24 Hrs 05/14/19 05/14/19 05/14/19 00:50 00:50 00:50 WBC 13.0 H RBC 3.97 L Hgb 10.9 L Hct 34.1 L MCV 85.9 MCH 27.5 MCHC 32.0 RDW Std Deviation 43.8 RDW Coeff of Walker 14.0 Plt Count 354 MPV 11.2 Immature Gran % (Auto) 0.500 Neut % (Auto) 83.8 H Lymph % (Auto) 8.0 L Dickinson % (Auto) 5.9 Eos % (Auto) 1.5 Baso % (Auto) 0.3 Absolute Neuts (auto) 10.9 H Absolute Lymphs (auto) 1.04 Nucleated RBC % 0 Sodium 135 L Potassium 4.4 Chloride 102 Carbon Dioxide 27.0 Anion Gap 6 BUN 19 H Creatinine 1.35 H Estim Creat Clear Calc 58.35 Est GFR (MDRD) Af Amer 67 Est GFR (MDRD) Non-Af 55 L BUN/Creatinine Ratio 14.1 Glucose 114 H Calcium 8.6 Troponin I < 0.015 B-Natriuretic Peptide 603.6 H Medical Necessity - Tobacco Use Smoking Status: Former smoker Assessment/Plan All Active Problems Pneumonia (Acute) Pleural effusion (Acute) Hypoxia (Acute) Aortic stenosis, moderate (Acute) Day #1 vancomycin and Zosyn Impressions 1. sepsis due to PNA with RR > 20, WBC > 12,000 and PNA on the CXR - recently treated for CAP but CXR now is worse and so this may be hospital acquires at this time. Antibiotic coverage has been broadened to include vancomycin and Zosyn. 2. Acute hypoxic respiratory insufficiency secondary to combined congestive heart failure and pneumonia. Supplemental oxygen provided. Aerosolized bronchodilators and steroids have been ordered. Shayne has been consulted and I reviewed his consultation and appreciate his input. Incentive spirometry ordered. 3. Obstructive sleep apnea-compliant with CPAP 4. Suspected COPD-this cannot be confirmed because he has never had pulmonary function test. He was a heavy smoker in the past for many years. He uses a rescue inhaler only at home. 5. Tobacco dependency in remission 6. Moderate aortic stenosis 7. Remote history of testicular cancer in the 8. Recent paroxysmal atrial fibrillation currently in normal sinus rhythm on amiodarone and Cardizem. We will continue outpatient medications. 9. Hypothyroidism/hyperlipidemia/coronary artery disease with stenting of the LAD/hypertension -continue outpatient medications 10. Chronic stage III renal failure 11. Normochromic normocytic anemia-etiology not clear 11. DVT prophylaxis with enoxaparin and SCDs Ambulatory pulse ox prior to discharge to determine oxygen requirement.
[2019-05-14] MEDS: Pantoprazole Sodium 20 MG Tablet PO (09:24)
[2019-05-14] MEDS: Enoxaparin 40 MG/0.4 ML Syringe SC (09:24)
[2019-05-14] MEDS: Amiodarone 200 MG Tablet PO (09:24)
[2019-05-14] MEDS: Metoprolol Tartrate 50 MG Tablet PO ×2 (09:24→21:37)
[2019-05-14] MEDS: dilTIAZem CD 120 MG Capsule PO (09:24)
[2019-05-14] MEDS: Lisinopril 20 MG Tablet PO (11:39)
[2019-05-14] MEDS: 0.9% NaCl Peripheral Flush Adult/Peds IV ×5 (11:40→21:42)
[2019-05-14] MEDS: Furosemide 40 MG/4 ML Vial IV (12:23)
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
--- NOTE | 2019-05-14 15:49 | CASEMGMT ---
Addendum entered by Arin Leonardo 05/15/19 11:50: To patient bedside, patient alert and oriented, introduced self and role and patient agrees to s/w this film writer. S/w patient at bedside about DC Planing coordination and needs. Pending PT eval, Discussed if addtional therapy was recommended would patient be willing to have HHC. Patient declines HHC and states that he is feeling much better since this change in ABX. Discussed and offered CCN referral and declines. States that his is pretty good with the educating and understanding of medications and treatment. has a good family support that live near him and are capable of assisting with his care needs if needed which include a brother, sister, son, grnddtr who has worked in [facility], and a dtr-in-law who is a nurse here at this hospital. Dtr-in-law has been on him to f/u with Pul-Dr Bella and that is his plan. [facility] visits his PCP approx every 6months or sooner if needed. Denies any difficulties obtaining appointments or f/u. Denies any issues with transportation, or obtaining/taking medications. States ambulates independently and denies needing any device to assist. This information relayed to primary CM Arin S. Patient denies any concerns, issues, or questions with DC planning at this time. Aware CM remains available for any emerging needs. SERGE Albert Original Note: Case Management Readmission Chart Review Progress Note: Last Admit: 05/05-05/09 for Pna, IWONA- Dc'd on Omnicef and has been taking with 1 day left when re-admitted. Re-Admitted 05/14/19 for Pna, Pleural effusion, Hypoxia. Currently requiring Oxygen at [facility], Continue to follow for Possible Home Oxygen need on DC, CPAP is through [facility]. Refer to assessment done on 05/06/19 for additional information. CM to continue to follow for DC planning and coordination needs. SERGE Albert
[2019-05-14] MEDS: Aspirin 81 MG TAB.CHEW PO (16:56)
[2019-05-14 17:18] LABS: M R Staph aureus DNA By PCR Negative (Negative); Probe Check PASS; Specimen Processing Control PASS
[2019-05-14 18:29] LABS: Erythrocyte Sedimentation Rate > 130 mm/hr (0-20)
[2019-05-14 18:37] LABS: Thyroid Stim Hormone (TSH) 3.19 uIU/mL (0.358-3.74)
[2019-05-14 21:23] LABS: Bacteria 0 SEEN /hpf (None Seen); Mucous, Urine 0 SEEN /hpf (<or=2+); White Blood Cells 0 SEEN /hpf (0-5)
[2019-05-14 21:24] LABS: Color, Urine Yellow (Yellow); Glucose, Dipstick 50 mg/dl (Normal); Ketone-Dipstick Negative (Negative); Leukocyte Esterase-Dipstick Negative /ul (Negative); Nitrite-Dipstick Negative (Negative); Occult Blood-Urine 50 /ul (Negative); Protein-Dipstick 100 mg/dl (Negative); Urine Bilirubin Dipstick Negative (Negative); Urine Clarity Clear (Clear); Urine Urobilinogen Normal (Normal)
[2019-05-14] MEDS: Cyanocobalamin 500 MCG Tablet 1000 MCG PO (21:36)
[2019-05-14] MEDS: Folic Acid 1 MG Tablet PO (21:36)
[2019-05-14] MEDS: Atorvastatin Calcium 40 MG Tablet PO (21:36)
[2019-05-14] MEDS: Niacin SA 500 MG Tablet PO (21:36)
[2019-05-14 22:00] LABS: Red Blood Cells-Urine 0-5 SEEN /hpf (0-5); Squamous Epithelial Cells - UA 0-5 SEEN /hpf (0-5)
[2019-05-15] VITALS (17 sets, daily range): BP systolic 114–132; BP diastolic 60–75; PULSE 48–85; RESP 16–18; TEMP 36.4–37.1; O2SAT 95–100
[2019-05-15 04:58] LABS: Absolute Lymphocyte Count 0.62 X10^3/uL (0.83-4.51); Absolute Neutrophil Count 15.2 X10^3/uL (2.0-7.7); Basophil# 0.02 X10^3/uL; Basophil% 0.1 % (0-1); Hematocrit 29.3 % (40-54); Hemoglobin 9.5 g/dL (13.0-16.5); Lymphocyte # 0.62 X10^3/ul (4.0); Lymphocyte % 3.8 % (19-41); Mean Corp Hgb Conc 32.4 g/dL (32-36); Mean Corpuscular Hgb 27.5 pg (27.0-32.0); Mean Corpuscular Volume 84.9 fL (80-94); Mean Platelet Vol. 11.2 fl (6.2-12.0); Monocyte# 0.35 X10^3/uL; Monocyte% 2.1 % (0-10); NRBC Flagged by Analyzer 0 % (0-5); Neutrophil # 15.16 X10^3/uL (2.7-7.7); Neutrophil % 93.1 % (47-70); Platelet Count 341 K/mm3 (150-450); Red Blood Count 3.45 M/mm3 (4.6-6.2); White Blood Count 16.3 K/mm3 (4.4-11.0)
[2019-05-15 05:27] LABS: ALB/GLOB Ratio 0.4 RATIO (0.9-2.4); AST(SGOT) 42 U/L (15-37); Alanine Aminotransfer ALT/SGPT 42 U/L (16-61); Albumin, Serum 2.1 g/dL (3.2-5.0); Alkaline Phosphatase 185 U/L (45-117); Anion Gap 9 (5-15); BUN 22 mg/dL (7-18); BUN/Creat Ratio 16.9 RATIO (10-20); Calcium,Total 8.5 mg/dL (8.5-10.1); Chloride 105 mmol/L (98-107); EST Glomerular Filtration Rate 58 mL/min (>60); Est Glom Filt Rate - Afr Amer 70 mL/min (>60); Estimated Creatinine Clearance 59.79 ml/min; Globulin 5.3 g/dL (2.2-4.2); Glucose 149 mg/dL (74-106); Phosphorus 4.1 mg/dL (2.5-4.9); Potassium 4.2 mmol/L (3.5-5.1); Protein, Total 7.4 g/dL (6.4-8.2); Sodium Level 140 mmol/L (136-145)
[2019-05-15] MEDS: 0.9% NaCl Peripheral Flush Adult/Peds IV ×3 (05:31→21:17)
[2019-05-15] MEDS: Levothyroxine 75 MCG Tablet PO (05:37)
--- NOTE | 2019-05-15 06:32 | PN_ITS ---
Patient Problems: Active and Suspected Problems Pneumonia (Acute) Pleural effusion (Acute) Hypoxia (Acute) Subjective: The patient was seen and examined at the bedside this morning. Events from the last 24 hours have been reviewed. The patient is currently afebrile, hemodynamically stable and maintaining appropriate oxygen saturations on 3 L/min via nasal cannula. Breathing quality has improved over the last 24 hours. Objective: The patient's most recent lab work, culture data and imaging studies have all been personally reviewed. Sputum culture is currently pending. - Physical Exam General: Alert, Oriented x3, Cooperative, No apparent distress HEENT: Atraumatic, PERRLA, Normocephalic Oral: No Gingival or Mucosal Lesions/ Ulcerations Neck: Supple, No Nodes, Trachea Midline Lungs: No rhonchi, No wheeze, No rales, Diminished Cardiovascular: Regular rate, Regular Rhythm, Normal S1, Normal S2, Murmur Abdomen: Bowel Sounds Present, Soft, Non Tender Extremities: No clubbing, No cyanosis, No edema Skin: No breakdown Musculoskeletal: No Tenderness to Palpation of Joints or Extremities Lymphatic: No Cervical, Supraclavicular, or Inguinal Adenopathy Neurological: Neuro grossly intact Psych/Mental Status: Normal Affect, Appropriate Vital Signs Temp Pulse Resp BP Pulse Ox 98.1 F 51 L 16 114/64 100 05/15/19 03:20 05/15/19 03:20 05/15/19 03:20 05/15/19 03:20 05/15/19 03:20 Oxygen Flow Rate (L/min) 3 Oxygen Delivery Method Nasal Cannula Weight: 174 lb 9.698 oz Body Mass Index (BMI) 22.9 Intake and Output for Last 24 Hours 05/13/19 05/14/19 05/15/19 23:59 23:59 23:59 Intake Total 2295.84 / 2295.84 530 / 530 Output Total 3050 / 3050 1050 / 1050 Balance -754.16 / -754.16 -520 / -520 Laboratory Tests Past 24 Hrs 05/14/19 05/14/19 05/14/19 00:50 14:40 18:10 WBC RBC Hgb Hct MCV MCH MCHC RDW Std Deviation RDW Coeff of Walker Plt Count MPV Immature Gran % (Auto) Neut % (Auto) Lymph % (Auto) [place] % (Auto) Eos % (Auto) Baso % (Auto) Absolute Neuts (auto) Absolute Lymphs (auto) Nucleated RBC % ESR > 130 H Sodium Potassium Chloride Carbon Dioxide Anion Gap BUN Creatinine Estim Creat Clear Calc Est GFR (MDRD) Af Amer Est GFR (MDRD) Non-Af BUN/Creatinine Ratio Glucose Calcium Phosphorus Magnesium Total Bilirubin AST ALT Alkaline Phosphatase C-React Prot Ext Range 91.20 H Total Protein Total Protein (PEP) Albumin Albumin (PEP) Globulin Globulin (PEP) Albumin/Globulin Ratio Albumin/Globulin (PEP) Mhwio-2-Siuuqdomh Rkhyr-5-Pmqkewohi Beta Globulins Gamma Globulins M-Kleber TSH 3.19 Urine Color Urine Clarity Urine pH Ur Specific [place] Urine Protein Urine Glucose (UA) Urine Ketones Urine Occult Blood Urine Nitrite Urine Bilirubin Urine Urobilinogen Ur Leukocyte Esterase Urine RBC Urine WBC Ur Squamous Epith Cells Urine Bacteria Urine Mucus Urine Total Protein Urine Albumin U Nubvp-9-Laocdkkh U Mjffq-6-Ymbeminp U Beta Globulin U Gamma Globulin U PEP M-Kleber MRSA (PCR) Negative 05/14/19 05/14/19 05/15/19 21:15 21:15 04:18 WBC 16.3 H RBC 3.45 L Hgb 9.5 L Hct 29.3 L MCV 84.9 MCH 27.5 MCHC 32.4 RDW Std Deviation 43.0 RDW Coeff of Walker 14.0 Plt Count 341 MPV 11.2 Immature Gran % (Auto) 0.900 Neut % (Auto) 93.1 H Lymph % (Auto) 3.8 L [place] % (Auto) 2.1 Eos % (Auto) 0.0 Baso % (Auto) 0.1 Absolute Neuts (auto) 15.2 H Absolute Lymphs (auto) 0.62 L Nucleated RBC % 0 ESR Sodium Potassium Chloride Carbon Dioxide Anion Gap BUN Creatinine Estim Creat Clear Calc Est GFR (MDRD) Af Amer Est GFR (MDRD) Non-Af BUN/Creatinine Ratio Glucose Calcium Phosphorus Magnesium Total Bilirubin AST ALT Alkaline Phosphatase C-React Prot Ext Range Total Protein Total Protein (PEP) Albumin Albumin (PEP) Globulin Globulin (PEP) Albumin/Globulin Ratio Albumin/Globulin (PEP) Tkrtk-5-Qzhoevenw Hcrdt-9-Ghhxbsuss Beta Globulins Gamma Globulins M-Kleber TSH Urine Color Yellow Urine Clarity Clear Urine pH 6.0 Ur Specific [place] 1.010 Urine Protein 100 H Urine Glucose (UA) 50 H Urine Ketones Negative Urine Occult Blood 50 H Urine Nitrite Negative Urine Bilirubin Negative Urine Urobilinogen Normal Ur Leukocyte Esterase Negative Urine RBC 0-5 SEEN Urine WBC 0 SEEN Ur Squamous Epith Cells 0-5 SEEN Urine Bacteria 0 SEEN Urine Mucus 0 SEEN Urine Total Protein Pending Urine Albumin Pending U Mvjqn-5-Rdcqcgan Pending U Ydbdj-1-Ntfkedop Pending U Beta Globulin Pending U Gamma Globulin Pending U PEP M-Kleber Pending MRSA (PCR) 05/15/19 05/15/19 04:18 04:18 WBC RBC Hgb Hct MCV MCH MCHC RDW Std Deviation RDW Coeff of Walker Plt Count MPV Immature Gran % (Auto) Neut % (Auto) Lymph % (Auto) [place] % (Auto) Eos % (Auto) Baso % (Auto) Absolute Neuts (auto) Absolute Lymphs (auto) Nucleated RBC % ESR Sodium 140 Potassium 4.2 Chloride 105 Carbon Dioxide 26.0 Anion Gap 9 BUN 22 H Creatinine 1.30 Estim Creat Clear Calc 59.79 Est GFR (MDRD) Af Amer 70 Est GFR (MDRD) Non-Af 58 L BUN/Creatinine Ratio 16.9 Glucose 149 H Calcium 8.5 Phosphorus 4.1 Magnesium 2.0 Total Bilirubin 0.50 AST 42 H ALT 42 Alkaline Phosphatase 185 H C-React Prot Ext Range Total Protein 7.4 Total Protein (PEP) Pending Albumin 2.1 L Albumin (PEP) Pending Globulin 5.3 H Globulin (PEP) Pending Albumin/Globulin Ratio 0.4 L Albumin/Globulin (PEP) Pending Hwgqo-3-Qrhuyvelt Pending Uikpf-1-Oxrcwgizm Pending Beta Globulins Pending Gamma Globulins Pending M-Kleber Pending TSH Urine Color Urine Clarity Urine pH Ur Specific [place] Urine Protein Urine Glucose (UA) Urine Ketones Urine Occult Blood Urine Nitrite Urine Bilirubin Urine Urobilinogen Ur Leukocyte Esterase Urine RBC Urine WBC Ur Squamous Epith Cells Urine Bacteria Urine Mucus Urine Total Protein Urine Albumin U Nitwr-4-Owmhzinq U Uapcl-2-Abtkintz U Beta Globulin U Gamma Globulin U PEP M-Kleber MRSA (PCR) Clinical Impression(s) from Imaging Studies Chest X-Ray 05/14/19 01:[address] 05/14/19 02:37 Medical Necessity - Tobacco Use Smoking Status: Former smoker Assessment/Plan All Active Problems Pneumonia (Acute) Pleural effusion (Acute) Hypoxia (Acute) Aortic stenosis, moderate (Acute) RECOMMENDATIONS: 1. Okay from my perspective to discontinue vancomycin. 2. Continue Zosyn with plans to transition to Levaquin, potentially tomorrow, to complete a 7-day treatment course. 3. Continue to wean supplemental oxygen to maintain saturations at or above 90%. 4. Encourage incentive spirometer use and mobilize patient as tolerated. 5. Continue nocturnal PAP therapy. 6. Perform walking oximetry study prior to consideration for discharge home. 7. Outpatient pulmonary follow-up iss recommended within 2 weeks of discharge. IMPRESSIONS: 1. Acute hypoxemic respiratory insufficiency The patient's chest x-ray from May 16 was compared to his presenting plain film chest x-ray, which did appear to demonstrate worsening. CT chest did confirm findings concerning for likely a combination of heart failure coupled with underlying pulmonary infectious process. Given that the patient was just admitted to the hospital, I would recommend broadening his antimicrobial coverage. Wean supplemental oxygen to maintain saturations at or above 90%. Encourage incentive spirometer use. While the patient does admit to a history of COPD, he has never had pulmonary function studies completed in the past. He does have an extensive smoking history. Therefore, it is reasonable to continue bronchodilators and steroids. The patient will require close outpatient pulmonary follow-up so that PFTs can be completed. 2. Known history of severe obstructive sleep apnea The patient sleep apnea is currently being managed by his PCP. He is reportedly on CPAP therapy with an unknown pressure support. I would recommend that this be closely monitored again as an outpatient in the pulmonary medicine clinic. Empiric BiPAP therapy can be utilized in the interim while he is admitted to the hospital on a nightly basis. 3. History of tobacco dependency currently in remission/coronary artery disease/hypothyroidism/hyperlipidemia Complicates care, management, recovery and prognosis. Continue home medications as indicated. This note was generated with [employer] dictation software. It may contain incorrect words, spelling, and punctuation that were not noted in checking the note before signing. Code Visit Inpatient E&M: 80598 Subs Hosp L2
[2019-05-15] MEDS: Ipratropium/Albuterol Sulfate 3 ML AMPUL.NEB INHALATION ×3 (06:37→14:59)
--- NOTE | 2019-05-15 07:45 | RAD_ITS ---
STUDY: X-RAY CHEST REASON FOR EXAM: Male, 73 years old. Shortness of breath. CHF. TECHNIQUE: PA and lateral views of the chest. COMPARISON: Comparison is made with prior examination dated May 14, 2019. FINDINGS: EKG electrodes are seen. Persistent bilateral airspace disease although there has been mild improvement as compared to prior study. Blunting of both costophrenic angles more prominent on the right side. There is mild cardiac enlargement. Normal mediastinum and dennis. Normal visualized pulmonary arteries. There is atherosclerotic tortuosity of the aortic arch and descending thoracic aorta. There are diffuse degenerative changes of the visualized thoracic spine. Normal visualized ribs, clavicles, and shoulders. There is no demonstrated abnormality of the visualized soft tissue structures of the upper abdomen. RAD/Chest PA and Lateral IMPRESSION: Persistent bilateral airspace disease with small bilateral effusions slightly more prominent on the right side. There has been moderate improvement as compared to prior study. Electronically Signed: Guevara Fish, at 8:16 EDT , Service support ,
[2019-05-15] MEDS: Metoprolol Tartrate 50 MG Tablet PO ×2 (09:31→21:17)
[2019-05-15] MEDS: Enoxaparin 40 MG/0.4 ML Syringe SC (09:31)
[2019-05-15] MEDS: dilTIAZem CD 120 MG Capsule PO (09:31)
[2019-05-15] MEDS: Amiodarone 200 MG Tablet PO (09:31)
[2019-05-15] MEDS: Pantoprazole Sodium 20 MG Tablet PO (09:31)
[2019-05-15] MEDS: Lisinopril 20 MG Tablet PO (11:32)
--- NOTE | 2019-05-15 15:17 | PCM.PROGNOTE ---
Patient Problems: Active and Suspected Problems Pneumonia (Acute) Pleural effusion (Acute) Hypoxia (Acute) Subjective: All events of the past 24 hours of been reviewed. Afebrile since admission. Hemodynamically stable, pulse ox is currently 96 to 97% on room air. White blood cell count today is 16.3 with a left shift. Creatinine is stable at 1.3. Tells me he feels much less short of breath today. He is not coughing. He denies chest pain. He has been ambulating in the room with no respiratory difficulty. - Physical Exam General: Alert, Oriented x3, Cooperative, No apparent distress Oral: Moist Mucosa Neck: Supple, No Nodes, Trachea Midline Lungs: No rhonchi, No rales, Diminished, Wheezes - Rare inspiratory wheeze cleared after a cough, - - Symmetric chest expansion, not tachypnea, no conversational dyspnea, no accessory muscle use, sitting calmly in bed watching TV and appeared to be in no acute distress. Cardiovascular: Regular rate, Regular Rhythm, Normal S1, Normal S2, Murmur, No Gallop Abdomen: Bowel Sounds Present, Soft, Non Tender, Non-Distended Extremities: No clubbing, No edema, No Calf Tenderness Neurological: Cranial nerves II-XII grossly intact, Neuro grossly intact Psych/Mental Status: Normal Affect, Appropriate Vital Signs Temp Pulse Resp BP Pulse Ox 97.6 F L 59 L 16 127/60 H 96 05/15/19 15:14 05/15/19 15:14 05/15/19 15:14 05/15/19 15:14 05/15/19 15:14 Oxygen Flow Rate (L/min) 3 Oxygen Delivery Method Room Air Weight: 174 lb 9.698 oz Body Mass Index (BMI) 22.9 Intake and Output for Last 24 Hours 05/13/19 05/14/19 05/15/19 23:59 23:59 23:59 Intake Total 2295.84 / 2295.84 1645.00 / 1645.00 Output Total 3050 / 3050 1650 / 1650 Balance -754.16 / -754.16 -5.00 / -5.00 Microbiology Past 72 Hours 05/15/19 14:00 Stool Occult Blood (ALEXA) - Final Stool 05/14/19 19:26 Gram Stain - Final Sputum, Expectorated/Coughed Respiratory Culture - Preliminary Appears to be normal respiratory gela. Further studies to follow. Laboratory Tests Past 24 Hrs 05/14/19 05/14/19 05/14/19 00:50 14:40 18:10 WBC RBC Hgb Hct MCV MCH MCHC RDW Std Deviation RDW Coeff of Walker Plt Count MPV Immature Gran % (Auto) Neut % (Auto) Lymph % (Auto) [place] % (Auto) Eos % (Auto) Baso % (Auto) Absolute Neuts (auto) Absolute Lymphs (auto) Nucleated RBC % ESR > 130 H Sodium Potassium Chloride Carbon Dioxide Anion Gap BUN Creatinine Estim Creat Clear Calc Est GFR (MDRD) Af Amer Est GFR (MDRD) Non-Af BUN/Creatinine Ratio Glucose Calcium Phosphorus Magnesium Total Bilirubin AST ALT Alkaline Phosphatase C-React Prot Ext Range 91.20 H Total Protein Total Protein (PEP) Albumin Albumin (PEP) Globulin Globulin (PEP) Albumin/Globulin Ratio Albumin/Globulin (PEP) Merls-4-Uirfaoyup Ntpwo-2-Nemlxjubv Beta Globulins Gamma Globulins M-Kleber TSH 3.19 Urine Color Urine Clarity Urine pH Ur Specific [place] Urine Protein Urine Glucose (UA) Urine Ketones Urine Occult Blood Urine Nitrite Urine Bilirubin Urine Urobilinogen Ur Leukocyte Esterase Urine RBC Urine WBC Ur Squamous Epith Cells Urine Bacteria Urine Mucus Urine Total Protein Urine Albumin U Nwjza-1-Ywbpxlfw U Klpbp-0-Eoirhrlz U Beta Globulin U Gamma Globulin U PEP M-Kleber MRSA (PCR) Negative 05/14/19 05/14/19 05/15/19 21:15 21:15 04:18 WBC 16.3 H RBC 3.45 L Hgb 9.5 L Hct 29.3 L MCV 84.9 MCH 27.5 MCHC 32.4 RDW Std Deviation 43.0 RDW Coeff of Walker 14.0 Plt Count 341 MPV 11.2 Immature Gran % (Auto) 0.900 Neut % (Auto) 93.1 H Lymph % (Auto) 3.8 L [place] % (Auto) 2.1 Eos % (Auto) 0.0 Baso % (Auto) 0.1 Absolute Neuts (auto) 15.2 H Absolute Lymphs (auto) 0.62 L Nucleated RBC % 0 ESR Sodium Potassium Chloride Carbon Dioxide Anion Gap BUN Creatinine Estim Creat Clear Calc Est GFR (MDRD) Af Amer Est GFR (MDRD) Non-Af BUN/Creatinine Ratio Glucose Calcium Phosphorus Magnesium Total Bilirubin AST ALT Alkaline Phosphatase C-React Prot Ext Range Total Protein Total Protein (PEP) Albumin Albumin (PEP) Globulin Globulin (PEP) Albumin/Globulin Ratio Albumin/Globulin (PEP) Mkawt-0-Cenyqydxc Zglmk-0-Qdfiuoqcx Beta Globulins Gamma Globulins M-Kleber TSH Urine Color Yellow Urine Clarity Clear Urine pH 6.0 Ur Specific [place] 1.010 Urine Protein 100 H Urine Glucose (UA) 50 H Urine Ketones Negative Urine Occult Blood 50 H Urine Nitrite Negative Urine Bilirubin Negative Urine Urobilinogen Normal Ur Leukocyte Esterase Negative Urine RBC 0-5 SEEN Urine WBC 0 SEEN Ur Squamous Epith Cells 0-5 SEEN Urine Bacteria 0 SEEN Urine Mucus 0 SEEN Urine Total Protein Pending Urine Albumin Pending U Nhmxu-5-Jumetpzi Pending U Dcdmj-3-Qhherrxa Pending U Beta Globulin Pending U Gamma Globulin Pending U PEP M-Kleber Pending MRSA (PCR) 05/15/19 05/15/19 04:18 04:18 WBC RBC Hgb Hct MCV MCH MCHC RDW Std Deviation RDW Coeff of Walker Plt Count MPV Immature Gran % (Auto) Neut % (Auto) Lymph % (Auto) [place] % (Auto) Eos % (Auto) Baso % (Auto) Absolute Neuts (auto) Absolute Lymphs (auto) Nucleated RBC % ESR Sodium 140 Potassium 4.2 Chloride 105 Carbon Dioxide 26.0 Anion Gap 9 BUN 22 H Creatinine 1.30 Estim Creat Clear Calc 59.79 Est GFR (MDRD) Af Amer 70 Est GFR (MDRD) Non-Af 58 L BUN/Creatinine Ratio 16.9 Glucose 149 H Calcium 8.5 Phosphorus 4.1 Magnesium 2.0 Total Bilirubin 0.50 AST 42 H ALT 42 Alkaline Phosphatase 185 H C-React Prot Ext Range Total Protein 7.4 Total Protein (PEP) Pending Albumin 2.1 L Albumin (PEP) Pending Globulin 5.3 H Globulin (PEP) Pending Albumin/Globulin Ratio 0.4 L Albumin/Globulin (PEP) Pending Abmao-6-Vejoqrhzi Pending Hlrxu-9-Khjijnbhh Pending Beta Globulins Pending Gamma Globulins Pending M-Kleber Pending TSH Urine Color Urine Clarity Urine pH Ur Specific [place] Urine Protein Urine Glucose (UA) Urine Ketones Urine Occult Blood Urine Nitrite Urine Bilirubin Urine Urobilinogen Ur Leukocyte Esterase Urine RBC Urine WBC Ur Squamous Epith Cells Urine Bacteria Urine Mucus Urine Total Protein Urine Albumin U Tzszs-5-Ipymbfxt U Vsqxn-5-Cneonxez U Beta Globulin U Gamma Globulin U PEP M-Kleber MRSA (PCR) Medical Necessity - Tobacco Use Smoking Status: Former smoker Assessment/Plan All Active Problems Pneumonia (Acute) Pleural effusion (Acute) Hypoxia (Acute) Aortic stenosis, moderate (Acute) Day #2 vancomycin and Zosyn Impressions 1. sepsis due to PNA with RR > 20, WBC > 12,000 and PNA on the CXR - recently treated for CAP but CXR now is worse and so this may be hospital acquired at this time. Antibiotic coverage was broadened to include vancomycin and Zosyn. MRSA nasal screen was negative and vancomycin was discontinued on 05/15/2019. More likely than not the increased shortness of breath and changes on the chest x-ray or secondary to acute diastolic congestive heart failure 2. Acute hypoxic respiratory insufficiency secondary to combined congestive heart failure and pneumonia. Supplemental oxygen provided. Aerosolized bronchodilators and steroids have been ordered. Shayne has been consulted and I reviewed his consultation and appreciate his input. Incentive spirometry ordered. Transition to p.o. prednisone on 05/15/2019. Oxygen was weaned off and he is maintaining an O2 sat of 97% on room air. Will need an ambulatory pulse ox on room air prior to discharge 3. Obstructive sleep apnea-compliant with CPAP 4. Suspected COPD-this cannot be confirmed because he has never had pulmonary function test. He was a heavy smoker in the past for many years. He uses a rescue inhaler only at home. He will follow-up with pulmonary medicine post discharge. 5. Tobacco dependency in remission 6. Moderate aortic stenosis 7. Remote history of testicular cancer in the 1980s 8. Recent paroxysmal atrial fibrillation currently in normal sinus rhythm on amiodarone and Cardizem. We will continue outpatient medications. 9. Hypothyroidism/hyperlipidemia/coronary artery disease with stenting of the LAD/hypertension -continue outpatient medications 10. Chronic stage III renal failure 11. Normochromic normocytic anemia-etiology not clear 11. DVT prophylaxis with enoxaparin and SCDs start Lasix 20 mg PO daily DC Vanco. Resume Levaquin at DC to complete a 7 day course of antibiotics Transition to prednisone Code Visit Inpatient E&M: 23265 Subs Hosp L2
[2019-05-15] MEDS: Aspirin 81 MG TAB.CHEW PO (16:18)
[2019-05-15] MEDS: Folic Acid 1 MG Tablet PO (21:17)
[2019-05-15] MEDS: Niacin SA 500 MG Tablet PO (21:18)
[2019-05-15] MEDS: Atorvastatin Calcium 40 MG Tablet PO (21:18)
[2019-05-15] MEDS: Cyanocobalamin 500 MCG Tablet 1000 MCG PO (21:19)
[2019-05-16] VITALS (7 sets, daily range): BP systolic 121–131; BP diastolic 61–72; PULSE 44–72; RESP 16–18; TEMP 36.6–37.2; O2SAT 93–98
[2019-05-16] MEDS: Levothyroxine 75 MCG Tablet PO (06:35)
--- NOTE | 2019-05-16 06:50 | PCM.PN.PUL ---
Patient Problems: Active and Suspected Problems Pneumonia (Acute) Pleural effusion (Acute) Hypoxia (Acute) Subjective: The patient was seen and examined at the bedside this morning. Events from the last 24 hours have been reviewed. The patient is currently afebrile, hemodynamically stable and maintaining appropriate oxygen saturations on room air. The patient was compliant with the use of his home nocturnal Pap therapy last night. He reports no significant respiratory limitations this morning. Objective: The patient's most recent lab work, culture data and imaging studies have all been personally reviewed. Sputum culture appears to be normal respiratory gela. - Physical Exam General: Alert, Cooperative, No apparent distress HEENT: Atraumatic, PERRLA, Normocephalic Oral: No Gingival or Mucosal Lesions/ Ulcerations Neck: Supple, No Nodes, Trachea Midline Lungs: No rhonchi, No wheeze, No rales, Diminished Cardiovascular: Regular rate, Regular Rhythm, Normal S1, Normal S2, Murmur Abdomen: Bowel Sounds Present, Soft, Non Tender Extremities: No clubbing, No cyanosis, No edema Skin: No breakdown Musculoskeletal: No Tenderness to Palpation of Joints or Extremities, No Muscle Wasting Lymphatic: No Cervical, Supraclavicular, or Inguinal Adenopathy Neurological: Cranial nerves II-XII grossly intact, Neuro grossly intact Psych/Mental Status: Alert and oriented to time, place, person, mood and affect Vital Signs Temp Pulse Resp BP Pulse Ox 99.0 F 47 L 18 122/61 H 98 05/16/19 03:14 05/16/19 03:14 05/16/19 03:14 05/16/19 03:14 05/16/19 03:14 Oxygen Flow Rate (L/min) 1 Oxygen Delivery Method Bi-pap Weight: 179 lb 3.773 oz Body Mass Index (BMI) 22.9 Intake and Output for Last 24 Hours 05/14/19 05/15/19 05/16/19 23:59 23:59 23:59 Intake Total 2295.84 / 2295.84 2328.96 / 2328.96 616.04 / 616.04 Output Total 3050 / 3050 2350 / 2350 100 / 100 Balance -754.16 / -754.16 -21.04 / -21.04 516.04 / 516.04 Microbiology Past 72 Hours 05/15/19 14:00 Stool Occult Blood (ALEXA) - Final Stool 05/14/19 19:26 Gram Stain - Final Sputum, Expectorated/Coughed Respiratory Culture - Preliminary Appears to be normal respiratory gela. Further studies to follow. Clinical Impression(s) from Imaging Studies Chest X-Ray 05/14/19 01:[address] 05/14/19 02:37 Chest X-Ray 05/15/19 07:45 IMPRESSION: Persistent bilateral airspace disease with small bilateral effusions slightly more prominent on the right side. There has been moderate improvement as compared to prior study. Electronically Signed: Guevara Fish, at 8:16 EDT , Service support , Medical Necessity - Tobacco Use Smoking Status: Former smoker Assessment/Plan All Active Problems Pneumonia (Acute) Pleural effusion (Acute) Hypoxia (Acute) Aortic stenosis, moderate (Acute) RECOMMENDATIONS: 1. Okay to transition to Levaquin today with plans to complete a total of 7 days antibiotic treatment course. 2. Continue bronchodilators and prednisone. Plan for taper at discharge. 3. Encourage incentive spirometer use and mobilize patient as tolerated. 4. Continue nocturnal PAP therapy. 5. Perform walking oximetry study prior to consideration for discharge home. 6. Outpatient pulmonary follow-up is recommended within 2 weeks of discharge. IMPRESSIONS: 1. Acute hypoxemic respiratory insufficiency The patient's chest x-ray from May 16 was compared to his presenting plain film chest x-ray, which did appear to demonstrate worsening. CT chest did confirm findings concerning for likely a combination of heart failure coupled with underlying pulmonary infectious process. Given that the patient had just been admitted to the hospital, he was maintained on broad-spectrum antimicrobial coverage. The patient improved symptomatically, despite having negative culture data. At this time, he can be transition from Zosyn to Levaquin with plans to complete a total of 7 days antibiotic treatment course. He will be continued on bronchodilators and prednisone, with plans for a taper at discharge. While the patient does admit to a history of COPD, he has never had pulmonary function studies completed in the past. He does have an extensive smoking history. The patient will require close outpatient pulmonary follow-up so that PFTs can be completed. 2. Known history of severe obstructive sleep apnea The patient sleep apnea is currently being managed by his PCP. He is reportedly on CPAP therapy with an unknown pressure support. I would recommend that this be closely monitored again as an outpatient in the pulmonary medicine clinic. Empiric BiPAP therapy can be utilized in the interim while he is admitted to the hospital on a nightly basis. 3. History of tobacco dependency currently in remission/coronary artery disease/hypothyroidism/hyperlipidemia Complicates care, management, recovery and prognosis. Continue home medications as indicated. This note was generated with [employer] dictation software. It may contain incorrect words, spelling, and punctuation that were not noted in checking the note before signing. Code Visit Inpatient E&M: 18164 Subs Hosp L2
[2019-05-16] MEDS: Ipratropium/Albuterol Sulfate 3 ML AMPUL.NEB INHALATION (07:27)
[2019-05-16] MEDS: Enoxaparin 40 MG/0.4 ML Syringe SC (09:11)
[2019-05-16] MEDS: dilTIAZem CD 120 MG Capsule PO (09:11)
[2019-05-16] MEDS: predniSONE 20 MG Tablet 40 MG PO (09:11)
[2019-05-16] MEDS: Furosemide 20 MG Tablet PO (09:12)
[2019-05-16] MEDS: Amiodarone 200 MG Tablet PO (09:12)
[2019-05-16] MEDS: Metoprolol Tartrate 50 MG Tablet PO (09:12)
[2019-05-16] MEDS: Pantoprazole Sodium 20 MG Tablet PO (09:12)
[2019-05-16] MEDS: Lisinopril 20 MG Tablet PO (11:05)
--- NOTE | 2019-05-16 14:04 | DCINST_ITS ---
- Discharge Diagnoses Current Active Problems: Current Active and Chronic Problems Pneumonia (Acute) Pleural effusion (Acute) Hypoxia (Acute) COPD (chronic obstructive pulmonary disease) (Chronic) You will use the following diet at home:: Cardiac - low salt Your food should be the consistency of: Regular Your liquids should be the consistency of: Regular/Thin Discharge Activity: - - Gradually increase activity as tolerated Call your doctor if you observe: Fever of 101 or Higher, Shortness of breath, Dizziness, Fainting spells, Swelling in the ankles, Chest pain, - - Call your PCP if severe diarrhea ( > 5 stools a day), painful sores in the mouth, painful swallowing, rash or itching. Taking a probiotic such as Lactobacillus or Kefir can help with loose stools while taking antibiotics. Additional Instructions: You have pneumonia but, you also had fluid in your lungs and this made your breathing bad. We gave you a diuretic and you improved quickly after that. I am sending you home on a low dose diuretic called lasix. you have been getting it in the hospital. I am giving you a new antibiotic. You will take it once a day for 4 days and then stop. Allergies/Adverse Reactions: Allergies No Known Allergies Allergy (Verified 05/14/19 01:07) Medications to take at Discharge Albuterol IH (ProAir) [Proair Hfa] 1 - 2 puff INHALATION Q4H PRN PRN 10/20/17 Atorvastatin Calcium 40 mg PO QHS 10/20/17 Levothyroxine 75 mcg PO DAILY 10/20/17 Niacin 500 mg PO QHS 10/20/17 Cholecalciferol (VIT D3) [Vitamin D3] 1,000 unit PO QHS 08/01/18 Cyanocobalamin [Vitamin B12] 1,000 mcg PO QHS 08/01/18 Folic Acid 1 mg PO QHS 08/01/18 Omeprazole [Prilosec] 20 mg PO DAILY 08/01/18 Aspirin 81 mg PO DINNER 05/05/19 Diltiazem CD [Cardizem CD] 120 mg PO DAILY #90 cap 05/09/19 Lisinopril 20 mg PO LUNCH #90 tab 05/09/19 Metoprolol Tartrate [Lopressor (beta joce)] 50 mg PO BID #90 tab 05/09/19 Amiodarone HCl [Cordarone] 200 mg PO DAILY #90 tab 05/16/19 Furosemide [Lasix] 20 mg PO DAILY #30 tab 05/16/19 Prednisone 10 mg PO UD #30 tab 05/16/19 levoFLOXacin tablet [Levaquin tablet] 750 mg PO DAILY #4 tab 05/16/19 The following prescriptions were given: Furosemide [Lasix] 20 mg PO DAILY #30 tab Transmission Status: Pending to [id number] levoFLOXacin tablet [Levaquin tablet] 750 mg PO DAILY #4 tab Transmission Status: Pending to [id number] Prednisone 10 mg PO UD #30 tab Transmission Status: Pending to [id number] Primary Care Physician: Yeison Maynard MD [Primary Care Provider] - Please follow up with your Primary Care Physician in: 1 week Test Results: Test results from this visit will be discussed in further detail at your follow- up appointment, if applicable. Please Follow Up With: Reg Bella DO When: 2 weeks to schedule pulmonary function testing Proposed Discharge Date: 05/16/19
--- NOTE | 2019-05-16 14:12 | PCM.DC.SUM ---
Discharge Date and Diagnosis Date of Admission: 05/14/19 Date of Discharge: 05/16/19 - Primary Discharge Diagnosis Active and Suspected Problems Acute diastolic (congestive) heart failure (Acute) Sepsis (Acute) Acute respiratory insufficiency (Acute) Pneumonia (Acute) - unclear whether CAP or HCAP Pleural effusion (Acute) COPD (chronic obstructive pulmonary disease) (Suspected) - Secondary Discharge Diagnosis Chronic Problems Normochromic normocytic anemia (Chronic) Tobacco dependence in remission (Chronic) PAF (paroxysmal atrial fibrillation) (Chronic) Valvular heart disease (Chronic) EDIS (obstructive sleep apnea) (Chronic) Hypothyroidism (Chronic) Hyperlipidemia (Chronic) Coronary artery disease (Chronic) Status post stents. HTN (hypertension) (Chronic) hx of a GI bleed in 2018 Hospital Course and Treatment Imaging Results: Clinical Impression(s) from Imaging Studies Chest X-Ray 05/14/19 01:[address] 05/14/19 02:37 Chest X-Ray 05/15/19 07:45 IMPRESSION: Persistent bilateral airspace disease with small bilateral effusions slightly more prominent on the right side. There has been moderate improvement as compared to prior study. Electronically Signed: Guevara Fish, at 8:16 EDT , Service support , Microbiology 05/15/19 14:00 Stool Stool Occult Blood (ALEXA) - Final 05/14/19 19:26 Sputum, Expectorated/Coughed Gram Stain - Final 05/14/19 19:26 Sputum, Expectorated/Coughed Respiratory Culture - Preliminary Appears to be normal respiratory gela. Further studies to follow. Dr. 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 He had been admitted to [facility] from 05/05/19 to 05/09/2019 and treated for CAP. Work-up was negative for an infectious agent and he was discharged home on Omnicef to complete 7 days of treatment. He still had 1 day of Omnicef left to take. During his last stay in the hospital he was started on amiodarone for paroxysmal atrial fibrillation. He also takes Cardizem. Vital signs at presentation to the emergency room were temperature 97.5, pulse rate 70, blood pressure 160/85, respiratory rate 18 and he was 94% saturated on a 3 L nasal cannula. At discharge from the hospital on 05/09/2019 he was 91 to 92% on room air. CBC showed an elevated white blood cell count of 13 with a left shift. Hemoglobin was 10.9, up from 9.3 on 05/09/2019. Platelets were within normal limits. MCV and MCH were within normal limits. Sodium was low at 135 and the BUN was 19 with a creatinine of 1.35, up from 1.29 on 05/09/2019. Troponin was less than 0.015 and the BNP was elevated at 603.6. He was admitted to the hospital with suspected worsening PNA with suspicion of coexisting CHF. A CT scan of the chest was obtained and showed multiple bilateral pulmonary nodules as well as patchy groundglass densities. There was loculated fluid in the fissures with small pleural effusions, left greater than right. There was mediastinal adenopathy present. He was seen in consult by Dr. Reg Bella and the antibiotic coverage was broadened to include Vancomycin and Zosyn. He was also treated with IV Lasix. Sputum Gram stain had rare white blood cells. The culture appeared to be normal respiratory gela. 05/16/2019 he had been afebrile since admission. His breathing significantly improved less than 24 hours after admission, after receiving Lasix. I suspect the etiology of the worsening of his chest x-ray and his increased shortness of breath were secondary to congestive heart failure not to pneumonia. He was discharged home with a tapering dose of prednisone and a prescription for Levaquin 750 mg daily, number 4 tablets, to complete 7 days of treatment. He will follow-up with Dr. Maynard in 1 week. He was also started on Lasix 20 mg p.o. daily for chronic diastolic congestive heart failure. PHYSICAL EXAM: GENERAL: alert, oriented X 3, Cooperative, NAD, watching TV and appears very comfortable ORAL: moist mucosa, no mucosal lesions NECK: No JVD, supple, trachea midline, no nodes LUNGS: CTA, symmetric chest expansion, no wheezes, diminished, no conversational dyspnea, no accessory muscle use HEART: RRR, Normal S1 and S2, no rub, no gallop, 3/6 systolic MM at the 2nd RICS, LVOT, LLSB and the apex, also with a systolic MM heard in the left axilla ABDOMEN: soft, NT, ND, BS present, no guarding with palpation EXTREMITIES: no edema, no cyanosis, no calf tenderness SKIN: No rashes, no breakdown NEUROLOGIC: no focal neurologic deficits PSYCH: appropriate, normal affect, pleasant This note was generated with [employer] dictation software. It may contain incorrect words, spelling, and punctuation that were not noted in checking the note before signing. - Physical Exam Vital Signs Temp Pulse Resp BP Pulse Ox 97.8 F 68 18 121/68 H 95 05/16/19 09:11 05/16/19 09:12 05/16/19 09:11 05/16/19 09:11 05/16/19 09:11 Oxygen Flow Rate (L/min) 1 Oxygen Delivery Method Room Air Weight: 179 lb 3.773 oz Body Mass Index (BMI) 22.9 Intake and Output for Last 24 Hours 05/14/19 05/15/19 05/16/19 23:59 23:59 23:59 Intake Total 2295.84 / 2295.84 2328.96 / 2328.96 1106.04 / 1106.04 Output Total 3050 / 3050 2350 / 2350 100 / 100 Balance -754.16 / -754.16 -21.04 / -21.04 1006.04 / 1006.04 Microbiology Past 72 Hours 05/15/19 14:00 Stool Occult Blood (ALEXA) - Final Stool 05/14/19 19:26 Gram Stain - Final Sputum, Expectorated/Coughed Respiratory Culture - Preliminary Appears to be normal respiratory gela. Further studies to follow. Discharge Activity: - - Gradually increase activity as tolerated Call your doctor if you observe: Fever of 101 or Higher, Shortness of breath, Dizziness, Fainting spells, Swelling in the ankles, Chest pain, - - Call your PCP if severe diarrhea ( > 5 stools a day), painful sores in the mouth, painful swallowing, rash or itching. Taking a probiotic such as Lactobacillus or Kefir can help with loose stools while taking antibiotics. Home Medications: Medications to take at Discharge Albuterol IH (ProAir) [Proair Hfa] 1 - 2 puff INHALATION Q4H PRN PRN 10/20/17 Atorvastatin Calcium 40 mg PO QHS 10/20/17 Levothyroxine 75 mcg PO DAILY 10/20/17 Niacin 500 mg PO QHS 10/20/17 Cholecalciferol (VIT D3) [Vitamin D3] 1,000 unit PO QHS 08/01/18 Cyanocobalamin [Vitamin B12] 1,000 mcg PO QHS 08/01/18 Folic Acid 1 mg PO QHS 08/01/18 Omeprazole [Prilosec] 20 mg PO DAILY 08/01/18 Aspirin 81 mg PO DINNER 05/05/19 Diltiazem CD [Cardizem CD] 120 mg PO DAILY #90 cap 05/09/19 Lisinopril 20 mg PO LUNCH #90 tab 05/09/19 Metoprolol Tartrate [Lopressor (beta joce)] 50 mg PO BID #90 tab 05/09/19 Amiodarone HCl [Cordarone] 200 mg PO DAILY #90 tab 05/16/19 Furosemide [Lasix] 20 mg PO DAILY #30 tab 05/16/19 Prednisone 10 mg PO UD #30 tab 05/16/19 levoFLOXacin tablet [Levaquin tablet] 750 mg PO DAILY #4 tab 05/16/19 Following Prescrptions Were Given to Patient: Furosemide [Lasix] 20 mg PO DAILY #30 tab Transmission Status: Received by [facility]/pharmacy #[id number] levoFLOXacin tablet [Levaquin tablet] 750 mg PO DAILY #4 tab Transmission Status: Received by [facility]/pharmacy #[id number] Prednisone 10 mg PO UD #30 tab Transmission Status: Received by [facility]/pharmacy #[id number] Primary Care Physician: Yeison Maynard MD [Primary Care Provider] - Please follow up with your Primary Care Physician in: 1 week Please Follow Up With: Reg Bella DO When: 2 weeks to schedule pulmonary function testing Minutes spent on discharge:: 30 Patient Condition:: Good Medical Necessity - Tobacco Use Smoking Status: Former smoker Tobacco Use: Non-smoker Meaningful Use Info Meaningful Use Diagnoses (Choose all that apply): CHF - CHF ANABELA/ARB ordered at discharge?: Yes Documented LVEF (%): 55 Code Visit Inpatient E&M: 58202 Disch Hosp
--- NOTE | 2019-05-18 14:36 | CASEMGMT ---
MARK LOPEZ Discharge Follow-Up Phone Call. Lace:???11?Strata: 3 Discharge Date:?05/16/19 Adm Dx:??Acute Hypoxic Resp Insufficiency Attempted discharge follow-up phone call. No answer. Message left for Mr Mckeon to call [employer] Arin LOPEZ, if he has any questions about his discharge instructions, medications, or follow-up appts. Phone number provided. Marianne YANES RN, CM
[2019-05-18 16:08] LABS: PROEL- A/G Ratio 0.6 (0.7-1.7); PROEL- Albumin 2.4 g/dL (2.9-4.4); PROEL- Alpha-1 Globulin 0.5 g/dL (0.0-0.4); PROEL- Alpha-2 Globulin 1.4 g/dL (0.4-1.0); PROEL- Gamma Globulin 1.5 g/dL (0.4-1.8); PROEL- Globulin, Total 4.3 g/dL (2.2-3.9); PROEL- TOTAL PROTEIN 6.7 g/dL (6.0-8.5)
[2019-05-19 15:53] LABS: PROELU- Albumin, Urine 73.4 % (.); PROELU- Alpha-1-Globulin,Ur 0.9 % (.); PROELU- Alpha-2-Globulin,Ur 5.3 % (.); PROELU- Beta Globulin, Ur 8.6 % (.); PROELU- Gamma Globulin, Ur 11.8 % (.); Total Protein, Ur 87.7 mg/dL (Not Estab.)
== END 2019-05-16 15:13 | disposition home or self-care (01) | DRG 871 ==
LOC: ED 03:46 → PCU 05:14
PROVIDERS: Internal Medicine Critical Care Medicine; Admitting Provider Family Medicine; Emergency Provider Emergency Medicine; Family Provider Family Medicine; PCP Family Medicine; Visit Provider Internal Medicine
DX: A41.9 Sepsis, unspecified organism (principal); J18.9 Pneumonia, unspecified organism; I50.33 Acute on chronic diastolic (congestive) heart failure; I13.0 Hypertensive heart and chronic kidney disease with heart failure and stage 1 through stage 4 chronic kidney disease, or unspecified chronic kidney disease; R06.89 Other abnormalities of breathing; I25.10 Atherosclerotic heart disease of native coronary artery without angina pectoris; I35.0 Nonrheumatic aortic (valve) stenosis; E78.5 Hyperlipidemia, unspecified; E03.9 Hypothyroidism, unspecified; G47.33 Obstructive sleep apnea (adult) (pediatric); I48.0 Paroxysmal atrial fibrillation; Z79.899 Other long term (current) drug therapy; Z79.51 Long term (current) use of inhaled steroids; R09.02 Hypoxemia; Z95.5 Presence of coronary angioplasty implant and graft; N18.3 Chronic kidney disease, stage 3 (moderate); Z85.47 Personal history of malignant neoplasm of testis; F17.201 Nicotine dependence, unspecified, in remission; D64.9 Anemia, unspecified
CPT/HCPCS: 36415; 71046; 71250; 80048; 80053; 81001; 82274; 83735; 83880; 84100; 84165; 84166; 84443; 84484; 85025; 85652; 86140; 87070; 87205; 87641; 93005; 94640; 97161; 99285; J7030; J7040; J7050; A4216; J1940

== ENCOUNTER → 2019-06-29 | Outpatient (CLI) | payer BC, SELFPAY ==
[2019-06-08 13:40] VITALS: BMI 22.1
--- NOTE | 2019-06-29 14:10 | PFTCOMP_ITS ---
COMPLETE PULMONARY FUNCTION TEST INTERPRETATION Brief HPI: Patient is a 73 year old male, currently under the care of Dr. Bella, who presents to [facility] for complete pulmonary function tests secondary to diagnosis of COPD. Respiratory therapist reports good effort and reproducible results. Interpretation: Forced expiration spirometry shows a moderate large airways obstructive ventilatory defect with an FEV1 of 70% predicted. There is no significant bronchodilator response by strict ATS criteria. Spirograms are of good quality and plateau slowly, indicating slowly emptying areas of the lungs. The respiratory flow volume loop shows decreased expiratory flow rates at all lung volumes consistent with airway obstruction. Lung volumes by body plethysmography show a decreased total lung capacity at 5.7 L, 76% predicted. All other lung volumes are reduced symmetrically. Diffusion capacity by carbon monoxide is normal at 80% predicted. The airway resistance is normal. No previous pulmonary function tests were available for review. Impression: Irreversible mild mixed ventilatory defect with preserved diffusion capacity.
== END | disposition home or self-care (01) ==
LOC: PSN 06:36
PROVIDERS: Family Provider Family Medicine; PCP Family Medicine; Referring Provider Nurse Practitioner Acute Care; Visit Provider Nurse Practitioner Acute Care
DX: J44.9 Chronic obstructive pulmonary disease, unspecified (principal)
CPT/HCPCS: 94060; 94726; 94729

== ENCOUNTER → 2019-07-01 | Outpatient (CLI) | payer BC, SELFPAY ==
[2019-06-08 13:40] VITALS: BMI 22.1
[2019-07-01 09:08] VITALS: PULSE 60; PULSE 66; PULSE 71; PULSE 73; PULSE 78; PULSE 82; PULSE 84; O2SAT 95; O2SAT 96; O2SAT 97; O2SAT 98
--- NOTE | 2019-07-01 15:17 | PCM.PSN.6M ---
PSN 6 Minute Walk Test - 6 Minute Walk Test 6 Minute Walk Test: 6 Minute Walk Test PSN:6-Minute Walk Test Start: 07/01/19 09:08 Freq: Status: Active Protocol: RESP.6MINW Document 07/01/19 09:08 CHEYANNE (Rec: 07/01/19 09:10 CHEYANNE [id number]) 6 Minute Walk Test Date Performed 07/01/19 Time Performed 09:00 Height 6 ft 2 in Weight: 79.379 kg Weight in Pounds 175.[address]: Alessia Sears Assistive device used: None Pre-test Oxygen Delivery Method Room Air Pulse Ox (%) 98 Pulse Rate (60-100 beats/min) 71 Dyspnea Bree Scale (0-10) 0 Exertion Bree Scale (6-20) 6 1st minute Oxygen Delivery Method Room Air Pulse Ox (%) 98 Pulse Rate (60-100 beats/min) 60 2nd minute Oxygen Delivery Method Room Air Pulse Ox (%) 96 Pulse Rate (60-100 beats/min) 66 3rd minute Oxygen Delivery Method Room Air Pulse Ox (%) 97 Pulse Rate (60-100 beats/min) 78 4th minute Oxygen Delivery Method Room Air Pulse Ox (%) 95 Pulse Rate (60-100 beats/min) 82 5th minute Oxygen Delivery Method Room Air Pulse Ox (%) 96 Pulse Rate (60-100 beats/min) 84 6th minute Oxygen Delivery Method Room Air Pulse Ox (%) 95 Pulse Rate (60-100 beats/min) 71 Dyspnea Bree Scale (0-10) 0 Exertion Bree Scale (6-20) 12 Post-test Oxygen Delivery Method Room Air Pulse Ox (%) 98 Pulse Rate (60-100 beats/min) 73 Full Laps Walked 23 Partial Lap, Number of Tiles Walked 35 Total Distance Walked (ft) 1392 - Interpretation Interpretation: The patient was able to ambulate 1392 feet over the course of 6 minutes on room air with no assistive devices or breaks. The patient expressed no significant desaturation or tachycardia during testing. This is a normal walking oximetry. - Recommendations Recommendations: No supplemental oxygen is indicated at this time.
== END | disposition home or self-care (01) ==
LOC: PSN 08:43
PROVIDERS: Family Provider Family Medicine; PCP Family Medicine; Referring Provider Nurse Practitioner Acute Care; Visit Provider Nurse Practitioner Acute Care
DX: J44.9 Chronic obstructive pulmonary disease, unspecified (principal)
CPT/HCPCS: 94618

== ENCOUNTER → 2019-10-08 | Outpatient (CLI) | payer BC, SELFPAY ==
[2019-09-22 06:45] VITALS: BMI 22.6
== END | disposition home or self-care (01) ==
LOC: SL 13:36
PROVIDERS: PCP Family Medicine; Referring Provider Internal Medicine Critical Care Medicine; Visit Provider Internal Medicine Critical Care Medicine
DX: G47.33 Obstructive sleep apnea (adult) (pediatric) (principal)
CPT/HCPCS: 98960; G0463

== ENCOUNTER → 2020-03-10 | Outpatient (CLI) | payer BC, SELFPAY ==
[2019-12-22 08:12] VITALS: BMI 22.9
--- NOTE | 2020-03-10 09:47 | ECHOD_ITS ---
Reason For Study: Procedure This was a 2D Doppler, Color Flow transthoracic echocardiogram. Exam performed in department. Left Ventricle Normal LV size. The estimated ejection fraction is 60 %. Stage 2 diastolic dysfunction. No regional wall motion abnormalities noted. Right Ventricle Normal RV size. Normal systolic function. Atria The left atrium is moderately enlarged. Normal right atrium. Normal atrial septum. Mitral Valve There is no mitral valve stenosis. Mild (1+) mitral valve insufficiency. Tricuspid Valve There is no tricuspid stenosis. Trivial tricuspid valve insufficiency. Unable to estimate RV systolic pressure due to insufficient tricuspid regurgitant envelope. Aortic Valve Severe diffuse aortic valve thickening. Trisinus/trileaflet aortic valve. Severe aortic stenosis. Trivial aortic valve insufficiency. Pulmonic Valve There is no pulmonic valvular stenosis. Trivial pulmonic valve insufficiency. Great Vessels Normal aortic root. Pericardium/Pleural No pericardial effusion. MMode/2D Measurements & Calculations LVIDd: 5.6 cm IVSd: 1.6 cm LVOT diam: 2.1 cm LVIDs: 4.0 cm LVPWd: 1.00 cm LVOT area: 3.5 cm2 RVDd: 3.9 cm FS: 29.0 % Ao root diam: 3.8 cm LAV(MOD-bp): 110.1 ml LVAd ap4: 34.4 cm2 LAV(MOD-bp) Indexed: 53.6 ml/m2 EDV(MOD-sp4): 121.3 ml LAV(MOD-sp2): 105.1 ml EDV(sp4-el): 124.1 ml LAV(MOD-sp4): 88.9 ml LVAs ap4: 20.3 cm2 ESV(MOD-sp4): 56.3 ml ESV(sp4-el): 56.0 ml EF(MOD-sp4): 53.6 % EF(sp4-el): 54.8 % SV(MOD-sp4): 64.9 ml SV(sp4-el): 68.1 ml LA A4 area: 28.5 cm2 LA dimension(2D): 4.3 cm RA A4 area: 15.1 cm2 Doppler Measurements & Calculations MV E max mark: 121.9 cm/sec Lat Peak E' Mark: 6.3 cm/sec Med Peak E' Mark: 5.6 cm/sec MV A max mark: 72.1 cm/sec E/E' lat: 19.5 E/E' med: 21.7 MV E/A: 1.7 Ao V2 max: 411.5 cm/sec LV V1 max: 120.4 cm/sec SV(LVOT): 107.5 ml Ao max P.8 mmHg LV V1 max P.8 mmHg Ao V2 mean: 311.8 cm/sec LV V1 mean P.4 mmHg Ao mean P.1 mmHg LV V1 mean: 89.0 cm/sec Ao V2 VTI: 109.3 cm LV V1 VTI: 30.9 cm ADALBERTO(I,D): 0.98 cm2 ADALBERTO(V,D): 1.0 cm2 PA V2 max: 93.1 cm/sec Interpretation Summary The estimated ejection fraction is 60 %. Stage 2 diastolic dysfunction. The left atrium is moderately enlarged. Mild (1+) mitral valve insufficiency. Severe diffuse aortic valve thickening. Severe aortic stenosis. Trivial aortic valve insufficiency. Ordering Physician: Jayna Jay Referring Physician: Yeison Maynard Performed By: Melisa Louie RVT, RDCS and Student
== END | disposition home or self-care (01) ==
LOC: CVS 09:47
PROVIDERS: PCP Family Medicine; Referring Provider Specialist; Visit Provider Specialist
DX: I35.0 Nonrheumatic aortic (valve) stenosis (principal); I48.0 Paroxysmal atrial fibrillation; I10 Essential (primary) hypertension
CPT/HCPCS: 93306

== ENCOUNTER → 2020-07-18 10:58 | Outpatient (CLI) | payer BC, SELFPAY ==
[2020-04-07 12:16] VITALS: BMI 24.8
[2020-07-18 12:15] LABS: AST(SGOT) 16 U/L (15-37); Alanine Aminotransfer ALT/SGPT 20 U/L (16-61); Albumin, Serum 3.6 g/dL (3.2-5.0); Alkaline Phosphatase 131 U/L (45-117); Anion Gap 4 (5-15); BUN 21 mg/dL (7-18); BUN/Creat Ratio 13.2 RATIO (10-20); Calcium,Total 9.1 mg/dL (8.5-10.1); Chloride 111 mmol/L (98-107); Cholesterol 214 mg/dL (200); Creatinine, Serum 1.59 mg/dL (0.70-1.30); EST Glomerular Filtration Rate 46 mL/min (>60); Est Glom Filt Rate - Afr Amer 55 mL/min (>60); Globulin 3.7 g/dL (2.2-4.2); Glucose 108 mg/dL (74-106); High Density Lipoprotein 36 mg/dL; Protein, Total 7.3 g/dL (6.4-8.2); Sodium Level 142 mmol/L (136-145); Triglycerides 186 mg/dL; Very Low Density Lipoprotein 37 mg/dL (5-40)
== END ==
PROVIDERS: PCP Family Medicine; Referring Provider Specialist; Visit Provider Specialist
DX: I25.10 Atherosclerotic heart disease of native coronary artery without angina pectoris (principal); I35.0 Nonrheumatic aortic (valve) stenosis; I48.0 Paroxysmal atrial fibrillation; Z95.5 Presence of coronary angioplasty implant and graft
CPT/HCPCS: 36415; 80053; 80061

== ENCOUNTER 2020-07-22 13:18 | Emergency (ER) | payer BC, SELFPAY ==
[2020-04-07 12:16] VITALS: BMI 24.8
[2020-07-22 13:20] VITALS: BP 129/67; PULSE 76; RESP 16; TEMP 36.2; O2SAT 99; BMI 22.4
--- NOTE | 2020-07-22 15:05 | EKG12_ITS ---
Test Reason : Blood Pressure : / mmHG Vent. Rate : 064 BPM Atrial Rate : 064 BPM P-R Int : 178 ms QRS Dur : 110 ms QT Int : 416 ms P-R-T Axes : 080 050 128 degrees QTc Int : 429 ms Normal sinus rhythm ST & T wave abnormality, consider lateral ischemia Abnormal ECG Confirmed by RENATA SAMSON, JAIDEN ([id number]), story editor COREY DOMINIQUE ([id number]) on 07/25/2020 1:16:17 PM Referred By: YOVANY/KIMBERLYN Confirmed By:JAIDEN YANEZ MD
--- NOTE | 2020-07-22 15:05 | CT_ITS ---
STUDY: CT BRAIN WITHOUT CONTRAST REASON FOR EXAM: Male, 74 years old. VISION CHANGES RIGHT EYE,HEADACHE RADIATION DOSAGE (If Supplied By Facility): CTDIvol = ( 44.99 ) mGy, DLP = ( 829.85 ) mGycm TECHNIQUE: Transaxial CT imaging of the brain was performed without administration of intravenous contrast material. Individualized dose optimization techniques were used for this CT. COMPARISON: No relevant priors. FINDINGS: Normal soft tissue structures. Normal calvarium. Normal size ventricles and extra-axial spaces for the patient''s age. There are areas of decreased attenuation within the white matter tracts of the supratentorial brain, consistent with mild microvascular disease changes. Normal basal ganglia and thalami. Normal brainstem. Normal cerebellum. There is no intracranial hemorrhage. There are no findings of an acute ischemic infarction. Normal visualized paranasal sinuses. CT/Brain/Head without Contrast IMPRESSION: Unremarkable for age. No acute abnormalities. Electronically Signed: Roddy Crockett MD at 16:50 EST , Service support ,
--- NOTE | 2020-07-22 15:09 | RAD_ITS ---
STUDY: X-RAY CHEST REASON FOR EXAM: Male, 74 years old. HR 130-150s at home. sent from Dr. Maynard for Afib. also c/o vision changes to right eye TECHNIQUE: Single AP portable view of the chest. COMPARISON: Comparison is made with prior study 05/15/2019. FINDINGS: EKG electrodes are seen. Stable blunting of the right costophrenic angle with mild increased markings at the right lung base suggestive of scarring. There has been improvement as compared to prior study. Calcified granuloma in the medial left lung apex. There is no demonstrated pleural abnormality. Normal size heart. Calcified left hilar lymph nodes. Normal visualized pulmonary arteries. There is atherosclerotic tortuosity of the aortic arch and descending thoracic aorta. There are diffuse degenerative changes of the visualized thoracic spine. Normal visualized ribs, clavicles, and shoulders. There is no demonstrated abnormality of the visualized soft tissue structures of the upper abdomen. RAD/Chest 1 View (Portable) IMPRESSION: Blunting of the right costophrenic angle with persistent increased markings at the right lung base suggestive of scarring. Electronically Signed: Guevara Fish, at 15:21 EST , Service support ,
[2020-07-22 15:16] LABS: Absolute Lymphocyte Count 0.98 X10^3/uL (0.83-4.51); Basophil# 0.02 X10^3/uL; Basophil% 0.3 % (0-1); Eosinophil# 0.14 X10^3/uL; Eosinophils% 2.1 % (0-5); Hematocrit 36.8 % (40-54); Hemoglobin 12.9 g/dL (13.0-16.5); Lymphocyte # 0.98 X10^3/ul (4.0); Lymphocyte % 14.9 % (19-41); Mean Corp Hgb Conc 35.1 g/dL (32-36); Mean Corpuscular Hgb 30.1 pg (27.0-32.0); Mean Corpuscular Volume 85.8 fL (80-94); Mean Platelet Vol. 12.1 fl (6.2-12.0); Monocyte# 0.45 X10^3/uL; Monocyte% 6.8 % (0-10); NRBC Flagged by Analyzer 0 % (0-5); Neutrophil # 4.98 X10^3/uL (2.7-7.7); Neutrophil % 75.6 % (47-70); Platelet Count 167 K/mm3 (150-450); RBC Distribution Width CV 13.8 % (11.6-14.6); RBC Distribution Width SD 42.6 fl (35.1-43.9); Red Blood Count 4.29 M/mm3 (4.6-6.2); White Blood Count 6.6 K/mm3 (4.4-11.0)
[2020-07-22 15:21] VITALS: BP 133/79; PULSE 82; RESP 16; O2SAT 98
[2020-07-22] MEDS: Aspirin 81 MG TAB.CHEW 324 MG PO (15:29)
[2020-07-22 15:54] LABS: Anion Gap 5 (5-15); BUN 19 mg/dL (7-18); BUN/Creat Ratio 12.8 RATIO (10-20); Calcium,Total 9.1 mg/dL (8.5-10.1); Chloride 107 mmol/L (98-107); Creatinine, Serum 1.48 mg/dL (0.70-1.30); EST Glomerular Filtration Rate 50 mL/min (>60); Est Glom Filt Rate - Afr Amer 60 mL/min (>60); Estimated Creatinine Clearance 50.65 ml/min; Glucose 93 mg/dL (74-106); Potassium 3.9 mmol/L (3.5-5.1); Sodium Level 140 mmol/L (136-145); Thyroid Stim Hormone (TSH) 1.28 uIU/mL (0.358-3.74)
[2020-07-22 16:05] LABS: International Normalized Ratio 1.2; Prothrombin Time (Protime)PT. 14.2 SECONDS (11.7-14.9)
[2020-07-22 16:06] LABS: Partial Thromboplast Time 32.9 Seconds (24.1-36.2)
[2020-07-22 16:16] VITALS: BP 126/80; PULSE 78; RESP 29; O2SAT 98
--- NOTE | 2020-07-22 17:23 | ED.DCSUM_ITS ---
- ER Visit Summary Date of Service: 07/22/20 Chief Complaint: Tachycardia History of Present Illness: The patient is a [address] Maynard. Patient reports that approximately 130 this morning he felt warm and uses oxygen sensor was said that his heart rate was 140. He then used his blood pressure monitor which said it was 150. He called his primary care physician was told to come emerge from for evaluation. Patient denies any chest pain or shortness of breath. On review of systems he reports that last night he had pressure behind his right eye and then his vision blacked out for approximately 30 seconds. His vision is been normal since that time. He has never had anything like this before. Physical Examination: Vitals: Stable. Afebrile. General: Well-nourished and well-developed. Head: Normocephalic atraumatic. Neck: Supple, no lymphadenopathy. No JVD. Nontender. Cardiovascular: Regular rate and rhythm. 3 out of 6 systolic murmur. Respiratory: No respiratory distress. Clear to auscultation bilaterally. Abdominal: Soft, nontender, nondistended, normal bowel sounds. No guarding, rebound, or peritoneal signs. Back: Nontender. Extremities: Nontender, no edema. Skin: Normal color, no rash. Neurologic: Alert and oriented ?3. Cranial nerves II through XII are intact. Normal strength and sensation. Psych: Normal affect. Test Results: EKG is sinus at 64. There is LVH with repolarization changes. Troponin is negative. Chem-7 shows a BUN of 19 creatinine 1.48. CBC shows an H&H of 12.9 36.8, second neutrophils 76 lymphocytes 15. TSH is normal. Clinical Impression(s) from Imaging Studies Brain CT 07/22/20 15:05 IMPRESSION: Unremarkable for age. No acute abnormalities. Electronically Signed: Roddy Crockett MD at 16:50 EST , Service support , Chest X-Ray 07/22/20 15:09 IMPRESSION: Blunting of the right costophrenic angle with persistent increased markings at the right lung base suggestive of scarring. Electronically Signed: Guevara Fish at 15:21 EST , Service support , Emergency Department Course and Treatment: Patient was here with aspirin p.o. He is rested comfortably. Treatment Plan: Patient was discussed with Dr. Bowman, the acid correction hand, who feels that he would likely need outpatient carotid Dopplers and would be happy to see him in the office on Saturday. Patient is instructed if he has a recurrence of the difficulty with his vision he should return the emerge department. Follow-up his primary care physician in 1 to 2 days for another exam. Disposition: To home in improved and stable condition. Impression: 1. Palpitations, resolved. 2. Visual changes right eye, resolved. This note was generated with [employer] dictation software. It may contain incorrect words, spelling, and punctuation that were not noted in review of the chart prior to signing ED Disposition - Plan for ED Patient: Instructions: ED Palpitations, Understanding Vision Problems Referrals: Yeison Maynard MD [Primary Care Provider] - As soon as possible Rose Bowman MD [STAFF PHYSICIAN] - 07/25/20
[2020-07-22 17:40] VITALS: BP 131/74; PULSE 87; RESP 27; O2SAT 97
== END 2020-07-22 17:44 | disposition home or self-care (01) ==
LOC: ED 15:33
PROVIDERS: Emergency Provider Emergency Medicine; PCP Family Medicine
DX: R00.2 Palpitations (principal); H53.8 Other visual disturbances; I25.10 Atherosclerotic heart disease of native coronary artery without angina pectoris; J44.9 Chronic obstructive pulmonary disease, unspecified; I10 Essential (primary) hypertension; E78.00 Pure hypercholesterolemia, unspecified; Z79.51 Long term (current) use of inhaled steroids; Z79.899 Other long term (current) drug therapy
CPT/HCPCS: 70450; 71045; 80048; 84443; 84484; 85025; 85610; 85730; 93005; 99285

== ENCOUNTER → 2020-09-13 10:33 | Outpatient (CLI) | payer OTHER, SELFPAY ==
[2020-08-17 14:03] VITALS: BMI 23.6
--- NOTE | 2020-09-13 10:35 | ECHOD_ITS ---
Reason For Study: SEVERE Procedure This was a 2D Doppler, Color Flow transthoracic echocardiogram. The exam was of adequate technical quality. Exam performed in department. Left Ventricle Mildly dilated left ventricle. Segmental dysfunction with preserved ejection fraction (see wall motion). The estimated ejection fraction is 55 %. Posterior-Basal: Hypokinetic. Infero-Basal: Hypokinetic. Right Ventricle Normal RV size. Normal systolic function. Atria The left atrium is severely enlarged. Normal right atrium. No doppler evidence for ASD. Mitral Valve There is mild mitral annular calcification. Mild focal mitral valve calcification of the anterior leaflet. The mitral valve chordae are thickened and/or calcified. Moderate (2+) mitral valve insufficiency. Tricuspid Valve Normal tricuspid valve. Trivial tricuspid valve insufficiency. Right ventricular systolic pressure estimated to be 23 mmHg. Aortic Valve Trisinus/trileaflet aortic valve. Severe diffuse aortic valve calcification. Moderately severe aortic valve stenosis. Pulmonic Valve The pulmonic valve is not well visualized. Trivial pulmonic valve insufficiency. Great Vessels Normal sized aortic root. Calcified aortic root. Pericardium/Pleural No pericardial effusion. MMode/2D Measurements & Calculations LVIDd: 6.1 cm IVSd: 1.2 cm LVOT diam: 2.0 cm LVIDs: 5.1 cm LVPWd: 0.79 cm LVOT area: 3.3 cm2 RVDd: 3.6 cm FS: 16.5 % Ao root diam: 3.7 cm LAV(MOD-bp): 119.0 ml Aortic Valve Planimetry: 1.1 cm2 LAV(MOD-bp) Indexed: 56.7 ml/m2 LAV(MOD-sp2): 91.1 ml LAV(MOD-sp4): 127.5 ml LA dimension(2D): 4.5 cm LA A4 area: 35.4 cm2 RA A4 area: 14.4 cm2 Doppler Measurements & Calculations MV E max mark: 84.5 cm/sec Lat Peak E' Mark: 2.6 cm/sec Med Peak E' Mark: 3.5 cm/sec MV A max mark: 60.6 cm/sec E/E' lat: 31.9 E/E' med: 24.2 MV E/A: 1.4 Ao V2 max: 419.1 cm/sec AI max mark: 415.6 cm/sec LV V1 max: 166.4 cm/sec Ao max P.3 mmHg AI max P.2 mmHg LV V1 max P.3 mmHg Ao V2 mean: 305.8 cm/sec AI dec slope: 337.1 cm/sec2 LV V1 mean P.1 mmHg Ao mean P.2 mmHg AI P1/2t: 361.1 msec LV V1 mean: 105.4 cm/sec Ao V2 VTI: 102.3 cm LV V1 VTI: 34.1 cm ADALBERTO(I,D): 1.1 cm2 ADALBERTO(V,D): 1.3 cm2 SV(LVOT): 112.2 ml PA V2 max: 138.3 cm/sec TR max mark: 222.2 cm/sec TR max P.7 mmHg Interpretation Summary Mildly dilated left ventricle. Segmental dysfunction with preserved ejection fraction (see wall motion). The estimated ejection fraction is 55 %. The left atrium is severely enlarged. There is mild mitral annular calcification. Mild focal mitral valve calcification of the anterior leaflet. The mitral valve chordae are thickened and/or calcified. Moderate (2+) mitral valve insufficiency. Trivial tricuspid valve insufficiency. Moderately severe aortic valve stenosis. Trivial pulmonic valve insufficiency. Calcified aortic root. Right ventricular systolic pressure estimated to be 23 mmHg. Transmitral diastolic flow velocities suggest diastolic dysfunction (pseudonormal pattern). Ordering Physician: Justus Ratliff Referring Physician: THIERNO ROWE Performed By: Mila Carranza, RDCS, RVT
== END ==
PROVIDERS: PCP Family Medicine; Visit Provider Internal Medicine Cardiovascular Disease
DX: I35.0 Nonrheumatic aortic (valve) stenosis (principal); I25.10 Atherosclerotic heart disease of native coronary artery without angina pectoris; E78.5 Hyperlipidemia, unspecified; I48.0 Paroxysmal atrial fibrillation
CPT/HCPCS: 93306

== ENCOUNTER → 2020-09-27 09:40 | Outpatient (CLI) | payer OTHER, SELFPAY ==
[2020-09-27 09:01] VITALS: BMI 23.2
[2020-09-27 10:30] LABS: Absolute Lymphocyte Count 1.29 X10^3/uL (0.83-4.51); Absolute Neutrophil Count 3.9 X10^3/uL (2.0-7.7); Basophil# 0.04 X10^3/uL; Basophil% 0.7 % (0-1); Eosinophil# 0.23 X10^3/uL; Eosinophils% 3.9 % (0-5); Hematocrit 40.6 % (40-54); Hemoglobin 13.3 g/dL (13.0-16.5); Lymphocyte # 1.29 X10^3/ul (4.0); Lymphocyte % 21.6 % (19-41); Mean Corp Hgb Conc 32.8 g/dL (32-36); Mean Corpuscular Hgb 27.9 pg (27.0-32.0); Mean Corpuscular Volume 85.3 fL (80-94); Mean Platelet Vol. 11.1 fl (6.2-12.0); Monocyte# 0.53 X10^3/uL; Monocyte% 8.9 % (0-10); NRBC Flagged by Analyzer 0 % (0-5); Neutrophil # 3.86 X10^3/uL (2.7-7.7); Neutrophil % 64.7 % (47-70); Platelet Count 137 K/mm3 (150-450); RBC Distribution Width CV 13.7 % (11.6-14.6); RBC Distribution Width SD 42.5 fl (35.1-43.9); Red Blood Count 4.76 M/mm3 (4.6-6.2)
[2020-09-27 10:36] LABS: International Normalized Ratio 1.1; Prothrombin Time (Protime)PT. 13.5 SECONDS (11.7-14.9)
[2020-09-27 10:37] LABS: Partial Thromboplast Time 30.8 Seconds (24.1-36.2)
[2020-09-27 10:54] LABS: Anion Gap 4 (5-15); BUN 30 mg/dL (7-18); BUN/Creat Ratio 18.5 RATIO (10-20); Calcium,Total 9.3 mg/dL (8.5-10.1); Chloride 109 mmol/L (98-107); Creatinine, Serum 1.62 mg/dL (0.70-1.30); EST Glomerular Filtration Rate 45 mL/min (>60); Est Glom Filt Rate - Afr Amer 54 mL/min (>60); Glucose 92 mg/dL (74-106); Potassium 3.8 mmol/L (3.5-5.1); Sodium Level 141 mmol/L (136-145)
== END ==
PROVIDERS: PCP Family Medicine; Referring Provider Nurse Practitioner Family; Visit Provider Nurse Practitioner Family
DX: Z01.810 Encounter for preprocedural cardiovascular examination (principal); I25.10 Atherosclerotic heart disease of native coronary artery without angina pectoris; I10 Essential (primary) hypertension; I35.0 Nonrheumatic aortic (valve) stenosis; Z95.5 Presence of coronary angioplasty implant and graft
CPT/HCPCS: 36415; 80048; 85025; 85610; 85730

== ENCOUNTER 2020-10-11 07:29 | Day surgery (SDC) | payer OTHER, SELFPAY ==
[2020-09-27 09:01] VITALS: BMI 23.2
[2020-10-06 12:53] VITALS: BMI 23.5
[2020-10-10 07:25] VITALS: BMI 23.2
--- NOTE | 2020-10-11 06:18 | HP_ITS ---
HPI HPI History of Present Illness Surgical H&P: Yes Details: 74-year-old male with history of coronary artery disease status post stent to the LAD in 2011, aortic stenosis, and paroxysmal atrial fibrillation coming to the office for follow-up. He was initially seen in the hospital. His beta-joce has been discontinued on account of bradycardia. His statin medications have been reduced on account of myalgia. After his office appointment on 08/06/2020, his amiodarone was discontinued. He also has a history of GI bleed requiring packed red blood cells, and thus anticoagulation for atrial fibrillation has not been pursued. Patient underwent an echocardiogram on 09/13/2020 that showed an ejection fraction 55%, severely enlarged left atrium, moderate mitral valve insufficiency, moderately severe aortic valve stenosis, and an RVSP of 23 mmHg. On account of his aortic valve stenosis, it is recommend he undergo a heart catheterization in preparation for valvular surgery. He denies chest, arm, jaw, or neck discomfort. His exercise tolerance is stable. He denies symptoms of palpitations, lightheadedness, dizziness, near syncope, or syncopal episodes. He denies edema or claudication issues. He denies orthopnea, PND, fever, chills, cough, blood in urine, blood in stool, epistaxis, myalgia, or unexplainable fatigue. He states as if something is pushing on my diaphragm that cause shallow breaths. This has been ongoing for 3 years. This is most noted with extreme exertion. This has improved since stopping Prilosec. This also is improved with CPAP therapy. He states left hip pain that has improved with adjustment. Intake Vital Signs 09/27/20 Height 6 ft 2 in 09/27/20 Weight: 181 lb 09/27/20 BP 123/64 H 09/27/20 Blood Pressure Location Lt brachial 09/27/20 Position Sitting 09/27/20 Respiration 18 09/27/20 Pulse 55 L 09/27/20 Pulse Source Monitor 09/27/20 Pulse Oximetry (%) 98 Intake Visit Reasons: update H & P Log Deck Tender Required: No Is patient in pain?: No Allergies No Known Allergies Allergy (Verified 09/27/20 08:56) Medications Albuterol IH (ProAir) [Proair Hfa] 1 - 2 puff INHALATION Q4H PRN PRN 10/20/17 [History Confirmed 09/27/20] Cholecalciferol (VIT D3) [Vitamin D3] 1,000 unit PO QHS 08/01/18 [History Confirmed 09/27/20] Cyanocobalamin [Vitamin B12] 1,000 mcg PO QHS 08/01/18 [History Confirmed 09/27/20] Folic Acid 1 mg PO QHS 08/01/18 [History Confirmed 09/27/20] Aspirin 81 mg PO DINNER 05/05/19 [History Confirmed 09/27/20] Diltiazem CD [Cardizem CD] 120 mg PO DAILY #90 cap 05/09/19 [Rx Confirmed 09/27/20] Lisinopril 20 mg PO LUNCH #90 tab 05/09/19 [Rx Confirmed 09/27/20] levothyroxine 75 mcg tablet 75 mcg PO DAILY 05/19/19 [History Confirmed 09/27/20] niacin 500 mg tablet,extended release 24 hr 500 mg PO QHS tab 10/07/19 [History Confirmed 09/27/20] amlodipine 2.5 mg tablet 2.5 mg PO DAILY #90 tab 03/01/20 [Rx Confirmed 09/27/20] Prevagen PO DAILY 04/06/20 [History Confirmed 09/27/20] atorvastatin 80 mg tablet 40 mg PO QHS #30 tab 04/06/20 [Rx Confirmed 09/27/20] albuterol sulfate 90 mcg/actuation aerosol inhaler 2 puff INHALATION Q4H PRN #1 device 04/07/20 [Rx Confirmed 07/22/20] nitroglycerin 0.4 mg sublingual tablet 0.4 mg SUBLINGUAL Q5-15M PRN #25 tab 08/17/20 [Rx Confirmed 09/27/20] PFS Medical History EDIS on CPAP (Chronic) Nonrheumatic aortic valve stenosis (Chronic) Atherosclerosis of coronary artery of [place] heart without angina pectoris (Chronic) Essential hypertension (Chronic) Normochromic normocytic anemia (Chronic) Acute diastolic (congestive) heart failure (Acute) Tobacco dependence in remission (Chronic) Sepsis (Acute) Acute respiratory insufficiency (Resolved) Pneumonia (Acute) Pleural effusion (Acute) PAF (paroxysmal atrial fibrillation) (Chronic) Hypothyroidism (Chronic) Hyperlipidemia (Chronic) COPD (chronic obstructive pulmonary disease) (Suspected) Surgical History History of skin graft (Resolved) Presence of stent in coronary artery (Chronic ~03/2012) History of hand surgery (Resolved) History of orchiectomy (Resolved) Family History Mother Cancer Brother CHF (congestive heart failure) Sister Diabetes Brother Diabetes Social History (Updated 09/27/20 @ 09:45 by Felix Louie LAMP CLEANER, LAMP CLEANER-C) Smoking Status: Never smoker how long ago did patient quit smokin years ago alcohol intake: never substance use type: does not use caffeine: Yes Type: coffee Number of servings: 4 ROS Const Const: Negative for fatigue, weakness, body ache, fever(s) or chills ENT ENT: Negative for dizziness or Nosebleed/epistaxis Cardio Chest Pain: No Palpitations: No Edema: None Muscle aches with walking: None Resp Respiratory: Positive for SOB with activity; negative for SOB at rest, SOB orthopnea\SOB lying down, Cough or paroxysmal nocturnal dyspnea GI GI: Negative nausea, vomiting blood/hematemesis, bright, red blood in stools or black,tarry stools : Negative for hematuria or frequent nighttime urination/ nocturia Musc Musc: Positive for joint pain (left hip); negative for muscle aches/ myalgia Skin Skin: Negative non-healing lesions or rash Neuro Neuro: Negative for dizziness, lightheadedness, near syncope, syncope, orthostatic symptoms or weakness Endo Endo: Negative for fatigue Allergy Allergy/Immunology: Negative for rash Cardiology Exam Const Appearance: cooperative, healthy appearing, comfortable and no acute distress Nutritional Appearance: average body habitus and well nourished Orientation: alert, awake and oriented x3 Head Head: normal to inspection Ears: hearing grossly normal bilaterally Nose: external nose normal Face and Sinus: face symmetric Mouth: oral mucosae normal Eyes General: appearance normal, both eyes and all related structures Eyelids: eyelids normal EOM: EOM intact bilaterally Neck Neck: normal visual inspection and no JVD Carotids: normal carotid upstroke Chest Chest inspection: normal inspection of the chest, symmetric chest movement and normal respiratory effort; negative cough Auscultation: Bilateral: Clear to Auscultation Cardio Rate: regular rate Rhythm: regular rhythm Heart sounds: S1 normal, S2 normal and murmur; negative rub or gallop Murmur: Grade 3/6, holosystolic and RLSB GI GI: normal to inspection Neuro General: alert, awake, oriented x3 and CN's II-XI intact bilaterally Skin Skin: no rashes or lesions noted Extremities Pulses: Normal: Right Posterior Tibial Pulse, Left Posterior Tibial Pulse, Right Radial Pulse, Left Radial Pulse Upper Extremity: Left digits absent Lower Extremity Edema: None: Bilateral Psych Psychological: normal affect Assessment & Plan 1. Atherosclerosis of coronary artery of [place] heart without angina pectoris, unspecified vessel or lesion type I25.10 Stent to mid LAD 03/2012 Plan Patient denies any chest pain, arm pain, jaw pain, neck pain, shortness of breath, or fatigue suggestive of angina at this time. We will continue to monitor. We will not make any medication regimen changes and will continue risk factor modification. Orders Orders: Left Heart Cath/COR/LV Percut Today 12 Lead EKG performed by BMS Today Basic Metabolic Profile (BMP) Today Partial Thromboplast Time Today Prothrombin Time w/INR Today CBC W/Diff, Automated Today 2. Presence of stent in coronary artery Z95.5 Stent to mid LAD Plan This will be reassessed at upcoming heart catheterization on account of severe aortic valve stenosis. Orders Orders: Left Heart Cath/COR/LV Percut Today 12 Lead EKG performed by BMS Today Basic Metabolic Profile (BMP) Today Partial Thromboplast Time Today Prothrombin Time w/INR Today CBC W/Diff, Automated Today 3. Nonrheumatic aortic valve stenosis I35.0 Plan His most recent echocardiogram on 09/13/2020 showed an ejection fraction of 55%, severely enlarged left atrium, moderate mitral valve insufficiency and moderately severe aortic valve stenosis. He will proceed with heart catheterization to assess coronary artery disease anatomy. Based on results, further recommendation regarding valvular surgery will be made. He does acknowledge that if valvular surgery is indicated, he he desires [facility] facility, [facility]. Overall, he states feeling well. He denies any shortness of breath with activity. He will continue current medical therapy and we will continue to monitor. Further recommendation will be made after heart catheterization. Orders Orders: Left Heart Cath/COR/LV Percut Today 12 Lead EKG performed by BMS Today Basic Metabolic Profile (BMP) Today Partial Thromboplast Time Today Prothrombin Time w/INR Today CBC W/Diff, Automated Today 4. Paroxysmal atrial fibrillation I48.0 Plan His EKG today in office shows sinus rhythm with a rate of 60 beats minute, [place] interval 176, QTc 418, and QRS 108. There are nonspecific ST changes that are also noted on previous ECG. His beta-joce has been discontinued previously on account of bradycardia. He will continue with diltiazem for rate control. He is not on oral anticoagulation on account of previous GI bleed. His amiodarone has also been discontinued due to maintaining sinus rhythm. At this time, he will continue current medical therapy and we will continue to monitor. As noted above, his echocardiogram shows severely enlarged left atrium. Thus, if he develops recurring atrial fibrillation, oral anticoagulation will need to be reconsidered bearing in mind history of previous GI bleed. 5. Essential hypertension I10 Plan Patient's blood pressure is well-controlled. We will continue to monitor. We will not make any medication regimen changes. Orders Orders: Left Heart Cath/COR/LV Percut Today 12 Lead EKG performed by BMS Today Basic Metabolic Profile (BMP) Today Partial Thromboplast Time Today Prothrombin Time w/INR Today CBC W/Diff, Automated Today 6. Pure hypercholesterolemia E78.00 Plan His atorvastatin has been reduced on account of myalgia. His myalgias significantly improved. His cholesterol values are not at goal. He is currently on statin plus niacin. He will continue risk factor and lifestyle modification. Plan Detail Other Orders Orders: Left Heart Cath/COR/LV Percut Today Z01.810 12 Lead EKG performed by BMS Today Z01.810 Basic Metabolic Profile (BMP) Today Z01.810 Partial Thromboplast Time Today Z01.810 Prothrombin Time w/INR Today Z01.810 CBC W/Diff, Automated Today Z01.810 Additional Comments He will proceed with heart catheterization with Dr. Ratliff. Thank you for allowing us to participate in the patients plan of care, if you have any questions please do not hesitate to call. This note was generated using a voice recognition system and there may be incorrect words, spelling or punctuation that were not noted when reviewing the office note prior to saving. Follow Up 3-4 Months (LAMP CLEANER/PA) Coding Level of Care Code Off vis,est,level 3 Diagnoses Atherosclerosis of coronary artery of [place] heart without angina pectoris, unspecified vessel or lesion type I25.10 ??Coronary Disease-Associated Artery/Lesion type: unspecified vessel or lesion type Presence of stent in coronary artery Z95.5 Nonrheumatic aortic valve stenosis I35.0 Paroxysmal atrial fibrillation I48.0 Essential hypertension I10 Pure hypercholesterolemia E78.00 ??Hyperlipidemia type: pure hypercholesterolemia Coding Level of Care Code Off vis,est,level 3 Diagnoses Atherosclerosis of coronary artery of [place] heart without angina pectoris, unspecified vessel or lesion type I25.10 ??Coronary Disease-Associated Artery/Lesion type: unspecified vessel or lesion type Presence of stent in coronary artery Z95.5 Nonrheumatic aortic valve stenosis I35.0 Paroxysmal atrial fibrillation I48.0 Essential hypertension I10 Pure hypercholesterolemia E78.00 ??Hyperlipidemia type: pure hypercholesterolemia Supplemental Info Supplemental Information Echocardiogram from 09/13/2020: Interpretation Summary Mildly dilated left ventricle. Segmental dysfunction with preserved ejection fraction (see wall motion). The estimated ejection fraction is 55 %. The left atrium is severely enlarged. There is mild mitral annular calcification. Mild focal mitral valve calcification of the anterior leaflet. The mitral valve chordae are thickened and/or calcified. Moderate (2+) mitral valve insufficiency. Trivial tricuspid valve insufficiency. Moderately severe aortic valve stenosis. Trivial pulmonic valve insufficiency. Calcified aortic root. Right ventricular systolic pressure estimated to be 23 mmHg. Transmitral diastolic flow velocities suggest diastolic dysfunction (pseudonormal pattern). Echocardiogram from 02/19/2020: Interpretation Summary The estimated ejection fraction is 60 %. Stage 2 diastolic dysfunction. The left atrium is moderately enlarged. Mild (1+) mitral valve insufficiency. Severe diffuse aortic valve thickening. Severe aortic stenosis. Trivial aortic valve insufficiency. Stress test from 07/08/2017: Conclusion: Normal exercise myocardial perfusion stress test at a moderate workload No clinical angina noted Labs LDL Cholesterol 141 mg/dL (0-130) H 07/18/20 HDL Cholesterol 36 mg/dL (40-) L 07/18/20 Triglycerides 186 mg/dL (-199) 07/18/20 VLDL Cholesterol 37 mg/dL (5-40) 07/18/20 Diagnostics Electrocardiogram 08/17/20 Echocardiogram 09/13/20 Stress Test Nuclear Medicine 07/08/17 Stress Test 07/08/17 Chest X-Ray 07/22/20 Venous Doppler Study 10/20/17 Pulmonary Pulmonary Function Test 06/29/19 Pulmonary Exercise Test 07/01/19 COVID (Procedure Consent) Procedure Criteria Procedure Criteria: Yes Elective The surgeon/proceduralist and patient have discussed in detail the risk of exposure to and/or potential harm posed by the COVID-19 virus with having a surgery/procedure at this time versus the risk of? delaying the surgery/procedure. It is not possible to know either the risk of delaying the surgery or procedure or chance of getting an infection with perfect accuracy, but a joint decision was made between the patient and the surgeon/proceduralist ?to proceed at this time with the scheduled surgery/procedure as indicated on the consent form. I have re-examined the patient. There are no clinical changes since date of exam.
--- NOTE | 2020-10-11 10:07 | CL.D_ITS ---
Patient Name: MANDI ESQUEDA Study Date: 10/11/2020 Performing: Justus Ratliff MD Ht: 74.01 inches 188 cm : 1945 Wt: 180.78 lbs 82 kg Age: 74 Gender: male BSA: 2.08 PROCEDURE(S) PERFORMED [id number]-AO ROOT ANGIO WITH HEART CATH CLINICAL PROFILE AND INDICATIONS Indications: Valvular Disease, Pre-Operative Evaluation Heart Failure: None Stress/Imaging Stress/Image Study Performed: No Angina Classification Anginal Classification w/in 2 Weeks: Anginal Equivalent Dyspnea CAD Presentations: Other: dyspnea on exertion CONCLUSIONS [place] Multivessel CAD LAD: stent: patent Aortic Valve Calcification- Moderate RECOMMENDATIONS Risk factor modification Medical therapy Surgery consult for coronary revascularization Surgery consult for valvular disease DESCRIPTION OF PROCEDURE The patient arrived to the procedure lab. The risks and benefits of the procedure as well as a full d escription of our services here and current unavailability of surgical backup were fully explained to the patient and/or their significant other prior to the catheterization. The Timeout was completed, verifying the correct patient and procedure. The patient's procedural site was prepped and draped in the usual fashion. Local anesthetic was given subcutaneously to right radial region with Lidocaine 2% . Using a modified Seldinger technique, arterial access was obtained via the right radial artery, a 6 Fr sheath was inserted. Right Coronary Artery selective angiography was then performed in multiple v iews using a 5 Fr. 4.0 Gilliam catheter. Left Coronary Artery selective angiography was performed in mu ltiple views using a 5 Fr. 4.0 Gilliam catheter.The arterial sheath was pulled and a TR Band was applie d for hemostasis CORONARY ANGIOGRAPHY DOMINANCE: Right Dominant LEFT HEART ASSESSMENT Left Ventricular Ejection Fraction: Not assessed LEFT MAIN: large vessel: proximal: 50 % Stenosis LEFT ANTERIOR DESCENDING ARTERY: MID LAD: Previously placed stent is patent CIRCUMFLEX ARTERY: Mild luminal irregularities PROX CIRC: diffuse: eccentric: 25 % Stenosis MID CIRC: 50 % Stenosis, 75 % Stenosis RIGHT CORONARY ARTERY: Mild calcification Mild luminal irregularities PROX RCA: 75 % Stenosis MID RCA: diffuse: eccentric: 25 % Stenosis DISTAL RCA: 50 % Stenosis VALVE FINDINGS: Aortic Valve Calcification - moderate AORTIC ROOT: Angiographically normal COMPLICATIONS No Complications PROCEDURE MEDICATIONS Versed 1 mg IV Fentanyl 50 mcg IV Oxygen: 2 L/min via nasal cannula Heparin given IA 10/11/2020 09:19:36 Verapamil 2.5mg, Ntg 100mcgs, 2000 units of Heparin given IA 10/11/2020 09:19:36 IV Fluids: .9 NaCl IV started @ 75 ml/hr 10/11/2020 08:30:54 SUMMARY OF HEMODYNAMIC DATA Time AIR REST ECG 07:52:16 AO 119/66 (89) SA 09:21:21 Signed By Justus Ratliff MD On 10/11/2020 10:07:06 Justus Ratliff MD
== END 2020-10-11 12:15 | disposition home or self-care (01) ==
LOC: CLSP 07:32
PROVIDERS: PCP Family Medicine; Referring Provider Internal Medicine Cardiovascular Disease; Visit Provider Internal Medicine Cardiovascular Disease
DX: Z01.810 Encounter for preprocedural cardiovascular examination (principal); R06.09 Other forms of dyspnea; I70.0 Atherosclerosis of aorta; I35.0 Nonrheumatic aortic (valve) stenosis; I25.10 Atherosclerotic heart disease of native coronary artery without angina pectoris; I48.0 Paroxysmal atrial fibrillation; E78.00 Pure hypercholesterolemia, unspecified; G47.33 Obstructive sleep apnea (adult) (pediatric); I11.0 Hypertensive heart disease with heart failure; I50.32 Chronic diastolic (congestive) heart failure; Z95.5 Presence of coronary angioplasty implant and graft; Z79.899 Other long term (current) drug therapy
CPT/HCPCS: 93005; 93454; 93567; 99152; 99153; J7040; Q9967; A4216; C1769; C1894

== ENCOUNTER 2020-10-24 21:12 | Emergency (ER) | payer OTHER, SELFPAY ==
[2020-10-10 07:25] VITALS: BMI 23.2
[2020-10-24 21:12] VITALS: BP 113/75; PULSE 120; RESP 14; TEMP 36.2; O2SAT 98; BMI 22.6
--- NOTE | 2020-10-24 21:24 | EKG12_ITS ---
Test Reason : ARRYTHMIA Blood Pressure : / mmHG Vent. Rate : 127 BPM Atrial Rate : 153 BPM P-R Int : 000 ms QRS Dur : 100 ms QT Int : 322 ms P-R-T Axes : 000 051 140 degrees QTc Int : 467 ms Atrial fibrillation with rapid ventricular response with premature ventricular or aberrantly conducte d complexes ST & T wave abnormality, consider inferolateral ischemia Abnormal ECG Confirmed by DANIEL SAMSON, LUX ([id number]), scientific editor ESTUARDO SPARROW ([id number]) on 10/26/2020 11:04:01 AM Referred By: DONNA Confirmed By:LUX SANCHEZ MD
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
--- NOTE | 2020-10-24 21:35 | RAD_ITS ---
HISTORY: chest pain EXAM: XR Chest 1 View: COMPARISON: July 22, 2020 FINDINGS: # of images incl. paperwork: 1 Left hilar benign calcified lymph nodes are unchanged. Thickening in the right costophrenic sulcus of the pleura versus right-sided pleural effusion is the same, likely representing pleural thickening. Some interstitial thickening is minimal. Heart is borderline enlarged. Thoracic spondylosis with many enthesophytes are similar Pulmonary vascularity is distinct. RAD/Chest 1 View (Portable) IMPRESSION: No acute disease perceived. No change. Likely chronic thickening to the right lateral costophrenic sulcus pleura. Possible right pleural effusion unchanged. at 1355 Reported and signed by: Tobin Taylor MD Electronically Signed: Tobin Taylor MD at 21:54 EST Tel , Service support ,
[2020-10-24] MEDS: dilTIAZem 25 MG/5 ML Vial 20 MG IV BOLUS (21:38)
[2020-10-24 21:45] LABS: Absolute Lymphocyte Count 1.35 X10^3/uL (0.83-4.51); Absolute Neutrophil Count 4.8 X10^3/uL (2.0-7.7); Basophil# 0.04 X10^3/uL; Basophil% 0.6 % (0-1); Eosinophils% 2.9 % (0-5); Hematocrit 37.4 % (40-54); Hemoglobin 12.6 g/dL (13.0-16.5); Lymphocyte # 1.35 X10^3/ul (4.0); Lymphocyte % 19.5 % (19-41); Mean Corp Hgb Conc 33.7 g/dL (32-36); Mean Corpuscular Hgb 29.1 pg (27.0-32.0); Mean Corpuscular Volume 86.4 fL (80-94); Mean Platelet Vol. 11.8 fl (6.2-12.0); Monocyte# 0.51 X10^3/uL; Monocyte% 7.4 % (0-10); NRBC Flagged by Analyzer 0 % (0-5); Neutrophil # 4.79 X10^3/uL (2.7-7.7); Neutrophil % 69.3 % (47-70); Platelet Count 128 K/mm3 (150-450); RBC Distribution Width CV 13.8 % (11.6-14.6); Red Blood Count 4.33 M/mm3 (4.6-6.2); White Blood Count 6.9 K/mm3 (4.4-11.0)
[2020-10-24 21:54] LABS: D-Dimer Quantitative (DVT/PE) 0.44 FEU/ug/m (0.27-0.49)
[2020-10-24 22:01] LABS: Anion Gap 5 (5-15); BUN 21 mg/dL (7-18); BUN/Creat Ratio 13.9 RATIO (10-20); Calcium,Total 8.5 mg/dL (8.5-10.1); Chloride 109 mmol/L (98-107); Creatinine, Serum 1.51 mg/dL (0.70-1.30); EST Glomerular Filtration Rate 48 mL/min (>60); Est Glom Filt Rate - Afr Amer 59 mL/min (>60); Glucose 182 mg/dL (74-106); Potassium 3.7 mmol/L (3.5-5.1); Sodium Level 141 mmol/L (136-145)
[2020-10-24] MEDS: dilTIAZem 60 MG Tablet 120 MG PO (22:27)
[2020-10-24 22:35] VITALS: BP 119/72; PULSE 101; RESP 18; O2SAT 98
== END 2020-10-24 22:35 | disposition home or self-care (01) ==
PROVIDERS: Emergency Provider Student in an Organized Health Care Education/Training Program; PCP Family Medicine
DX: I48.91 Unspecified atrial fibrillation (principal); I25.10 Atherosclerotic heart disease of native coronary artery without angina pectoris; I11.0 Hypertensive heart disease with heart failure; I50.32 Chronic diastolic (congestive) heart failure; E78.5 Hyperlipidemia, unspecified; Z95.5 Presence of coronary angioplasty implant and graft; Z79.899 Other long term (current) drug therapy
CPT/HCPCS: 71045; 80048; 84484; 85025; 85379; 93005; 96374; 99284; A4216

== ENCOUNTER 2020-10-28 13:29 | Emergency (ER) | payer OTHER, SELFPAY ==
[2020-10-28 13:30] VITALS: BP 159/100; PULSE 148; RESP 20; TEMP 36.4; O2SAT 97; BMI 24.5
--- NOTE | 2020-10-28 13:30 | ED.RN ---
dr thomason aware of pt arrival and heart rate. pt asymptomatic at [facility]. denies dizziness, sob
--- NOTE | 2020-10-28 13:57 | EKG12_ITS ---
Test Reason : Blood Pressure : / mmHG Vent. Rate : 136 BPM Atrial Rate : 131 BPM P-R Int : 000 ms QRS Dur : 108 ms QT Int : 292 ms P-R-T Axes : 000 058 255 degrees QTc Int : 439 ms Atrial fibrillation Nonspecific ST and T wave abnormality Abnormal ECG Confirmed by ARGENIS SAMSON, RENA ([id number]), fashion editor ESTUARDO SPARROW ([id number]) on 10/31/2020 10:35:21 A M Referred By: ANA PAULA/KARYNA Confirmed By:DINA MORE MD
--- NOTE | 2020-10-28 13:57 | CT_ITS ---
STUDY: CT HEAD STROKE PROTOCOL W/O CONTRAST INJECTION REASON FOR EXAM: Male, 75 years old. Neuro deficit, acute, stroke suspected RADIATION DOSAGE (If Supplied By Facility): CTDIvol = ( ) mGy, DLP = ( ) mGycm TECHNIQUE: Transaxial CT imaging of the brain was performed without administration of intravenous contrast material. Individualized dose optimization techniques were used for this CT. COMPARISON: 07/22/2020 FINDINGS: Soft tissue swelling and subcutaneous emphysema in the left occipital area consistent with a scalp laceration and small hematoma. Normal calvarium. There is mild cerebral atrophy with widening of the extra-axial spaces and ventricular dilatation. There are areas of decreased attenuation within the white matter tracts of the supratentorial brain, consistent with microvascular disease changes. Normal basal ganglia and thalami. Normal brainstem. Normal cerebellum. 5 mm thick subdural hematoma surrounding the posterior left parietal lobe and occipital lobe. There are no findings of an acute ischemic infarction. Normal visualized paranasal sinuses. ASPECT score: CT/STROKE Brain/Head without Cont IMPRESSION: Left occipital scalp laceration and hematoma with a thin posterior left-sided subdural hematoma. N.B. : The above information has been verbally conveyed by Dawit Torres MD to Mangodean Franz on 10/28/2020 14:30:29 (ET). Electronically Signed: Dawit Torres MD at 14:31 EST Tel , Service support ,
--- NOTE | 2020-10-28 13:57 | RAD_ITS ---
STUDY: X-RAY CHEST REASON FOR EXAM: Male, 75 years old. Neuro deficit, acute, stroke suspected TECHNIQUE: Single AP portable view of the chest. COMPARISON: 10/24/2020 FINDINGS: The lungs are clear and expanded. There is no demonstrated pleural abnormality. Normal size heart. Normal mediastinum and dennis. Normal visualized pulmonary arteries. Normal visualized aortic arch and descending thoracic aorta. Normal visualized thoracic spine. Normal visualized ribs, clavicles, and shoulders. There is no demonstrated abnormality of the visualized soft tissue structures of the upper abdomen. RAD/Chest 1 View IMPRESSION: Normal x-ray examination of the chest. Electronically Signed: Dawit Torres MD at 15:15 EST Tel , Service support ,
--- NOTE | 2020-10-28 13:58 | CT_ITS ---
STUDY: CT CERVICAL SPINE WITHOUT CONTRAST REASON FOR EXAM: Male, 75 years old. Trauma RADIATION DOSAGE (If Supplied By Facility): CTDIvol = ( 22.35 ) mGy, DLP = ( 442.23 ) mGycm TECHNIQUE: High resolution transaxial imaging was performed without contrast material. Sagittal and coronal images were reconstructed. Individualized dose optimization techniques were used for this CT. COMPARISON: None FINDINGS: Normal craniovertebral junction. Normal anterior atlantoaxial articulation. Normal odontoid process. Normal cervical lordosis. Normal vertebral bodies and posterior osseous elements. C2-3: Mild left facet hypertrophy produces mild left neural foraminal stenosis. No central spinal stenosis. C3-4: Mild left facet hypertrophy and right uncovertebral hypertrophy produces mild bilateral neural foraminal stenosis. No central spinal stenosis. C4-5: Mild left facet hypertrophy produces mild left neural foraminal stenosis. No central spinal stenosis. C5-6: Moderate left facet hypertrophy produces mild left neural foraminal stenosis. No central spinal stenosis. C6-7: Mild broad disc osteophyte complex and bilateral uncovertebral hypertrophy produces mild spinal stenosis and moderate right neural foraminal stenosis. C7-T1: Normal endplates. Normal disc height and morphology. Normal central canal and intervertebral neuroforamina. Normal visualized soft tissue structures. CT/Spine Cervical without Contras IMPRESSION: No acute fracture or subluxation. Electronically Signed: Dawit Torres MD at 14:22 EST Tel , Service support ,
--- NOTE | 2020-10-28 13:58 | CT_ITS ---
STUDY: CTA HEAD AND NECK WITH CONTRAST REASON FOR EXAM: Male, 75 years old. Neuro deficit, acute, stroke suspected RADIATION DOSAGE (If Supplied By Facility): CTDIvol = ( 22.35 ) mGy, DLP = ( 442.23 ) mGycm TECHNIQUE: CT angiography was performed with a multi-detector CT scanner. Data acquisition was obtained from the skull base through the vertex following intravenous administration of IV 100mL [id number]-[id number]. MIP images were reconstructed from the axial data set. Post-processing of the angiographic images was performed, with multiplanar reformation and 3D reconstruction. Individualized dose optimization techniques were used for this CT. COMPARISON: No relevant priors. FINDINGS: Normal bilateral petrous carotid arteries. Normal right cavernous carotid artery with a normal supraclinoid bifurcation. Normal left cavernous carotid artery with a normal supraclinoid bifurcation. Normal right A1 segments of the anterior cerebral artery. Normal left A1 segments of the anterior cerebral artery. Normal intact anterior communicating artery (ACOM). Normal bilateral A2 segments of the anterior cerebral arteries. Normal right M1 and M2 segments of the middle cerebral arteries, with a normal M1 bifurcation. Normal left M1 and M2 segments of the middle cerebral arteries, with a normal M1 bifurcation. Normal right posterior communicating artery (PCOM). Normal left posterior communicating artery (PCOM). Normal bilateral vertebral arteries. Normal basilar artery with a normal basilar bifurcation. The visualized bilateral superior cerebellar (SCA) arteries are normal. Normal bilateral P1, P2 and visualized P3 segments of the posterior cerebral arteries. There is no demonstrated aneurysm of the [place]. There is no demonstrated abnormality of the visualized brain. AORTIC ARCH: Normal visualized aortic arch. Normal origins of the brachiocephalic, left common carotid, and left subclavian arteries. The left vertebral artery arises directly from the aortic arch between the origins left common carotid artery left subclavian artery. There is some calcified plaque within the proximal left subclavian artery without significant stenosis. RIGHT CAROTID ARTERIES: Normal right common carotid artery (CCA). There is mild atherosclerotic plaque formation with minimal narrowing of the right carotid bulb. There is moderate atherosclerotic plaque formation of the origin of the right internal carotid artery with an estimated stenosis of 50-69% stenosis. Normal visualized cervical portion of the right internal carotid artery. Normal origin of the right external carotid artery (ECA). LEFT CAROTID ARTERIES: Normal left common carotid artery (CCA). There is mild atherosclerotic plaque formation with minimal narrowing of the left carotid bulb. There is mild atherosclerotic plaque formation of the origin of the left internal carotid artery with less than 50% cross sectional diameter stenosis. Normal visualized cervical portion of the left internal carotid artery. Normal origin of the left external carotid artery (ECA). VERTEBRAL ARTERIES: Normal bilateral vertebral arteries. CT/STROKE CTA Head AND Neck W/Con IMPRESSION: 1. Normal CTA Head with contrast. 2. Direct origin of left vertebral artery from the aortic arch. 3. Moderate (60%) right carotid stenosis. 4. Mild (20%) stenosis left carotid stenosis. 5. Patent vertebral arteries bilaterally. N.B. : The above information has been verbally conveyed by Dawit Torres MD to Mango Franz on 10/28/2020 14:37:20 (ET). Electronically Signed: Dawit Torres MD at 14:38 EST Tel , Service support ,
[2020-10-28 14:08] VITALS: O2SAT 97
[2020-10-28 14:09] LABS: Absolute Lymphocyte Count 1.54 X10^3/uL (0.83-4.51); Absolute Neutrophil Count 5.2 X10^3/uL (2.0-7.7); Basophil# 0.02 X10^3/uL; Basophil% 0.3 % (0-1); Eosinophil# 0.17 X10^3/uL; Eosinophils% 2.3 % (0-5); Hemoglobin 13.1 g/dL (13.0-16.5); Lymphocyte # 1.54 X10^3/ul (4.0); Lymphocyte % 20.4 % (19-41); Mean Corp Hgb Conc 33.6 g/dL (32-36); Mean Corpuscular Hgb 28.5 pg (27.0-32.0); Mean Platelet Vol. 12.2 fl (6.2-12.0); Monocyte# 0.59 X10^3/uL; Monocyte% 7.8 % (0-10); NRBC Flagged by Analyzer 0 % (0-5); Neutrophil % 68.8 % (47-70); Platelet Count 145 K/mm3 (150-450); RBC Distribution Width CV 13.9 % (11.6-14.6); RBC Distribution Width SD 42.3 fl (35.1-43.9); Red Blood Count 4.59 M/mm3 (4.6-6.2); White Blood Count 7.6 K/mm3 (4.4-11.0)
[2020-10-28 14:14] LABS: International Normalized Ratio 1.1; Partial Thromboplast Time 30.7 Seconds (24.1-36.2); Prothrombin Time (Protime)PT. 13.9 SECONDS (11.7-14.9)
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
[2020-10-28 14:25] LABS: Anion Gap 10 (5-15); BUN 22 mg/dL (7-18); BUN/Creat Ratio 14.5 RATIO (10-20); Chloride 106 mmol/L (98-107); Creatinine, Serum 1.52 mg/dL (0.70-1.30); EST Glomerular Filtration Rate 48 mL/min (>60); Est Glom Filt Rate - Afr Amer 58 mL/min (>60); Estimated Creatinine Clearance 50.32 ml/min; Glucose 118 mg/dL (74-106); Potassium 3.4 mmol/L (3.5-5.1); Sodium Level 140 mmol/L (136-145)
[2020-10-28 14:27] VITALS: BP 156/92; PULSE 138; RESP 24; O2SAT 95
[2020-10-28] MEDS: Diphth,Pertuss(Acell),Tet Vac 0.5 ML Vial IM (14:29)
[2020-10-28 14:36] LABS: Bedside Glucose 115 mg/dL (70-110)
[2020-10-28] MEDS: dilTIAZem 25 MG/5 ML Vial 20 MG IV BOLUS (14:50)
[2020-10-28 15:00] VITALS: BP 141/96; PULSE 126; RESP 18; O2SAT 96
[2020-10-28] MEDS: Midazolam 2 MG/2 ML Syringe 1 MG IV (15:14)
== END 2020-10-28 15:20 | disposition short-term general hospital (02) ==
PROVIDERS: Emergency Provider Emergency Medicine; PCP Family Medicine
DX: S06.5X9A Traumatic subdural hemorrhage with loss of consciousness of unspecified duration, initial encounter (principal); I48.91 Unspecified atrial fibrillation; I11.0 Hypertensive heart disease with heart failure; I50.32 Chronic diastolic (congestive) heart failure; I25.10 Atherosclerotic heart disease of native coronary artery without angina pectoris; E78.5 Hyperlipidemia, unspecified; J44.9 Chronic obstructive pulmonary disease, unspecified; Z95.5 Presence of coronary angioplasty implant and graft; Z87.891 Personal history of nicotine dependence; Z79.51 Long term (current) use of inhaled steroids; Z79.899 Other long term (current) drug therapy; W18.30XA Fall on same level, unspecified, initial encounter; Y93.54 Activity, bowling; Y92.39 Other specified sports and athletic area as the place of occurrence of the external cause; Y99.8 Other external cause status
CPT/HCPCS: 70450; 70496; 70498; 71045; 72125; 80048; 82962; 84484; 85025; 85610; 85730; 90715; 93005; 96361; 96374; 96375; 99285; J7030; Q9967; A4216

== ENCOUNTER 2020-12-10 15:11 | Emergency (ER) | payer OTHER, SELFPAY ==
[2020-12-10 15:12] VITALS: BP 137/83; PULSE 64; RESP 16; TEMP 36.3; O2SAT 97; BMI 21.0
--- NOTE | 2020-12-10 15:48 | EKG12_ITS ---
Test Reason : Blood Pressure : / mmHG Vent. Rate : 092 BPM Atrial Rate : 122 BPM P-R Int : 000 ms QRS Dur : 104 ms QT Int : 406 ms P-R-T Axes : 000 063 009 degrees QTc Int : [address] & T wave abnormality, consider lateral ischemia Prolonged QT Abnormal ECG Confirmed by DANIEL SAMSON, LUX ([id number]), editor department ESTUARDO SPARROW ([id number]) on 12/14/2020 8:30:46 AM Referred By: Confirmed By:LUX SANCHEZ MD
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
[2020-12-10 16:32] LABS: Absolute Neutrophil Count 4.8 X10^3/uL (2.0-7.7); Basophil# 0.03 X10^3/uL; Basophil% 0.4 % (0-1); Eosinophil# 0.17 X10^3/uL; Eosinophils% 2.5 % (0-5); Hematocrit 40.8 % (40-54); Hemoglobin 13.2 g/dL (13.0-16.5); Lymphocyte % 17.5 % (19-41); Mean Corp Hgb Conc 32.4 g/dL (32-36); Mean Corpuscular Hgb 27.1 pg (27.0-32.0); Mean Corpuscular Volume 83.8 fL (80-94); Mean Platelet Vol. 11.5 fl (6.2-12.0); Monocyte# 0.63 X10^3/uL; Monocyte% 9.2 % (0-10); NRBC Flagged by Analyzer 0 % (0-5); Neutrophil # 4.83 X10^3/uL (2.7-7.7); Neutrophil % 70.3 % (47-70); Platelet Count 154 K/mm3 (150-450); RBC Distribution Width SD 42.9 fl (35.1-43.9); Red Blood Count 4.87 M/mm3 (4.6-6.2); White Blood Count 6.9 K/mm3 (4.4-11.0)
[2020-12-10 17:01] LABS: ALB/GLOB Ratio 0.9 RATIO (0.9-2.4); AST(SGOT) 12 U/L (15-37); Alanine Aminotransfer ALT/SGPT 20 U/L (16-61); Albumin, Serum 3.4 g/dL (3.2-5.0); Alkaline Phosphatase 113 U/L (45-117); Anion Gap 3 (5-15); BUN 26 mg/dL (7-18); Calcium,Total 8.5 mg/dL (8.5-10.1); Chloride 107 mmol/L (98-107); EST Glomerular Filtration Rate 58 mL/min (>60); Est Glom Filt Rate - Afr Amer 70 mL/min (>60); Estimated Creatinine Clearance 53.25 ml/min; Globulin 3.7 g/dL (2.2-4.2); Glucose 103 mg/dL (74-106); Protein, Total 7.1 g/dL (6.4-8.2); Sodium Level 139 mmol/L (136-145)
[2020-12-10 17:26] LABS: Digoxin Level 1.25 ng/mL (0.80-2.00)
[2020-12-10 17:40] VITALS: PULSE 77; RESP 14; O2SAT 98
== END 2020-12-10 17:47 | disposition home or self-care (01) ==
PROVIDERS: Emergency Provider Emergency Medicine; PCP Family Medicine
DX: F41.9 Anxiety disorder, unspecified (principal); I48.0 Paroxysmal atrial fibrillation; I11.0 Hypertensive heart disease with heart failure; I50.32 Chronic diastolic (congestive) heart failure; E78.5 Hyperlipidemia, unspecified; J44.9 Chronic obstructive pulmonary disease, unspecified; E03.9 Hypothyroidism, unspecified; Z79.51 Long term (current) use of inhaled steroids; Z79.899 Other long term (current) drug therapy; Z87.891 Personal history of nicotine dependence
CPT/HCPCS: 80053; 80162; 84484; 85025; 93005; 99283; A4216

== ENCOUNTER → 2021-01-04 07:54 | Outpatient (CLI) | payer OTHER, SELFPAY ==
[2020-12-10 15:12] VITALS: BMI 21.0
--- NOTE | 2021-01-04 07:57 | VDLE_ITS ---
Reason For Study: RLE SWELLING RIGHT CFV is compressible, spontaneous, phasic, competent and demonstrates normal augmentation. FV is compressible, spontaneous, phasic, competent and demonstrates normal augmentation. POP V is compressible, spontaneous, phasic, competent and demonstrates normal augmentation. T/P Trunk is compressible. PTV is compressible. RT PerV is compressible. Non-vascular structures noted at incision sites for GSV harvest. Four sites are swollen with site at proximal calf measuring approx 8cm x 3cm with some skin breakdown causing minimal seepage. Procedure This is a venous duplex using B-mode, color flow and spectral Doppler. Exam performed in department. The exam was diagnostic. A preliminary report was called and/or faxed to Dr. Robles & Dr. Maynard @ [phone] @ 8:45am. VL/Venous Duplex US, Unilateral Interpretation Summary Deep veins of the right lower extremity are patent and compressible segmentally . There is no evidence of right lower extremity deep vein thrombosis. Valvular competence alex ears intact within the proximal deep venous system on the right . The right great saphenous vein i s absent, having been previously harvested. There are multiple hypoechoic areas in the right medial t high and calf, which most likely represent seromas or hematomas. Clinical correlation is advised. Ordering Physician: Gaby Robles Referring Physician: Yeison Myanard Performed By: Marlene Zhu, RDCS, RVT
== END ==
PROVIDERS: PCP Family Medicine; Referring Provider Physician Assistant; Visit Provider Physician Assistant
DX: M79.89 Other specified soft tissue disorders (principal); R22.9 Localized swelling, mass and lump, unspecified
CPT/HCPCS: 93971

== ENCOUNTER → 2021-02-15 12:49 | Outpatient (CLI) | payer OTHER, SELFPAY ==
[2021-01-20 14:39] VITALS: BMI 20.5
--- NOTE | 2021-02-15 12:54 | CR.ITP_ITS ---
Diagnosis - General Information Admitting Diagnosis: S/P CABG Secondary Diagnosis: CAD with previous stenting in LAD back in 2012. Personal Learning Style:: Audio/Visual, Written Barriers to Learning: Hearing Impairment, Vision Impairment Stage of change r/t lifestyle modifications:: Action Gave educational material for:: Treating Heart Disease, Emotions & Heart Disease, Stress Management & Relaxation, Sleep Disorders & Heart Disease, How The Heart Works, What it means to have Heart Disease, How Coronary Artery Disease is Diagnosed, Heart Procedures, What Heart Medications Do, Risk Factors & Modifications, Living an Active Life, Nutrition - Education/Goals Individual Counseling: Initial Assessment: Abnormal Cholesterol Levels, High Blood Pressure, Overweight/Obesity - Risk of malnutrition Low BMI 20 Cardiac Rehabilitation Goals: 1. Maintain the individual as the primary focus of care. 2. To improve the patient's quality of life. 3. Identification of cardiac risk factors and provide cardiac risk factor management. 4. Enhance the psychosocial status of the patient. 5. Reconditioning enough to allow the patient to resume customary activities. 6. Control symptoms of cardiac disease Personal Goals: Initial Assessment: Improve management of stress and emotions, Improve energy level, Participate in home exercise program, Get back to work, or to resume activities faster, Improve knowledge of cardiac disease, Improve muscle strength and endurance, Improve diet and eating habits (eat healthier), Control risk factors (learn risk factor modification) - Cholesterol Control, Inactivity Scale for measuring improvement of personal goals: Enter appropriate number in Comments. 2 = Unchanged. 3 = Slightly Better. 4 = Moderate Improvement. 5 = Met my Goal - Diagnosis & Disease Process Outcomes/Goals: Pt IDs own risk factors & lifestyle modifications by Session 10, Verbalizes symptoms of angina & response by session 3., Pt independently manages Plan/Interventions: Assist Pt to ID & engage in lifestyle modification to reduce CVD risk, Instruct on individual risk factors, Review symptoms of angina & emergency actions, Review secondary diagnosis & identify educational needs. - Safety Referral to Physical Therapy: No Referral to [facility] Case Management: No Fall Risk Assessed:: Yes Assistive Devices:: Walker Exercise - Initial Assessment - Visit Date of Eval: 02/15/21 Session #:: 0 - Pre-cardiac rehab evaluation Mets: Pre-: >5 METS for 30 minutes by discharge - Physician Prescribed Exercise Modalities: Treadmill, NuStep, SciFit Frequency: 3x/week for 12 weeks [36 sessions] Intensity: 60-80% of age predicted maximum heart rate reserve Current METSs:: 2.0 Target Heart Rate:: 95-125 Resting Blood Pressure: 102/70 EKG Type: Atrail Fibrillation ST & T wave abnormality - Outcomes & Goals Goals:: Verbalizes understanding of THR, RPE & goal METS by session 6, Documents in home exercise log/reports 30 min aerobic 5 day/wk by DC, Demonstrates accurate pulse taking by DC - Intervention & Plan Exercise Program Goals: Instruct on personal THR & RPE, Instruct on MET level & personal MET goal, Show patient to take own pulse /validate performance until accurate, Instruct on home exercise - Physical Activity Home Exercise Physical Activity - Home Exercise: Safe Exercise, Warm-up, Self-monitoring, Cool-Down, Home Exercise > 30 min Daily, Sitting Time <3 hours/daily - Outcomes & Goals Outcomes/Goals: Demonstrates correct Warm-up/exercise Cool-Down (S3) if = 2.5 METs, Verbalizes symptoms of exercise intolerance by Session 3 (S3), Demonstrate safe equipment use (S3) & follows exercise prescrition (6) - Intervention & Plan Plan/Intervention: Instruct warm-up & cool-down if exercising at > 2 METs, Instruct on symptoms of exercise intolerance & actions to take, Instruct & arsenio tor on saf, Assess intial functional capacity & safety risk Nutrition - Initial Assessment - Program Goals Nutrition Program Goals: LDL <100 optimal. 100 - 129 Near optimal. 130 - 159 Borderline High. 160 - 189 High. Total Cholesterol <200 desirable. 200 - 239 Borderline High. >/= 240 High. HDL < 40 Low >/=60 High. Triglycerides <150 desirable. <199 optimal. VlDL 5 - 40. HgbA1C <7%. BMI <25 Patient has diagnosis of Hyperlipidemia (ICD E78)?: Yes - Visit Date of Assessment:: 02/15/21 Session #:: 0 - Pre-cardiac rehab evaluation - Cholesterol/Lipids Triglycerides (mg/dL): 186 Total Cholesterol (mg/dL): 214 LDL Cholesterol (mg/dL): 141 HDL Cholesterol (mg/dL): 36 Determine presence & major risk factors that modify LDL goal: Hypertension or hypertensive medication, Low HDL cholesterol <40 mg/dL*, Family history of premature CHD in Male < 55 years: female <65 yearsFa, Age men > 45 years; women >/= 55 years Outcomes/Goals: Pt IDs own risk factors & lifestyle modifications by Session 10, Verbalizes symptoms of angina & response by session 3., Pt independently manages Intervention/Plan: Instruct on personal lipid levels & lipid goals/NCEP guidelines, Instruct on cholesterol Referral to dietitian:: Yes - Medical Nutrition Therapy Risk of Malnutrition - Diabetes (Other Core Measures) Diabetes Type: Not Applicable - Weight Mgt (Other Care) Not Applicable: No Height: 6 ft 2 in Weight:: 160 lb - Suspected Malnutrition BMI: 20.5 Diagnosis Overweight/Obesity BMI> 30% ICD-10 E66: No Diagnosis High BMI/Morbid Obesity BMI> 35% ICD-10 Z68: No Outcomes/Goals: Pt sets, maintains & shows weight loss goal & trend during rehab Intervention/Plan: Instruct on ideal BMI & set weight loss goal w/patient - Healthy Eating Habits Will attend diet classes:: Yes Outcomes/Goals:: Consume diet rich in vegs,fruits,whole grain/high fiber,fish,lean meat, Limit sat/trans fats,cholesterol & added salts & sugars Intervention/Plan:: Assess current eating habits Nutrition - 30-Day Assessment Nutrition - 60-Day Assessment Nutrition - 90-Day Assessment Nutrition - Final Assessment Medical - Initial Assessment - Visit Date of Eval: 02/15/21 Session #:: 0 - Pre-cardiac rehab evaluation - Medication Compliance Preventative Medication(s):: Aspirin, ANABELA inhibitor, Statin/lipid, Beta joce H/O mental health issues: depression, anxiety, or addiction?: No Doesn?t believe in the benefits of treatment?: No Believes medications are unnecessary or harmful?: No Has a concern about medication side effects?: No Expresses concern over the cost of medications?: No Outcomes/Goals: Verbalizes medications,desired effect & common side effects @ DC, Pt self-reports following medication regimen, Keeps card in wallet w/medications listed by DC Interventions/plans: Instruct on medication effects & side effects, Review medication list w/patient every two weeks, Instruct importance of taking meds as ordered & assist problem solving - Tobacco Use Tobacco Use: Non-smoker - Hypertension Hypertension Diagnosis:: Hypertension ICD-10 I10 Resting Blood Pressure:: 102/70 [place] [employer] Hypertension Guidelines: [place] [employer] Hypertension Guidelines. Normal BP Less than 120/80. Elevated BP 120/80. Hypertension Stage 1: BP 130-139/80-89. Hypertesnion Stage 2: BP 140 or higher/90 or higher. Hypertension Crisis: BP higher than 180/120 Outcomes/Goals: Able to verbalize/achieve optimal blood pressure <130/80, Incorporates diet changes & exercise for blood pressure control by DC Interventions/plan: Instruct on optimal blood pressure, hypertension & medications, Instruct on effects of sodium, alcohol, stress, exercise &hypertension - Tobacco Cessation Referral Smoking Cessation Referral:: No Individual Education/Counseling:: No Education Schedule Given:: Yes Medical- 30-Day Assessment Medical- 60-Day Assessment Medical- 90-Day Assessment Medical - Final Assessment Psychosocial - Initial Assess - VIsit Date of Eval: 02/15/21 Session #:: 0 - Pre-cardiac rehab evaluation Not Applicable: Yes History of previous Mental disease:: No Self-reported stressors: Medical/Health, Recent Illness - Psychosocial Test Tool Used:: PHQ-9 Questionnaire phq-9 Severity: Severity. 1-4 Minimal Depression. 5-9 Mild Depression. 10-14 Moderate Depression. 15-19 Moderately Sever Depression. 20-27 Severe Depression. Rule: - Referral to Behavioral Health PS - Interventions: Yes Referral to Behavioral Health if PHQ-9 score >9: - Scored 13 on PHQ-9 indicate Moderate Depression, Yes Referral to Physician if PHQ-9 if score is 5-9: - Scored 13 on PHQ-9 indicate Moderate Depression, Yes Attend Stress Management Classes, No Referral to [facility] - Outcomes/Goals: See list Psychosocial Outcomes/Goals:: ID's personal stressors & 2 strategies to manage stress by discharge - Intervention/Plan: See List Interventions/Plan:: Assess stressors,coping strategies & signs of derpression on admission, Instruct/assist pt to develop coping & personal stress Mgt strategies, Instruct patient to recognize signs & symptoms of depression, Instruct patient to recog Psychosocial - 30-Day Assess Psychosocial - 60-Day Assess Psychosocial - 90-Day Assess Psychosocial - Final Assessmen Patient Health Questionnaire Initial Assessment 1. Little interest or pleasure in doing things: Several days 2. Feeling down, depressed, or hopeless: Several days 3. Trouble falling or staying asleep, or sleeping too much: Nearly every day 4. Feeling tired or having little energy: Nearly every day 5. Poor appetite or overeating: Several days 6. Feeling bad about yourself -- or that you are a failure or have let yourself or your family down: Several days 7. Trouble concentrating on things, such as reading the newspaper or watching television: More than half the days 8. Moving or speaking so slowly that other people could have noticed. Or the opposite - being so fidgety or restless that you have been moving around a lot more than usual: Several days 9. Thoughts that you would be better off , or of hurting yourself in some way: Not at all How difficult have these problems made it for you to do your work, take care of things at home, or get along with other people?: Very difficult Total Score: 13 RENÉ-Q SV Test - Statements CAD is a disease of the arteries in the heart: False Examples of risk factors for heart disease: True Angina is chest pain or discomfort: I Don't Know The benefits of resistance training include: True Eating more meat and dairy products: True Anti-platelet medications such as aspirin are important: True The only effective way to manage stress: False An exercise warm-up slowly increases heart rate: True Prepared, processed foods usually have high sodium: True Depression is common after a heart attack: True The statin medications lower cholesterol: True To control blood pressure, lower the amount of sodium: True If someone gets chest discomfort during walking: I Don't Know Transfats are partially hydrogenated vegetable oils: True Sleep apnea that is not treated increases the risk: True To control cholesterol, one should become a vegetarian: False Someone knows if he/she is exercising at the right level: True Diabetes cannot be prevented with exercise & health eating: False Stress is a large risk for heart attack: True A diet that can help lower blood pressure is rich in: True - Total Score Total Correct Responses: 16 Self-Efficacy Initial Assessment We would like to know how confident you are in doing certain activities. Please select your confidence level for:: Select your confidence level for the following using the scale 1-10 where 1 is not at all confident and 10 is totally confident. Your score is the average of all 6 responses. Fatigue: How confident are you that you can keep the fatigue caused by your disease from interfering with the things you want to do? Select Number: 5 Physical Discomfort or Pain: How confident are you that you can keep the physical discomfort or pain of your disease from interfering with the things you want to do? Select Number: 7 Emotional Distress: How confident are you that you can keep the emotional distress caused by your disease from interfering with the things you want to do? Select Number: 8 Other Symptoms or Health Problems: How confident are you that you can keep other symptoms or health problems from interfering with the things you want to do? Select Number: 4 Different Tasks and Activities: How confident are you that you can do the different tasks and activities needed to manage your health condition so as to reduce your need to see a doctor? Select Number: 8 Medication: How confident are you that you can do things other than just taking medication to reduce how much your illness affects your everyday life? Select Number: 9 Total Score:: 6 Nutrition Survey - Nutrition Survey Initial Have you lost >10 lbs over the past 2 months without trying?: Yes Are you following a special diet at home for diabetes, low fat, or low salt?: Yes Are you interested in meeting with a dietitian for help understanding your diet?: No Do you eat less than 3 meals a day?: No Do you eat fatty meats (lo, sausage, ribs, etc), fried foods, desserts, large amounts of salad dressings, margarine, butter, or cheese most days?: Yes Do you have food allergies? [Enter types in comment field]: No Do you eat in restaurants more than 3 times a week?: No Do you season food with salt, seasoning salt, or garlic salt?: No Do you used canned, boxed, frozen meals, or soups, seasoning packets?: No Total Score:: 3
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
[2021-02-15 13:16] VITALS: BP 102/70; BMI 20.5
[2021-02-15 13:34] VITALS: BP 102/70; PULSE 68; RESP 16; TEMP 36.4; O2SAT 96; BMI 20.5
== END ==
PROVIDERS: PCP Family Medicine; Referring Provider Internal Medicine Cardiovascular Disease; Visit Provider Internal Medicine Cardiovascular Disease
DX: Z95.1 Presence of aortocoronary bypass graft (principal)

== ENCOUNTER 2021-03-17 13:00 | Outpatient (RCR) | payer OTHER, SELFPAY ==
[2021-02-15 13:16] VITALS: BMI 20.5
[2021-02-15 13:34] VITALS: BMI 20.5
--- NOTE | 2021-03-17 06:52 | CR.ITP_ITS ---
Diagnosis Exercise - 30-day Assessment - Visit Date of Eval: 03/17/21 Session #:: 9 - STARTED CR ON 02/22/2021 - Physician Prescribed Exercise Modalities: Treadmill, Airdyne, NuStep Frequency: 3x/week for 12 weeks [36 sessions] Intensity: 60-80% of age predicted maximum heart rate reserve Current METSs:: 3.5 INCREASE FROM 3.0 Target Heart Rate:: 95-125 Current RPE:: 12-13 Maximum Excercise HR:: 77 Resting Blood Pressure: 136/64 Maximum Exercise Blood Pressure: 152/80 EKG Type: PERSISTENT ATRIAL FIBRILLATION Current Physical Activity or Exercising minutes: 30-45 MIN AEROBIC EXERCISE Nutrition - Initial Assessment Nutrition - 30-Day Assessment - Program Goals Nutrition Program Goals: LDL <100 optimal. 100 - 129 Near optimal. 130 - 159 Borderline High. 160 - 189 High. Total Cholesterol <200 desirable. 200 - 239 Borderline High. >/= 240 High. HDL < 40 Low >/=60 High. Triglycerides <150 desirable. <199 optimal. VlDL 5 - 40. HgbA1C <7%. BMI <25 Patient has diagnosis of Hyperlipidemia (ICD E78)?: Yes - Visit Date of Assessment:: 03/17/21 Session #:: 9 - Cholesterol/Lipids Triglycerides (mg/dL): 186 - 07/18/2020 Total Cholesterol (mg/dL): 214 LDL Cholesterol (mg/dL): 141 HDL Cholesterol (mg/dL): 36 Determine presence & major risk factors that modify LDL goal: Hypertension or hypertensive medication, Low HDL cholesterol <40 mg/dL*, Family history of premature CHD in Male < 55 years: female <65 yearsFa, Age men > 45 years; women >/= 55 years Outcomes/Goals: Pt IDs own risk factors & lifestyle modifications by Session 10, Verbalizes symptoms of angina & response by session 3., Pt independently manages Intervention/Plan: Instruct on personal lipid levels & lipid goals/NCEP guidelines, Instruct on cholesterol Referral to dietitian:: No - After speaking with patient, they indicated they are not interested. 30-day Reassessments:: Progressing - Diabetes (Other Core Measures) Diabetes Type: Not Applicable - Weight Mgt (Other Care) Not Applicable: Yes Height: 6 ft Weight:: 152 lb 8 oz - suspected malnutrition BMI: 20.7 Diagnosis Overweight/Obesity BMI> 30% ICD-10 E66: No Diagnosis High BMI/Morbid Obesity BMI> 35% ICD-10 Z68: No Outcomes/Goals: Pt sets, maintains & shows weight loss goal & trend during rehab Intervention/Plan: Instruct on ideal BMI & set weight loss goal w/patient 30 day Reassessments:: Progressing - Healthy Eating Habits Will attend diet classes:: Yes Outcomes/Goals:: Consume diet rich in vegs,fruits,whole grain/high fiber,fish,lean meat, Limit sat/trans fats,cholesterol & added salts & sugars Intervention/Plan:: Assess current eating habits - encouraged patient to use protein supplement between meals or with meal. - Education Gave educational materials for:: Healthy eating Nutrition - 60-Day Assessment Nutrition - 90-Day Assessment Nutrition - Final Assessment Medical - Initial Assessment Medical- 30-Day Assessment - Visit Date of Eval: 03/17/21 Session #:: 9 - Medication Compliance Preventative Medication(s):: Aspirin, ANABELA inhibitor, Statin/lipid, Beta joce H/O mental health issues: depression, anxiety, or addiction?: No Doesn?t believe in the benefits of treatment?: No Believes medications are unnecessary or harmful?: No Has a concern about medication side effects?: No Expresses concern over the cost of medications?: No Outcomes/Goals: Verbalizes medications,desired effect & common side effects @ DC, Pt self-reports following medication regimen, Keeps card in wallet w/medications listed by DC Interventions/plans: Instruct on medication effects & side effects, Review medication list w/patient every two weeks, Instruct importance of taking meds as ordered & assist problem solving 30-day Reassessments:: Progressing - Tobacco Use Tobacco Use: Non-smoker - Hypertension Hypertension Diagnosis:: Hypertension ICD-10 I10 Resting Blood Pressure:: 146/70 - Stage II Hypertension [place] [employer] Hypertension Guidelines: [place] [employer] Hypertension Guidelines. Normal BP Less than 120/80. Elevated BP 120/80. Hypertension Stage 1: BP 130-139/80-89. Hypertesnion Stage 2: BP 140 or higher/90 or higher. Hypertension Crisis: BP higher than 180/120 Peak Exercise Blood Pressure:: 152/80 Outcomes/Goals: Able to verbalize/achieve optimal blood pressure <130/80, Incorporates diet changes & exercise for blood pressure control by DC Interventions/plan: Instruct on optimal blood pressure, hypertension & medications, Instruct on effects of sodium, alcohol, stress, exercise &hypertension 30 day Reassessments:: Progressing Medical- 60-Day Assessment Medical- 90-Day Assessment Medical - Final Assessment Psychosocial - Initial Assess Psychosocial - 30-Day Assess - VIsit Date of Eval: 03/17/21 Session #:: 9 Not Applicable: Yes History of previous Mental disease:: No - Psychosocial Test Tool Used:: PHQ-9 Questionnaire phq-9 Severity: Severity. 1-4 Minimal Depression. 5-9 Mild Depression. 10-14 Moderate Depression. 15-19 Moderately Sever Depression. 20-27 Severe Dep ression. Rule: See PHQ-9 Score: 12 - Indicates Moderate Depression - Referral to Behavioral Health PS - Interventions: Yes Referral to Behavioral Health if PHQ-9 score >9:, Yes Referral to Physician if PHQ-9 if score is 5-9: - Patient could ebnefit from intervention/counseling., Yes Attend Stress Management Classes, No [facility]erral to [facility] - Outcomes/Goals: See list Psychosocial Outcomes/Goals:: ID's personal stressors & 2 strategies to manage stress by discharge - Intervention/Plan: See List Interventions/Plan:: Assess stressors,coping strategies & signs of derpression on admission, Instruct/assist pt to develop coping & personal stress Mgt strategies, Instruct patient to recognize signs & symptoms of depression, Instruct patient to recog - 30-day Reassessments: 30 day Reassessments:: Progressing Psychosocial - 60-Day Assess Psychosocial - 90-Day Assess Psychosocial - Final Assessmen Patient Health Questionnaire 30-Day Re-eval Assessment 1. Little interest or pleasure in doing things: Several days 2. Feeling down, depressed, or hopeless: Several days 3. Trouble falling or staying asleep, or sleeping too much: Nearly every day 4. Feeling tired or having little energy: More than half the days 5. Poor appetite or overeating: Several days 6. Feeling bad about yourself -- or that you are a failure or have let yourself or your family down: Several days 7. Trouble concentrating on things, such as reading the newspaper or watching television: More than half the days 8. Moving or speaking so slowly that other people could have noticed. Or the opposite - being so fidgety or restless that you have been moving around a lot more than usual: Several days 9. Thoughts that you would be better off , or of hurting yourself in some way: Not at all How difficult have these problems made it for you to do your work, take care of things at home, or get along with other people?: Very difficult Total Score: 12 Self-Efficacy 30-Day Re-eval Assessment We would like to know how confident you are in doing certain activities. Please select your confidence level for:: Select your confidence level for the following using the scale 1-10 where 1 is not at all confident and 10 is totally confident. Your score is the average of all 6 responses. Fatigue: How confident are you that you can keep the fatigue caused by your disease from interfering with the things you want to do? Select Number: 5 Physical Discomfort or Pain: How confident are you that you can keep the ph ysical discomfort or pain of your disease from interfering with the things you want to do? Select Number: 7 Emotional Distress: How confident are you that you can keep the emotional distress caused by your disease from interfering with the things you want to do? Select Number: 8 Other Symptoms or Health Problems: How confident are you that you can keep other symptoms or health problems from interfering with the things you want to do? Select Number: 4 Different Tasks and Activities: How confident are you that you can do the different tasks and activities needed to manage your health condition so as to reduce your need to see a doctor? Select Number: 8 Medication: How confident are you that you can do things other than just taking medication to reduce how much your illness affects your everyday life? Select Number: 9 Total Score:: 6 Nutrition Survey
[2021-03-17 07:02] VITALS: BP 136/64; BP 146/70; BP 152/80; BMI 20.7
== END 2021-03-18 23:59 ==
LOC: CR 13:00
PROVIDERS: PCP Family Medicine; Referring Provider Internal Medicine Cardiovascular Disease; Visit Provider Internal Medicine Cardiovascular Disease
DX: I25.10 Atherosclerotic heart disease of native coronary artery without angina pectoris (principal); Z98.890 Other specified postprocedural states; Z86.79 Personal history of other diseases of the circulatory system; Z95.3 Presence of xenogenic heart valve; Z95.1 Presence of aortocoronary bypass graft
CPT/HCPCS: 93798

== ENCOUNTER 2021-04-14 13:00 | Outpatient (RCR) | payer OTHER, SELFPAY ==
[2021-03-13 14:21] VITALS: BMI 19.6
[2021-03-19 00:13] VITALS: BP 136/64; BP 146/70; BP 152/80
--- NOTE | 2021-04-17 07:12 | CR.ITP_ITS ---
Diagnosis Exercise - 60-day Assessment - Visit Date of Eval: 04/17/21 Session #:: 23 - Physician Prescribed Exercise Modalities: Biodyne - Replaced with Lateral Paving Crew Foreman, NuStep, SciFit Frequency: 3x/week for 12 weeks [36 sessions] Intensity: 60-80% of age predicted maximum heart rate reserve Current METSs:: 3.5 unchanged due to other health issues Target Heart Rate:: 95-125 Current RPE:: 13-14 Maximum Excercise HR:: 92 Resting Blood Pressure: 120/62 Maximum Exercise Blood Pressure: 140/78 EKG Type: Persistent atrial fibrillation with rare PVC. Current Physical Activity or Exercising minutes: 35-45 - Outcomes & Goals Goals:: Verbalizes understanding of THR, RPE & goal METS by session 6, Documents in home exercise log/reports 30 min aerobic 5 day/wk by DC, Demonstrates accurate pulse taking by DC - Intervention & Plan Exercise Program Goals: Instruct on personal THR & RPE, Instruct on MET level & personal MET goal, Show patient to take own pulse /validate performance until accurate, Instruct on home exercise - 30-day Reassessments 30 day Reassessments:: Met - Physical Activity Home Exercise Physical Activity - Home Exercise: Safe Exercise, Warm-up, Self-monitoring, Cool-Down, Home Exercise > 30 min Daily, Sitting Time <3 hours/daily - Outcomes & Goals Outcomes/Goals: Demonstrates correct Warm-up/exercise Cool-Down (S3) if = 2.5 METs, Verbalizes symptoms of exercise intolerance by Session 3 (S3), Demonstrate safe equipment use (S3) & follows exercise prescrition (6) - Intervention & Plan Plan/Intervention: Instruct warm-up & cool-down if exercising at > 2 METs, Instruct on symptoms of exercise intolerance & actions to take, Instruct & monitor on saf, Assess intial functional capacity & safety risk - 30-day Reassessments 30 day Reassessments:: Met Nutrition - Initial Assessment Nutrition - 30-Day Assessment Nutrition - 60-Day Assessment - Program Goals Nutrition Program Goals: LDL <100 optimal. 100 - 129 Near optimal. 130 - 159 Borderline High. 160 - 189 High. Total Cholesterol <200 desirable. 200 - 239 Borderline High. >/= 240 High. HDL < 40 Low >/=60 High. Triglycerides <150 desirable. <199 optimal. VlDL 5 - 40. HgbA1C <7%. BMI <25 Patient has diagnosis of Hyperlipidemia (ICD E78)?: Yes - Visit Date of Assessment:: 04/17/21 Session #:: 23 - Cholesterol/Lipids Determine presence & major risk factors that modify LDL goal: Hypertension or hypertensive medication, Family history of premature CHD in Male < 55 years: female <65 yearsFa, Age men > 45 years; women >/= 55 years Outcomes/Goals: Pt IDs own risk factors & lifestyle modifications by Session 10, Verbalizes symptoms of angina & response by session 3. Intervention/Plan: Instruct on personal lipid levels & lipid goals/NCEP guidelines, Instruct on cholesterol Referral to dietitian:: No 30-day Reassessments:: Progressing - Diabetes (Other Core Measures) Diabetes Type: Not Applicable - Weight Mgt (Other Care) Not Applicable: Yes Height: 6 ft Weight:: 153 lb BMI: 20.7 Diagnosis Overweight/Obesity BMI> 30% ICD-10 E66: No Diagnosis High BMI/Morbid Obesity BMI> 35% ICD-10 Z68: No Outcomes/Goals: Pt sets, maintains & shows weight loss goal & trend during rehab Intervention/Plan: Instruct on ideal BMI & set weight loss goal w/patient 30 day Reassessments:: Met - Healthy Eating Habits Will attend diet classes:: Yes Outcomes/Goals:: Consume diet rich in vegs,fruits,whole grain/high fiber,fish,lean meat, Limit sat/trans fats,cholesterol & added salts & sugars Intervention/Plan:: Assess current eating habits 30-day Reassessments:: Progressing - Education Gave educational materials for:: Healthy eating Nutrition - 90-Day Assessment Nutrition - Final Assessment Medical - Initial Assessment Medical- 30-Day Assessment Medical- 60-Day Assessment - Visit Date of Eval: 04/17/21 Session #:: 23 - Medication Compliance Preventative Medication(s):: Aspirin, Statin/lipid, Beta joce H/O mental health issues: depression, anxiety, or addiction?: Yes Doesn?t believe in the benefits of treatment?: No Believes medications are unnecessary or harmful?: No Has a concern about medication side effects?: No Expresses concern over the cost of medications?: No Outcomes/Goals: Verbalizes medications,desired effect & common side effects @ DC, Pt self-reports following medication regimen, Keeps card in wallet w/medications listed by DC Interventions/plans: Instruct on medication effects & side effects, Review medication list w/patient every two weeks, Instruct importance of taking meds as ordered & assist problem solving 30-day Reassessments:: Progressing - Tobacco Use Tobacco Use: Non-smoker - Hypertension Hypertension Diagnosis:: Hypertension ICD-10 I10 Resting Blood Pressure:: 120/62 [place] [employer] Hypertension Guidelines: [place] [employer] Hypertension Guidelines. Normal BP Less than 120/80. Elevated BP 120/80. Hypertension Stage 1: BP 130-139/80-89. Hypertesnion Stage 2: BP 140 or higher/90 or higher. Hypertension Crisis: BP higher than 180/120 Peak Exercise Blood Pressure:: 140/78 Outcomes/Goals: Able to verbalize/achieve optimal blood pressure <130/80, Incorporates diet changes & exercise for blood pressure control by DC Interventions/plan: Instruct on optimal blood pressure, hypertension & medications, Instruct on effects of sodium, alcohol, stress, exercise &hypertension 30 day Reassessments:: Progressing - Tobacco Cessation Referral Smoking Cessation Referral:: No Individual Education/Counseling:: No Education Schedule Given:: Yes Medical- 90-Day Assessment Medical - Final Assessment Psychosocial - Initial Assess Psychosocial - 30-Day Assess Psychosocial - 60-Day Assess - VIsit Date of Eval: 04/17/21 Session #:: 23 Not Applicable: No History of previous Mental disease:: Yes History of Emotional Disorders: Depression - Psychosocial Test Tool Used:: PHQ-9 Questionnaire phq-9 Severity: Severity. 1-4 Minimal Depression. 5-9 Mild Depression. 10-14 Moderate Depression. 15-19 Moderately Sever Depression. 20-27 Severe Depression. Rule: See PHQ-9 Score: 12 - Moderate Depression - Referral to Behavioral Health PS - Interventions: Yes Referral to Behavioral Health if PHQ-9 score >9:, Yes Referral to Physician if PHQ-9 if score is 5-9: - Patient suffering from moderate depression. Unchanged score in 60 days., Yes Attend Stress Management Classes, No Referral to [facility] - Outcomes/Goals: See list Psychosocial Outcomes/Goals:: ID's personal stressors & 2 strategies to manage stress by discharge - Intervention/Plan: See List Interventions/Plan:: Assess stressors,coping strategies & signs of derpression on admission, Instruct/assist pt to develop coping & personal stress Mgt strategies, Instruct patient to recognize signs & symptoms of depression, Instruct patient to recog - 30-day Reassessments: 30 day Reassessments:: Progressing Psychosocial - 90-Day Assess Psychosocial - Final Assessmen Patient Health Questionnaire 60-Day Re-eval Assessment 1. Little interest or pleasure in doing things: Several days 2. Feeling down, depressed, or hopeless: Several days 3. Trouble falling or staying asleep, or sleeping too much: Nearly every day 4. Feeling tired or having little energy: More than half the days 5. Poor appetite or overeating: Several days 6. Feeling bad about yourself -- or that you are a failure or have let yourself or your family down: Several days 7. Trouble concentrating on things, such as reading the newspaper or watching television: More than half the days 8. Moving or speaking so slowly that other people could have noticed. Or the opposite - being so fidgety or restless that you have been moving around a lot more than usual: Several days 9. Thoughts that you would be better off , or of hurting yourself in some way: Not at all How difficult have these problems made it for you to do your work, take care of things at home, or get along with other people?: Somewhat difficult Total Score: 12 Self-Efficacy 60-Day Re-eval Assessment We would like to know how confident you are in doing certain activities. Please select your confidence level for:: Select your confidence level for the following using the scale 1-10 where 1 is not at all confident and 10 is totally confident. Your score is the average of all 6 responses. Fatigue: How confident are you that you can keep the fatigue caused by your disease from interfering with the things you want to do? Select Number: 5 Physical Discomfort or Pain: How confident are you that you can keep the physical discomfort or pain of your disease from interfering with the things you want to do? Select Number: 7 Emotional Distress: How confident are you that you can keep the emotional distress caused by your disease from interfering with the things you want to do? Select Number: 8 Other Symptoms or Health Problems: How confident are you that you can keep other symptoms or health problems from interfering with the things you want to do? Select Number: 4 Different Tasks and Activities: How confident are you that you can do the different tasks and activities needed to manage your health condition so as to reduce your need to see a doctor? Select Number: 8 Medication: How confident are you that you can do things other than just taking medication to reduce how much your illness affects your everyday life? Select Number: 9 Total Score:: 6 Nutrition Survey
[2021-04-17 07:26] VITALS: BP 120/62; BP 140/78; BMI 20.7
== END 2021-04-18 23:59 ==
LOC: CR 13:00
PROVIDERS: PCP Family Medicine; Referring Provider Internal Medicine Cardiovascular Disease; Visit Provider Internal Medicine Cardiovascular Disease
DX: I25.10 Atherosclerotic heart disease of native coronary artery without angina pectoris (principal); Z95.3 Presence of xenogenic heart valve; Z95.1 Presence of aortocoronary bypass graft; Z86.79 Personal history of other diseases of the circulatory system
CPT/HCPCS: 93798

== ENCOUNTER 2021-05-01 11:44 | Day surgery (SDC) | payer OTHER, SELFPAY ==
[2021-05-01] VITALS (7 sets, daily range): BP systolic 162–199; BP diastolic 79–108; PULSE 62–75; RESP 16; TEMP 36.1–36.5; O2SAT 96–99; BMI 19.5
[2021-05-01] MEDS: Lactated Ringers 1,000 ML 100 ML IV (11:55)
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
--- NOTE | 2021-05-01 13:00 | EGD_PTH ---
PATIENT: MANDI ESQUEDA LOC: EN U#:[id number] AGE/SX: 75/M ROOM: RE05/01/[address]: Dr. Ld Morton MD : [id number] BED: DIS: 05/01/2021 SPEC #: [id number] RECD: 05/02/21 15:51 STATUS: ARI KSENIA #: [id number] MADI: 05/01/21 13:[address]: Ld Morton DEPT: SURGICAL PATHOLOGY RECD BY: Arianna Srinivasan ENTERED: 05/02/21 12:33 SP TYPE: EGD BIOPSY OTHR DR: Dr. Yeison Maynard MD Tissues: Gastric mucous membrane Procedures: Surgery Specimen Level IV HEADER OPERATION: EGD ([facility] [place]) PRE-OP DIAGNOSIS: Epigastric pain, bloating TISSUE SUBMITTED: Antrum biopsy for histo and H. pylori MICROSCOPIC DIAGNOSIS Gastric antrum, biopsy: Consistent with eosinophilic gastritis. See comment. AM:apolinar 05/03/2021 COMMENT The results of immunohistochemistry for Helicobacter pylori will be reported separately ([id number]). MICROSCOPIC DESCRIPTION Slides are reviewed. GROSS DESCRIPTION Received in fixative is one container labeled with the patient's name and designated antrum biopsy. The specimen consists of two irregular fragments of light martini soft tissue that in aggregate measure 0.6 x 0.3 x 0.1 cm. The specimen is totally submitted in one cassette. / AM:apolinar 05/02/2021 TC:3 CPT: 84905
--- NOTE | 2021-05-01 13:00 | IMM_PTH ---
PATIENT: MANDI ESQUEDA LOC: EN U#:[id number] AGE/SX: 75/M ROOM: RE05/01/[address]: Dr. Ld Morton MD : 1945 BED: DIS: 05/01/2021 SPEC #: [id number] RECD: 05/02/21 13:26 STATUS: ARI REMariluz #: [id number] MADI: 05/01/21 13:[address]: Ld Morton DEPT: IMMUNOHISTOCHEMISTRY RECD BY: Rosalba Guallpa ENTERED: 05/02/21 13:27 SP TYPE: IMMUNO OTHR DR: Dr. Yeison Maynard MD Tissues: Stomach, NOS Procedures: H Pylori (initial) PHYSICIAN & INSTITUTION [place] [id number] SPECIMEN INFORMATION: Tissue Source: Antrum biopsy Clinical Info: Epigastric pain, bloating Specimen Number: [id number] CPT code: 91088 METHODOLOGY: Deparaffinized sections of prefer/formalin-fixed tissue or PAP/DQ stained slides are incubated with monoclonal/polyclonal antibodies/oligonucleotide probes. Localization is made via biotin free immunoperoxidase method. Appropriate controls are performed and reacted as expected. Results on target cell population are indicated in the following table: RESULTS: ANTIBODY / CLONE RESULT H Pylori (polyclonal) negative These tests were developed and their performance characteristics determined by [facility]. They may not have been cleared or approved by the [place]. Food and Drug Administration. The FDA has determined that such clearance or approval is not necessary. INTERPRETATION: Antrum biopsy: Negative for Helicobacter pylori organisms. AM:apolinar 05/03/2021
--- NOTE | 2021-05-01 13:08 | OP.EGD_ITS ---
Patient Name: Mynor Mckeon Procedure Date: 05/01/2021 12:46 PM Date of : 1945 Age: 75 Procedure: Upper GI endoscopy Indications: Epigastric abdominal pain, Abdominal bloating Providers: Ld Morton MD Medicines: See the Anesthesia note for documentation of the administered medications Patient Profile: This is a 75 year old male. Refer to note in patient chart for documentation of history and physical. Complications: No immediate complications. Procedure: Pre-Anesthesia Assessment: - Prior to the procedure, a History and Physical was performed, and patient medications and allergies were reviewed. The patient's tolerance of previous anesthesia was also reviewed. The risks and benefits of the procedure and the sedation options and risks were discussed with the patient. All questions were answered, and informed consent was obtained. Prior Anticoagulants: The patient has taken aspirin, last dose was 5 days prior to procedure. ASA Grade Assessment: IV - A patient with severe systemic disease that is a constant threat to life. After reviewing the risks and benefits, the patient was deemed in satisfactory condition to undergo the procedure. After obtaining informed consent, the endoscope was passed under direct vision. Throughout the procedure, the patient's blood pressure, pulse, and oxygen saturations were monitored continuously. The gastroscope was introduced through the mouth, and advanced to the second part of duodenum. The upper GI endoscopy was accomplished without difficulty. The patient tolerated the procedure well. Scope In: 12:57:59 PM Scope Out: 1:01:10 PM Total Procedure Duration Time 0 hours 3 minutes 11 seconds Findings: The Z-line was regular and was found 41 cm from the incisors. No biopsies or other specimens were collected for this exam. Localized minimal inflammation characterized by erythema was found in the prepyloric region of the stomach. Biopsies were taken with a cold forceps for Helicobacter pylori testing. The examined duodenum was normal. No biopsies or other specimens were collected for this exam. Impression: - Z-line regular, 41 cm from the incisors. No specimens collected. - Gastritis. Biopsied. - Normal examined duodenum. No specimens collected. Recommendation: - Discharge patient to home. - Resume previous diet. - Continue present medications. - Await pathology results. - Repeat upper endoscopy PRN for surveillance. - Return to nurse practitioner in 1 week. Lizbeth Garcia Procedure Code(s): --- Professional --- 54172, Esophagogastroduodenoscopy, flexible, transoral; with biopsy, single or multiple Diagnosis Code(s): --- Professional --- K29.70, Gastritis, unspecified, without bleeding R10.13, Epigastric pain R14.0, Abdominal distension (gaseous) CPT copyright 2017 [employer]. All rights reserved. The codes documented in this report are preliminary and upon pneumatic hoist operator review may be revised to meet current compliance requirements. MD Ld Cruz MD 05/01/2021 1:08:17 PM This report has been signed electronically. Number of Addenda: 0 Note Initiated On: 05/01/2021 12:46 PM
--- NOTE | 2021-05-01 13:09 | OP.CCLET_ITS ---
05/01/2021 Yeison Maynard Re : Upper GI endoscopy procedure for Mynor Mendieta Aleyda This procedure was performed on Saturday, May 01, 2021. My impressions and recommendations are as follows: Impressions : - Z-line regular, 41 cm from the incisors. No specimens collected. - Gastritis. Biopsied. - Normal examined duodenum. No specimens collected. Recommendations : - Discharge patient to home. - Resume previous diet. - Continue present medications. - Await pathology results. - Repeat upper endoscopy PRN for surveillance. - Return to nurse practitioner in 1 week. Lizbeth Garcia My findings are described in the full procedure note, which is enclosed. If I can be of further assistance, please feel free to contact me at Doctor phone number(s): , Work: . Sincerely, MD Ld Cruz MD 05/01/2021 1:08:17 PM This report has been signed electronically.
== END 2021-05-01 13:55 | disposition home or self-care (01) ==
LOC: EN 11:47 → AC 11:47
PROVIDERS: PCP Family Medicine; Referring Provider Family Medicine; Visit Provider Surgery
PROC: 0DJ08ZZ Inspection of Upper Intestinal Tract, Via Natural or Artificial Opening Endoscopic (ICD-10-PCS; CPT 43235; principal; 2021-05-01 12:55)
DX: K29.70 Gastritis, unspecified, without bleeding (principal); E78.5 Hyperlipidemia, unspecified; I25.10 Atherosclerotic heart disease of native coronary artery without angina pectoris; I10 Essential (primary) hypertension; Z86.010 Personal history of colon polyps; Z87.891 Personal history of nicotine dependence; Z79.899 Other long term (current) drug therapy
CPT/HCPCS: 43239; 88305; 88342

== ENCOUNTER 2021-05-15 13:00 | Outpatient (RCR) | payer OTHER, SELFPAY ==
[2021-04-19 00:20] VITALS: BP 120/62; BP 140/78; BMI 19.6
--- NOTE | 2021-05-17 08:19 | PCM.CR.ITP ---
Diagnosis Exercise - 90-day Assessment - Visit Date of Eval: 05/17/21 Session #:: 32 - Physician Prescribed Exercise Modalities: NuStep, SciFit Frequency: 3x/week for 12 weeks [36 sessions] Intensity: 60-80% of age predicted maximum heart rate reserve Current METSs:: 3.5 limited by other health related issues. Target Heart Rate:: 95-125 Current RPE:: 12-14 Maximum Excercise HR:: 91 Resting Blood Pressure: 110/42 Maximum Exercise Blood Pressure: 140/80 EKG Type: A-fibrillation with ST & T wave abnormality and rare PVCs Current Physical Activity or Exercising minutes: 40 - Outcomes & Goals Goals:: Verbalizes understanding of THR, RPE & goal METS by session 6, Documents in home exercise log/reports 30 min aerobic 5 day/wk by DC, Demonstrates accurate pulse taking by DC - Intervention & Plan Exercise Program Goals: Instruct on personal THR & RPE, Instruct on MET level & personal MET goal, Show patient to take own pulse /validate performance until accurate, Instruct on home exercise - 30-day Reassessments 30 day Reassessments:: Met - Physical Activity Home Exercise Physical Activity - Home Exercise: Safe Exercise, Warm-up, Self-monitoring, Cool-Down, Home Exercise > 30 min Daily, Sitting Time <3 hours/daily - Outcomes & Goals Outcomes/Goals: Demonstrates correct Warm-up/exercise Cool-Down (S3) if = 2.5 METs, Verbalizes symptoms of exercise intolerance by Session 3 (S3), Demonstrate safe equipment use (S3) & follows exercise prescrition (6) - Intervention & Plan Plan/Intervention: Instruct warm-up & cool-down if exercising at > 2 METs, Instruct on symptoms of exercise intolerance & actions to take, Instruct & monitor on saf, Assess intial functional capacity & safety risk - 30-day Reassessments 30 day Reassessments:: Met Nutrition - Initial Assessment Nutrition - 30-Day Assessment Nutrition - 60-Day Assessment Nutrition - 90-Day Assessment - Program Goals Nutrition Program Goals: LDL <100 optimal. 100 - 129 Near optimal. 130 - 159 Borderline High. 160 - 189 High. Total Cholesterol <200 desirable. 200 - 239 Borderline High. >/= 240 High. HDL < 40 Low >/=60 High. Triglycerides <150 desirable. <199 optimal. VlDL 5 - 40. HgbA1C <7%. BMI <25 Patient has diagnosis of Hyperlipidemia (ICD E78)?: Yes - Visit Date of Assessment:: 05/17/21 Session #:: 32 - Cholesterol/Lipids Triglycerides (mg/dL): 186 Total Cholesterol (mg/dL): 214 LDL Cholesterol (mg/dL): 141 HDL Cholesterol (mg/dL): 36 Determine presence & major risk factors that modify LDL goal: Hypertension or hypertensive medication, Low HDL cholesterol <40 mg/dL*, Family history of premature CHD in Male < 55 years: female <65 yearsFa, Age men > 45 years; women >/= 55 years Outcomes/Goals: Pt IDs own risk factors & lifestyle modifications by Session 10, Verbalizes symptoms of angina & response by session 3., Pt independently manages Intervention/Plan: Instruct on personal lipid levels & lipid goals/NCEP guidelines, Instruct on cholesterol Referral to dietitian:: No - Patient declined services 30-day Reassessments:: Progressing - Diabetes (Other Core Measures) Diabetes Type: Not Applicable - Weight Mgt (Other Care) Not Applicable: Yes Height: 6 ft Weight:: 154 lb BMI: 20.9 Diagnosis Overweight/Obesity BMI> 30% ICD-10 E66: No Diagnosis High BMI/Morbid Obesity BMI> 35% ICD-10 Z68: No Outcomes/Goals: Pt sets, maintains & shows weight loss goal & trend during rehab Intervention/Plan: Instruct on ideal BMI & set weight loss goal w/patient, Assist pt to ID & incorporate diet changes for weight loss by S9, Encourage goal of using 250-300dcal per session for weight loss 30 day Reassessments:: Progressing - Healthy Eating Habits Will attend diet classes:: Yes Outcomes/Goals:: Consume diet rich in vegs,fruits,whole grain/high fiber,fish,lean meat, Limit sat/trans fats,cholesterol & added salts & sugars Intervention/Plan:: Assess current eating habits Nutrition - Final Assessment Medical - Initial Assessment Medical- 30-Day Assessment Medical- 60-Day Assessment Medical- 90-Day Assessment - Visit Date of Eval: 05/17/21 Session #:: 32 - Medication Compliance Preventative Medication(s):: Aspirin, ANABELA inhibitor, Statin/lipid, Beta joce, Eliquis, ARB (Angiotensi Rcap) H/O mental health issues: depression, anxiety, or addiction?: No Doesn?t believe in the benefits of treatment?: No Believes medications are unnecessary or harmful?: No Has a concern about medication side effects?: No Expresses concern over the cost of medications?: No Outcomes/Goals: Verbalizes medications,desired effect & common side effects @ DC, Pt self-reports following medication regimen, Keeps card in wallet w/medications listed by DC Interventions/plans: Instruct on medication effects & side effects, Review medication list w/patient every two weeks, Instruct importance of taking meds as ordered & assist problem solving 30-day Reassessments:: Progressing - Tobacco Use Tobacco Use: Non-smoker - Hypertension Hypertension Diagnosis:: Hypertension ICD-10 I10 Resting Blood Pressure:: 110/42 [place] [employer] Hypertension Guidelines: [place] [employer] Hypertension Guidelines. Normal BP Less than 120/80. Elevated BP 120/80. Hypertension Stage 1: BP 130-139/80-89. Hypertesnion Stage 2: BP 140 or higher/90 or higher. Hypertension Crisis: BP higher than 180/120 Peak Exercise Blood Pressure:: 140/80 Outcomes/Goals: Able to verbalize/achieve optimal blood pressure <130/80, Incorporates diet changes & exercise for blood pressure control by DC Interventions/plan: Instruct on optimal blood pressure, hypertension & medications, Instruct on effects of sodium, alcohol, stress, exercise &hypertension 30 day Reassessments:: Progressing - Tobacco Cessation Referral Smoking Cessation Referral:: No Individual Education/Counseling:: No Education Schedule Given:: Yes Medical - Final Assessment Psychosocial - Initial Assess Psychosocial - 30-Day Assess Psychosocial - 60-Day Assess Psychosocial - 90-Day Assess - VIsit Date of Eval: 05/17/21 Session #:: 32 Not Applicable: No History of previous Mental disease:: Yes History of Emotional Disorders: Depression Self-reported stressors: Medical/Health, Recent Illness - Psychosocial Test Tool Used:: PHQ-9 Questionnaire phq-9 Severity: Severity. 1-4 Minimal Depression. 5-9 Mild Depression. 10-14 Moderate Depression. 15-19 Moderately Sever Depression. 20-27 Severe Depression. Rule: See PHQ-9 Score: 13 - Moderate Depression Score - Referral to Behavioral Health PS - Interventions: Yes Referral to Behavioral Health if PHQ-9 score >9: - Patient could benefit from professional corrections counselor, Yes Referral to Physician if PHQ-9 if score is 5-9: - Patient could benefit from Behavioral Health Services, Yes Attend Stress Management Classes, No Referral to [facility] - Outcomes/Goals: See list Psychosocial Outcomes/Goals:: ID's personal stressors & 2 strategies to manage stress by discharge - Intervention/Plan: See List Interventions/Plan:: Assess stressors,coping strategies & signs of derpression on admission, Instruct/assist pt to develop coping & personal stress Mgt strategies, Instruct patient to recognize signs & symptoms of depression, Instruct patient to recog - 30-day Reassessments: 30 day Reassessments:: Progressing Psychosocial - Final Assessmen Patient Health Questionnaire 90-Day Re-eval Assessment 1. Little interest or pleasure in doing things: Several days 2. Feeling down, depressed, or hopeless: Several days 3. Trouble falling or staying asleep, or sleeping too much: Nearly every day 4. Feeling tired or having little energy: Nearly every day 5. Poor appetite or overeating: Several days 6. Feeling bad about yourself -- or that you are a failure or have let yourself or your family down: Several days 7. Trouble concentrating on things, such as reading the newspaper or watching television: More than half the days 8. Moving or speaking so slowly that other people could have noticed. Or the opposite - being so fidgety or restless that you have been moving around a lot more than usual: Several days 9. Thoughts that you would be better off , or of hurting yourself in some way: Not at all How difficult have these problems made it for you to do your work, take care of things at home, or get along with other people?: Very difficult Total Score: 13 Self-Efficacy 90-Day Re-eval Assessment We would like to know how confident you are in doing certain activities. Please select your confidence level for:: Select your confidence level for the following using the scale 1-10 where 1 is not at all confident and 10 is totally confident. Your score is the average of all 6 responses. Fatigue: How confident are you that you can keep the fatigue caused by your disease from interfering with the things you want to do? Select Number: 5 Physical Discomfort or Pain: How confident are you that you can keep the physical discomfort or pain of your disease from interfering with the things you want to do? Select Number: 7 Emotional Distress: How confident are you that you can keep the emotional distress caused by your disease from interfering with the things you want to do? Select Number: 8 Other Symptoms or Health Problems: How confident are you that you can keep other symptoms or health problems from interfering with the things you want to do? Select Number: 6 Different Tasks and Activities: How confident are you that you can do the different tasks and activities needed to manage your health condition so as to reduce your need to see a doctor? Select Number: 8 Medication: How confident are you that you can do things other than just taking medication to reduce how much your illness affects your everyday life? Select Number: 9 Total Score:: 7 Nutrition Survey
[2021-05-17 08:28] VITALS: BP 110/42; BP 140/80; BMI 20.9
== END 2021-05-18 23:59 ==
LOC: CR 13:00
PROVIDERS: PCP Family Medicine; Referring Provider Internal Medicine Cardiovascular Disease; Visit Provider Internal Medicine Cardiovascular Disease
DX: I25.10 Atherosclerotic heart disease of native coronary artery without angina pectoris (principal); Z95.3 Presence of xenogenic heart valve; Z95.1 Presence of aortocoronary bypass graft; Z86.79 Personal history of other diseases of the circulatory system
CPT/HCPCS: 93798

== ENCOUNTER 2021-05-26 13:00 | Outpatient (RCR) | payer OTHER, SELFPAY ==
[2021-05-19 00:15] VITALS: BP 110/42; BP 140/80; BMI 19.6
== END 2021-06-18 23:59 ==
LOC: CR 13:00
PROVIDERS: PCP Family Medicine; Referring Provider Internal Medicine Cardiovascular Disease; Visit Provider Internal Medicine Cardiovascular Disease
DX: I25.10 Atherosclerotic heart disease of native coronary artery without angina pectoris (principal); Z95.1 Presence of aortocoronary bypass graft; Z95.3 Presence of xenogenic heart valve; Z86.79 Personal history of other diseases of the circulatory system; Z98.890 Other specified postprocedural states
CPT/HCPCS: 93798

== ENCOUNTER 2021-06-29 18:04 | Emergency (ER) | payer OTHER, SELFPAY ==
[2021-06-29] VITALS (13 sets, daily range): BP systolic 126–184; BP diastolic 80–127; PULSE 114–143; RESP 12–16; TEMP -17.7–35.3; O2SAT 97–100; BMI 21.2
[2021-06-29] MEDS: Etomidate 20 MG/10 ML Vial IV (18:12)
--- NOTE | 2021-06-29 18:19 | CT_ITS ---
INDICATION: Fall EXAMINATION: CT CERVICAL SPINE - CT Spine Cervical W/O Contrast Injection TECHNIQUE: Helically acquired images were obtained of the cervical spine. 2D reformatted images were reviewed. A radiation dose optimization technique was used for this scan. IV Contrast dosage and agent: None. COMPARISON: None. FINDINGS: VERTEBRAL AND ALIGNMENT: 1. Vertebral body height is maintained, no evidence fractures malalignment or destructive bony process. 2. Moderate multilevel facet hypertrophic changes and uncovertebral joint hypertrophy with associated mild narrowing of neural foramina most notable at the C4-5 C5-6 and C6-7 levels. 3. There is normal appearance of the odontoid process, prevertebral soft tissue planes and alignment of the craniocervical junction. DISC SPACES: There is mild disc space narrowing at C5-6 and C6-7. Marginal osteophytes are noted. No acute disc herniation evident. CERVICAL THORACIC JUNCTION AND VISUALIZED UPPER CHEST: 1. There is normal alignment of the cervical thoracic junction. Visualized ribs and upper lung zones are normal in appearance. PARASPINOUS SOFT TISSUES: Normal appearance the paraspinous soft tissues without evidence of fluid accumulation masses or posttraumatic hematomas OTHER: Extensive calcifications noted in the cervical carotid vessels bilaterally. Life support: ET tube and NG tube are projecting in normal trajectory. CT/Spine Cervical without Contras IMPRESSION: 1. No evidence of acute fracture or acutely acquired canal stenosis 2. Vertebral body height is maintained, mild discogenic changes with chronic appearing osteophyte formation, facet arthropathy and uncovertebral joint hypertrophic changes. Electronically Signed: Dawit Martinez MD at 19:15 EST Tel , Service support ,
--- NOTE | 2021-06-29 18:19 | CT_ITS ---
We are attempting to reach an attending provider to discuss findings. An addendum with communication details will be sent when the communication is complete. INDICATION: Head injury EXAMINATION: CT BRAIN - CT Head or Brain W/O Contrast Injection TECHNIQUE: Multiple axial images were obtained of the head without intravenous contrast. A radiation dose optimization technique was used for this scan. IV Contrast dosage and agent: None. COMPARISON: 12/28/2020 FINDINGS: FINDINGS: HEMISPHERES: 1. Current examination is remarkable for a large left hemispheric subdural hematoma including left frontal, parietal, and temporal regions. Maximal radial dimension is estimated approximately 2.3 cm. There is mass effect and rightward midline shift estimated at approximately 1.9 cm. There is gyral effacement. 2. There is a subtle subdural noted along the anterior aspect of the falx and the left side of the posterior falx measuring approximately 3 mm in size. 3. Trace subarachnoid hemorrhage is also noted within the sulci of the left parietal lobe. No evidence of andra intraparenchymal or intraventricular hemorrhage. 4. There is complete effacement of the left lateral ventricle. 5. No acute territorial infarct identified. 6. Current examination is also remarkable for a subtle soft tissue density along the clivus which was not present on prior exam, also consistent with a small 4 to 5 mm clival subdural hematoma without mass effect.. 7. Chronic microvascular deep white matter disease is again demonstrated CEREBELLUM - BRAINSTEM: The cerebellum, brainstem, basilar and suprasellar cisterns have normal appearance. No Chiari malformation. PITUITARY: Infundibulum and pituitary have normal configuration. Midline structures appear normal. CSF SPACES: Subarachnoid blood is noted on the left. No hydrocephalus. VESSELS: 1. Moderate vascular calcifications in the cavernous carotid vessels. 2. No hyperdense vascular signs noted.. ORBITS AND PARANASAL SINUSES: 1. Normal appearance of the bony orbits. Normal appearance of the globes and retrobulbar soft tissues.. There is note of ocular banding on the right. 2. Paranasal sinuses are clear. BONY ELEMENTS: Bony elements of the cranial vault, facial skeleton and skull base have normal appearance. SCALP AND SOFT TISSUES: Normal appearance of the soft tissues of the scalp and the visualized face OTHER: None ASPECTS Score for Acute Strokes: 10 CT/Brain/Head without Contrast IMPRESSION: 1. Prominent LEFT HEMISPHERIC SUBDURAL HEMATOMA with maximal radial dimension of approximately 2.1 cm. Significant mass effect, gyral effacement and rightward midline shift estimated at approximately 1.9 cm. 2. There is subtle reflection of the subdural hematoma along the anterior falx, and a subtle LEFT POSTERIOR FALCINE subdural hematoma noted measuring approximately 3 mm. 3. Trace subarachnoid hemorrhage noted within the sulci of the left parietal lobe. 4. Subtle CLIVAL SUBDURAL HEMATOMA is noted measuring approximately 4 to 5 mm in thickness without mass effect noted. 5. Chronic microvascular deep white matter disease is present without intraparenchymal mass, hemorrhage, or acute territorial infarct. No intraventricular hemorrhage noted. 6. No cranial facial fractures noted. 7. No fluid or blood in the paranasal sinuses middle ear cavities or mastoid air cells. Electronically Signed: Dawit Martinez MD at 19:11 EST Tel , Service support ,
--- NOTE | 2021-06-29 18:20 | RAD_ITS ---
INDICATION: ETT AND OG PLACEMENT EXAMINATION/TECHNIQUE: X-RAY - XR Chest 1 View COMPARISON: 10/28/2020 FINDINGS: LIFE-SUPPORT AND LINES: 1. Interval postoperative changes including median sternotomy wires, vascular clips and atrial appendage clipping. Aortic valve ring is also noted. 2. ET tube projects in normal position at the level of the aortic knob, NG tube extends below the left hemidiaphragm. Tip projects within the proximal stomach, the proximal port however appears to project slightly above the expected location of the GE junction. 3. No pneumothorax. HEART AND VESSELS: Cardiac silhouette is unchanged. No evidence congestive failure. LUNGS AND PLEURAL SPACES: No focal infiltrate or consolidation however there is blunting of the right CP angle consistent with pleural thickening versus pleural fluid. LEFT lung appears clear. MEDIASTINUM AND HILAR REGIONS: No masses adenopathy noted. No areas of calcification. Visualized upper airway is normal in position. BONY ELEMENTS: No acute bony changes noted. RAD/Chest 1 View (Portable) IMPRESSION: 1. Postoperative changes of interval sternotomy, vascular clips noted, prosthetic valve ring and atrial appendage clip also placed in the interval. 2. ET tube projects in normal position. 3. NG tube extends below the left hemidiaphragm, tip projects within the proximal stomach and the proximal port however projects slightly above the level of the GE junction. 4. No evidence of congestive failure or acute infiltrate. 5. Interval blunting of the right CP angle consistent with fluid versus pleural thickening. Electronically Signed: Dawit Martinez MD at 18:44 EST Tel , Service support ,
[2021-06-29] MEDS: Rocuronium Bromide 50 MG/5 ML Vial 100 MG IV (18:24)
[2021-06-29 18:36] LABS: Absolute Lymphocyte Count 1.98 X10^3/uL (0.83-4.51); Absolute Neutrophil Count 8.8 X10^3/uL (2.0-7.7); Basophil# 0.05 X10^3/uL; Basophil% 0.4 % (0-1); Eosinophil# 0.11 X10^3/uL; Eosinophils% 0.9 % (0-5); Hematocrit 38.9 % (40-54); Hemoglobin 12.7 g/dL (13.0-16.5); Lymphocyte # 1.98 X10^3/ul (0.83-4.51); Mean Corp Hgb Conc 32.6 g/dL (32-36); Mean Corpuscular Hgb 26.9 pg (27.0-32.0); Mean Corpuscular Volume 82.4 fL (80-94); Monocyte# 0.64 X10^3/uL; Monocyte% 5.5 % (0-10); NRBC Flagged by Analyzer 0 % (0-5); Neutrophil # 8.81 X10^3/uL (2.7-7.7); Neutrophil % 75.9 % (47-70); Platelet Count 255 K/mm3 (150-450); RBC Distribution Width CV 13.5 % (11.6-14.6); RBC Distribution Width SD 40.2 fl (35.1-43.9); Red Blood Count 4.72 M/mm3 (4.6-6.2); White Blood Count 11.6 K/mm3 (4.4-11.0)
--- NOTE | 2021-06-29 18:40 | ED.RN ---
DENTURES REMOVED. PT INTUBATED BY DR JIMENEZ. GOOD COLOR CHANGED, B/L BREATH SOUNDS. OG PLACED. BOTH VERIFIED BY XRAY. AT THE BEDSIDE. PER , PT TOLD HER HE WAS WORKING IN HIS SHOP AROUND 1400, BENT OVER AND WHEN HE STOOD UP HE GOT LIGHT HEADED AND FELL HITTING HIS HEAD. HE CONTINUED TO WORK IN HIS GARAGE AFTER THAT. AT 1700, PT WAS TALKING TO THE . AT 1710 PT STARTED C/O BAD HEADACHE. 1725 PT BECAME UNRESPONSIVE. CALLED 04-19-. HAD A BRAIN BLEED 8-9 MONTHS AGO WHEN HE FELL WHILE BOWLING. WAS TRANSFERRED TO [facility] AT THAT TIME. PT TAKEN TO CT FOR IMAGING OF HEAD AND NECK. CT CONTACTED THIS NURSE TO NOTIFY DR JIMENEZ OF RESULTS OF HEAD CT.
[2021-06-29] MEDS: Propofol 10MG/Ml 1,000 MG/100 ML Bottle 4.3 MG CONT INF (18:43)
[2021-06-29 18:46] LABS: Partial Thromboplast Time 30.4 Seconds (24.1-36.2)
[2021-06-29 18:48] LABS: ALB/GLOB Ratio 0.7 RATIO (0.9-2.4); AST(SGOT) 29 U/L (15-37); Alanine Aminotransfer ALT/SGPT 38 U/L (16-61); Albumin, Serum 3.1 g/dL (3.2-5.0); Alkaline Phosphatase 178 U/L (45-117); Anion Gap 8 (5-15); BUN 25 mg/dL (7-18); BUN/Creat Ratio 16.3 RATIO (10-20); Calcium,Total 9.1 mg/dL (8.5-10.1); Chloride 107 mmol/L (98-107); Creatinine, Serum 1.53 mg/dL (0.70-1.30); EST Glomerular Filtration Rate 48 mL/min (>60); Est Glom Filt Rate - Afr Amer 58 mL/min (>60); Estimated Creatinine Clearance 43.24 ml/min; Globulin 4.5 g/dL (2.2-4.2); Glucose 140 mg/dL (74-106); Potassium 3.9 mmol/L (3.5-5.1); Protein, Total 7.6 g/dL (6.4-8.2); Sodium Level 140 mmol/L (136-145)
[2021-06-29 18:51] LABS: Bacteria 0 SEEN /hpf (None Seen); Mucous, Urine 0 SEEN /hpf (<or=2+)
[2021-06-29 18:55] LABS: Color, Urine Yellow (Yellow); Glucose, Dipstick Normal (Normal); Ketone-Dipstick Negative (Negative); Leukocyte Esterase-Dipstick 25 /ul (Negative); Nitrite-Dipstick Negative (Negative); Occult Blood-Urine 25 /ul (Negative); Protein-Dipstick 100 mg/dl (Negative); Urine Bilirubin Dipstick Negative (Negative); Urine Clarity Sl. Cloudy (Clear); Urine Urobilinogen Normal (Normal); Urine pH 6.5 (5.0 - 8.0)
--- NOTE | 2021-06-29 19:04 | EDS_ITS ---
HPI History of Present Illness Chief Complaint: Unresponsive Narrative Narrative: Patient presenting for unresponsiveness. Patient has an underlying history of atrial fibrillation on aspirin. Patient apparently suffered a mechanical fall about 3 PM. He was doing well worked in his garage his daughter came over he started to complain of a headache and then he went unresponsive. Patient was brought to the emergency department at that time. There is been no reports of seizure-like activity. Additional history or review of systems are unable to be obtained. [facility] Medical History Acute diastolic (congestive) heart failure Acute respiratory insufficiency Aortic valve disorder Atherosclerosis of coronary artery of [place] heart without angina pectoris Cancer COPD (chronic obstructive pulmonary disease) Easy bruising Essential hypertension Excessive bleeding Gastric reflux History of echocardiogram History of GI bleed History of left heart catheterization (LHC) (~10/11/20) History of stress test Hyperlipidemia Hypothyroidism Longstanding persistent atrial fibrillation Loss of consciousness Nonrheumatic aortic valve stenosis Normochromic normocytic anemia EDIS on CPAP PAF (paroxysmal atrial fibrillation) Pleural effusion Pneumonia Sepsis Subdural bleeding Tobacco dependence in remission Wears dentures Wears glasses Home Medications aspirin 81 mg PO DINNER 05/05/19 [History Last Taken 10/11/20] albuterol sulfate 90 mcg/actuation aerosol inhaler 2 puff INHALATION Q4H PRN #1 device 04/07/20 [Rx Last Taken Unknown] nitroglycerin 0.4 mg sublingual tablet 0.4 mg SUBLINGUAL Q5-15M PRN #25 tab 08/17/20 [Rx Last Taken Unknown] famotidine 20 mg tablet 20 mg PO BID 11/11/20 [History Last Taken Unknown] sennosides 8.6 mg tablet 8.6 mg PO BID 11/11/20 [History Last Taken Unknown] acetaminophen 325 mg tablet 650 mg PO Q4H PRN tab 01/20/21 [History Last Taken Unknown] aluminum-mag hydroxide-simethicone 200 mg-200 mg-20 mg/5 mL oral susp 30 ml PO DAILY PRN ml 01/20/21 [History Last Taken Unknown] cholecalciferol (vitamin D3) 25 mcg (1,000 unit) tablet 25 mcg PO DAILY 01/20/21 [History Last Taken Unknown] cyanocobalamin (vitamin B-12) 1,000 mcg capsule 1,000 mcg PO QHS 01/20/21 [History Last Taken Unknown] folic acid 400 mcg tablet 0.4 mg PO DAILY 01/20/21 [History Last Taken Unknown] omeprazole 20 mg capsule,delayed release 20 mg PO DAILY 03/13/21 [History Last Taken Unknown] levothyroxine 75 mcg PO DAILY 04/28/21 [History Last Taken Unknown] magnesium oxide 400 mg PO DAILY 04/28/21 [History Last Taken Unknown] atorvastatin 80 mg tablet 40 mg PO QHS 05/24/21 [History Last Taken Unknown] amlodipine 5 mg tablet 5 mg PO DAILY #30 tab 06/13/21 [Rx Last Taken Unknown] metoprolol tartrate 25 mg tablet 50 mg PO BID tab 06/29/21 [History Last Taken Unknown] Allergy/AdvReac Type Severity Reaction Status Date / Time No Known Allergies Allergy Verified 05/24/21 10:48 Family History Mother Cancer Brother CHF (congestive heart failure) Sister Diabetes Brother Diabetes Surgical History History of aortic valve replacement with bioprosthetic valve (~12/20/20) History of colonoscopy History of coronary artery bypass graft x 3 (~12/20/20) History of hand surgery History of orchiectomy History of skin graft Presence of stent in coronary artery (~03/2012) Status post Maze operation for atrial fibrillation (~01/20/21) Social History Smoking Status: Former smoker how long ago did patient quit smokin years ago alcohol intake: never substance use type: does not use caffeine: Yes Type: coffee Number of servings: 4 ROS ROS ED Review of Systems ROS Unobtainable: due to mental status EXAM Physical Exam Const Vital Signs: 06/29/21 18:07 06/29/21 18:12 06/29/21 18:19 Temperature 0 F L Temperature Source Temporal Pulse Rate 143 H 139 H 130 H Respiratory Rate 14 12 13 Blood Pressure 136/80 H 136/80 H 149/127 H Blood Pressure Mean 98 98 134 Pulse Ox 97 100 100 Oxygen Delivery Method Room Air Ambu-Bag Mechanical Ventilator Oxygen Flow Rate (L/min) 15 Fraction of Inspired Oxygen (FIO2) 06/29/21 18:55 Temperature Temperature Source Pulse Rate 125 H Respiratory Rate 13 Blood Pressure 141/113 H Blood Pressure Mean 122 Pulse Ox 100 Oxygen Delivery Method Mechanical Ventilator Oxygen Flow Rate (L/min) Fraction of Inspired Oxygen (FIO2) 35 Positive well nourished and well developed Constitutional Narrative: GCS is 8 General Appearance ED: well developed HEENT Negative for trauma Eyes Eyes Narrative: Pupils are unequal and reactive Neck General: Negative for tenderness Chest Wall inspection of chest normal Chest Narrative: Well-healed midline sternotomy scar Resp Resp Narrative: Snoring respirations but clear lung sounds bilaterally Cardio Rate: other Other Details: Tachycardic and irregular. 2+ radial pulses bilaterally symmetric. GI normal to inspection, nondistended, normoactive bowel sounds Neuro Neuro Narrative: GCS is 8. Patient's will flex to pain in the upper and lower extremities equally. He has asymmetric pupils. Skin Skin Narrative: Skin tear noted on the patient's left arm MDM MDM MDM Narrative Medical decision making narrative: Patient presented secondary to being unresponsive. Patient was noted to be not protecting his airway there was concern for intracranial hemorrhage, patient was given etomidate, rocuronium and was intubated as noted in the procedure note. Confirmation was performed with chest x-ray. CT imaging of the patient's brain demonstrates a large left-sided subdural hematoma with left to right shift. Patient was given mannitol. Patient's daughter who is present requested transfer to [facility]. I discussed this with her transfer line they will accept the patient. Patient was sedated with propofol. Patient is not on any sort of anticoagulation there is no indication for reversal. Patient will be transferred by ground as it is currently raining and rotary wing transport is unavailable. Lab Data Labs: Laboratory Results - last 24 hr 06/29/21 06/29/21 06/29/21 18:09 18:09 18:09 WBC 11.6 H RBC 4.72 Hgb 12.7 L Hct 38.9 L MCV 82.4 MCH 26.9 L MCHC 32.6 RDW Std Deviation 40.2 RDW Coeff of Walker 13.5 Plt Count 255 MPV 11.0 Immature Gran % (Auto) 0.300 Neut % (Auto) 75.9 H Lymph % (Auto) 17.0 L Toombs % (Auto) 5.5 Eos % (Auto) 0.9 Baso % (Auto) 0.4 Absolute Neuts (auto) 8.8 H Absolute Lymphs (auto) 1.98 Nucleated RBC % 0 PT 13.0 INR 1.0 APTT 30.4 Sodium 140 Potassium 3.9 Chloride 107 Carbon Dioxide 25.0 Anion Gap 8 BUN 25 H Creatinine 1.53 H Estim Creat Clear Calc 43.24 Est GFR (MDRD) Af Amer 58 L Est GFR (MDRD) Non-Af 48 L BUN/Creatinine Ratio 16.3 Glucose 140 H Calcium 9.1 Total Bilirubin 0.40 AST 29 ALT 38 Alkaline Phosphatase 178 H Total Protein 7.6 Albumin 3.1 L Globulin 4.5 H Albumin/Globulin Ratio 0.7 L Urine Color Urine Clarity Urine pH Ur Specific Lawson Urine Protein Urine Glucose (UA) Urine Ketones Urine Occult Blood Urine Nitrite Urine Bilirubin Urine Urobilinogen Ur Leukocyte Esterase 06/29/21 18:47 WBC RBC Hgb Hct MCV MCH MCHC RDW Std Deviation RDW Coeff of Walker Plt Count MPV Immature Gran % (Auto) Neut % (Auto) Lymph % (Auto) Toombs % (Auto) Eos % (Auto) Baso % (Auto) Absolute Neuts (auto) Absolute Lymphs (auto) Nucleated RBC % PT INR APTT Sodium Potassium Chloride Carbon Dioxide Anion Gap BUN Creatinine Estim Creat Clear Calc Est GFR (MDRD) Af Amer Est GFR (MDRD) Non-Af BUN/Creatinine Ratio Glucose Calcium Total Bilirubin AST ALT Alkaline Phosphatase Total Protein Albumin Globulin Albumin/Globulin Ratio Urine Color Yellow Urine Clarity Sl. Cloudy Urine pH 6.5 Ur Specific Lawson 1.020 Urine Protein 100 H Urine Glucose (UA) Normal Urine Ketones Negative Urine Occult Blood 25 H Urine Nitrite Negative Urine Bilirubin Negative Urine Urobilinogen Normal Ur Leukocyte Esterase 25 H Radiography Diagnostic Testing: Clinical Impression(s) from Imaging Studies Chest X-Ray 06/29/21 18:20 IMPRESSION: 1. Postoperative changes of interval sternotomy, vascular clips noted, prosthetic valve ring and atrial appendage clip also placed in the interval. 2. ET tube projects in normal position. 3. NG tube extends below the left hemidiaphragm, tip projects within the proximal stomach and the proximal port however projects slightly above the level of the GE junction. 4. No evidence of congestive failure or acute infiltrate. 5. Interval blunting of the right CP angle consistent with fluid versus pleural thickening. Electronically Signed: Dawit Martinez MD at 18:44 EST Tel , Service support , Procedures Intubations Intubation Method: orotracheal Intubation Verification: Positive color change Intubation Complications: no complications (Patient was premedicated with etomidate and rocuronium. [place] 4 blade was utilized. 7.5 ET tube was advanced to 23 cm at the lips. There was good color change and bilateral breath sounds.) Critical Care Time Critical Care Time: Yes Critical care time (excluding procedures): 30-74 minutes Discharge Plan Triage Chief Complaint: Unresponsive ED Provider: Ty Cruz Dx/Rx/DC Orders Clinical Impression: Acute subdural hematoma Prescriptions: No Action albuterol sulfate [ProAir HFA] 90 mcg/actuation HFA aerosol inhaler 2 puff INHALATION Q4H PRN (Reason: shortness of breath or wheezing) Qty: 1 RF: 6 nitroglycerin 0.4 mg tablet, sublingual 0.4 mg sublingual Q5-15M PRN (Reason: chest pain) Qty: 25 RF: 3 atorvastatin 80 mg tablet 40 mg PO QHS RF: 0 folic acid 400 mcg tablet 0.4 mg PO DAILY RF: 0 acetaminophen 325 mg tablet 650 mg PO Q4H PRN (Reason: Pain) RF: 0 alum-mag hydroxide-simeth [Maalox Advanced] 200-200-20 mg/5 mL suspension 30 ml PO DAILY PRN (Reason: Indigestion) RF: 0 cyanocobalamin (vitamin B-12) 1,000 mcg capsule 1,000 mcg PO QHS RF: 0 cholecalciferol (vitamin D3) 25 mcg (1,000 unit) tablet 25 mcg PO DAILY RF: 0 omeprazole 20 mg capsule,delayed release(DR/EC) 20 mg PO DAILY RF: 0 aspirin 81 MG tablet,chewable 81 mg PO DINNER RF: 0 levothyroxine 75 mcg tablet 75 mcg PO DAILY RF: 0 magnesium oxide 400 mg (241.3 mg magnesium) tablet 400 mg PO DAILY RF: 0 famotidine 20 mg tablet 20 mg PO BID RF: 0 sennosides [senna] 8.6 mg tablet 8.6 mg PO BID RF: 0 amlodipine 5 mg tablet 5 mg PO DAILY Qty: 30 RF: 12 metoprolol tartrate 25 mg tablet 50 mg PO BID RF: 0 Primary Care Provider: Yeison Maynard Referrals: Yeison Maynard MD [Primary Care Provider] - Disposition Disposition: Transfer to Another Type [facility]
[2021-06-29 19:07] LABS: Red Blood Cells-Urine 0-5 SEEN /hpf (0-5); Squamous Epithelial Cells - UA 0-5 SEEN /hpf (0-5); White Blood Cells 0-5 SEEN /hpf (0-5)
--- NOTE | 2021-06-29 19:34 | ED.RN ---
pharmacy called about delicia mcnair
== END 2021-06-29 20:41 | disposition other institution (70) ==
PROVIDERS: Emergency Provider Emergency Medicine; PCP Family Medicine
DX: S06.5X0A Traumatic subdural hemorrhage without loss of consciousness, initial encounter (principal); R40.2430 Glasgow coma scale score 3-8, unspecified time; I48.0 Paroxysmal atrial fibrillation; I11.0 Hypertensive heart disease with heart failure; I50.32 Chronic diastolic (congestive) heart failure; I25.10 Atherosclerotic heart disease of native coronary artery without angina pectoris; J44.9 Chronic obstructive pulmonary disease, unspecified; K21.9 Gastro-esophageal reflux disease without esophagitis; E78.5 Hyperlipidemia, unspecified; E03.9 Hypothyroidism, unspecified; Z79.51 Long term (current) use of inhaled steroids; Z79.899 Other long term (current) drug therapy; Z87.891 Personal history of nicotine dependence
CPT/HCPCS: 31500; 51702; 70450; 71045; 72125; 80053; 81001; 85025; 85610; 85730; 87426; 94002; 96365; 96368; 96375; 99251; 99285; J7030; J7050; A4216; G0463